=== PATIENT | male | born 1995 | race Caucasian/White ===

== ENCOUNTER 2023-02-26 12:44 | Outpatient (REF) | payer OTHER, MEDICARE, SELFPAY | END 2023-02-26 12:45 | disposition home or self-care (01) | LOC: LAB 12:44 | PROVIDERS: Visit Provider Internal Medicine Hematology & Oncology | DX: L08.9 Local infection of the skin and subcutaneous tissue, unspecified (principal) | CPT/HCPCS: 87070; 87150; 87186 ==

== ENCOUNTER 2024-02-29 21:55 | Emergency (ER) | payer OTHER, MEDICARE, SELFPAY ==
[2024-02-29] VITALS (16 sets, daily range): BP systolic 95–110; BP diastolic 73–81; PULSE 67–114; TEMP 36.4; O2SAT 79–100
--- NOTE | 2024-02-29 22:00 | ECG_ITS ---
The 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
--- NOTE | 2024-02-29 22:00 | PC.NURSE ---
Pt pulse ox began dropping from 99% down to 79% while nurses and Dr. Dumont at bedside Pt was belly breathing rapidly Non rebreather placed and pt stimulated by voice to which he began statting better After 15 minutes on nonrebreather pt was taken down to a nasal cannula which he has tolerated well Pt's left foot is cold to touch and pulse had to be dopplered Right foot is warm and mushy to touch
--- NOTE | 2024-02-29 22:01 | XR_ITS ---
The [address] [address] Patient Name: MILAD HYDE MRN: [id number] date: 1995 Sex: M Assigned Patient Location: ER Current Patient Location: ER Accession/Order Number: [id number] Exam Date: 02/29/2024 22:37 Report Date: 03/01/2024 00:48 At the request of: ROXANA SMITH Procedure: XR chest 1V EXAM: XR chest 1V HISTORY: Altered mental status COMPARISON: None. TECHNIQUE: Single frontal view of the chest FINDINGS: Mild elevation of the left hemidiaphragm. Adequately inflated right lung. No focal consolidation or evidence of pulmonary edema. No pneumothorax or pleural effusion. Curvilinear density overlying the left midlung, possibly overlying structure or chain sutures. No acute osseous abnormality. Posterior spinal fixation hardware, partially visualized. Air-filled bowel within the upper abdomen. XR/XR chest 1V IMPRESSION: 1. No acute cardiopulmonary findings. 2. Partially visualized air distended hollow viscus of the upper abdomen. Electronically authenticated by: LANEY ANDREW Date: 03/01/2024 00:48
--- NOTE | 2024-02-29 22:01 | CT_ITS ---
The [address] [address] Patient Name: MILAD HYDE MRN: [id number] date: 1995 Sex: M Assigned Patient Location: ER Current Patient Location: Accession/Order Number: [id number] Exam Date: 02/29/2024 22:37 Report Date: 02/29/2024 23:41 At the request of: ROXANA SMITH Procedure: CT head/brain wo con EXAMINATION: CT head/brain wo con HISTORY: Altered mental status patient had another CT with contrast in a different institution. COMPARISON: CT abdomen pelvis without contrast]. TECHNIQUE: CT head without intravenous contrast. Dose reduction techniques were achieved by using: automated exposure control and/or adjustment of mA and /or kV according to patient size and/or use of iterative reconstruction technique. FINDINGS: Degradation of image quality from motion artifact. No convincing acute intracranial hemorrhage. The intracranial arteries and veins are dense, including the cavernous sinuses. This is likely secondary to residual contrast. No hydrocephalus, midline shift, pathologic extra-axial fluid collections. Correlation with CT abdomen pelvis without contrast performed on the same time demonstrate that there is excreted contrast in the renal collecting system. CT/CT head/brain wo con IMPRESSION: 1. The intracranial arteries and veins are hyperdense. This is likely related to recent contrast administration at a different institution, per provided history. Venous sinus thrombosis may also demonstrate similar appearance, though is unlikely given that the arteries are also dense. If there remains further concern, CT venogram could be obtained. 2. Within constraints of exam from presence of intravascular contrast, there is no convincing acute intracranial hemorrhage or convincing acute intracranial process. Electronically authenticated by: SUDARSHAN LUJAN Date: 02/29/2024 23:41
--- OUTSIDE RECORDS SUMMARY | 2024-02-29 22:09 | XMS_ITS | CCD ---
Author Organization [facility] Care Team Providers Care Construction Sales Manager Name Role Phone NEAL GASTON Unavailable Unavailable NEAL GASTON Unavailable Unavailable SELF, REFERRED Unavailable Unavailable SELF, REFERRED Unavailable Unavailable ANÍBAL HOBSON Attending Unavailable ANÍBAL HOBSON Admitting Unavailable MISC, DR PERSAUD Primary Care Unavailable MISC, DR PERSAUD Primary Care Unavailable KATERIN, DR DAVIS Attending Unavailable KATERIN, DR DAVIS Admitting Unavailable MISC, DR PERSAUD Primary Care Unavailable BLANK, DR RUSS Consulting Unavailable BLANK, DR RUSS Attending Unavailable BLANK, DR RUSS Admitting Unavailable MISC, DR PERSAUD Primary Care Unavailable BLANK, DR RUSS Consulting Unavailable BLANK, DR RUSS Attending Unavailable BLANK, DR RUSS Admitting Unavailable MISC, DR PERSAUD Primary Care Unavailable BLANK, DR RUSS Consulting Unavailable BLANK, DR RUSS Attending Unavailable BLANK, DR RUSS Admitting Unavailable MISC, DR PERSAUD Primary Care Unavailable SMITH, DR SAM Germain Consulting Unavailable SMITH, DR SAM Germain Attending Unavailable SMITH, DR SAM Germain Admitting Unavailable MISC, DR PERSAUD Primary Care Unavailable PAY, DR PHILLIP Admitting Unavailable LUIS CARLOS ROWLEY Consulting Unavailable PAY, DR PHILLIP Attending Unavailable MD Sam Smith Attending Provider NO FAMILY, PHYSICIAN Primary Care Provider Unava ilable MARY Monzon Emergency Provider NO FAMILY, PHYSICIAN Primary Care Provider Unava ilMD Sam Vasquez Attending Provider [phone] MARY Guerra Emergency Provider DO Stan Fong Emergency Provider STAN WINSTON Attending Unavailable Vinnie OLIVERA, Kay Blake Primary Care Provider Renetta Dawson DO Unavailable Zoey Mireles Primary Care Physician Rupinder Barrera Unavailable Unavailable Almaz Matthew Unavailable Unavailable Kay Birmingham MD Primary Care Provider [phone] Renetta Dawson DO Unavailable NO FAMILY, PHYSICIAN Primary Care Provider Unava ilable MARY Monzon Emergency Provider MD Sam Smith Attending Provider MARY Guerra Emergency Provider DO Stan Fong Emergency Provider KAY [place] Primary Care Unavailable ROCHA, OBIE Referring Unavailable HANEY, ELI Admitting Unavailable PROVIDER, UNKNOWN Attending Unavailable KAY [place] Primary Care Unavailable ROCHA, OBIE Referring Unavailable HANEY, ELI Admitting Unavailable PROVIDER, UNKNOWN Attending Unavailable KAY [place] Primary Care Unavailable ROCHA, OBIE Referring Unavailable HANEY, ELI Admitting Unavailable PROVIDER, UNKNOWN Attending Unavailable PROVIDER, UNKNOWN Admitting Unavailable LAINEY DAWSONIE Referring Unavailable KAY [place] Primary Care Unavailable PROVIDER, UNKNOWN Attending Unavailable KAY [place] Primary Care Unavailable ROCHA, OBIE Referring Unavailable HANEY, ELI Admitting Unavailable PROVIDER, UNKNOWN Attending Unavailable KAY [place] Primary Care Unavailable ROCHA, OBIE Referring Unavailable HANEY, ELI Admitting Unavailable PROVIDER, UNKNOWN Attending Unavailable KAY [place] RPaddy Primary Care Unavailable ROCHA, OBIE Referring Unavailable HANEY, ELI Admitting Unavailable PROVIDER, UNKNOWN Attending Unavailable REQUEST, IP PHYSICAL THERAPY SERVICE Consulting Unavailable NICOLLE BROWN Attending Unavailable KAY [place] RPaddy Primary Care Unavailable ROCHA, OBIE Referring Unavailable HANEY, ELI Admitting Unavailable REQUEST, IP OCCUPATIONAL THERAPY SERVICE Consult ing Unavailable CONSULT, IP PAIN clinical specialist Unav ailable CONSULT, IP ENT Consulting Unavailable CONSULT, IP PODIATRY Consulting Unavailable CONSULT, IP SURGERY NEURO Consulting Unavai lable CONSULT, IP NEUROLOGY Consulting Unavailabl e CONSULT, IP PM Consulting Unavailable CONSULT, IP SURGERY GENERAL Consulting Unav ailable CONSULT, IP ORTHOPAEDICS GENERAL Consulting Unavailable CAL GARCIA. Consulting Unavailable IPCON, ADDICTION CONSULT Consulting Unavail able CONSULT, IP INFECTIOUS DISEASE Consulting U navailable MARTELLS, KAY R. Primary Care Unavailable ROCHA, OBIE Referring Unavailable HANEY, ELI Admitting Unavailable PROVIDER, UNKNOWN Attending Unavailable KUNS, KAY R. Primary Care Unavailable ROCHA, OBIE Referring Unavailable HANEY, ELI Admitting Unavailable PROVIDER, UNKNOWN Attending Unavailable KUNS, KYA R. Primary Care Unavailable ROCHA, OBIE Referring Unavailable HANEY, ELI Admitting Unavailable PROVIDER, UNKNOWN Attending Unavailable KLEMY, NICOLLE NADEEM Referring Unavailable KUNS, KAY R. Primary Care Unavailable PROVIDER, UNKNOWN Attending Unavailable PROVIDER, UNKNOWN Admitting Unavailable PROVIDER, UNKNOWN Admitting Unavailable KLOSZ, NICOLLE NADEEM Referring Unavailable KUNS, KAY R. Primary Care Unavailable PROVIDER, UNKNOWN Attending Unavailable PROVIDER, UNKNOWN Admitting Unavailable KUNS, KAY R. Primary Care Unavailable PROVIDER, UNKNOWN Attending Unavailable PROVIDER, UNKNOWN Admitting Unavailable KUNS, KAY R. Primary Care Unavailable ROCHA, OBIE Referring Unavailable HANEY, ELI Admitting Unavailable PROVIDER, UNKNOWN Attending Unavailable KUNS, KAY R. Primary Care Unavailable ROCHA, OBIE Referring Unavailable HANEY, ELI Admitting Unavailable PROVIDER, UNKNOWN Attending Unavailable KUNS, KAY R. Primary Care Unavailable ROCHA, OBIE Referring Unavailable HANEY, ELI Admitting Unavailable PROVIDER, UNKNOWN Attending Unavailable KUNS, KAY R. Primary Care Unavailable ROCHA, OBIE Referring Unavailable HANEY, ELI Admitting Unavailable PROVIDER, UNKNOWN Attending Unavailable NO FAMILY, PHYSICIAN Primary Care Provider Unava ilMD Sam Vasquez Attending Provider [phone] MD Edy Gallego Attending Provider [facility] Primary Care Provide r MD Edy Gallego Attending Provider [facility] Primary Care Provide r NO FAMILY, PHYSICIAN Primary Care Provider Unava ilMD Sam Vasquez Attending Provider [facility] Primary Care Provide r MD Scar Ann Attending Provider Adwoa Nascimento Unavailable VAL PARIS Primary Care Physician [phone] GLENN LAURA Attending Unavailable [facility] Provide r MD Sam Smith Attending Provider [phone] NO FAMILY, PHYSICIAN Primary Care Unavailable Luis, Sam Admitting Unavailable Smith, Sam Attending Unavailable [facility] Unav ailable LangenbergScar Admitting Unavailabl e Langenberg, Scar Grey Attending Unavailabl e Smith, Sam Admitting Unavailable Smith, Sam Attending Unavailable [facility] Unav ailable Smith, Sam Admitting Unavailable Smith, Sam Attending Unavailable [facility] Unav ailable Edy Gallego Admitting Unavailable BuseblereEdy goncalves Attending Unavailable [facility] Unav ailable Abbie Collier Attending Unavailable Dolce, Viet R Attending Unavailable Dolce, Viet R Admitting Unavailable Dolce, Viet R Attending Unavailable Karly MANCERA Attending Unavailable Priscilla Oseguera Admitting Unavailable Blank, Glenn S Consulting Unavailable BlankMel Glenn S Consulting Unavailable Blank, Glenn S Consulting Unavailable Blank, Glenn S Consulting Unavailable Blank, Glenn S Consulting Unavailable Blank, Glenn S Consulting Unavailable Blank, Glenn S Consulting Unavailable Blank, Glenn S Consulting Unavailable Blank, Glenn S Consulting Unavailable Blank, Glenn S Consulting Unavailable Dolce, Glenn Vargas Consulting Unavailable Dolce, Glenn Vagras Consulting Unavailable Dolce, Glenn Vargas Consulting Unavailable Dolce, Glenn Vargas Consulting Unavailable Dolce, Glenn Vargas Consulting Unavailable Dolce, Glenn Vargas Consulting Unavailable Dolce, Glenn Vargas Consulting Unavailable Dolce, Glenn Vargas Consulting Unavailable Dolce, Glenn Vargas Consulting Unavailable Dolce, Glenn Vargas Consulting Unavailable Dolce, Glenn Vargas Consulting Unavailable Dolce, Viet R Attending Unavailable Dolce, Viet R Attending Unavailable Dolce, Viet R Attending Unavailable Dolchina, Glenn Vargas Attending Unavailable DolGlenn atkinson Referring Unavailable Dolchina, Glenn Vargas Attending Unavailable Dolce, Viet R Attending Unavailable Dolce, Viet R Attending Unavailable Samson Shane Attending Unavailable Samson Shane Admitting Unavailable Allergies Allergy Classification Reported Allergen(s) Allergy Type Date of Onset Reaction(s) Facility Penicillins (antibiotic) (1 source) Penicillin; Translations: [penicillin] Drug Allergy Unknown (qualifier value) [facility] Sulfonamides (antibiotic) (1 source) Sulfonamides (Antibiotic); Translations: [sulfa drugs] Drug Allergy Unknown [facility] (12 sources) Penicillins; Translations: [PENICILLINS] Drug allergy (disorder) 03-09-20 15 [facility] (12 sources) Sulfonamides (Antibiotic); Translations: [SULFA (SULFONAMIDE ANTIBIOTICS)] Allergy to substance 03-09-20 15 [facility] (12 sources) tigecycline; Translations: [TIGECYCLINE] Drug Allergy 09-11-19 19 Vomiting [facility] (11 sources) Vancomycin; Translations: [vancomycin] Drug Allergy 09-18-19 22 Redness of Skin [facility] (17 sources) Penicillins Propensity to adverse reactions to drug 03-09-20 15 Swelling [facility] (18 sources) Sulfonamides (Antibiotic); Translations: [SULFA ANTIBIOTICS] Propensity to adverse reactions to drug 03-09-20 [facility] Penicillin; Translations: [penicillin] Drug Allergy Unknown (qualifier value) [facility] (13 sources) Sulfonamides (Antibiotic); Translations: [sulfa drugs] Drug allergy Unknown [facility] (1 source) Penicillins (Antibiotic) Propensity to adverse reactions Unknown [employer] Other (1 source) Sulfonamides (Antibiotic) Propensity to adverse reactions Unknown backstitch [facility] Other (1 source) Penicillins Drug allergy (disorder) 09-25-19 24 [facility] Rep[facility] Medications Current Medications Medication Drug Class(es) Dates Sig (Normalized) Sig (Original) acetaminophen 325 mg / oxyCODONE hydrochloride 5 mg oral tablet (18 sources) Opioid Agonist Start: 07-10-2023 End: 07-17-2023 Percocet 5 mg-325 mg oral tablet 1 tab(s), Oral, q6hr as needed for pain for 7 day(s), 20 tab(s), Refill(s) 0, [facility]/pharmacy #[id number], 172, cm, 07/06/23 19:06:00 EST, Height/Length Dosing, 61.3, kg, 07/07/23 9:40:00 EST, Weight Dosing Start Date: 07/10/23 Stop Date: 07/17/23 Status: Ordered Start: 02-18-2022 End: 02-19-2022 take 1 tablet by mouth every eight hours Oxycodone-Acetaminophen (Percocet) 5-325 mg tablet Discontinued 1 TAB PO Q8H 10 February 18, 2022 February 19, 2022 9:32am Start: 01-21-2022 End: 10-28-2022 take 1 tablet by mouth three times daily Oxycodone-Acetaminophen (Percocet) 5-325 mg tablet Discontinued 1 TAB PO Three times daily 01 11January 21, 2022 October 28, 2022 11:14am acetic acid 2.5 mg/ml irriga tion solution (20 sources) Start: 08-19-2017 acetic acid 0. 25 % irrigation Insert into the bladder 60 cc of acetic acid solution. Then Clamp the aiken catheter for 30 minutes then unclamp. Perform daily. 1000 mL 12 08/19/2017 Active Start: 08-19-2017 Start: 01-13-2017 End: 02-10-2017 Acetic Acid Discontinued Jan 11:00pm February 10, 2017 1:26pm Start: 01-13-2017 End: 02-10-2017 Acetic Acid Discontinued Jan 12:00am February 10, 2017 2:26pm ALPRAZolam 0.5 mg oral tablet (20 sources) Benzodiazepine Start: 07-07-2023 take 0.5 mg by mouth twice daily alprazolam 0.5 mg, Oral, BID, Refills(s) 0 Start Date: 07/07/23 Status: Ordered Start: 03-04-2022 End: 06-02-2023 take 1 tablet by mouth three times daily Alprazolam (Xanax) 1 mg Tablet Discontinued 1 MG PO Three times daily March 04, 2022 12:00am June 02, 2023 12:51pm Start: 03-20-2020 End: 09-19-2020 take 1 tablet by mouth every six hours Alprazolam (Xanax) 1 mg Tablet Discontinued 1 MG PO Q6H March 20, 2020 1:00am September 19, 2020 1:02pm Start: 05-24-2019 End: 10-04-2019 take 1 mg by mouth four times daily Alprazolam Discontinued 1 MG PO Four times daily May 24, 2019 1:00am October 04, 2019 9:37am Start: 05-26-2018 End: 11-16-2018 take 1 mg by mouth twice daily Alprazolam (Xanax) 2 mg Tablet Discontinued 1 MG PO Twice daily 0 September 30, 2018 11:15am November 16, 2018 10:16am Start: 10-06-2017 End: 04-04-2022 take 0.25 mg by mouth twice daily Alprazolam Discontinued 0.25 MG PO Twice daily February 17, 2021 12:00am July 09, 2021 12:15pm Start: 10-06-2017 End: 04-04-2022 take 1 tablet by mouth three times daily as needed for anxiety ALPRAZolam (XANAX) 0.25 MG tablet Indications: Anxiety Take 1 Tablet by mouth 3 times daily as needed for Anxiety. 30 Tablet 0 10/06/2017 04/04/2022 Discontinued Start: 01-13-2017 End: 02-10-2017 take 0.25 mg by mouth three times daily Alprazolam Discontinued 0.25 MG PO Three times daily January 13, 2017 12:00am February 10, 2017 2:25pm baclofen 20 mg oral tablet (20 sources) gamma-Aminobutyric Acid-ergic Agonist Start: 10-04-2019 take 1 tablet by mouth every six hours as needed for muscle spasms baclofen 20 mg Tab 20 mg = 1 tab(s), Oral, q6hr, PRN Spasm, Refills(s) 0 Start Date: 03/06/22 Status: Ordered Start: 08-19-2017 take 1 tablet by herrera th four times daily baclofen (LIORESAL) 10 MG tablet Take 1 Tablet by mouth 4 times daily. 90 Tablet 3 08/19/2017 Active Start: 01-13-2017 End: 10-04-2019 take 20 mg by mouth four times daily Baclofen Discontinued 20 MG PO Four times daily January 13, 2017 12:00am October 04, 2019 9:37am buprenorphine 8 mg / naloxone 2 mg sublingual film (20 sources) Partial Opioid Agonist, Opioid Antagonist Start: 03-19-2022 End: 04-18-2022 buprenorphine-naloxone (Suboxone) 8-2 MG FILM SL film Indications: Opioid use disorder Place 1 Film under the tongue 2 times daily for 14 days. 28 Each 0 04/03/2022 Active Start: 03-19-2022 End: 04-18-2022 Start: 03-20-2020 End: 10-30-2020 Buprenorphine-Naloxone Disco ntinued 1 FILM SUBLINGUAL Twice daily March 20, 2020 1:00am October 30, 2020 10:48am Suboxone Active ciprofloxacin 750 mg oral tablet (2 sources) Quinolone Antimicrobial Start: 07-10-2023 End: 07-24-2023 take 1 tablet by mouth every twelve hours ciprofloxacin 750 mg Tab 750 mg = 1 tab(s), Oral, q12hr, X 14 day(s), # 28 tab(s), Refills(s) 0, Pharmacy: [facility]/pharmacy #[id number], 172, cm, 07/06/23 19:06:00 EST, Height/Length Dosing, 61.3, kg, 07/07/23 9:40:00 EST, Weight Dosing Start Date: 07/10/23 Stop Date: 07/24/23 Status: Ordered docusate sodium 100 mg oral capsule (20 sources) Start: 08-19-2017 take 1 capsule by mouth twice daily docusate sodium (COLACE) 100 MG capsule Indications: Paraplegia (HCC) , Neurogenic bowel , Neurogenic bladder , Bilateral thoracic back pain , Right shoulder pain , Decubitus ulcer of sacral region, stage 4 (HCC) Take 1 Capsule by mouth 2 times daily. 60 Capsule 11 08/19/2017 Active Start: 01-13-2017 End: 10-04-2019 take 100 mg by mouth once daily Docusate Sodium Discontinued 100 MG PO Daily January 13, 2017 12:00am October 04, 2019 9:37am doxycycline hyclate 100 mg oral capsule (13 sources) Tetracycline-class Drug Start: 07-10-2023 End: 07-24-2023 take 1 capsule by mouth twice daily doxycycline hyclate 100 mg Cap 100 mg = 1 cap(s), Oral, BID, X 14 day(s), # 28 cap(s), Refills(s) 0, Pharmacy: [facility]/pharmacy #[id number], 172, cm, 07/06/23 19:06:00 EST, Height/Length Dosing, 61.3, kg, 07/07/23 9:40:00 EST, Weight Dosing Start Date: 07/10/23 Stop Date: 07/24/23 Status: Ordered Start: 04-03-2022 End: 05-04-2022 take 1 tablet by mouth twice daily doxycycline (VIBRA-TABS) 100 MG tablet Take 1 Tablet by mouth 2 times daily. 60 Tablet 0 04/03/2022 05/04/2022 Active Start: 04-02-2022 End: 04-03-2022 fluconazole 100 mg oral tablet (17 sources) Azole Antifungal Start: 09-30-2017 take 1 tablet by mouth once fluconazole (DIFLUCAN) 100 MG tablet TAKE 1 TABLET BY MOUTH EVERY THURSDAY 3 09/30/2017 Active Start: 09-30-2017 folic acid 1 mg oral tablet (11 sources) Start: 03-18-2022 End: 05-17-2022 take 1 tablet by mouth once daily folic acid 1 MG tablet Take 1 Tablet by mouth daily. 90 Tablet 3 04/03/2022 Active gabapentin 600 mg oral tablet (20 sources) Anti-epileptic Agent Start: 03-12-2022 take 600 mg by mouth three times daily 600 mg, Oral, 3 TIMES DAILY, First dose (after last modification) on Thu03/12/22 at 0900, Until Discontinued Start: 10-25-2019 End: 07-08-2022 take 1 tablet by mouth three times daily gabapentin 600 mg Tab 600 mg = 1 tab(s), Oral, TID, Refills(s) 0 Start Date: 03/06/22 Status: Ordered Start: 09-10-2018 End: 10-04-2019 take 600 mg by mouth three times daily Gabapentin Discontinued 600 MG PO Three times daily September 10, 2018 12:00am October 04, 2019 9:37am Start: 08-19-2017 take 2 capsules by m outh four times daily gabapentin (NEURONTIN) 400 MG capsule Take 2 Capsules by mouth 4 times daily. 120 Capsule 3 08/19/2017 Active Start: 01-13-2017 End: 09-10-2018 take 400 mg by mouth three times daily Gabapentin Discontinued 400 MG PO Three times daily January 13, 2017 12:00am September 10, 2018 1:03pm take 1 capsule by [facility] every six hours Gabapentin 400 MG 1 capsule Orally four times a day Active sodium hypochlorite 2.5 mg/m l topical solution (4 sources) Start: 08-25-2023 Sodium Hypochl orite (Dakin's Solution) 0.25 % solution Active 1 APPLIC TOPICAL Daily August 25, 2023 12:00am Start: 03-31-2023 End: 06-02-2023 Sodium Hypochlorite (Dakin's Solution) 0.125 % Solution Discontinued 1 APPLIC TOPICAL Daily March 31, 2023 1:00am June 02, 2023 12:51pm hypochlorous acid (VASHE) SOLN external solution (9 sources) Start: 04-03-2022 hypochlorous acid (VASHE) SOLN external solution Apply topically daily. 228 mL 3 04/03/2022 Active linezolid 600 mg oral tablet (1 source) Oxazolidinone Antibacterial Start: 08-31-2023 take 600 mg by mouth every twelve hours Linezolid Active 600 MG PO Every 12 hours August 31, 2023 12:00am melatonin 3 mg oral tablet (11 sources) Start: 04-02-2022 Start: 03-12-2022 melatonin 3 MG TABS tablet Take 1 and 1/2 Tablets by mouth at bedtime. 135 Tablet 3 04/02/2022 Active naloxone hydrochloride 40 mg/ml nasal spray (20 sources) Opioid Antagonist Start: 07-10-2023 Narcan 4 mg/ 0.1 mL nasal spray 4 mg, Nasal, As Directed, for suspected overdose symptoms, # 1 kit(s), Refills(s) 0, Pharmacy: [facility]/pharmacy #[id number], 172, cm, 07/06/23 19:06:00 EST, Height/Length Dosing, 61.3, kg, 07/07/23 9:40:00 EST, Weight Dosing Start Date: 07/10/23 Status: Ordered Start: 08-19-2017 naloxone 4 MG/ 0.1ML LIQD nasal liquid Indications: Opioid Overdose Instill 0.1 mL into one nostril (alternate sides) as needed for Other (Drug overdose, give and call 911). 1 Each 1 08/19/2017 Active polyethylene glycol 3350 05265 mg powder for oral solution (20 sources) Osmotic Laxative Start: 04-03-2021 Polyethylene Glycol 3350 (Miralax) 17 gram Powder In Packet Active 17 GM PO Daily April 03, 2021 1:00am Start: 03-20-2020 End: 09-19-2020 Polyethylene Glycol 3350 (Mi ralax) 17 gram/dose Powder Discontinued 17 GM PO Daily March 20, 2020 1:00am September 19, 2020 1:02pm Start: 05-24-2019 End: 10-04-2019 take 17 g by mouth once daily Polyethylene Glycol 3350 Discontinued 17 GM PO Daily May 24, 2019 1:00am October 04, 2019 9:37am QUEtiapine 25 mg oral tablet (5 sources) Atypical Antipsychotic Start: 10-28-2022 take 1 tablet by mouth once daily at bedtime Quetiapine (Seroquel) 25 mg Tablet Active 25 MG PO Daily at bedtime October 28, 2022 12:00am SEROquel Active Sennosides (Senokot) 8.6 mg Tablet (10 sources) Start: 04-03-2021 take 1 tablet by mouth twice daily Sennosides (Senokot) 8.6 mg Tablet Active 8.6 MG PO Twice daily April 03, 2021 12:00am Start: 04-03-2021 take 1 tablet by herrera th twice daily Sennosides (Senokot) 8.6 mg Tablet Active 8.6 MG PO Twice daily April 03, 2021 1:00am silver dressing (AQUACEL AG EXTRA) 4 X5 PADS (16 sources) Start: 08-19-2017 silver dressin g (AQUACEL AG EXTRA) 4 X5 PADS Apply 1 Each topically daily. 30 Each 3 08/19/2017 Active Start: 08-19-2017 silver dressin g (AQUACEL AG EXTRA) 4 X5 PADS Apply 1 Each topically daily. 30 Each 3 08/19/2017 Suspended sodium chloride 0.9 % SOLN 100 mL with meropenem 1 g SOLR 1,000 mg (7 sources) Start: 03-11-2022 End: 04-08-2022 sodium chloride 0.9 % SOLN 100 mL with meropenem 1 g SOLR 1,000 mg Inject 1,000 mg intravenously. 0 03/11/2022 04/08/2022 Active vitamin b12 0.5 mg oral tablet (11 sources) Vitamin B12 Start: 03-18-2022 End: 05-17-2022 take 2 tablets by mouth once daily vitamin B-12 (CYANOCOBALAMIN) 500 MCG tablet Take 2 Tablets by mouth daily. 180 Tablet 3 04/03/2022 Active (1 source) Start: 08-19-2017 (2 sources) Start: 04-03-2022 Start: 03-13-2022 apply 1 dose topical ly once daily Topical, DAILY, First dose on Thu03/13/22 at 0900, Until Discontinued Completed/Discontinued Medications Medication Drug Class(es) Dates Sig (Normalized) Sig (Original) acetaminophen 325 mg oral tablet (11 sources) Start: 03-12-2022 650 mg, Oral, EVERY 6 HOURS PRN, Starting on Thu03/12/22 at 0040, Until Discontinued, Mild Pain (pain score 1,2,3), Moderate Pain (pain score 4,5,6) Start: 02-10-2017 End: 10-04-2019 take 1 tablet by mouth every six hours Acetaminophen (Acetaminophen Extra Strength) 500 mg Tablet Discontinued 500 MG PO Every 6 hours February 10, 2017 12:00am October 04, 2019 9:37am [id number] 200 actuat albuterol 0.09 mg/actuat metered dose inhaler (10 sources) beta2-Adrenergic Agonist Start: 01-13-2017 End: 09-29-2018 take 1 puff(s) by inhalation every four to six hours Albuterol Sulfate (Proair Hfa) 90 mcg/actuation Hfa Aerosol Inhaler Discontinued 4 PUFF INHALATION EVERY 4-6 HOURS January 13, 2017 12:00am September 29, 2018 2:42pm Albuterol / Ipratropium (10 sources) Anticholinergic, beta2-Adrenergic Agonist Start: 01-13-2017 End: 04-13-2017 Albuterol-Ipratrop ium Discontinued Four times daily January 12, 2017 11:00pm April 13, 2017 7:23pm Start: 01-13-2017 End: 04-13-2017 Albuterol-Ipratropium Discon tinued Four times daily January 13, 2017 12:00am April 13, 2017 8:23pm ascorbic acid 500 mg chewable tablet (20 sources) Vitamin C Start: 03-12-2022 take 500 mg by mouth twice daily 500 mg, Oral, 2 TIMES DAILY, First dose on Thu03/12/22 at 1630, Until Discontinued Start: 08-19-2017 take 1 tablet by herrera th once daily vitamin C (ASCORBIC ACID) 500 MG tablet Take 1 Tablet by mouth daily. 30 Tablet 3 08/19/2017 Active Start: 04-13-2017 End: 01-20-2018 take 500 mg by mouth once daily Ascorbic Acid (Vitamin C) Discontinued 500 MG PO Daily April 13, 2017 1:00am January 20, 2018 6:23pm Start: 01-13-2017 End: 02-10-2017 take 500 mg by mouth once daily Ascorbic Acid (Vitamin C) Discontinued 500 MG PO Daily January 13, 2017 12:00am February 10, 2017 2:25pm avibactam 500 mg / cefTAZidime 2000 mg injection (10 sources) Cephalosporin Antibacterial, beta Lactamase Inhibitor Start: 03-08-2021 End: 04-09-2021 take 2.5 g intravenously every eight hours Ceftazidime-Avibactam (Avycaz) 2.5 gram Recon Soln Discontinued 2.5 GM IV Q8H 90 March 08, 2021 12:00am April 09, 2021 11:25am Balsam [place] [employer] (10 sources) Start: 09-21-2020 End: 10-30-2020 Balsam [place] [employer] Discontinued 1 APPLIC TOPICAL Three times daily 60 September 20, 2020 11:00pm October 30, 2020 9:48am Start: 09-21-2020 End: 10-30-2020 Balsam [place] [employer] Disco ntinued 1 APPLIC TOPICAL Three times daily 60 September 21, 2020 12:00am October 30, 2020 10:48am bisacodyl 5 mg delayed release oral tablet (20 sources) Stimulant Laxative Start: 02-26-2019 End: 10-04-2019 take 10 mg by mouth once daily Bisacodyl Discontinued 10 MG PO Daily February 26, 2019 12:00am October 04, 2019 9:37am Start: 01-13-2017 End: 05-26-2018 Bisacodyl Discontinued 10 MG WA Daily January 12, 2017 11:00pm May 26, 2018 2:54pm Start: 01-13-2017 End: 05-26-2018 Bisacodyl Discontinued 10 MG WA Daily January 13, 2017 12:00am May 26, 2018 3:54pm Bisacodyl 10 MG 1 suppository as needed Rectal Once a day Active buprenorphine 2 mg sublingual tablet (5 sources) Partial Opioid Agonist Start: 03-28-2022 take 4 mg under the tongue three times daily 4 mg, Sublingual, 3 TIMES DAILY, First dose (after last modification) on Thu03/28/22 at 0600, Until Discontinued Start: 03-27-2022 End: 03-27-2022 2 mg, Sublingual, 2 TIMES DA BOB, 2 doses, First dose on Thu03/27/22 at 1030, Last dose on Thu03/27/22 at 2100 Start: 03-20-2022 End: 03-20-2022 4 mg, Sublingual, 3 TIMES DA BOB, 3 doses, First dose on Thu03/20/22 at 0600, Last dose on Thu03/20/22 at 2200 Start: 03-19-2022 End: 03-19-2022 2 mg, Sublingual, 3 TIMES DA BOB, 3 doses, First dose on Thu03/19/22 at 0600, Last dose on Thu03/19/22 at 2200 Start: 03-18-2022 End: 03-18-2022 take 1 dose under the tongue once daily 2 mg, Sublingual, DAILY, 1 dose, First dose on Thu03/18/22 at 1500 busPIRone hydrochloride 10 mg oral tablet (20 sources) Start: 09-21-2020 End: 10-30-2020 take 10 mg by mouth three times daily Buspirone Discontinued 10 MG PO Three times daily 90 30 September 21, 2020 12:00am October 30, 2020 10:48am Start: 01-13-2017 End: 01-20-2018 take 10 mg by mouth twice daily Buspirone Discontinued 10 MG PO Twice daily January 13, 2017 12:00am January 20, 2018 6:24pm calcium chloride 0.0014 meq/ ml / potassium chloride 0.004 meq/ml / sodium chloride 0.103 meq/ml / sodium lactate 0.028 meq/ml injectable solution (2 sources) Start: 03-21-2022 End: 03-23-2022 Intravenous, at 125 mL/hr, CONTINUOUS, Starting on Thu03/21/22 at 2230, Until 03/23/22 at 1928 Start: 03-12-2022 End: 03-12-2022 take 1 dose intravenously every hour 1,000 mL, at 80 mL/hr, Intravenous, FLUID BOLUS, 1 dose, On Thu03/12/22 at 0300 calcium citrate 1500 mg / cholecalciferol 250 unt oral tablet (10 sources) Vitamin D Start: 03-25-2020 End: 09-19-2020 take 1 tablet by mouth twice daily Calcium Citrate-Vitamin D3 (Citracal + D Maximum) 315 mg-6.25 mcg (250 unit) tablet Discontinued 1 TAB PO Twice daily March 25, 2020 1:00am September 19, 2020 1:02pm cefTAZidime 1000 mg injection (3 sources) Cephalosporin Antibacterial Start: 03-17-2023 End: 04-07-2023 take 1 g intravenously every twelve hours Ceftazidime Discontinued 1 GM IV Q12H March 17, 2023 1:00am April 07, 2023 12:20pm cephalexin 500 mg oral capsule (10 sources) Cephalosporin Antibacterial Start: 01-20-2018 End: 04-20-2018 take 1 g by mouth every twelve hours Cephalexin (Keflex) 500 mg capsule Discontinued 1 GM PO Q12H January 20, 2018 12:00am April 20, 2018 11:20am space evenly during waking hours clindamycin 150 mg oral capsule (20 sources) Lincosamide Antibacterial Start: 04-09-2021 End: 07-09-2021 take 450 mg by mouth three times daily Clindamycin Hcl Discontinued 450 MG PO Three times daily April 09, 2021 1:00am July 09, 2021 12:15pm Start: 02-22-2021 End: 03-08-2021 take 3 capsules by mouth three times daily Clindamycin Hcl (Cleocin Hcl) 150 mg capsule Discontinued 450 MG PO Three times daily February 22, 2021 12:00am March 08, 2021 12:56pm DAPTOmycin 500 mg injection (10 sources) Lipopeptide Antibacterial Start: 04-05-2021 End: 04-09-2021 take 470 mg intravenously every twenty-four hours Daptomycin Discontinued 470 MG IV Q24H April 05, 2021 1:00am April 09, 2021 11:25am 1 ml dexamethasone phosphate 4 mg/ml injection (1 source) Corticosteroid Start: 03-14-2022 End: 03-16-2022 take 8 mg intravenously twice daily 8 mg, Intravenous Push, 2 TIMES DAILY, First dose on Thu03/14/22 at 1900, Until Discontinued 2 ml diazePAM 5 mg/ml prefilled syringe (2 sources) Benzodiazepine Start: 03-14-2022 End: 03-17-2022 take 1 dose intravenously once for anxiety 2 mg, Intravenous Push, ONCE PRN, 1 dose, Starting on Thu03/15/22 at 0913, Until Discontinued, Anxiety, Prior to MRI for severe anxiety diclofenac sodium 0.01 mg/mg topical gel (1 source) Nonsteroidal Anti-inflammatory Drug Start: 03-18-2022 2 g, Topical, 4 TIMES DAILY, First dose on Thu03/18/22 at 1300, Until Discontinued 1 ml diphenhydrAMINE hydrochloride 50 mg/ml cartridge (1 source) Histamine-1 Receptor Antagonist Start: 03-12-2022 take 25 mg intravenously every six hours as needed 25 mg, Intravenous Push, EVERY 6 HOURS PRN, Starting on Thu03/12/22 at 0311, Until Discontinued, antibiotic reaction Drug or medicament (substance) (11 sources) Start: 04-02-2022 take 1 dose by mouth once daily at dinner Oral, DAILY WITH DINNER, First dose on Thu04/02/22 at 1800, Until Discontinued Normal Consistency Supplement: Magic Cup-Vanilla Start: 04-02-2022 take 1 dose by mouth twice daily at mealtime Oral, 2 TIMES DAILY WITH MEALS, First dose (after last modification) on Thu04/02/22 at 1700, Until Discontinued Normal Consistency Supplement: Boost Plus- Chocolate Start: 04-02-2022 take 1 dose by mouth once daily at lunch Oral, DAILY WITH LUNCH, First dose on Thu04/02/22 at 1200, Until Discontinued Normal Consistency Supplement: Boost Plus- Vanilla Start: 04-02-2022 End: 04-02-2022 Other, ONCE, 1 dose, On Thu04/02/22 at 0100 Start: 03-26-2022 End: 03-26-2022 Other, ONCE, 1 dose, On Thu03/26/22 at 0200 Start: 03-19-2022 End: 03-19-2022 Other, ONCE, 1 dose, On Thu03/19/22 at 1000 Start: 03-15-2022 End: 03-15-2022 Other, ONCE, 1 dose, On 03/15/22 at 1130 Start: 03-13-2022 End: 03-13-2022 Other, ONCE, 1 dose, On Allie 03/13/22 at 0400 Start: 03-12-2022 End: 04-02-2022 take 1 dose by mouth three times daily at mealtime Oral, 3 TIMES DAILY WITH MEALS, First dose on Thu03/12/22 at 1700, Until Discontinued Normal Consistency Supplement: Boost Plus- Chocolate Start: 03-12-2022 1 Each, Topica l, EVERY OTHER DAY, First dose on Thu03/12/22 at 1330, Until Discontinued Start: 03-11-2022 End: 04-08-2022 DULoxetine 20 mg delayed release oral capsule (20 sources) Serotonin and Norepinephrine Reuptake Inhibitor Start: 05-24-2019 End: 10-04-2019 take 1 capsule by mouth once daily Duloxetine (Cymbalta) 20 mg Capsule,Delayed Release(Dr/Ec) Discontinued 20 MG PO Daily May 24, 2019 1:00am October 04, 2019 9:37am Start: 04-05-2019 End: 05-24-2019 take 30 mg by mouth once daily Duloxetine Discontinued 30 MG PO Daily April 05, 2019 1:00am May 24, 2019 11:47am Start: 04-13-2017 End: 01-20-2018 take 2 capsules by mouth at bedtime Duloxetine (Cymbalta) 30 mg Capsule,Delayed Release(Dr/Ec) Discontinued 60 MG PO Bedtime April 13, 2017 1:00am January 20, 2018 6:24pm ergocalciferol 1.25 mg oral capsule (10 sources) Provitamin D2 Compound Start: 03-25-2020 End: 09-19-2020 take 94505 [IU] by mouth every week Ergocalciferol (Vitamin D2) Discontinued 22613 UNIT PO every week 60 March 25, 2020 1:00am September 19, 2020 1:02pm ertapenem 1000 mg injection (10 sources) Penem Antibacterial Start: 06-10-2017 End: 01-20-2018 take 1 g intravenously once daily Ertapenem (Invanz) 1 gram Recon Soln Discontinued 1 GM IV Daily June 10, 2017 1:00am January 20, 2018 6:24pm x6 weeks. Orders sent to care facility. escitalopram 20 mg oral tablet (20 sources) Serotonin Reuptake Inhibitor Start: 05-24-2019 End: 10-04-2019 take 20 mg by mouth once daily Escitalopram Oxalate Discontinued 20 MG PO Daily May 24, 2019 1:00am October 04, 2019 9:37am Start: 08-19-2017 take 1 tablet by herrera th once daily escitalopram (LEXAPRO) 10 MG tablet Take 1 Tablet by mouth daily. 30 Tablet 3 08/19/2017 Active Start: 01-13-2017 End: 04-05-2019 take 2 tablets by mouth once daily Escitalopram Oxalate (Lexapro) 10 mg Tablet Discontinued 20 MG PO Daily January 13, 2017 12:00am April 05, 2019 12:07pm 2 ml fentaNYL 0.05 mg/ml injection (11 sources) Opioid Agonist Start: 03-21-2022 End: 03-22-2022 25 mcg, Intravenous Push, EVERY 5 MIN PRN, 5 doses, Starting on 03/21/22 at 2215, Until 03/22/22 at 0144, Severe Pain (pain score 7,8,9,10) Start: 01-13-2017 End: 02-10-2017 Fentanyl Patch Discontinued January 12, 2017 11:00pm February 10, 2017 1:25pm Start: 01-13-2017 End: 02-10-2017 Fentanyl Patch Discontinued January 13, 2017 12:00am February 10, 2017 2:25pm ferrous sulfate 325 mg oral tablet (10 sources) Start: 04-13-2017 End: 01-20-2018 take 325 mg by mouth once daily Ferrous Sulfate Discontinued 325 MG PO Daily April 13, 2017 1:00am January 20, 2018 6:24pm Gadoterate Meglumine (DOTAREM) 10 MMOL/20ML solution (1 source) Start: 03-26-2022 End: 03-26-2022 Gadoterate Meglumine (DOTAREM) 10 MMOL/20ML solution 1 ml heparin sodium, porcine 5000 unt/ml prefilled syringe (12 sources) Unfractionated Heparin, Anti-coagulant Start: 03-22-2022 inject 5000 [IU] by subcutaneous injection every eight hours 5,000 Units, Subcutaneous, EVERY 8 HOURS, First dose on Thu03/22/22 at 1400, Until Discontinued Start: 03-12-2022 End: 03-21-2022 inject 5000 [IU] by subcutaneous injection twice daily 5,000 Units, Subcutaneous, 2 TIMES DAILY, First dose on Thu03/12/22 at 0100, Until Discontinued Start: 01-13-2017 End: 02-10-2017 inject 5000 [IU] by subcutaneous injection every eight hours Heparin (Porcine) Discontinued 5000 UNIT SUBCUT Q8H January 13, 2017 12:00am February 10, 2017 2:24pm hydroCHLOROthiazide 12.5 mg oral tablet (20 sources) Thiazide Diuretic Start: 03-20-2020 End: 03-25-2020 take 12.5 mg by mouth once daily Hydrochlorothiazide Discontinued 12.5 MG PO Daily March 20, 2020 1:00am March 25, 2020 12:20pm Start: 05-24-2019 End: 10-04-2019 take 12.5 mg by mouth once daily Hydrochlorothiazide Discontinued 12.5 MG PO Daily May 24, 2019 1:00am October 04, 2019 9:37am Start: 02-26-2019 End: 04-02-2019 take 12.5 mg by mouth once daily Hydrochlorothiazide Discontinued 12.5 MG PO Daily February 26, 2019 12:00am April 02, 2019 7:21pm hydrOXYzine pamoate 50 mg oral capsule (10 sources) Antihistamine Start: 05-24-2019 End: 10-04-2019 take 50 mg by mouth every six hours Hydroxyzine Pamoate Discontinued 50 MG PO Q6H May 24, 2019 1:00am October 04, 2019 9:37am ibuprofen 400 mg oral tablet (20 sources) Nonsteroidal Anti-inflammatory Drug Start: 08-19-2017 End: 04-04-2022 take 1 tablet by mouth every six hours as needed ibuprofen (MOTRIN) 400 MG tablet Take 1 Tablet by mouth every 6 hours as needed. 30 Tablet 3 08/19/2017 04/04/2022 Discontinued Start: 04-13-2017 End: 10-04-2019 take 800 mg by mouth every eight hours Ibuprofen Discontinued 800 MG PO Q8H April 13, 2017 1:00am October 04, 2019 9:37am iohexol (OMNIPAQUE) 350 MG/ML injection (1 source) Start: 03-16-2022 End: 03-16-2022 iohexol (OMNIPAQUE) 350 MG/ML injection lactulose 667 mg/ml oral solution (10 sources) Osmotic Laxative Start: 04-13-2017 End: 01-20-2018 take 1 mL by mouth twice daily Lactulose Discontinued 30 ML PO Twice daily April 13, 2017 1:00am January 20, 2018 6:24pm levoFLOXacin 750 mg oral tablet (20 sources) Quinolone Antimicrobial Start: 09-21-2020 End: 10-30-2020 take 750 mg by mouth once daily Levofloxacin Discontinued 750 MG PO Daily 05 11September 21, 2020 12:00am October 30, 2020 10:46am linaclotide 0.29 mg oral capsule (20 sources) Guanylate Cyclase-C Agonist Start: 04-13-2017 End: 05-26-2018 take 1 capsule by mouth once daily Linaclotide (Linzess) 290 mcg Capsule Discontinued 290 MCG PO Daily April 13, 2017 1:00am May 26, 2018 3:54pm LORazepam 0.5 mg oral tablet (3 sources) Benzodiazepine Start: 03-27-2022 End: 03-27-2022 take 1 dose by mouth once 1 mg, Oral, ONCE, 1 dose, On Allie 03/27/22 at 2130 Start: 03-26-2022 End: 03-26-2022 take 1 dose by mouth once 1 mg, Oral, ONCE, 1 dose, On Thu03/26/22 at 0300 Start: 03-13-2022 End: 03-13-2022 take 1 dose by mouth once 1 mg, Oral, Once, 1 dose, On Allie 03/13/22 at 1200 magnesium hydroxide 80 mg/ml oral suspension (10 sources) Start: 04-13-2017 End: 02-09-2018 take 1 mL by mouth every six hours Magnesium Hydroxide (Milk Of Magnesia) 400 mg/5 mL Suspension Discontinued 30 ML PO Q6H April 13, 2017 1:00am February 09, 2018 10:33am 50 ml magnesium sulfate 40 mg/ml injection (3 sources) Start: 03-23-2022 End: 03-23-2022 2 g (2,000 mg), Intravenous, ONCE, 1 dose, On 03/23/22 at 0630 Start: 03-20-2022 End: 03-20-2022 1,000 mg, Intravenous, ONCE, 1 dose, On Allie 03/20/22 at 0700 Start: 03-18-2022 End: 03-18-2022 2 g (2,000 mg), Intravenous, ONCE, 1 dose, On 03/18/22 at 0700 mecobalamin (10 sources) Start: 03-25-2020 End: 09-19-2020 take 1 tablet by mouth once daily Mecobalamin (Vitamin B12) (B12 Active) 1,000 mcg tablet,chewable Discontinued 1000 MCG PO Daily March 25, 2020 12:00am September 19, 2020 12:02pm Start: 03-25-2020 End: 09-19-2020 take 1 tablet by mouth once daily Mecobalamin (Vitamin B12) (B12 Active) 1,000 mcg tablet,chewable Discontinued 1000 MCG PO Daily March 25, 2020 1:00am September 19, 2020 1:02pm meropenem 1000 mg injection (11 sources) Penem Antibacterial Start: 03-12-2022 End: 04-02-2022 1,000 mg, Intravenous, EVERY 8 HOURS ANTIBIOTIC, First dose on Thu03/12/22 at 1900, Until Discontinued Start: 04-13-2017 End: 06-04-2017 take 1250 mg intravenously every twenty-four hours Meropenem Discontinued 1250 MG IV Q24H April 13, 2017 1:00am June 04, 2017 11:37am methadone hydrochloride 10 mg oral tablet (20 sources) Opioid Agonist Start: 10-01-2017 End: 04-04-2022 take 20 mg by mouth twice daily Methadone Discontinued 20 MG PO Twice daily 0 September 30, 2018 11:15am November 16, 2018 10:16am Start: 10-01-2017 End: 04-04-2022 take 2 tablets by mouth twice daily methadone (DOLOPHINE) 10 MG tablet Take 20 mg by mouth 2 times daily. 0 10/01/2017 04/04/2022 Discontinued Start: 01-13-2017 End: 09-10-2018 take 10 mg by mouth twice daily Methadone Discontinued 10 MG PO Twice daily January 13, 2017 12:00September 10, 2018 1:04pm 100 ml metroNIDAZOLE 5 mg/ml injection (1 source) Nitroimidazole Antimicrobial Start: 03-12-2022 End: 03-12-2022 500 mg, Intravenous, EVERY 8 HOURS ANTIBIOTIC, First dose on Thu03/12/22 at 0330, Until Discontinued, at 100 mL/hr micafungin sodium 100 mg injection (10 sources) Echinocandin Antifungal Start: 04-05-2021 End: 04-09-2021 take 100 mg intravenously every twenty-four hours Micafungin (Mycamine) 100 mg Recon Soln Discontinued 100 MG IV Q24H April 05, 2021 1:00am April 09, 2021 11:25am minocycline 100 mg oral capsule (20 sources) Tetracycline-class Drug Start: 08-31-2017 End: 04-04-2022 take 100 mg by mouth once daily Minocycline Discontinued 100 MG PO Daily April 20, 2018 1:00am February 15, 2019 10:39am Start: 08-31-2017 End: 04-04-2022 take 100 mg by mouth twice daily Minocycline Discontinued 100 MG PO Twice daily February 26, 2019 12:00am May 24, 2019 11:47am 1 ml morphine sulfate 2 mg/ml prefilled syringe (1 source) Opioid Agonist Start: 07-08-2023 End: 07-10-2023 inject 4 mg intravenously every four hours as needed for pain morphine 2 mg/mL Inj 4 mg = 2 mL, Injection, IV Push, q4hr PRN Pain for 5 day(s), Stop date 07/10/23 8:01:31 PM EST, Routine, Start date 07/08/23 11:20:00 AM EST, 07/08/23 11:20:00 EST Start Date: 07/08/23 Stop Date: 07/10/23 Status: Discontinued Multivitamin With Minerals (10 sources) Start: 03-25-2020 End: 09-19-2020 take 1 capsule by mouth once daily Multivitamin With Minerals Discontinued 1 CAP PO Daily March 25, 2020 12:00am September 19, 2020 12:02pm Start: 03-25-2020 End: 09-19-2020 take 1 capsule by mouth once daily Multivitamin With Minerals Discontinued 1 CAP PO Daily March 25, 2020 1:00am September 19, 2020 1:02pm naloxegol 12.5 mg oral tablet (10 sources) Opioid Antagonist Start: 05-26-2018 End: 11-16-2018 take 1 tablet by mouth once daily in the morning Naloxegol (Movantik) 12.5 mg Tablet Discontinued 12.5 MG PO Every morning May 26, 2018 1:00am November 16, 2018 10:17am nicotine 2 mg chewing gum (20 sources) Cholinergic Nicotinic Agonist Start: 09-21-2020 End: 10-30-2020 Nicotine (Polacrilex) Discontinued 2 MG BUCCAL Q2H 60 September 21, 2020 12:00am October 30, 2020 10:46am Start: 04-05-2019 End: 05-24-2019 Nicotine Discontinued 1 EACH TRANSDERML Daily April 05, 2019 1:00am May 24, 2019 11:47am nitrofurantoin, macrocrystals 25 mg / nitrofurantoin, monohydrate 75 mg oral capsule (16 sources) Nitrofuran Antibacterial Start: 03-04-2022 End: 08-05-2022 take 1 capsule by mouth twice daily at mealtime Nitrofurantoin Monohyd/M-Cryst (Macrobid) 100 mg capsule Discontinued 100 MG PO Twice daily 14 March 04, 2022 12:00am August 05, 2022 10:51am must administer with a meal/food Start: 11-16-2018 End: 02-15-2019 take 1 capsule by mouth twice daily Nitrofurantoin Monohyd/M-Cryst (Macrobid) 100 mg Capsule Discontinued 100 MG PO Twice daily November 16, 2018 12:00am February 15, 2019 10:39am Started first dose 11/15/18. nystatin 696809 unt/ml oral suspension (10 sources) Polyene Antifungal Start: 02-17-2021 End: 03-03-2021 take 145319 [IU] by mouth four times daily Nystatin Discontinued 990537 UNIT PO Four times daily February 17, 2021 12:00am March 03, 2021 2:52pm 2 ml ondansetron 2 mg/ml injection (11 sources) Serotonin-3 Receptor Antagonist Start: 03-27-2022 take 4 mg intravenously every four hours as needed 4 mg, Intravenous Push, EVERY 4 HOURS PRN, Starting on Allie 03/27/22 at 1043, Until Discontinued, Nausea Start: 06-29-2018 End: 11-16-2018 Ondansetron Discontinued 4 M G PO every 6 to 8 hours June 29, 2018 1:00am November 16, 2018 10:17am 24 hr oxybutynin chloride 10 mg extended release oral tablet (10 sources) Cholinergic Muscarinic Antagonist Start: 11-16-2018 End: 05-24-2019 take 15 mg by mouth once daily Oxybutynin Chloride Discontinued 15 MG PO Daily November 16, 2018 12:00am May 24, 2019 11:47am oxyCODONE hydrochloride 5 mg oral tablet (20 sources) Opioid Agonist Start: 03-12-2022 5 mg, Oral, EV LOYDA 4 HOURS PRN, Starting on Thu03/12/22 at 0252, Until Discontinued, Severe Pain (pain score 7,8,9,10) Start: 02-22-2021 End: 03-26-2021 take 5 mg by mouth every six hours Oxycodone Discontinued 5 MG PO Q6H 27 09March 08, 2021 March 26, 2021 10:56am Start: 05-24-2019 End: 10-04-2019 take 1 tablet by mouth every four to six hours Oxycodone (Roxicodone) 15 mg Tablet Discontinued 15 MG PO EVERY 4-6 HOURS May 24, 2019 1:00am October 04, 2019 9:37am Start: 10-01-2017 End: 11-16-2018 take 15 mg by mouth every six hours Oxycodone Discontinued 15 MG PO Every 6 hours 0 September 30, 2018 11:15am November 16, 2018 10:17am Start: 10-01-2017 End: 10-04-2019 take 1 tablet by mouth every four to six hours Oxycodone (Roxicodone) 15 mg Tablet Discontinued 15 MG PO EVERY 4-6 HOURS May 24, 2019 12:00am October 04, 2019 8:37am Start: 01-13-2017 End: 09-10-2018 take 15 mg by mouth every six hours as needed Oxycodone Discontinued 15 MG PO Q6H January 13, 2017 12:00am September 10, 2018 1:02pm 10-15mg Q6H prn pantoprazole 40 mg oral granules (10 sources) Proton Pump Inhibitor Start: 05-24-2019 End: 10-04-2019 take 40 mg by mouth once daily Pantoprazole (Protonix) [address] For Susp In Packet Discontinued 40 MG PO Daily May 24, 2019 1:00am October 04, 2019 9:37am polysaccharide iron complex 150 mg oral capsule (10 sources) Start: 03-25-2020 End: 09-19-2020 Polysaccharide Iron Complex Discontinued 150 MG PO Every 48 hours March 25, 2020 1:00am September 19, 2020 1:02pm potassium chloride 20 meq extended release oral tablet (17 sources) Start: 03-04-2022 End: 06-02-2023 take 20 mEq by mouth once daily Potassium Chloride Discontinued 20 MEQ PO Daily March 04, 2022 12:00am June 02, 2023 12:51pm Start: 07-01-2018 End: 07-06-2018 take 10 mEq by mouth once daily Potassium Chloride Discontinued 10 MEQ PO Daily 5 July 01, 2018 1:00am July 06, 2018 1:02am pregabalin 75 mg oral capsule (20 sources) Start: 08-17-2018 End: 09-16-2018 take 1 capsule by mouth twice daily Pregabalin (Lyrica) 75 mg capsule Discontinued 75 MG PO Twice daily 60 August 17, 2018 12:00am September 16, 2018 12:01am Start: 01-13-2017 End: 02-10-2017 take 75 mg by mouth twice daily Pregabalin Discontinued 75 MG PO Twice daily January 13, 2017 12:00am February 10, 2017 2:23pm promethazine hydrochloride 12.5 mg oral tablet (20 sources) Phenothiazine Start: 11-03-2019 End: 03-20-2020 take 12.5 mg by mouth every six hours Promethazine Discontinued 12.5 MG PO Q6H November 03, 2019 12:00am March 20, 2020 1:39pm Start: 01-13-2017 End: 05-24-2019 take 12.5 mg by mouth every six hours Promethazine Discontinued 12.5 MG PO Q6H January 13, 2017 12:00am May 24, 2019 11:47am Phenergan Active Sennosides (Senna) 8.6 mg Capsule (10 sources) Start: 03-20-2020 End: 09-19-2020 take 2 capsules by mouth once daily Sennosides (Senna) 8.6 mg Capsule Discontinued 17.2 MG PO Daily March 20, 2020 12:00am September 19, 2020 12:02pm Start: 03-20-2020 End: 09-19-2020 take 2 capsules by mouth once daily Sennosides (Senna) 8.6 mg Capsule Discontinued 17.2 MG PO Daily March 20, 2020 1:00am September 19, 2020 1:02pm sennosides, long term 8.6 mg oral tablet (20 sources) Start: 03-12-2022 take 8.6 mg by mouth at bedtime 8.6 mg, Oral, AT BEDTIME, First dose on Thu03/12/22 at 0100, Until Discontinued Start: 08-19-2017 End: 10-04-2019 take 1 tablet by mouth twice daily Sennosides (Senokot) 8.6 mg Tablet Discontinued 8.6 MG PO Twice daily April 02, 2019 1:00am October 04, 2019 9:37am Start: 01-13-2017 End: 05-26-2018 take 1 tablet by mouth once daily Sennosides (Senna) 8.6 mg Tablet Discontinued 8.6 MG PO Daily January 13, 2017 12:00am May 26, 2018 3:56pm sulfamethoxazole 800 mg / trimethoprim 160 mg oral tablet (5 sources) Dihydrofolate Reductase Inhibitor Antibacterial, Sulfonamide Antimicrobial Start: 03-09-2022 End: 04-29-2022 take 1 tablet by mouth twice daily Sulfamethoxazole-Trimethoprim (Bactrim Ds) 800-160 mg Tablet Discontinued 1 TAB PO Twice daily 14 March 09, 2022 12:00am April 29, 2022 12:17pm tigecycline 50 mg injection (10 sources) Tetracycline-cl ass Antibacterial Start: 06-04-2017 End: 06-10-2017 take 50 mg intravenousl y every twelve hours Tigecycline (Tygacil) 50 mg Recon Soln Discontinued 50 MG IV Q12H June 04, 2017 1:00am June 10, 2017 1:46pm Ordered per Dr. Smith x6 weeks. Orders called and faxed to facility. tiZANidine 2 mg oral tablet (20 sources) Central alpha-2 Adrenergic Agonist Start: 08-19-2017 End: 05-24-2019 take 2 mg by mouth twice daily Tizanidine Discontinued 2 MG PO Twice daily February 26, 2019 12:00am May 24, 2019 11:47am Start: 08-19-2017 take 1 tablet by herrera th every eight hours as needed tizanidine (ZANAFLEX) 2 MG tablet Take 1 Tablet by mouth every 8 hours as needed (muscle cramps). 90 Tablet 3 08/19/2017 Active Start: 01-13-2017 End: 05-26-2018 take 2 mg by mouth every eight hours Tizanidine Discontinued 2 MG PO Q8H January 13, 2017 12:00am May 26, 2018 3:56pm traZODone hydrochloride 50 mg oral tablet (20 sources) Serotonin Reuptake Inhibitor Start: 02-26-2019 End: 10-04-2019 take 150 mg by mouth once daily at bedtime Trazodone Discontinued 150 MG PO Daily at bedtime February 26, 2019 5:00pm October 04, 2019 9:37am Start: 11-16-2018 End: 02-26-2019 take 25 mg by mouth once daily at bedtime Trazodone Discontinued 25 MG PO Daily at bedtime 02 17November 16, 2018 12:00am February 26, 2019 5:01pm vancomycin 1000 mg injection (20 sources) Glycopeptide Antibacterial Start: 03-12-2022 End: 04-02-2022 1,000 mg, Intravenous, EVERY 8 HOURS, First dose (after last reorder) on Thu03/12/22 at 1200, Until Discontinued Start: 03-12-2022 End: 03-12-2022 1,000 mg, Intravenous, ONCE, 1 dose, On Thu03/12/22 at 0330 Start: 03-11-2022 End: 04-08-2022 inject 200 mL intravenously every eight hours vancomycin in iso-osmotic dextrose 200 mL (VANCOCIN) 1,000 mg SOLN IVPB Inject 200 mL intravenously every 8 hours. 4000 mL 0 03/11/2022 04/04/2022 Discontinued Start: 03-11-2022 End: 04-04-2022 Start: 03-10-2017 End: 06-04-2017 take 1 g intravenously every eight hours Vancomycin Discontinued 1 GM IV Every 8 hours March 10, 2017 12:00am June 04, 2017 11:34am 2 different IV doses on transfer sheet? Vancomycin In 0.9 % Sodium C hl (10 sources) Start: 02-10-2017 End: 02-12-2017 Vancomycin In 0.9 % Sodium C hl Discontinued 1.25 GM IV Q12H 1000 February 09, 2017 11:00pm February 11, 2017 11:03pm Start: 02-10-2017 End: 02-12-2017 Vancomycin In 0.9 % Sodium C hl Discontinued 1.25 GM IV Q12H 1000 February 10, 2017 12:00am February 12, 2017 12:03am zinc sulfate 220 mg oral capsule (1 source) Start: 03-12-2022 End: 04-01-2022 220 mg, Oral, DAILY, 21 doses, First dose on Thu03/12/22 at 1630, Last dose on Thu04/01/22 at 0900 (1 source) Start: 03-12-2022 take 1 tablet by herrera th once daily 1 Tablet, Oral, DAILY, First dose on Thu03/12/22 at 1630, Until Discontinued (1 source) Start: 03-12-2022 apply 1 dose topical ly once daily Topical, DAILY, First dose on Thu03/12/22 at 1330, Until Discontinued (2 sources) Start: 04-02-2022 End: 04-02-2022 take 1 dose intravenously once 75 mL, Intravenous Push, Once at Radiology exam, 1 dose, Starting on Thu04/02/22 at 1138, Until Thu04/02/22 at 1147, Imaging Protocol Orders Start: 03-14-2022 End: 03-14-2022 take 1 dose intravenously once 75 mL, Intravenous Push , Once at Radiology exam, 1 dose, Starting on Thu03/14/22 at 1608, Until Thu03/14/22 at 1608, Imaging Protocol Orders Problems Active Problems Problem Classification Problem Date Documented Da te Episodic/Chronic Abdominal pain (20 sources) Lower abdominal pain; Translations: [Lower abdominal pain, unspecified] 07-05-2019 Episodic Administrative/social admission (10 sources) Impaired mobility; Translations: [Other reduced mobility] 03-20-2020 Episodic Anxiety disorders (20 sources) Anxiety; Translations: [Anxiety disorder, unspecified] 04-05-2021 Chronic Bacterial infection; unspecified site (20 sources) Streptococcal infectious disease; Translations: [Streptococcus, group A, as the cause of diseases classified elsewhere] 02-18-2021 Episodic Cardiac dysrhythmias (10 sources) Tachycardia; Translations: [Tachycardia, unspecified] 04-01-2021 Episodic Chronic ulcer of skin (20 sources) Pressure ulcer of right buttock, stage 4; Translations: [Pressure ulcer of left buttock, stage 4] Onset: 04-26-2015 Chronic Complications of surgical procedures or medical care (10 sources) Infection of vascular catheter; Translations: [Unspecified infection due to central venous catheter, initial encounter] 04-02-2021 Episodic Fever of unknown origin (20 sources) Fever; Translations: [Fever, unspecified] 03-03-2021 Episodic Fluid and electrolyte disorders (16 sources) Hypokalemia; Translations: [Hypokalemia] 04-02-2019 Episodic Fracture of lower limb (20 sources) Fracture of femur; Translations: [Unspecified fracture of left femur, initial encounter for closed fracture] Onset: 07-08-2017 03-20-2020 Episodic Fracture of lower limb (20 sources) Fracture of femur; Translations: [Unspecified fracture of right femur, initial encounter for closed fracture] Onset: 02-25-2022 02-18-2022 Episodic Genitourinary symptoms and ill-defined conditions (11 sources) Urostomy present; Translations: [Other artificial openings of urinary tract status] Onset: 07-09-2023 02-17-2021 Chronic Genitourinary symptoms and ill-defined conditions (11 sources) Bacteriuria; Translations: [Bacteriuria] Onset: 07-07-2023 09-19-2020 Episodic Hepatitis (1 source) Chronic hepatitis C; Translations: [Chronic viral hepatitis C] Chronic Infective arthritis and osteomyelitis (except that caused by tuberculosis or sexually transmitted disease) (20 sources) Acute osteomyelitis of ankle and/or foot; Translations: [Acute hematogenous osteomyelitis, left ankle and foot] Onset: 03-18-2016 Resolved: 03-20-2022 03-03-2021 Chronic Intestinal obstruction without hernia (10 sources) Small bowel obstruction; Translations: [Unspecified intestinal obstruction, unspecified as to partial versus complete obstruction] 11-03-2019 Episodic Mood disorders (20 sources) Recurrent major depression; Translations: [Major depressive disorder, recurrent, unspecified] 04-04-2019 Chronic Nutritional deficiencies (16 sources) Malnutrition (calorie); Translations: [Moderate protein-calorie malnutrition] Onset: 03-15-2022 03-15-2022 Chronic Open wounds of extremities (20 sources) Open wound of left thigh; Translations: [Unspecified open wound, left thigh, initial encounter] 06-01-2018 Episodic Open wounds of extremities (1 source) Unspecified open wound, right foot, initial encounter Episodic Other acquired deformities (10 sources) Right wrist drop; Translations: [Wrist drop, right wrist] 01-14-2022 Episodic Other acquired deformities (6 sources) Wrist drop, right wrist; Translations: [Wrist drop (acquired)] 01-14-2022 Episodic Other aftercare (4 sources) Encounter for adjustment and management of vascular access device; Translations: [ENC ADJUSTMENT AND MANAGEMENT VAD] Onset: 04-23-2021 Episodic Other aftercare (1 source) Long-term current use of antibiotic; Translations: [senior living (current) use of antibiotics] Episodic Other bone disease and musculoskeletal deformities (1 source) Acquired absence of unspecified foot; Translations: [Z89.439] Onset: 07-10-2023 Chronic Other circulatory disease (1 source) Low blood pressure; Translations: [Hypotension, unspecified] Onset: 07-07-2023 Episodic Other connective tissue disease (10 sources) Swelling of right lower limb; Translations: [Other specified soft tissue disorders] 01-14-2022 Episodic Other connective tissue disease (10 sources) Muscle pain; Translations: [Myalgia, unspecified site] 04-01-2021 Episodic Other connective tissue disease (14 sources) Neuropathic pain; Translations: [Neuralgia and neuritis, unspecified] 08-17-2018 Episodic Other connective tissue disease (6 sources) Other specified soft tissue disorders; Translations: [Swelling of limb] 01-14-2022 Episodic Other connective tissue disease (6 sources) Bilateral weakness of upper limbs; Translations: [Other symptoms and signs involving the musculoskeletal system] 03-04-2022 Episodic Other connective tissue disease (15 sources) Muscle weakness of upper limb; Translations: [Other symptoms and signs involving the musculoskeletal system] Onset: 03-12-2022 03-12-2022 Episodic Other diseases of bladder and urethra (10 sources) Urinary fistula; 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] 02-24-2019 Chronic Other diseases of bladder and urethra (18 sources) Neurogenic bladder; Translations: [Neuromuscular dysfunction of bladder, unspecified] Onset: 06-11-2015 03-12-2022 Chronic Other gastrointestinal disorders (10 sources) Colostomy present; Translations: [Colostomy status] 02-17-2021 Chronic Other gastrointestinal disorders (18 sources) Neurogenic bowel; Translations: [Neurogenic bowel, not elsewhere classified] Onset: 06-11-2015 03-12-2022 Chronic Other gastrointestinal disorders (10 sources) Constipation; Translations: [Constipation, unspecified] 09-14-2018 Episodic Other injuries and conditions due to external causes (1 source) Other injury of unspecified body region, sequela; Translations: [OTHER INJURY UNS BODY REGION SEQ] Onset: 03-28-2021 Episodic Other nervous system disorders (20 sources) Peripheral nerve disease ; Translations: [Polyneuropathy, unspecified] 02-18-2021 Chronic Other nervous system disorders (4 sources) Encounter for fitting and adjustment of other devices related to nervous system and special senses; Translations: [ENC FIT AND ADJ OTH DEV NS AND SPECL SENSES] Onset: 04-16-2021 Episodic Other nervous system disorders (10 sources) Numbness of upper limb; Translations: [Anesthesia of skin] 01-14-2022 Episodic Other nervous system disorders (6 sources) Anesthesia of skin; Translations: [Disturbance of skin sensation] 01-14-2022 Episodic Other screening for suspected conditions (not mental disorders or infectious disease) (15 sources) Plain X-ray femur abnormal; Translations: [Abnormal findings on diagnostic imaging of limbs] Onset: 03-15-2022 03-15-2022 Episodic Other skin disorders (10 sources) Mass of subcutaneous tissue of right lower limb; Translations: [Localized swelling, mass and lump, right lower limb] 09-17-2021 Episodic Other skin disorders (6 sources) Localized swelling, mass and lump, right lower limb; Translations: [Localized superficial swelling, mass, or lump] 01-14-2022 Episodic Paralysis (20 sources) Paraplegia, unspecified; Translations: [Paraplegia] Onset: 06-11-2015 03-03-2021 Chronic Peripheral and visceral atherosclerosis (1 source) Peripheral vascular disease, unspecified; Translations: [Peripheral vascular disease, unspecified] Onset: 06-18-2023 Chronic Poisoning by other medications and drugs (7 sources) Overdose of opiate; Translations: [Poisoning by unspecified narcotics, accidental (unintentional), initial encounter] 02-19-2022 Episodic Residual codes; unclassified (10 sources) Insomnia; Translations: [Insomnia, unspecified] 11-16-2018 Episodic Residual codes; unclassified (1 source) Localized edema Episodic Skin and subcutaneous tissue infections (20 sources) Cellulitis of lower leg; Translations: [Cellulitis of left lower limb] Onset: 02-11-2017 Resolved: 04-04-2022 02-26-2019 Episodic Spinal cord injury (17 sources) Fracture of thoracic spine with cord lesion; Translations: [Unspecified injury at unspecified level of thoracic spinal cord, initial encounter] Onset: 03-12-2015 06-06-2015 Chronic Spondylosis; intervertebral disc disorders; other back problems (18 sources) Thoracic back pain; Translations: [Pain in thoracic spine] Onset: 06-11-2015 06-11-2015 Episodic Substance-related disorders (20 sources) History of drug abuse; Translations: [Opioid abuse, in remission] 02-17-2021 Chronic Comment on above: Added secondary to d ocumentation in Social History. Substance-related disorders (20 sources) Poisoning by heroin, accidental (unintentional), initial encounter; Translations: [Intravenous drug user] Onset: 03-27-2021 Episodic Suicide and intentional self-inflicted injury (10 sources) Suicidal thoughts; Translations: [Suicidal ideations] 09-19-2020 Episodic Superficial injury; contusion (10 sources) Contusion of foot; Translations: [Contusion of left foot, initial encounter] 03-06-2021 Episodic Unclassified (2 sources) Unknown / UNK(Unknown) Onset: 09-29-2016 Unclassified (3 sources) POISN FENTANYL/FENT ANALOG ACC INIT; Translations: [POISN FENTANYL/FENT ANALOG ACC INIT] Onset: 12-11-2020 Unclassified (1 source) ENCOUNTER OPENED IN ERROR Unclassified (1 source) Pressure ulcer of sacral region, stage 4; Translations: [Pressure ulcer of sacral region, stage 4] Onset: 04-07-2023 Urinary tract infections (16 sources) Urinary tract infectious disease; Translations: [Urinary tract infection, site not specified] 02-17-2021 Episodic Past or Other Problems Problem Classification Problem Date Documented Date Episodic/Chronic Acute posthemorrhagic anemia (17 sources) Acute posthemorrhagic anemia; Translations: [Acute posthemorrhagic anemia] Onset: 03-12-2015 08-17-2017 Episodic Allergic reactions (17 sources) Allergy to penicillin; Translations: [Allergy status to penicillin] Onset: 08-18-2017 08-18-2017 Episodic Crushing injury or internal injury (20 sources) Injury of internal carotid artery; Translations: [Unspecified injury of unspecified carotid artery, initial encounter] Onset: 03-12-2015 03-12-2015 Episodic Deficiency and other anemia (17 sources) Anemia; Translations: [Anemia, unspecified] Onset: 02-19-2017 02-19-2017 Episodic Fracture of upper limb (17 sources) Closed fracture of right scapula; Translations: [Fracture of unspecified part of scapula, right shoulder, initial encounter for closed fracture] Onset: 03-12-2015 04-12-2015 Episodic Immunizations and screening for infectious disease (20 sources) Culture positive for methicillin resistant Staphylococcus aureus; Translations: [Carrier or suspected carrier of Methicillin resistant Staphylococcus aureus] Onset: 07-07-2023 08-17-2017 Episodic Comment on above: 2+ Methicillin-Resis tant Staphylococcus aureus MRSA rt foot Other fractures (17 sources) Multiple fractures of cervical spine ; Translations: [Fracture of neck, unspecified, initial encounter] Onset: 03-09-2015 03-09-2015 Episodic Other fractures (17 sources) Fracture of rib; Translations: [Fracture of one rib, unspecified side, initial encounter for closed fracture] Onset: 03-09-2015 04-12-2015 Episodic Other non-traumatic joint disorders (17 sources) Shoulder pain; Translations: [Pain in right shoulder] Onset: 06-11-2015 06-11-2015 Episodic Residual codes; unclassified (4 sources) Procedure and treatment not carried out due to patient leaving prior to being seen by health care provider; Translations: [PROC AND TX NOT CARRIED OUT PT LEAVE] Onset: 07-19-2020 Episodic Respiratory failure; insufficiency; arrest (adult) (17 sources) Acute respiratory failure; Translations: [Acute respiratory failure with hypoxia] Onset: 03-09-2015 Resolved: 02-01-2020 02-01-2020 Episodic Septicemia (except in labor) (20 sources) Candidemia; Translations: [Candidal sepsis] Onset: 07-07-2023 04-02-2021 Episodic Unclassified (1 source) POISN FENTANYL/FENT ANALOG ACC INIT; Translations: [POISN FENTANYL/FENT ANALOG ACC INIT] Onset: 12-07-2020 Results Test Name Value Interpretation Reference Range Facility ED Clinical Summaryon 2023 ED Clinical Summary ED Clinical Summary [place] [id number] ED Clinical Summary Person Information Name: CLEVELAND SWIFT [facility] Age: 28 Years : 1995 Sex: Male Language: Congolese PCP: NONE, XXXX Marital Status: Single Phone: [phone] Visit Id: Visit Reason: Nausea and vomiting; Abdominal pain; ABD PAIN Speciality: Acuity: 3 Enc Type: Observation Med Service: Surgery Arrival: 02/27/2024 17:13:44 Discharge: LOS: 000 07:23 Checkin: 02/27/2024 17:13:44 Checkout: 02/28/2024 00:36:59 Dispo Type: Admitted as IP to this [facility] EVENTS: Event Name Event Status Request Date/Time Start Date/Time Complete Date/Time Arrive Complete 02/27/2024 17:13:44 02/27/2024 17:13:44 02/27/2024 17:13:44 Document Home Meds Request 02/27/2024 17:13:44 Triage Complete 02/27/2024 17:13:44 02/27/2024 17:22:15 02/27/2024 17:22:15 Pending Labs Complete 02/27/2024 18:21:46 02/27/2024 18:57:54 Lab Complete 02/27/2024 18:21:46 02/27/2024 18:50:23 Meds Admin Cancel 02/27/2024 18:23:18 02/27/2024 18:30:40 Pending Labs Complete 02/27/2024 18:25:51 02/27/2024 18:25:51 02/27/2024 18:50:23 Lab Complete 02/27/2024 18:25:51 02/27/2024 18:25:51 02/27/2024 18:50:23 RN Exam Complete 02/27/2024 18:27:26 02/27/2024 18:27:26 02/27/2024 18:27:26 Fall Risk Request 02/27/2024 18:27:26 Meds Admin Complete 02/27/2024 18:30:28 02/27/2024 18:36:38 Registration Complete 02/27/2024 18:42:46 02/27/2024 18:42:46 02/27/2024 18:42:46 Reg Complete Request 02/27/2024 18:42:46 Reg Bed Request Complete 02/27/2024 18:42:46 02/27/2024 18:42:46 02/27/2024 18:42:46 Pending Labs Inlab 02/27/2024 18:57:55 02/27/2024 18:57:55 Lab Inlab 02/27/2024 18:57:55 02/27/2024 18:57:55 Dr Exam Complete 02/27/2024 19:03:29 02/27/2024 19:03:29 02/27/2024 19:03:29 Registration Complete 02/27/2024 19:03:29 02/27/2024 19:44:27 02/27/2024 23:30:23 Dr Exam Complete 02/27/2024 19:12:12 02/27/2024 19:12:12 02/27/2024 19:12:12 Meds Admin Complete 02/27/2024 19:17:26 02/27/2024 20:16:39 CT Complete 02/27/2024 19:19:04 02/27/2024 19:59:13 02/27/2024 21:04:05 Meds Admin Complete 02/27/2024 19:25:08 02/27/2024 20:16:39 Bed Assign Complete 02/27/2024 19:44:27 02/27/2024 19:44:27 02/27/2024 19:44:27 Meds Admin Cancel 02/27/2024 22:33:34 02/27/2024 23:25:46 Meds Admin Complete 02/27/2024 23:19:31 02/27/2024 23:46:31 Patient Care Complete 02/27/2024 23:22:05 02/28/2024 00:07:49 Meds Admin Request 02/27/2024 23:26:23 Pending Labs Request 02/27/2024 23:26:23 Lab Request 02/27/2024 23:26:23 Observation Request 02/27/2024 23:30:22 Patient Care Request 02/27/2024 23:30:23 Patient Care Request 02/27/2024 23:30:24 Medicare Form Complete 02/27/2024 23:30:25 02/27/2024 23:45:38 Patient Care Request 02/27/2024 23:30:25 Patient Care Request 02/27/2024 23:30:25 Patient Care Request 02/27/2024 23:32:26 NPO Request 02/27/2024 23:32:26 Meds Admin Request 02/27/2024 23:32:26 X-Ray Cancel 02/27/2024 23:54:43 02/27/2024 23:56:56 02/28/2024 00:01:19 Meds Admin Request 02/27/2024 23:58:24 Inpatient Bed Ready Complete 02/28/2024 00:36:59 02/28/2024 00:36:59 02/28/2024 00:36:59 ADDRESS: [address] [place] [phone] PHYS DOC NOTES: MEDICAL INFORMATION: Prescriptions Given: Medications to Continue with No Changes Other Medications alprazolam 0.5 Milligram By Mouth 2 times a day. baclofen (baclofen 20 mg Tab) 1 Tablets By Mouth every 6 hours as needed Spasm. gabapentin (gabapentin 600 mg Tab) 1 Tablets By Mouth 3 times a day. naloxone (Narcan 4 mg/0.1 mL nasal spray) 4 Milligram Nasal Inhalation As Directed. for suspected overdose symptoms. Refills: 0. PATIENT EDUCATION INFORMATION: Instructions: Follow up: DIAGNOSIS: Acute UTI (urinary tract infection); Small bowel obstruction Normal [facility] ED Note-Nursingon 02-28-2024 ED Note-Nursing ED Note-Nursing Patient initially agreeable to NG tube placement. NG tube confirmed with auscultation and aspiration, awaiting confirmation by XRay. Patient progressively grew agitated stating he was going to pull the tube out, LUIS CARLOS Gayle to room. LUIS CARLOS Gayle and nurse at bedside educated the patient on manner of placement of NG tube and risk of removing. Patient then proceeded to state I do not give a crap, I am taking it out. Patient then removed NG tube, fully intact. Normal [facility] ED Patient Education Noteon 02-28-2024 ED Patient Education Note ED Patient Education Note Normal [facility] ED Patient Summaryon 024 ED Patient Summary ED Patient Summary [place] [id number] Patient Discharge Instructions Person Information Name: CLEVELAND SWIFT Age: 28 Years Arrival Date: 02/27/2024 17:13:44 Discharge Diagnosis: Acute UTI (urinary tract infection); Small bowel obstruction Primary Care Physician: NONE, XXXX Provider Information Primary Provider: Rian Gilliam DO Advanced Junior Business Analyst:Jeannine SHINE, Nalini Diaz The exam and treatment you received in the Emergency Department were for an urgent problem and are not intended as complete care. It is important that you follow up with a doctor, nurse practitioner, or physician?s metal forger's assistant for ongoing care. If your symptoms become worse or you do not improve as expected and you are unable to reach your usual health care provider, you should return to the Emergency Department. We are available 24 hours a day. CLEVELAND SWIFT has been given the following list of patient education materials, prescriptions and follow-up instructions: Follow-up Instructions: In the event that this physician does not participate in your insurance network, please consult with your insurance company to find a nearby participating provider. Patient Education Materials: A MESSAGE TO ALL PATIENTS REGARDING OPIOIDS PRESCRIPTION OPIOIDS: WHAT YOU NEED TO KNOW Prescription opioids can be used to help relieve fnyjywdu-du-xislih pain and are often prescribed following a surgery or injury, or for certain health conditions. These medications can be an important part of the treatment but also come with serious risks. It is important to work with your healthcare provider to make sure you are getting the safest, most effective care. WHAT ARE THE RISKS AND SIDE EFFECTS OF OPIOID USE? Prescription opioids carry serious risks of addiction and overdose, especially with prolonged use. An opioid overdose, often marked by slowed breathing, can cause sudden . The use of prescription opioids can have a number of side effects as well, even when taken as directed: ? Tolerance?meaning you might need to take more of the medication for the same pain relief ? Physical dependence?meaning you have symptoms of withdrawal when a medication is stopped ? Increased sensitivity to pain ? Constipation ? Nausea, vomiting, and dry mouth ? Sleepiness and dizziness ? Confusion ? Depression ? Low levels of testosterone that can result in lower sex drive, energy, and strength ? Itching and sweating RISKS ARE GREATER WITH: ? History of drug misuse, substance use disorder, or overdose ? Mental health conditions (such as depression or anxiety) ? Sleep apnea ? Older age (65 years and older) ? Avoid alcohol while taking prescription opioids. Also, unless specifically advised by your health care provider, medications to avoid include: ? Benzodiazepines (such as Xanax or Valium) ? Muscle relaxants (such as Soma or Flexeril) ? Hypnotics (such as Ambien or Lunesta) ? Other prescription opioids KNOW YOUR OPTIONS Talk to your health care provider about ways to manage your pain that don?t involve prescription opioids. Some of these options may actually work better and have fewer risks and side effects. Options may include: ? Pain relievers such as acetaminophen, ibuprofen, and naproxen ? Some medication that are also used for depression or seizures ? Physical therapy and exercise ? Cognitive behavioral therapy, a psychological, goal-directed approach, in which patients learn how to modify physical, behavioral, and emotional triggers of pain and stress. IF YOU ARE PRESCRIBED OPIOIDS FOR PAIN: ? Never take opioids in greater amounts or more often than prescribed. ? Follow up with your primary health care provider. o Work together to create a plan on how to manage your pain. o Talk about ways to help manage your pain that don?t involve prescription opioids. o Talk about any and all concerns and side effects. ? Help prevent misuse and abuse o Never sell or share prescription opioids. o Never use another person?s prescription opioids. ? Store prescription opioids in a secure place and out of reach of others (this may include visitors, children, friends, and family). ? Safely dispose of unused prescription opioids: Find your community drug take-back program or your pharmacy mail-back program, or flush them down the toilet, following guidance from the Food and Drug Administration (www.fda.gov/Drugs/Res ourcesForYou). ? Visit www.cdc.gov/drugoverdo se to learn about the risks of opioids abuse and overdose. ? If you believe you may be struggling with addiction, tell your health med care manager and ask for guidance or call [facility]?S National Helpline at 8-414-977-HELP. v Source: [place] Department of Health and Human Services/Center for Disease Control & Prevention [facility] (more content not included)... Normal [facility] BMPon 02-27-2024 Anion gap [Moles/Vol] 20 mmol/L High 6-16 [facility] Comment on above: Performed By: #### 2 [id number] #### [facility] [address] [place] [address] Calcium [Mass/Vol] 11.4 mg/dL High 8.9-11.1 [facility] Comment on above: Performed By: #### 2 [id number] #### [facility] [address] [place] [address] Chloride [Moles/Vol] 89 mmol/L Low 101-111 [facility] Comment on above: Performed By: #### 2 [id number] #### [facility] [address] [address] CO2 [Moles/Vol] 33 mmol/L High 21-31 [facility] Comment on above: Performed By: #### 2 [id number] #### [facility] [address] [address] Creatinine [Mass/Vol] 0.7 mg/dL Normal 0.5-1.3 [facility] Comment on above: Performed By: #### 2 [id number] #### [facility] [address] [address] Glucose [Mass/Vol] 100 mg/dL Normal 55-199 [facility] Comment on above: Performed By: #### 2 [id number] #### [facility] [address] [place] [address] Potassium [Moles/Vol] 4.6 mmol/L Normal 3.5-5.3 [facility] Comment on above: Performed By: #### 2 [id number] #### [facility] [address] [place] [address] Sodium [Moles/Vol] 137 mmol/L Normal 135-145 [facility] Comment on above: Performed By: #### 2 [id number] #### [facility] [address] [place] [address] Urea nitrogen [Mass/Vol] 24 mg/dL High 5- [facility] Comment on above: Performed By: #### 2 [id number] #### [facility] [address] [place] [address] Urea nitrogen/Creatinine [Mass ratio] 34 No Units High 10-20 [facility] Comment on above: Performed By: #### 2 [id number] #### [facility] [address] [place] [address] CBC w/ Auto Diffon 4 Basophils/100 WBC (Bld) 0.3 % Normal 0.0-2.0 [facility] Comment on above: Performed By: #### 2 [id number] #### [facility] [address] [place] [address] Basophils/Leukocytes Auto (Bld) [Pure # fraction] 0.0 E9/L Normal 0.0-0.2 [facility] Comment on above: Performed By: #### 2 [id number] #### [facility] [address] [place] [address] Eosinophils (Bld) [#/Vol] 0.1 E9/L Normal 0.0-0.5 [facility] Comment on above: Performed By: #### 2 [id number] #### [facility] [address] [place] [address] Eosinophils/100 WBC (Bld) 1.0 % Normal 0.0-8.0 [facility] Comment on above: Performed By: #### 2 [id number] #### [facility] [address] [place] [address] Erythrocyte distribution width (RBC) [Ratio] 23.0 % High 10.9-14.2 [facility] Comment on above: Performed By: #### 2 [id number] #### [facility] [address] [place] [address] Hematocrit (Bld) [Volume fraction] 47.3 % Normal 37.7-49.0 [facility] Comment on above: Performed By: #### 2 [id number] #### [facility] [address] [place] [address] Hemoglobin (Bld) [Mass/Vol] 15.9 g/dL Normal 13.5-17.5 [facility] Comment on above: Performed By: #### 2 [id number] #### [facility] [address] [place] [address] Lymphocytes (Bld) [#/Vol] 0.8 E9/L Low 1.0-4.0 [facility] Comment on above: Performed By: #### 2 [id number] #### [facility] [address] [place] [address] Lymphocytes/100 WBC (Bld) 13.4 % Low 14.0-50.0 [facility] Comment on above: Performed By: #### 2 [id number] #### [facility] [address] [place] [address] MCH (RBC) [Entitic mass] 28.2 pg Normal 27.0-34.0 [facility] Comment on above: Performed By: #### 2 [id number] #### [facility] [address] [place] [address] MCHC (RBC) [Mass/Vol] 33.7 g/dL Normal 31.4-36.0 [facility] Comment on above: Performed By: #### 2 [id number] #### [facility] [address] [place] [address] MCV (RBC) [Entitic vol] 83.8 fL Normal 80.0-100.0 [facility] Comment on above: Performed By: #### 2 [id number] #### [facility] [address] [place] [address] Monocytes (Bld) [#/Vol] 0.8 E9/L Normal 0.2-1.0 [facility] Comment on above: Performed By: #### 2 [id number] #### [facility] [address] [place] [address] Neutrophils (Bld) [#/Vol] 4.2 E9/L Normal 2.0-7.5 [facility] Comment on above: Performed By: #### 2 [id number] #### [facility] [address] [place] [address] Neutrophils/100 WBC (Bld) 72.1 % Normal 36.0-75.0 [facility] Comment on above: Performed By: #### 2 [id number] #### [facility] [address] [place] [address] Platelet mean volume (Bld) [Entitic vol] 7.6 fL Normal 6.4-10.8 [facility] Comment on above: Performed By: #### 2 [id number] #### [facility] [address] [place] [address] Platelets (Bld) [#/Vol] 487.0 E9/L Normal 150.0-500.0 [facility] Comment on above: Performed By: #### 2 [id number] #### [facility] [address] [place] [address] RBC (Bld) [#/Vol] 5.6 E12/L Normal 4.3-5.9 [facility] Comment on above: Performed By: #### 2 [id number] #### [facility] [address] [place] [address] WBC corrected for nucl RBC Auto (Bld) [#/Vol] 5.8 E9/L Normal 4.0-11.0 [facility] Comment on above: Performed By: #### 2 [id number] #### [facility] [address] [place] [address] Hep Func Panelon 02-27-2024 Albumin [Mass/Vol] 5.3 g/dL High 3.3-5.0 [facility] Comment on above: Performed By: #### 2 [id number] #### [facility] [address] [place] [address] Albumin/Globulin (S) [Mass conc ratio] 0.9 Low 1.1-2.2 [facility] Comment on above: Performed By: #### 2 357704 #### [facility] [address] [place] [address] ALP [Catalytic activity/Vol] 114 Int._Unit/L High 21-98 [facility] Comment on above: Performed By: #### 2 [id number] #### [facility] [address] [place] [address] ALT No additional P-5'-P [Catalytic activity/Vol] 9 Int._Unit/L Normal 6-46 [facility] Comment on above: Performed By: #### 2 [id number] #### [facility] [address] [place] [address] AST [Catalytic activity/Vol] 19 Int._Unit/L Normal 5-43 [facility] Comment on above: Performed By: #### 2 [id number] #### [facility] [address] [place] [address] Bilirubin [Mass/Vol] 0.4 mg/dL Normal 0.0-1.1 [facility] Comment on above: Performed By: #### 2 [id number] #### [facility] [address] [place] [address] Bilirubin.direct [Mass/Vol] 0.0 mg/dL Normal 0.0-0.4 [facility] Comment on above: Performed By: #### 2 [id number] #### [facility] [address] [place] [address] Bilirubin.indirect [Mass or moles/Vol] 0.4 mg/dL Normal 0.1-0.9 [facility] Comment on above: Performed By: #### 2 [id number] #### [facility] [address] [place] [address] Globulin (S) [Mass/Vol] 5.7 g/dL High 1.4-4.0 [facility] Comment on above: Performed By: #### 2 [id number] #### [facility] [address] [place] [address] Protein [Mass/Vol] 11.0 g/dL High 6.0-7.8 [facility] Comment on above: Performed By: #### 2 079581 #### [facility] [address] [place] [address] Lipase Levelon 02-27-2024 Lipase [Catalytic activity/Vol] 3 U/L Low 13-58 [facility] Comment on above: Performed By: #### 2 [id number] #### [facility] [address] [place] [address] Pre-Arrival Noteon Pre-Arrival Note Pre-Arrival Note Pre-Arrival Summary Name: MICA cuevas Current Date: 02/27/2024 17:31:41 EDT Gender: Male Date of : Age: 28 Pre-Arrival Type: EMS ETA: 02/27/2024 17:26:00 EDT Primary Care Physician: Presenting Problem: vomiting Pre-Arrival User: Katharine Morales RN Referring Source: Location: [place] Completion Date/Time: 02/27/2024 16:57:00 [facility] Emergency Department Pre-Hospital Report Form Vital Signs: Pre-Hospital Report: Treatment in Route: Response to Treatment: Misc. Issues: Normal [facility] UA with Cult Rflxon 02-27-20 24 Bacteria Auto Ql (U) 4+ /HPF Abnormal Trace [facility] Comment on above: Performed By: #### 4 [id number] #### [facility] [address] [place] [address] Bilirubin Ql (U) Negative Normal Negative [facility] Comment on above: Performed By: #### 4 [id number] #### [facility] [address] [place] [address] Clarity (U) Ex.Turbid Abnormal Clear [facility] Comment on above: Performed By: #### 4 [id number] #### [facility] [address] [place] [address] Color (U) Light-Terrell Abnormal Yellow [facility] Comment on above: Result Comment: Micr oscopic readings are only performed on those samples that meet specific criteria set forth by [facility]. Performed By: #### 4 [id number] #### [facility] [address] [place] [address] Glucose Ql (U) Negative Normal Negative [facility] Comment on above: Performed By: #### 4 [id number] #### [facility] [address] [place] [address] Hemoglobin Auto test strip (U) [Mass/Vol] Trace Abnormal Negative [facility] Comment on above: Performed By: #### 4 [id number] #### [facility] [address] [place] [address] Ketones Auto test strip Ql (U) Trace Abnormal Negative [facility] Comment on above: Performed By: #### 4 [id number] #### [facility] [address] [place] [address] Leukocyte esterase Auto test strip Ql (U) 250 Farhat/uL Abnormal Negative [facility] Comment on above: Performed By: #### 4 [id number] #### [facility] [address] [place] [address] Mucus Auto Ql (U) 4+ CD:[id number] Abnormal Negative [facility] Comment on above: Performed By: #### 4 [id number] #### [facility] [address] [place] [address] Nitrite Auto test strip Ql (U) Negative Normal Negative [facility] Comment on above: Performed By: #### 4 [id number] #### [facility] [address] [place] [address] pH (U) 7.0 [pH] Invalid Interpretation Code 5.0-9.0 [facility] Comment on above: Performed By: #### 4 [id number] #### [facility] [address] [place] [address] Protein Ql (U) 1+ mg/dL Abnormal Negative [facility] Comment on above: Performed By: #### 4 [id number] #### [facility] [address] [place] [address] RBC Ql (U) 4-20 Abnormal 0-3 [facility] Comment on above: Performed By: #### 4 [id number] #### [facility] [address] [place] [id number] Specific gravity (U) [Rel density] 1.015 Invalid Interpretation Code 1.005-1.030 [facility] Comment on above: Performed By: #### 4 [id number] #### [facility] [address] [place] [id number] Urobilinogen (U) [Mass/Vol] Negative Normal Negative [facility] Comment on above: Performed By: #### 4 [id number] #### [facility] [address] [place] [address] WBC Auto (Urine sed) [#/Area] 31-75 Abnormal 0-5 [facility] Comment on above: Performed By: #### 4 [id number] #### [facility] [address] [place] [address] Type of Urine collection method Clean Catch Normal [facility] Comment on above: Performed By: #### 4 [id number] #### [facility] [address] [place] [address] eGFRon 02-27-2024 eGFR 127 mL/min/1.73 m2 Normal >=59 [facility] Comment on above: Performed By: #### 1 [id number] #### [facility] [address] [place] [address] XR Foot 3+ Views Lefton 10-10 XR Foot 3+ Views Left Exam Date/Time: 10/28/2023 12:27 EDT Reason for Exam: L89.513, L89.893 Report IMPRESSION: SUBTLE CORTICAL IRREGULARITY OF THE HEAD/NECK OF THE TALUS IS CONCERNING FOR NONDISPLACED FRACTURE. EXAM: XR Foot 3+ Views Left COMPARISON: None available HISTORY: Foot pain TECHNIQUE: AP, lateral and oblique views of the foot obtained. FINDINGS: Decreased bone mineralization and abnormal configuration of the calcaneus and talus compatible with this use Osteopenia in the patient's paraplegic state. There is subtle cortical irregularity of the head/neck of the talus as seen on the lateral view. Remaining visualized bones appear within normal limits. No dislocation. Mild diffuse subcutaneous soft tissue edema. Ordering Provider: Viet Laura FINAL REPORT Dictated: 10/30/2023 5:11 pm Edilson Chun DO Signed (Electronic Signature): 10/30/2023 5:11 pm Signed by: Edilson Chun DO Transcribed by: ISA Technologist: VICTORIANO Technical Comments Radiation Dose: Kar in mGy = . DAP = . Normal [facility] Coding Summary.on 10-29-2023 Coding Summary. ETIITdje77TPv7wPa+PG hl YWQ+KM5YOJEyM79tpKIroF 6xH9HYBRhIJqerXWTFVQbC MoHmowNxXG1cnPUbSWBt IC8+KS7vBCOoFduceZNpc9 C5lLP1L41ysx4oGQerzIS3 YVOhSqRjekihh3ztqAk8ES cuNmluOyBt CGBqzL64BDR8eF53No78yF UdwBQen6kuzFm0FoOdAMSj CQX9cOhcIQqng4NaUNBbU4 0faTPoh5O5 WTIieIazlMDrUoFxaHP6hQ 7pZRnqufliy8oaqafqQeg1 ps08yKNup9N0rDF4F6Grlo J3EKFfoFNs ByehbHQOwH5juhwxg0umeg nhJcBbWGIoAXr7CAf7VAMf jAzvEsAkAS47WHW6UZNrnp EbW4KuFLUn uJheTbD0h0R2Nq8YU2GGVv vlY9GRKCIGHUbjpIA+PC90 vr25V7NaPytnTwd2QQIgUD W1lLP1kP1t BQHhCNhpb6C3eWN5M8Enhp Rktj0mp3hqYJLiTXvyR44x rQFxh1H3KTWmwOY5AZLqmD uoSfLedE35 Oyc+KQJpcTdxj3RiBblvy5 yek2radDl3IuuiVZGprmPx mFuyAFD8v0HtFe4xEKSpdZ C0cWA6sS4v FcCrWnC6JJgxF274PkQstI ImJltpN03vK2IdhZK+PHRy Xws0GLWbvOkfAU4nL1KyPJ RpbmctbGVm yHiiWH0yASAphfogTQBxmQ 9yGOUdK6a5EaPnFoA6DRpr B2ItWBPhuvmvBn26lX3fUz PzCvR4DVks K3QrobX2ZXRhbKGxGQpyBM Z0X86sh2A6KEKjZOKyDHA5 eAO8dX8dnMasoptfhWTlrG sgdmVydGlj MEujVSlaP941OUNcnZwlYf NvZGluZyBEYXRlOiAgMDYv MjAvMjAyNDwvdGQ+PHRkIH M4kSuuNKYg wKLpMYseBw0tnSlnzAdiCM 5rMAKlnjpnOJSfiO7wTVFo yHVziJrtTJ2zGXZdqkjdd3 64ViGeEMZ3 PFEpfDYwB7BrfT1wIeIgWI EfCKGnY5HugTBzGWzhS538 VWoyXqC2JDYyoqMfM2BzWA FsaWduOiB0 k6O6Xb5Za6GfofurJ5VkbA OfNzIyYptdRNv4F6CcEtss dHI+YA25LHXkJT23EEu9RX Q0xRgjNNiu LFPmT5ZvmB5vHvCyUNUrWR RkOyc+PHRhYmxlIHdpZHRo MWyiEKRyOpHquKyjQO7jEp 9yZGVyLWNv dFcrpUQzOvFvv3yhZPScRL xxDN4tyQebH2PplZZ7NETz g1z1Xo53O56iZ0KggWK+PG ItrWT5rML7 iL1fDvDtBiA1AYxlF797Pb MeaYPbNetrw9yee9qbnRh5 EpL9KYPcbuZnmNfuRTH7a4 KnMk44M99n IHdpZHRoPSIxNSUiIHZhbG pgnx0ouA8vLg7+PGNvbCB3 tMH5vQ5tRzErAfL9FNjeI3 49InRvcCIv Nvggx1sqa6yykRa5MuVrTC GjgnJvaCmiTUT3o4ArXe70 X1CdzYpau4XkFlm1vl23sI Pzn1U8kFK4 E2WjOEFukhsxbZKlqFlmVI 3wPFShcfncRLZnfP0wEXFk E0n5PdYsQqD9XBidB6Lbdg W8SBFwrZXo PQNtkBRPmF8usqhnw3chdw rxZsRoLEPyAOp8DAx1WJTh bEleSwXaMKI5UmN5LFC6jY JbjR2ehCtn gfxweE7wLbs+MBA9jTPciD ECCK8kTghnpRK+PHRkIHN0 cBtlLKukSWDuhB3iYJOdD4 a5XvAeMtW2 CBdyF6DoumX3QCOtmUSuIW RwdZCNpF1xrpzuy3cjfkgg PkCaEIUgSJq2GBk5SNSvcV duOiBsZWZ0 FxF8RLN0aZOvxC2zjMgyon pldN6gXdm+QmlydGggRGF0 HNu5U5QyVlt3YABadAneJN 0ncGFkZGlu Is1vvGmpgRpzEK8hEHDfcn aby317LxWhm5zlYJRnoPEi QIbuIYA2I47pb5T8CECaJY SgVBG8cFK5 tY5zoPdkdirkaAStjIgefl QbjJfhMFvoBPmhG789XNMz cAsvBuTrERz6Z0FvSqi0MN IwnVuuUN0e kBMnAPzrXm2ioVgttHsyEQ 4tOZMywtjjy965CjHga2dd SALgvXYzZFrqEYE1R11se6 Y8ONRxXFPn NMH6mOF6zI1tbTonlygtnW VmdDsgdmVydGljYWwtYWxp W761VCUycKnvJhFwbPx3B7 XmWgv1ASYu pJmiPP9gjBTtLByrGe0btQ zxiFzaOV7lAZLnohgin588 WdIcx7fzTWHwzZJmTRxdEX I4Q61mm0K8 BJXxLQMrNYH1bFD3rL9jsS lnbjogbGVmdDsgdmVydGlj RIvmWDsoK501NOEacTlwDu BhdGllbnQg UGnzOLz6P4MaTsrvbLW+PC 22KRPqHC55aMVkqDBjg9pt nKn9NmKdZEMqZCI6fQfjBV dio2MlFOFz P53lhLXvf8X9ISBeyZqfmC OiNzNtdPI2kL4kLFyedqnj l2gldusdUalrs0uxzj95gL 36B81cWRpi ZHRoPSIzMCUiIHZhbGlnbj 5vgP6jCs5+IBLjoSC8rOH2 uT4kXXWgFcQ8WRkfO312Lp RvcCIvPjxj o1bvy6hnyYn5AiC9IUQxms EfaQysWCN8g7RwIt31Q83w IHdpZHRoPSIyMCUiIHZhbG wykt5cpL7h Ii8+OUNhuUU0kRJ6qA6pFx YjFgJ9IUftM371YrCxpPVe EhqpG98sP7XxsMU+PHRyPj u4NBUvxZqu KY1rnAQvDLhbMz5zFCM8Zv MfKyVkAJrtR6VjRSTexhoo ipatzOP4HWVoPFBrpF09Ua 9udDogMTBw wKUIeD9ocdrgp1hcqttrNv VuGSAfAMk4BPp3SXKmuLrv IuZhOQN2LlW2QND3hRFmpF 1hbGlnbjog nQ7iK2LgGLFupnzdHy74wR 7nXmLbNrX3GKihPoj+TkVJ PNbbXSoVOhPQUtDJIN74PS 49xHOkd4K7 iIB6E6MyWVOhjdychxproQ Y1FPEqZQZqhZ48zWJnLJic Xp4ww4F9v876IOTrZVMoxK 57Fa9zuHcp FJNdgWOZeE1ydjflm2mioa xeHtLgDNGxGZx4FUt4HXPh wTkmJoIyVTD7HhV3LNG3cB ZxtR3htAuo hewelN9gGzd+MDcvMDYvMT y0URqafKN+EFKtUKE2eMud IMrlVSIhjH1oJGBbB8z1Cc IkTdT3EMwl O2IqVULnewzkEf80tF5bYc DsHqU1MJvaC8PerxG4XWWg aPOeGUzbFUC5D01db8Z0QO MwMDAwMDA7 wQW2oC2wpEvvidbqhTNzgH dxkyOeiEkqAIopZKfeG252 DCJpmBnfWiM4HXeyHHBpHS 30FV44wXDw q4U5nMJ8F9GoCUAbcnzwmz frbPC1GIFwOHHjnW94nMDm BOnlGs5ue9Z0o437GLTaCM AziQ84Vs5j aPswVCZntLTYzJ1wjmodd6 najixqDuHzJNLwGMk5GIm5 IWRruRatIvPwZXP5YwX4OP H0cCNabL8a uGfjrcpjqZ9xHca+TWFsZT wvdGQ+IUPiEXZ1mQqmQYif RZCwnW4oKDKeY7o9DiAuBe J9UHvxS9Qf TMZznvugFm44iW9lCzUlVx M1QVmwH7ReucP6PAWywGNi WSucFZH6F72jq1W8PSJzCJ MhHEE1nYG0 qU1jrWxfymtptKWnlNcyde TuvYqbQWpfAUhrV801NSWa yTriUv16wSVnoCsmbeP7U1 RkPjwvdHI+ JA70EKLtVD78yHObqBJzm8 hnuPq7VnKwVCPnCMF3mMqc YRxxo8AjUIDdL99wiJCnb0 R2TOUvuMig hOXtDgTuvWL1mF1aILoygd ewm5jmgltfDtkom2ygks36 kE84E90yYYlvQZXlFZObEV UiIHZhbGln do1lzK5bZs4+JFWokVI2nP S7wR6bFaFxWmG5MEivQ686 ZrOuaPEgKsaxr4yct3defR c0BtFqOSXj wePqgVtgGEE4p6DlRk46O3 9sIHdpZHRoPSIyMCUiIHZh kSzwtf3ycJ1jNd4+PC9jb2 tljt20yG96 dHI+FMGtNRL0cQjkIFgyZY NqbN0sWWtlHgO5MUSmWkIn nL67oZEmITsqQi1tuGpacK qyFZ6iUVWg aaltv841OdAuk5nmBAGkqA JiHJwoQMC3F02vd8X6XJXp GXIqTAX3bSK4nO9vpDrgph ogbGVmdDsg btDqcZjzUOiyOKifD386TV QcxRqsAsJptDUvZ5vrqsTL MF1kApnfeDM+XHShTXL1iD xlPSdwYWRk nR4tNGPoB7t6QcXcTpI0CH uuX2TpvdM8LTFthJXrWKIf gWSKqX4qmceaq0gnoshhWk AwMDAwMDt0 YKk6MASgfLanQcHsNDB0Rv J5WHO5rRAbvL3hnGidclko uP6cRve+RklOOjwvdGQ+PH KyAHK1gIst YJlpYIDcsA5pCOCtK0n6Oz YaQgM0REjcC5DikmQ8YEAi hVOhLZJtsKEBhQ3zxjqtv2 xvcjogIzAw UWMjZTe5XSb8VWHhdUxwRr BwAJF6PhK4NFS8xJOhnH9j aIttlywbpL3vNlz+TVJOOj wvdGQ+PHRk SJS1pTypBAgvOEOhiW6hFA QrI2a4AiRsGtB6YRvcE2Bj byG2MQTkmKMfENRupVLHaW 7qsbaqg7jc qqeeOnStVMBsWPb6KDy7MV ZedKrlIkRyIJZ1ZvF7CZV0 wTVqlQ9vlNlthzzcnB2iOf c+JQF3AZO6 GI35IO70A5YcWxptvRFbfG U+PHRhYmxlIHdpZHRoPScx CKHrGyMocUqiJB7sDl6oVO VyLWNvbGxh yWEoMlIor9foM (more content not included)... Normal [facility] Nursing Note - Woundon 10-28 Nursing Note - Wound [id number]#1. 00TIFF Normal [facility] Physician Orderon 10-29-2023 Physician Order [id number]#2. 00TIFF [facility] Procedure - Woundon 10-29-19 24 Procedure - Wound [id number]#2. 00TIFF [facility] Progress Note - Woundon 10-10 Progress Note - Wound [id number]#2. 00TIFF [facility] Consent for Procedure/Surger yon 10-28-2023 Consent for Procedure/Surgery [id number]#1. 00TIFF [facility] Consent for Treatmenton 10-09 Consent for Treatment [id number] [id number]#1.0 0TIFF [facility] Consent for Treatment [id number] [id number]#1.0 0TIFF [facility] Multi-Wound Charton 10-28-19 24 Multi-Wound Chart [id number]#2. 00TIFF [facility] Nursing Assessment - Woundon 10-28-2023 Nursing Assessment - Wound [id number]#1. 00TIFF [facility] Physician Orderon 10-28-2023 Physician Order [id number]#1 .00TIFF [facility] Physician Order [id number]#1.0 0TIFF [facility] Nursing Assessment - Woundon 10-14-2023 Nursing Assessment - Wound [id number]#1. 00TIFF [facility] Nursing Note - Woundon 10-13 Nursing Note - Wound [id number]#1. 00TIFF [facility] Consent for Procedure/Surger yon 10-07-2023 Consent for Procedure/Surgery [id number]#1. 00TIFF [facility] Consent for Treatmenton 09-09 Consent for Treatment [id number] [id number]#1.0 0TIFF [facility] Multi-Wound Charton 10-07-19 Multi-Wound Chart [id number]#1. 00TIFF [facility] Physician Orderon 10-07-2023 Physician Order [id number]#1. 00TIFF [facility] Procedure - Woundon 10-07-19 Procedure - Wound [id number]#1. 00TIFF [facility] Progress Note - Woundon 09-09 Progress Note - Wound [id number]#1. 00TIFF [facility] Aerobic Cultureon 09-25-2023 Aerobic Culture Comment right ischia l bone culture ORGANISM: Strep. agalactiae Grp B (O:B) Quantity of Growth Light Growth Comment right ischial bone culture Anaerobic Culture Results Light Mixed Anaerobic Vonda 3 Days Comment right ischial bone culture Gram Stain Result No Bacteria Seen PERFORMED BY: [place] [address] PATHOLOGIST [employer] SERVICE ENGINEER MARK PURVIS M.D. Normal [facility] Comment on above: Performed By: #### A ERC #### [address] Aerobic Culture Comment right ischia l ulcer tissue culture ORGANISM: Strep. agalactiae Grp B (O:B) Quantity of Growth Light Growth ORGANISM: Enterococcus faecalis (O:ENTFAC) Quantity of Growth Light Growth Comment right ischial ulcer tissue culture Anaerobic Culture Results Light Mixed Anaerobic Vonda 3 Days Comment right ischial ulcer tissue culture Gram Stain Result No Bacteria Seen Aerobic JACQUELYN Charge ([id number]) --- SUSCEPTIBILITY -- ORGANISM: O:ENTFAC ANTIBIOTIC INTERPRETATION JACQUELYN Ampicillin S <2 Daptomycin S 1 Linezolid S 2 Penicillin S 2 Vancomycin S 1 S = SUSCEPTIBLE I = INTERMEDIATE R = RESISTANT BLANK = DATA NOT AVAILABLE, OR DRUG NOT ADVISABLE OR TESTED R* = RESISTANCE DUE TO EXTENDED SPECTRUM BETA-LACTAMASES ESBL = EXTENDED SPECTRUM BETA-LACTAMASE TFG = THYMIDINE-DEPENDENT STRAIN RIANNA = BETA-LACTAMASE POSITIVE IB = INDUCIBLE BETA-LACTAMASE. APPEARS IN PLACE OF 'S' WITH SPECIES KNOWN TO POSSESS INDUCIBLE BETA-LACTAMASES. POTENTIALLY THEY MAY BECOME RESISTANT TO ALL B-LACTAM DRUGS. PERFORMED BY: [place] [address] PATHOLOGIST [employer] RAY SERVICE ENGINEER MARK PURVIS M.D. Normal [facility] Comment on above: Performed By: #### A ERC #### [address] Amphetamine Screen Ql (U)Ord ered By: Conrad Cohn on 09-25-2023 Amphetamines Ql (U) Negative Negative [facility] Barbiturates [Presence] in U rine by Screen methodOrdered By: Conrad Cohn on 09-25-2023 Barbiturates Screen Ql (U) Negative Negative [facility] Benzodiazepines Screen Ql (U )Ordered By: Conrad Cohn on 09-25-2023 Benzodiazepines Ql (U) Negative Negative [facility] Benzoylecgonine [Presence] i n Urine by Screen methodOrdered By: Conrad Cohn on 09-25-2023 Benzoylecgonine Screen Ql (U) Negative Negative [facility] Cannabinoids [Presence] in U rine by Screen methodOrdered By: Conrad Cohn on 09-25-2023 Cannabinoids Screen Ql (U) Positive Negative [facility] Comment on above: These are unconfirme d results and should not be used for legal purposes. Drug Cut-Off Concentration: AMPH 1000 ng/mL SCOTT 200 ng/mL JUICE 200 ng/mL COCM 300 ng/mL OP 300 ng/mL PCP 25 ng/mL THC 20 ng/mL Drug Screen,Urineon 09-25-19 Amphetamine Screen,Urine Negative Normal Negative [facility] Comment on above: Performed By: #### U RDS #### [address] Barbiturate Screen,Urine Negative Normal Negative [facility] Comment on above: Performed By: #### U RDS #### [address] Benzodiazepines Screen,Urine Negative Normal Negative [facility] Comment on above: Performed By: #### U RDS #### [address] Cannabinoid Screen,Urine Positive High Negative [facility] Comment on above: Result Comment: Thes e are unconfirmed results and should not be used for legal purposes. Drug Cut-Off Concentration: AMPH 1000 ng/mL SCOTT 200 ng/mL JUICE 200 ng/mL COCM 300 ng/mL OP 300 ng/mL PCP 25 ng/mL THC 20 ng/mL PERFORMED BY: [place] [address] PATHOLOGIST [employer] R[employer] SERVICE ENGINEER MARK PURVIS M.D. Performed By: #### U RDS #### [address] Cocaine Screen,Urine Negative Normal Negative [facility] Comment on above: Performed By: #### U RDS #### [address] Opiate Screen,Urine Positive High Negative [facility] Comment on above: Performed By: #### U RDS #### [address] Phencyclidine Screen,Urine Negative Normal Negative [facility] Comment on above: Performed By: #### U RDS #### [place] [address] [place] Yann 09-25-2023 L Specimen: [id number] Received: 09/25/23-1239 Status: SOUT Req Num: [id number] Spec Type: Surgical Subm Dr: Sam Smith MD Tissues: A Debridement-Skin/Other Than Skin (POD RT HIP) Procedures: HE, Gross/Micro L3 Age/ Patient Sex Location Account Attending Physician [place] bender K 27/M [place] [id number] Sam Smith MD SPEC NUM: [id number] RECD: 09/25/23 STATUS: GAMAL GIBBSRegan NUM: [id number] CELINE: 09/25/23- SUBM DR: Sam Smith MD ENTERED: 09/25/23 [facility] DR: SPEC TYPE: Surgical DEPT: S ORDERED: HE, Gross/Micro L3 ORDERED: HE, Gross/Micro L3 Pathological Diagnosis Skin and soft tissue, right hip, debridement excision: -Severe nonhealing chronic open or decubitus wound with marked fibrinoid exudate surrounding moderately inflamed (acute and chronic) granulation tissue, focally also extending into the exposed hip bone with minor associated acute and chronic osteomyelitis Clinical Information Right hip ulcer Gross Description Received in formalin, labeled with the patient's name, date of and products of debridement are multiple fragments of cisse-pink, rubbery and cauterized tissue measuring in aggregate 3.1 x 1.6 x 1.1 cm. Cut sections reveal pink-white and unremarkable surfaces. Mounter Sousaphones sections are submitted in A1. TW ---- Specimen: [id number] Received: 09/25/23 Status: DILLONUlysses Wild Num: [id number] Spec Type: Surgical Subm Dr: Sam Smith MD Tissues: A Debridement-Skin/Other Than Skin (POD RT HIP) Procedures: HE, Gross/Micro L3 ---- Patient: Cleveland Swift [id number] (Continued) ---- Specimen: [id number] Received: 09/25/23 (Continued) Signed (signature on file) Diana Romero MD 09/28/232056 ---- Specimen: [id number] Received: 09/25/23 Status: DILLONUlysses Wild Num: [id number] Spec Type: Surgical Subm Dr: Sam Smith MD Tissues: A Debridement-Skin/Other Than Skin (POD RT HIP) Procedures: Destini MCCARTNEY/Uzair L3 ---- Patient: Cleveland Swift [id number] (Continued) ---- Specimen: [id number] Received: 09/25/23 (Continued) CPT Codes 07957 ---- ---- Specimen: Received: 09/25/23 Status: GAMAL Wild Num: [id number] Spec Type: Surgical Subm Dr: Sam Smith MD Tissues: A Debridement-Skin/Other Than Skin (POD RT HIP) Procedures: Destini MCCARTNEY/Uzair L3 ---- Patient: Cleveland Swift [id number] (Continued) ---- Signed (signature on file) Diana Romero MD 09/28/232056 Normal [facility] Opiates [Presence] in Urine by Screen methodOrdered By: Conrad Cohn on 09-25-2023 Opiates Screen Ql (U) Positive Negative [facility] Phencyclidine Screen Ql (U)O rdered By: Conrad Cohn on 09-25-2023 Phencyclidine Ql (U) Negative Negative [facility] Consent for Procedure/Surger yon 09-09-2023 Consent for Procedure/Surgery [id number]#1. 00TIFF [facility] Consent for Treatmenton Consent for Treatment [id number] 4050 [id number]#1.0 0TIFF [facility] Multi-Wound Charton 09-09-19 Multi-Wound Chart [id number] 50 [id number]#1. 00TIFF [facility] Nursing Assessment - Woundon 09-09-2023 Nursing Assessment - Wound [id number]#1. 00TIFF [facility] Nursing Note - Woundon 09-08 Nursing Note - Wound [id number] [id number]#1. 00TIFF [facility] Physician Orderon 09-09-2023 Physician Order [id number] 50 [id number]#1. 00TIFF [facility] Procedure - Woundon 09-09-19 Procedure - Wound [id number] 50 [id number]#1. 00TIFF [facility] Progress Note - Woundon Progress Note - Wound [id number] [id number]#1. 00TIFF [facility] Consent for Procedure/Surger yon 08-26-2023 Consent for Procedure/Surgery [id number]#1. 00TIFF [facility] Consent for Treatmenton 08-09 Consent for Treatment [id number] 4040 [id number]#1.0 0TIFF [facility] Multi-Wound Charton 08-26-19 24 Multi-Wound Chart [id number] 40 [id number]#1. 00TIFF [facility] Nursing Assessment - Woundon 08-26-2023 Nursing Assessment - Wound [id number]#1. 00TIFF [facility] Nursing Note - Woundon 08-25 Nursing Note - Wound [id number] [facility] [id number]#1. 00TIFF [facility] Physician Orderon 08-26-2023 Physician Order [id number] 40 [id number]#1. 00TIFF [facility] Procedure - Woundon 08-26-19 24 Procedure - Wound [id number] 40 [id number]#1. 00TIFF [facility] Progress Note - Woundon 08-09 Progress Note - Wound [id number] 2658 [id number]#1. 00TIFF [facility] Aerobic Cultureon 08-25-2023 Aerobic Culture ORGANISM: Enterococc us faecalis (O:ENTFAC) Quantity of Growth Moderate Growth ORGANISM: Methicillin Resis Staph Aureus (O:MRSA) Quantity of Growth Light Growth ORGANISM: Strep agalactiae - (group b) (O:STRAGA) Quantity of Growth Light Growth ORGANISM: Prevotella bivia (O:PREBIV) Comments Sent to [facility] for Sensitivity Testing Quantity of Growth Heavy Growth Please see scanned report located in the EMR under the Diagnostics tab -> Scanned Lab Reports -> Laboratory. Gram Stain Result 1+ Gram Positive Cocci Rare Gram Negative Bacilli Aerobic JACQUELYN Charge (PCMIC38) --- SUSCEPTIBILITY -- ORGANISM: O:ENTFAC ANTIBIOTIC INTERPRETATION JACQUELYN Ampicillin S <2 Daptomycin S 1 Linezolid S 2 Penicillin S 1 Vancomycin S 1 Aerobic JACQUELYN Charge (PCMIC38) --- SUSCEPTIBILITY -- ORGANISM: O:MRSA ANTIBIOTIC INTERPRETATION JACQUELYN Azithromycin R >4 Ceftaroline S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 Interpretation Code 5.0-9.0 [facility] Comment on above: Performed By: #### 2 252285, [id number] ####[facility] [address] [place] [address] Protein (U) [Mass/Vol] 1+ Abnormal Negative [facility] Comment on above: Performed By: #### 2 397913, [id number] ####[address] [address] Specific gravity (U) [Rel density] 1.015 Invalid Interpretation Code 1.005-1.030 [facility] Comment on above: Performed By: #### 2 398322, [id number] ####[place] [address] Type of Urine collection method Urostomy Invalid Interpretation Code [facility] Comment on above: Performed By: #### 2 756758, [id number] ####[place] [address] Urobilinogen Qn (U) 0.2 {Familia'U}/dL Normal 0.0-1.0 [facility] Comment on above: Performed By: #### 2 801760, [id number] ####[place] [address] WBC Auto Ql (U) 1+ Abnormal Negative [facility] Comment on above: Performed By: #### 2 591640, [id number] ####[place] [address] WBC LM.HPF (Urine sed) [#/Area] 6-15 Abnormal 0-5 [facility] Comment on above: Performed By: #### 2 369429, [id number] ####[place] [address] URINALYSISOrdered By: Jaycee Chua on 07-07-2023 Bacteria LM Ql (Urine sed) 3+ /HPF Invalid Interpretation Code Trace/HPF FT UA Auto SS Bilirubin Ql (U) Negative (07/07/23 12:18 AM) Normal Negative [facility] UA Auto SS Clarity (U) Turbid *ABN* (07/07/23 12:18 AM) Invalid Interpretation Code Clear [facility] UA Auto SS Color (U) Yellow (07/07/23 12:18 AM) Normal Yellow [facility] UA Auto SS Crystals LM Ql (Urine sed) Present (07/07/23 12:18 AM) Normal [facility] UA Auto SS Epithelial cells.squamous LM.HPF (Urine sed) [#/Area] 0-2 /HPF Normal 0-2/HPF [facility] UA Aut o SS Glucose Test strip (U) [Mass/Vol] Negative (07/07/23 12:18 AM) Normal Negative [facility] UA Auto SS Hemoglobin Ql (U) 2+ *ABN* (07/07/23 12:18 AM) Invalid Interpretation Code Negative [facility] UA Auto SS Ketones (U) [Mass/Vol] Negative (07/07/23 12:18 AM) Normal Negative [facility] UA Auto SS [place].plasma/[place]. RBC (Bld) [Mass ratio] 4-20 /HPF Normal 0-3/HPF [facility] UA A uto SS Nitrite Ql (U) Negative (07/07/23 12:18 AM) Normal Negative [facility] UA Auto SS pH (U) 6.5 *NA* (07/07/23 12:18 AM) Invalid Interpretation Code 5.0 - 9.0 [facility] UA Auto SS Protein (U) [Mass/Vol] 1+ *ABN* (07/07/23 12:18 AM) Invalid Interpretation Code Negative [facility] UA Auto SS Specific gravity (U) [Rel density] 1.015 *NA* (07/07/23 12:18 AM) Invalid Interpretation Code 1.005 - 1.030 [facility] UA Auto SS UA Spec Desc Urostomy Invalid Interpretation Code [facility] UA Auto SS Urobilinogen Qn (U) 0.4458516 {Familia'U}/dL Normal 0.0 - 1.0 EU/dL [facility] UA Auto SS WBC Auto Ql (U) 1+ *ABN* (07/07/23 12:18 AM) Invalid Interpretation Code Negative [facility] UA Auto SS WBC LM.HPF (Urine sed) [#/Area] 6-15 /HPF Invalid Interpretation Code 0-5/HPF [facility] UA Auto SS US LE Venous Duplex Righton 07-07-2023 US LE Venous Duplex Right Exam Date/Time: 07/07/2023 07:15 EST Reason for Exam: Swelling Report IMPRESSION: No evidence for DVT in the visualized veins of the right leg, with the deep calf veins not visualized. CLINICAL HISTORY: Swelling right leg redness and edema for one week. Paraplegic. TECHNIQUE: Graves scale with compression maneuvers, Color Doppler and Spectral Doppler at rest and with augmentation of the RIGHT leg proximal deep veins as below. Fuentes scale with compression maneuvers of the peroneal and posterior tibial veins was performed. Spontaneous phasic flow evaluation of the contralateral LEFT common femoral vein. Images were obtained and stored in a permanent archive. COMPARISON: None. RESULT: RIGHT LEG: PROXIMAL DEEP VEINS: External Iliac Vein: Compressible with spontaneous flow. Common Femoral Vein: Spontaneous phasic flow with compressibility and augmentation. Deep Femoral Vein: Spontaneous phasic flow with compressibility. Femoral Vein: Spontaneous phasic flow with compressibility and augmentation. Popliteal Vein: Spontaneous phasic flow with compressibility and augmentation. DEEP CALF VEINS: Posterior Tibial Vein: Not visualized. Peroneal Vein: Not visualized. SUPERFICIAL VEIN: Greater Saphenous Vein: Spontaneous phasic flow with compressibility. LEFT LEG (for comparison): The contralateral left common femoral vein with spontaneous phasic venous flow. Other: Multiple prominent lymph nodes of the right inguinal region, nonspecific, but likely reactive, with the largest measuring around 3.1 cm long axis and 1.5 cm short axis. Diffuse subcutaneous edema. Report Ordering Provider: Priscilla Oseguera FINAL REPORT Dictated: 07/07/2023 10:10 am Vishnu Orozco MD. Signed (Electronic Signature): 07/07/2023 10:10 am Signed by: Vishnu Orozco MD. Transcribed by: ISA Technologist: NITO Joe [facility] XR Chest Single Viewon 07-07 XR Chest Single View Exam Date/Time: 07/07/2023 00:22 EST Reason for Exam: Other (please specify) Report IMPRESSION: NO EVIDENCE OF ACTIVE CHEST DISEASE. CLINICAL HISTORY: Pain, swelling, redness right leg. Fever.. COMPARISON: 07/07/2021. COMMENT: AP portable. The heart is normal in size. The mediastinum is unremarkable. The lungs appear clear. No infiltration nor pleural effusion is evident. There are bilateral posterior stabilization rods with interpedicular screws involving the thoracolumbar spine. No significant change is noted when compared to the prior exam. Ordering Provider: Khris Walton FINAL REPORT Dictated: 07/07/2023 8:07 am Antonio Leiws M.D. Signed (Electronic Signature): 07/07/2023 8:07 am Signed by: Antonio Lewis M.D. Transcribed by: ISA Technologist: DELANEY Technical Comments Radiation Dose: Ka,r in mGy = n/a DAP = n/a Normal [facility] XR Foot 3+ Views Righton XR Foot 3+ Views Right Exam Date/Time: 07/07/2023 07:54 EST Reason for Exam: Necrotic right foot ulcer;Other (please specify) Report IMPRESSION: ABNORMAL STUDY, BUT WITH THE FINDINGS CHRONIC IN APPEARANCE. CLINICAL HISTORY: Necrotic right foot ulcer. COMPARISON: 09/29/2022. COMMENT: 3 views. The bones appear osteopenic. There is deformity at the PIP joint of the right second digit, with deformity/absence of the head of the proximal phalanx and base of the middle phalanx, possibly due to prior surgery. This is unchanged in appearance from the prior exam. No destruction of bone(s) is evident in the interim since the prior exam. There are some hypertrophic degenerative changes involving tarsal joints and at the hindfoot-midfoot and midfoot-forefoot junctions. Bones of the right foot are otherwise unremarkable. No acute/recent fracture nor subluxation is noted. No periosteal reaction is evident. There is diffuse soft tissue swelling of the foot, and on the current exam, soft tissue swelling also extends to involve the ankle. No soft tissue emphysema is evident. Little change is noted when compared to the prior exam. Ordering Provider: Priscilla Oseguera FINAL REPORT Dictated: 07/07/2023 10:30 am Antonio Lewis M.D. Signed (Electronic Signature): 07/07/2023 10:30 am Signed by: Antonio Lewis M.D. Transcribed by: ISA Technologist: CORNELIO Technical Comments Radiation Dose: Ka,r in mGy = . DAP = . Normal [facility] cefTAZidime JACQUELYN [facility]Ordere d By: Henna Chua on 07-07-2023 GS Occasional White Blo od Cells 2+ Gram Negative Rods 2+ Gram Positive Cocci [facility] Methicillin-Resistant Staphylococcus aureus MRSA Methicillin-Resistant Staphylococcus aureus MRSA [facility] Pseudomonas aeruginosa Pseudomonas aeruginosa [facility] BMPon 07-06-2023 Anion gap [Moles/Vol] 14 mmol/L Normal 6-16 [facility] Comment on above: Performed By: #### 1 8657716, 4326234, [id number] ####[facility] [address] [place] [address] BUN/Creat Ratio 25 No Units High 10-20 [facility] Comment on above: Performed By: #### 1 5810598, 8504216, 6113062 ####[facility] [address] [place] [address] Calcium [Mass/Vol] 8.8 mg/dL Low 8.9-11.1 [facility] Comment on above: Performed By: #### 1 8792095, 9741168, 7693857 ####[facility] [address] [place] [address] Chloride [Moles/Vol] 100 mmol/L Low 101-111 [facility] Comment on above: Performed By: #### 1 6420427, 8493474, 9515625 ####[facility] [address] [place] [address] CO2 [Moles/Vol] 24 mmol/L Normal 21-31 [facility] Comment on above: Performed By: #### 1 9156289, 4214987, 5266611 ####[facility] [address] [place] [address] Creatinine [Mass/Vol] 0.4 mg/dL Low 0.5-1.3 [facility] Comment on above: Performed By: #### 1 3157636, 8267583, 6052977 ####[facility] [address] [place] [address] Glucose [Mass/Vol] 75 mg/dL Normal 55-199 [facility] Comment on above: Performed By: #### 1 2521474, 5136574, 8447963 ####[facility] [address] [place] [address] Potassium [Moles/Vol] 3.6 mmol/L Normal 3.5-5.3 [facility] Comment on above: Performed By: #### 1 0802142, 6925112, 2521431 ####[facility] [address] [place] [address] Sodium [Moles/Vol] 134 mmol/L Low 135-145 [facility] Comment on above: Performed By: #### 1 8654731, 5144905, 4586422 ####[facility] [address] [place] [address] Urea nitrogen [Mass/Vol] 10 mg/dL Normal 5-21 [facility] Comment on above: Performed By: #### 1 2944197, 9342039, 6750716 ####[address] [address] CBC w/ Auto Diffon 4 Basophil Absolute 0.1 E9/L Normal 0.0-0.2 [facility] Comment on above: Performed By: #### 1 5921894, 4111780, 7248821 ####[address] [address] Basophils/100 WBC (Bld) 0.5 % Normal 0.0-2.0 [facility] Comment on above: Performed By: #### 1 3726454, 3702046, 0294432 ####[address] [address] Eos Absolute 0.1 E9/L Normal 0.0-0.5 [facility] Comment on above: Performed By: #### 1 4184897, 3355117, 7086445 ####[address] [address] Eosinophils/100 WBC (Bld) 0.8 % Normal 0.0-8.0 [facility] Comment on above: Performed By: #### 1 9695446, 4632384, 3669243 ####[address] [address] Erythrocyte distribution width (RBC) [Ratio] 18.5 % High 10.9-14.2 [facility] Comment on above: Performed By: #### 1 3498712, 3989386, 7813492 ####[address] [address] Hematocrit (Bld) [Volume fraction] 35.0 % Low 37.7-49.0 [facility] Comment on above: Performed By: #### 1 5063473, 8134474, 2451075 ####[address] [address] Hemoglobin (Bld) [Mass/Vol] 11.0 g/dL Low 13.5-17.5 [facility] Comment on above: Performed By: #### 1 1819098, 8575314, 2829886 ####[address] [address] Lymph Absolute 1.6 E9/L Normal 1.0-4.0 [facility] Comment on above: Performed By: #### 1 7378882, 2300045, 0196892 ####[address] [address] Lymphocytes/100 WBC (Bld) 10.1 % Low 14.0-50.0 [facility] Comment on above: Performed By: #### 1 0234833, 4336869, 0097844 ####[address] [address] MCH (RBC) [Entitic mass] 26.6 pg Low 27.0-34.0 [facility] Comment on above: Performed By: #### 1 7057025, 0512717, 7988148 ####[address] [address] MCHC (RBC) [Mass/Vol] 31.5 g/dL Normal 31.4-36.0 [facility] Comment on above: Performed By: #### 1 6347086, 4073725, 9010522 ####[address] [address] MCV (RBC) [Entitic vol] 84.3 fL Normal 80.0-100.0 [facility] Comment on above: Performed By: #### 1 7129239, 6261576, 8520490 ####[address] [address] [place] Absolute 0.8 E9/L Normal 0.2-1.0 [facility] Comment on above: Performed By: #### 1 6781839, 6245049, 8551522 ####[address] [place] [address] Monocytes/100 WBC (Bld) 5.4 % Normal 4.0-14.0 [facility] Comment on above: Performed By: #### 1 7446946, 5439095, 3849510 ####[address] [address] Neutro Absolute 12.8 E9/L High 2.0-7.5 [facility] Comment on above: Performed By: #### 1 0312278, 7596716, 6077471 ####[address] [address] Neutro Auto 83.2 % High 36.0-75.0 [facility] Comment on above: Performed By: #### 1 0145238, 6723316, 2157165 ####[address] [address] Platelet 597.0 E9/L High 150.0-500.0 [facility] Comment on above: Performed By: #### 1 2612581, 2987396, 9645574 ####[address] [place] [address] Platelet mean volume (Bld) [Entitic vol] 6.8 fL Normal 6.4-10.8 [facility] Comment on above: Performed By: #### 1 0831345, 6720358, 2192675 ####[facility] [address] [place] [address] RBC 4.2 E12/L Low 4.3-5.9 [facility] Comment on above: Performed By: #### 1 5024406, 4276075, 1990399 ####[facility] [address] [place] [address] WBC 15.4 E9/L High 4.0-11.0 [facility] Comment on above: Performed By: #### 1 3796478, 0178915, 9910208 ####[facility] [address] [place] [address] CHEMISTRYOrdered By: SYSTEM SYSTEM on 07-06-2023 Anion gap [Moles/Vol] 14 mmol/L Normal 6 - 16 mEq/L Remisol Chem Calcium [Mass/Vol] 8.8 mg/dL Low 8.9 - 11. 1 mg/dL [facility] Chloride [Moles/Vol] 100 mmol/L Low 101 - 1 11 mmol/L [facility] CO2 [Moles/Vol] 24 mmol/L Normal 21 - 31 mmol/L [facility] Creatinine [Mass/Vol] 0.4 mg/dL Low 0.5 - 1.3 mg/dL [facility] eGFR 151 mL/min/1.73 m2 Normal >=59mL/mi n/ 1.73 m2 [facility] Glucose [Mass/Vol] 75 mg/dL Normal 55 - 199 mg/dL [facility] Potassium [Moles/Vol] 3.6 mmol/L Normal 3.5 - 5.3 mmol/L [facility] Sodium [Moles/Vol] 134 mmol/L Low 135 - 145 mmol/L [facility] Urea nitrogen [Mass/Vol] 10 mg/dL Normal 5 - 21 mg/dL [facility] Urea nitrogen/Creatinine [Mass ratio] 25 mg/mg High 10 - 20 [facility] Consent for Treatmenton 06-12 Consent for Treatment [id number] 0TIFF Normal [facility] HEMATOLOGYOrdered By: SYSTEM SYSTEM on 07-06-2023 Basophil Absolute 0.1 E9/L Normal 0.0 - 0.2 E9/L Remisol Heme Basophils/100 WBC (Bld) 0.5 % Normal 0.0 - 2.0 % Rem[facility] Heme Eos Absolute 0.1 E9/L Normal 0.0 - 0.5 E9/L [facility] Heme Eosinophils/100 WBC (Bld) 0.8 % Normal 0.0 - 8.0 % Rem[facility] Heme Erythrocyte distribution width (RBC) [Ratio] 18.5 % High 10.9 - 14.2 % [facility]e Hematocrit (Bld) [Volume fraction] 35.0 % Low 37.7 - 49.0 % [facility]e Hemoglobin (Bld) [Mass/Vol] 11.0 g/dL Low 13.5 - 17.5 gm/dL [facility]e Lymph Absolute 1.6 E9/L Normal 1.0 - 4.0 E9/L [facility] Heme Lymphocytes/100 WBC (Bld) 10.1 % Low 14.0 - 50.0 % Rem[facility] Heme MCH (RBC) [Entitic mass] 26.6 pg Low 27.0 - 34.0 pg Rem[facility] Heme MCHC (RBC) [Mass/Vol] 31.5 g/dL Normal 31.4 - 36.0 gm/dL [facility] Heme MCV (RBC) [Entitic vol] 84.3 fL Normal 80.0 - 100.0 fL Rem[facility] Heme Jackson Absolute 0.8 E9/L Normal 0.2 - 1.0 E9/L [facility]e Monocytes/100 WBC (Bld) 5.4 % Normal 4.0 - 14.0 % [facility]e Neutro Absolute 12.8 E9/L High 2.0 - 7.5 E9/L [facility] Neutro Auto 83.2 % High 36.0 - 75.0 % [facility] Platelet 597.0 E9/L High 150.0 - 500.0 E9/L [facility] Heme Platelet mean volume (Bld) [Entitic vol] 6.8 fL Normal 6.4 - 10.8 fL [facility] Heme RBC 4.2 E12/L Low 4.3 - 5.9 E12/L [facility] Heme WBC 15.4 E9/L High 4.0 - 11.0 E9/L Rem[facility] Heme eGFRon 07-06-2023 eGFR 151 mL/min/1.73 m2 Normal >=59 [facility] Comment on above: Order Comment: Order added by Discern Expert. Performed By: #### 1 [id number] ####[id number] [place] [address] US UNI ankle/arm indiceson 0 06-18-2023 US UNI ankle/arm indices [facility] [id number] Ultrasound Report Signed Patient: Cleveland Swift MR#: [id number] 59 : 1995 Acct:[id number] Age/Sex: 27 / M ADM Date: 06/18/23 Loc: [facility] Room: Type: [facility] Attending Dr: Scar Ann MD Ordering Provider: Scar Ann MD Date of Service: 06/18/23 US/US UNI ankle/arm indices: PVD W/ ULCER RLE Copies to: Scar Ann MD LOWER EXTREMITY SEGMENTAL ARTERIAL DOPSCAN (PVR) INDICATION: Foot wound, poor healing. PROCEDURE: Right arm blood pressure is 79 , left is 95 . Pressures at the right ankle are 104 using the posterior tibial artery, and 140 using the dorsalis pedis artery with ankle-brachial index of 1.09 1.47 . Wave forms by plethysmography are normal. US/US UNI ankle/arm indices IMPRESSION: NO HEMODYNAMICALLY SIGNIFICANT PERIPHERAL VASCULAR OCCLUSIVE DISEASE AT REST IN THE RIGHT LOWER EXTREMITY. Impression dictated by: Scar Ann MD06/18/2023 11:50 AM Dictation Location: [id number] Tech: Brenda Jorgensen Transcribed By: JAYSHREE 06/18/23 1150 Dictated By: Scar Ann MD 06/18/23 1149 Signed By: 06/18/23 1150 Normal [facility] Progress Noteson 05-09-2022 Fertilizer Supervisor Authentication Interface Message Text Normal The [facility] Patient Instructionson 05-07 Fertilizer Supervisor Authentication Interface Message Text You may shower Do not soak the foot Return to using the heel relief pillow style boot Keep the heel elevated off of the bed Let the scab fall off on its own - do not pick Normal The [facility] Patient Instructionson 04-23 Fertilizer Supervisor Authentication Interface Message Text Leave dressing clean, dry and intact If it gets wet it needs to be changed Normal [facility] Progress Noteson 04-23-2022 Fertilizer Supervisor Authentication Interface Message Text Normal [facility] Progress Noteson 04-20-2022 Fertilizer Supervisor Authentication Interface Message Text Encounter opened in error Normal [facility] Telephone Encounteron 2021 Fertilizer Supervisor Authentication Interface Message Text Spoke with pt and R/S him for Thursday with Dr. Spangler. Provided pt my direct # in case he can't make it due to transportation issues he is currently dealing with. Normal [facility] Telephone Encounteron 2021 Fertilizer Supervisor Authentication Interface Message Text Pt has stitches on left heel and needs a follow up appt. Unable to come tomorrow due to transportation issue Please call pt at [phone] for an appt within week. Normal [facility] Telephone Encounteron 2021 Fertilizer Supervisor Authentication Interface Message Text He sent a mychart with the same question and I replied to him. I'm waiting on his response about his current medications. I would like to put him on linezolid but need to see if he's still on lexapro. Normal [facility] Fertilizer Supervisor Authentication Interface Message Text Normal [facility] Telephone Encounteron 2021 Fertilizer Supervisor Authentication Interface Message Text Normal [facility] Telephone Encounteron 2021 Fertilizer Supervisor Authentication Interface Message Text Normal [facility] Telephone Encounteron 2021 Fertilizer Supervisor Authentication Interface Message Text He can complete doxycycline as recommended by inpatient team. Does not need follow up in ID unless there is a problem, since he already had repeat CT scan. Normal [facility] Fertilizer Supervisor Authentication Interface Message Text Normal [facility] Care Plan Noteon 04-04-2022 Fertilizer Supervisor Authentication Interface Message Text Normal [facility] Progress Noteson 04-04-2022 Fertilizer Supervisor Authentication Interface Message Text Normal [facility] Fertilizer Supervisor Authentication Interface Message Text Normal [facility] Fertilizer Supervisor Authentication Interface Message Text RN notified that pt received m2b. Pt is set up for 3pm p/u this date via [employer]. Chante Gray, AUTOMATIC [employer]IPPER [employer] STRIPPER, DRAW FURNACE TENDER [phone] Normal The [facility] Fertilizer Supervisor Authentication Interface Message Text MD Montoya and MD Vences notified pt has mucous shreds and small amounts of blood clot shreds in urostomy bag. Pt states this happens sometimes when I change my bag and accidentally pinch my stoma . MDs aware, no new orders at this time. Normal [facility] Care Plan Noteon 04-03-2022 Fertilizer Supervisor Authentication Interface Message Text Normal [facility] Fertilizer Supervisor Authentication Interface Message Text Normal [facility] Progress Noteson 04-03-2022 Fertilizer Supervisor Authentication Interface Message Text Patient has been refusing turns, educated regarding the importance of turns. Will continue to encourage patient to allow nursing staff to turn him. Normal The [facility] Fertilizer Supervisor Authentication Interface Message Text Normal [facility] Student Noteon 04-03-2022 Fertilizer Supervisor Authentication Interface Message Text Normal The [facility] C-REACTIVE PROTEINon 022 CRP [Mass/Vol] 2.7 mg/dL High NINF - 0.8 mg/dL [facility] Interpretation and review of laboratory results Abnormal [facility] CRP 2.7 mg/dL High <0.8 [facility] Comment on above: Performed By: #### V ANC TR, CRP ####[facility] [id number] [place], [id number] CT NECK W/ CONTRASTon 2021 CT NECK W/ CONTRAST Normal [facility] CT Neck W contrast Earlene 03-12 CT DLP 210 (mGy.cm) [facility] CT Series Topogram,Topogram,NE CK WITH [facility] CTDI VOL 0.08 (mGy),0.08 (mGy),7.09 (mGy) [facility] PHANTOM TYPE IEC Body Dosimetry Phantom,IEC Body Dosimetry Phantom,IEC Body Dosimetry Phantom [facility] RADIOLOGY [facility] Radiology Study observation (narrative) [facility] Care Plan Noteon 04-02-2022 Fertilizer Supervisor Authentication Interface Message Text Normal [facility] Fertilizer Supervisor Authentication Interface Message Text Normal [facility] Consultson 04-02-2022 Fertilizer Supervisor Authentication Interface Message Text Normal [facility] Progress Noteson 04-02-2022 Fertilizer Supervisor Authentication Interface Message Text MD/team made SW aware pt is medically cleared for dc. Pt continues to refuse SNF, will dc home with oral abx. DME ordered by . [facility] set up transportation via [email or web address]- p/u time set for 6:00pm this date. Chante Gray, AUTOMATIC [employer]IPPER [employer] STRIPPER, DRAW FURNACE TENDER [phone] Normal The [facility] Fertilizer Supervisor Authentication Interface Message Text Normal [facility] Fertilizer Supervisor Authentication Interface Message Text Normal [facility] Fertilizer Supervisor Authentication Interface Message Text Normal [facility] Fertilizer Supervisor Authentication Interface Message Text Normal [facility] Student Noteon 04-02-2022 Fertilizer Supervisor Authentication Interface Message Text Normal [facility] Fertilizer Supervisor Authentication Interface Message Text Normal [facility] VANCOMYCIN TROUGHon 04-02-20 VANC TR 16.0 ug/mL Normal 10.0-20.0 [facility] Comment on above: Performed By: #### V ANC TR, CRP ####[facility] [id number] [place], [place], Interpretation and review of laboratory results Normal [facility] Vancomycin trough [Mass/Vol] 16.0 ug/mL 10.0 - 20.0 ug/mL [facility] Care Plan Noteon 04-01-2022 Fertilizer Supervisor Authentication Interface Message Text Normal [facility] Fertilizer Supervisor Authentication Interface Message Text Normal [facility] Consultson 04-01-2022 Fertilizer Supervisor Authentication Interface Message Text Normal [facility] Progress Noteson 04-01-2022 Fertilizer Supervisor Authentication Interface Message Text Normal [facility] Fertilizer Supervisor Authentication Interface Message Text Normal [facility] Fertilizer Supervisor Authentication Interface Message Text Normal [facility] Fertilizer Supervisor Authentication Interface Message Text Normal [facility] Student Noteon 04-01-2022 Fertilizer Supervisor Authentication Interface Message Text Normal [facility] Care Plan Noteon 03-31-2022 Fertilizer Supervisor Authentication Interface Message Text Normal [facility] Fertilizer Supervisor Authentication Interface Message Text Normal [facility] Consultson 03-31-2022 Fertilizer Supervisor Authentication Interface Message Text Normal [facility] Fertilizer Supervisor Authentication Interface Message Text Normal [facility] Progress Noteson 03-31-2022 Fertilizer Supervisor Authentication Interface Message Text Normal [facility] Fertilizer Supervisor Authentication Interface Message Text Normal [facility] Fertilizer Supervisor Authentication Interface Message Text Normal [facility] BASIC METABOLIC PANELon 03-12 Anion gap [Moles/Vol] 14 mmol/L Normal 10-20 [facility] Comment on above: Performed By: #### M G, CH8 ####[facility] [id number] [place], [place], Calcium [Mass/Vol] 9.2 mg/dL Normal 8.4-10.4 [facility] Comment on above: Performed By: #### Lianne Ramirez, CH8 ####S PATHOLOGY [id number] [place], [place], Chloride [Moles/Vol] 106 mmol/L Normal 97-111 [facility] Comment on above: Performed By: #### Lianne Ramirez, CH8 ####S PATHOLOGY [id number] [place], [place], CO2 [Moles/Vol] 23 mmol/L Normal 21-30 [facility] Comment on above: Performed By: #### Lianne Ramirez, CH8 ####S PATHOLOGY [id number] [place], [place], Creatinine [Mass/Vol] mg/dL Low 0.80-1.30 [facility] Comment on above: Performed By: ###Gennaro Ramirez, TEODORA8 ####S PATHOLOGY [id number] [place], [place], Glucose [Mass/Vol] 90 mg/dL Normal 68-110 [facility] Comment on above: Performed By: #### Lianne Ramirez, CH8 ####[facility] [id number] [place], [place], Potassium [Moles/Vol] 3.7 mmol/L Normal 3.3-5.3 [facility] Comment on above: Performed By: #### Lianne Ramirez, CH8 ####S PATHOLOGY [id number] [place], [place], Sodium [Moles/Vol] 139 mmol/L Normal 135-148 [facility] Comment on above: Performed By: #### Lianne Ramirez, CH8 ####S PATHOLOGY [id number] [place], [place], Urea nitrogen [Mass/Vol] 16 mg/dL Normal 8-22 [facility] Comment on above: Performed By: #### Lianne Ramirez, CH8 ####S PATHOLOGY [id number] [place], [place], Basic metabolic 2000 panelon 03-30-2022 Anion gap [Moles/Vol] 14 mmol/L 10 - 20 [facility] Calcium [Mass/Vol] 9.2 mg/dL 8.4 - 10. 4 mg/dL [facility] Chloride [Moles/Vol] 106 mmol/L 97 - 11 1 mmol/L [facility] CO2 [Moles/Vol] 23 mmol/L 21 - 30 mmol/L [facility] Creatinine [Mass/Vol] mg/dL Low 0.80 - 1.30 mg/dL [facility] Glucose [Mass/Vol] 90 mg/dL 68 - 110 mg/dL [facility] Interpretation and review of laboratory results Abnormal [facility] Potassium [Moles/Vol] 3.7 mmol/L 3.3 - 5.3 mmol/L [facility] Sodium [Moles/Vol] 139 mmol/L 135 - 148 mmol/L [facility] Urea nitrogen [Mass/Vol] 16 mg/dL 8 - 22 mg/dL [facility] CBC panel Auto (Bld)on 03-30 Erythrocyte distribution width (RBC) [Ratio] 21.8 % High 11.5 - 14.5 % [facility] Hematocrit (Bld) [Volume fraction] 32.3 % Low 41.0 - 53.0 % [facility] Hemoglobin (Bld) [Mass/Vol] 10.6 g/dL Low 13.9 - 16.3 g/dL [facility] Interpretation and review of laboratory results Abnormal [facility] MCH (RBC) [Entitic mass] 28.2 pg 26.0 - 34.0 pg [facility] MCHC (RBC) [Mass/Vol] 32.9 g/dL 32.0 - 35.9 g/dL [facility] MCV (RBC) [Entitic vol] 86 fL 80 - 100 fL [facility] Platelet mean volume (Bld) [Entitic vol] 7.1 fL Low 7.5 - 11.2 fL [facility] Platelets (Bld) [#/Vol] 334 10*3/uL 150 - 400 K/uL [facility] RBC (Bld) [#/Vol] 3.77 10*6/uL Low [facility] WBC (Bld) [#/Vol] 7.0 10*3/uL 4.5 - 11.5 K/uL [facility] COMPLETE BLOOD COUNTon 03-30 Erythrocyte distribution width (RBC) [Ratio] 21.8 % High 11.5-14.5 [facility] Comment on above: Performed By: #### C BC ####[facility] [id number] [place], [place], Hematocrit (Bld) [Volume fraction] 32.3 % Low 41.0-53.0 [facility] Comment on above: Performed By: #### C BC ####[facility] [id number] [place], [place], Hemoglobin (Bld) [Mass/Vol] 10.6 g/dL Low 13.9-16.3 [facility] Comment on above: Performed By: #### C BC ####[facility] [id number] [place], [place], MCH (RBC) [Entitic mass] 28.2 pg Normal 26.0-34.0 [facility] Comment on above: Performed By: #### C BC ####[facility] [id number] [place], MCHC (RBC) [Mass/Vol] 32.9 g/dL Normal 32.0-35.9 [facility] Comment on above: Performed By: #### C BC ####[facility] [id number] [place], MCV (RBC) [Entitic vol] 86 fL Normal 80-100 T [facility] Comment on above: Performed By: #### C BC ####[facility] [id number] [place], [place], Platelet mean volume (Bld) [Entitic vol] 7.1 fL Low 7.5-11.2 [facility] Comment on above: Performed By: #### C BC ####[facility] [id number] [place], [place], Platelets (Bld) [#/Vol] 334 10*3/uL Normal 150-400 [facility] Comment on above: Performed By: #### C BC ####[facility] [id number] [place], [place], RBC (Bld) [#/Vol] 3.77 10*6/uL Low 4.50-5.90 [facility] Comment on above: Performed By: #### C BC ####[facility] [id number] [place], [place], WBC (Bld) [#/Vol] 7.0 10*3/uL Normal 4.5-11.5 [facility] Comment on above: Performed By: #### C BC ####[facility] [id number] [place], [place], Care Plan Noteon 03-30-2022 Fertilizer Supervisor Authentication Interface Message Text Normal [facility] Fertilizer Supervisor Authentication Interface Message Text Normal [facility] MAGNESIUMon 03-30-2022 Interpretation and review of laboratory results Normal [facility] Magnesium [Mass/Vol] 1.8 mg/dL 1.6 - 2 .8 mg/dL [facility] Magnesium [Mass/Vol] 1.8 mg/dL Normal 1.6-2.8 [facility] Comment on above: Performed By: #### M G, CH8 ####[facility] [id number] [place], [place], No Panel Informationon 03-30 [facility] Progress Noteson 03-30-2022 Fertilizer Supervisor Authentication Interface Message Text Normal [facility] Fertilizer Supervisor Authentication Interface Message Text Normal [facility] ANAEROBIC CULTURE, MISCOrder ed By: Regine Collins on 03-29-2022 Bacteria identified Anaer cx Nom (Unsp spec) No Anaerobes isolated [facility] Interpretation and review of laboratory results Normal [facility] BASIC METABOLIC PANELon 03-11 Anion gap [Moles/Vol] 13 mmol/L Normal 10-20 [facility] Comment on above: Performed By: #### C H8, MG ####[facility] [id number] [place], [place], Calcium [Mass/Vol] 10.2 mg/dL Normal 8.4-10.4 [facility] Comment on above: Performed By: #### C H8, MG ####[facility] [id number] [place], [place], Chloride [Moles/Vol] 102 mmol/L Normal 97-111 [facility] Comment on above: Performed By: #### Jacqueline Loomis, MG ####[facility] [id number] [place], [place], CO2 [Moles/Vol] 27 mmol/L Normal 21-30 [facility] Comment on above: Performed By: #### Jacqueline Loomis, MG ####[facility] [id number] [place], [place], Creatinine [Mass/Vol] mg/dL Low 0.80-1.30 [facility] Comment on above: Performed By: #### Jacqueline Loomis, MG ####S PATHOLOGY [id number] [place], [place], Glucose [Mass/Vol] 82 mg/dL Normal 68-110 [facility] Comment on above: Performed By: #### Jacqueline Loomis, MG ####S PATHOLOGY [id number] [place], [place], Potassium [Moles/Vol] 4.4 mmol/L Normal 3.3-5.3 [facility] Comment on above: Performed By: #### Jacqueline Loomis, MG ####S PATHOLOGY [id number] [place], [place], Sodium [Moles/Vol] 138 mmol/L Normal 135-148 [facility] Comment on above: Performed By: #### Jacqueline Loomis, MG ####S PATHOLOGY [id number] [place], [place], Urea nitrogen [Mass/Vol] 17 mg/dL Normal 8-22 [facility] Comment on above: Performed By: #### Jacqueline Loomis, MG ####S PATHOLOGY [id number] [place], [place], Basic metabolic 2000 panelon 03-29-2022 Anion gap [Moles/Vol] 13 mmol/L 10 - 20 [facility] Calcium [Mass/Vol] 10.2 mg/dL 8.4 - 10. 4 mg/dL [facility] Chloride [Moles/Vol] 102 mmol/L 97 - 11 1 mmol/L [facility] CO2 [Moles/Vol] 27 mmol/L 21 - 30 mmol/L [facility] Creatinine [Mass/Vol] mg/dL Low 0.80 - 1.30 mg/dL [facility] Glucose [Mass/Vol] 82 mg/dL 68 - 110 mg/dL [facility] Interpretation and review of laboratory results Abnormal [facility] Potassium [Moles/Vol] 4.4 mmol/L 3.3 - 5.3 mmol/L [facility] Sodium [Moles/Vol] 138 mmol/L 135 - 148 mmol/L [facility] Urea nitrogen [Mass/Vol] 17 mg/dL 8 - 22 mg/dL [facility] CBC panel Auto (Bld)on 03-29 Erythrocyte distribution width (RBC) [Ratio] 21.4 % High 11.5 - 14.5 % [facility] Hematocrit (Bld) [Volume fraction] 32.8 % Low 41.0 - 53.0 % [facility] Hemoglobin (Bld) [Mass/Vol] 10.7 g/dL Low 13.9 - 16.3 g/dL [facility] Interpretation and review of laboratory results Abnormal [facility] MCH (RBC) [Entitic mass] 27.5 pg 26.0 - 34.0 pg [facility] MCHC (RBC) [Mass/Vol] 32.5 g/dL 32.0 - 35.9 g/dL [facility] MCV (RBC) [Entitic vol] 85 fL 80 - 100 fL [facility] Platelet mean volume (Bld) [Entitic vol] 7.0 fL Low 7.5 - 11.2 fL [facility] Platelets (Bld) [#/Vol] 334 10*3/uL 150 - 400 K/uL [facility] RBC (Bld) [#/Vol] 3.87 10*6/uL Low [facility] WBC (Bld) [#/Vol] 6.2 10*3/uL 4.5 - 11.5 K/uL [facility] COMPLETE BLOOD COUNTon 03-29 Erythrocyte distribution width (RBC) [Ratio] 21.4 % High 11.5-14.5 [facility] Comment on above: Performed By: #### C BC ####[facility] [id number] [place], [address] Hematocrit (Bld) [Volume fraction] 32.8 % Low 41.0-53.0 [facility] Comment on above: Performed By: #### C BC ####[facility] [id number] [place], Hemoglobin (Bld) [Mass/Vol] 10.7 g/dL Low 13.9-16.3 [facility] Comment on above: Performed By: #### C BC ####[facility] [id number] [place], MCH (RBC) [Entitic mass] 27.5 pg Normal 26.0-34.0 [facility] Comment on above: Performed By: #### C BC ####[facility] [id number] [place], MCHC (RBC) [Mass/Vol] 32.5 g/dL Normal 32.0-35.9 [facility] Comment on above: Performed By: #### C BC ####[facility] [id number] [place], MCV (RBC) [Entitic vol] 85 fL Normal 80-100 T [facility] Comment on above: Performed By: #### C BC ####[facility] [id number] [place], Platelet mean volume (Bld) [Entitic vol] 7.0 fL Low 7.5-11.2 [facility] Comment on above: Performed By: #### C BC ####[facility] [id number] [place], Platelets (Bld) [#/Vol] 334 10*3/uL Normal 150-400 [facility] Comment on above: Performed By: #### C BC ####[facility] [id number] [place], RBC (Bld) [#/Vol] 3.87 10*6/uL Low 4.50-5.90 [facility] Comment on above: Performed By: #### C BC ####[facility] [id number] [place], WBC (Bld) [#/Vol] 6.2 10*3/uL Normal 4.5-11.5 [facility] Comment on above: Performed By: #### C BC ####[facility] [id number] [place], [place], Care Plan Noteon 03-29-2022 Fertilizer Supervisor Authentication Interface Message Text Normal [facility] Fertilizer Supervisor Authentication Interface Message Text Normal [facility] MAGNESIUMon 03-29-2022 Magnesium [Mass/Vol] 1.9 mg/dL Normal 1.6-2.8 [facility] Comment on above: Performed By: #### Jacqueline H8, MG ####[facility] PATHOLOGY [id number] [place], [place], Interpretation and review of laboratory results Normal [facility] Magnesium [Mass/Vol] 1.9 mg/dL 1.6 - 2 .8 mg/dL [facility] No Panel Informationon 03-29 [facility] Noteson 03-29-2022 Fertilizer Supervisor Authentication Interface Message Text Normal [facility] Student Noteon 03-29-2022 Fertilizer Supervisor Authentication Interface Message Text Normal [facility] BASIC METABOLIC PANELon 03-11 Anion gap [Moles/Vol] 17 mmol/L Normal 10-20 [facility] Comment on above: Performed By: #### Jacqueline H8, MG ####[facility] PATH[facility] [id number] [place], [place], Calcium [Mass/Vol] 10.1 mg/dL Normal 8.4-10.4 [facility] Comment on above: Performed By: #### Jacqueline H8, MG ####[facility] PATHOLOGY [id number] [place], [place], Chloride [Moles/Vol] 105 mmol/L Normal 97-111 [facility] Comment on above: Performed By: #### Jacqueline H8, MG ####[facility] PATHOLOGY [id number] [place], [place], CO2 [Moles/Vol] 23 mmol/L Normal 21-30 [facility] Comment on above: Performed By: #### Jacqueline H8, MG ####[facility] PATHOLOGY [id number] [place], [place], Creatinine [Mass/Vol] 0.24 mg/dL Low 0.80-1.30 [facility] Comment on above: Performed By: #### C H8, MG ####[facility] PATHOLOGY [id number] [place], ESTIMATED GFR (CKD-EPI) 178 mL/min/1.73sqm Normal >=60 [facility] Comment on above: Result Comment: 2020 CKD EPI Equation using Creatinine without RaceComment: Estimated glomerular filtration rate (eGFR) is calculated without a race coefficient. Values should be interpreted in the context of the patient's full clinical presentation.Reference:1. Chinedu C, Alex M, Karen LAWS, et al.. A Unifying Approach for GFR Estimation: Recommendations of the NKF-ASN Task Force on Reassessing the Inclusion of Race in Diagnosing Kidney Disease. [place] Journal of Kidney Diseases 2021;79(2):268-88.e1.2. N Engl J Med 2020 Vol. 385 Issue 19 Pages 8706-6140 Performed By: #### C H8, MG ####S PATHOLOGY [id number] [place], [place], Glucose [Mass/Vol] 80 mg/dL Normal 68-110 [facility] Comment on above: Performed By: #### C H8, MG ####[facility] PATHOLOGY [id number] [place], [place], Potassium [Moles/Vol] 4.4 mmol/L Normal 3.3-5.3 [facility] Comment on above: Performed By: #### C H8, MG ####[facility] PATHOLOGY [id number] [place], Sodium [Moles/Vol] 141 mmol/L Normal 135-148 [facility] Comment on above: Performed By: #### C H8, MG ####[facility] PATHOLOGY [id number] [place], [place], Urea nitrogen [Mass/Vol] 16 mg/dL Normal 8-22 [facility] Comment on above: Performed By: #### C H8, MG ####[facility] PATHOLOGY [id number] [place], [place], Basic metabolic 2000 panelon 03-28-2022 Anion gap [Moles/Vol] 17 mmol/L 10 - 20 [facility] Calcium [Mass/Vol] 10.1 mg/dL 8.4 - 10. 4 mg/dL [facility] Chloride [Moles/Vol] 105 mmol/L 97 - 11 1 mmol/L [facility] CO2 [Moles/Vol] 23 mmol/L 21 - 30 mmol/L [facility] Creatinine [Mass/Vol] 0.24 mg/dL Low 0.80 - 1.30 mg/dL [facility] GFR/1.73 sq M.predicted MDRD (S/P/Bld) [Vol rate/Area] 178 mL/min/{1.73_m2} - PINF [facility] Glucose [Mass/Vol] 80 mg/dL 68 - 110 mg/dL [facility] Interpretation and review of laboratory results Abnormal [facility] Potassium [Moles/Vol] 4.4 mmol/L 3.3 - 5.3 mmol/L [facility] Sodium [Moles/Vol] 141 mmol/L 135 - 148 mmol/L [facility] Urea nitrogen [Mass/Vol] 16 mg/dL 8 - 22 mg/dL [facility] CBC panel Auto (Bld)on 03-28 Erythrocyte distribution width (RBC) [Ratio] 22.2 % High 11.5 - 14.5 % [facility] Hematocrit (Bld) [Volume fraction] 33.3 % Low 41.0 - 53.0 % [facility] Hemoglobin (Bld) [Mass/Vol] 10.7 g/dL Low 13.9 - 16.3 g/dL [facility] Interpretation and review of laboratory results Abnormal [facility] MCH (RBC) [Entitic mass] 27.1 pg 26.0 - 34.0 pg [facility] MCHC (RBC) [Mass/Vol] 32.2 g/dL 32.0 - 35.9 g/dL [facility] MCV (RBC) [Entitic vol] 84 fL 80 - 100 fL [facility] Platelet mean volume (Bld) [Entitic vol] 6.9 fL Low 7.5 - 11.2 fL [facility] Platelets (Bld) [#/Vol] 356 10*3/uL 150 - 400 K/uL [facility] RBC (Bld) [#/Vol] 3.96 10*6/uL Low [facility] WBC (Bld) [#/Vol] 7.2 10*3/uL 4.5 - 11.5 K/uL [facility] COMPLETE BLOOD COUNTon 03-28 Erythrocyte distribution width (RBC) [Ratio] 22.2 % High 11.5-14.5 [facility] Comment on above: Performed By: #### C BC ####[facility] PATHOLOGY [id number] [place], Hematocrit (Bld) [Volume fraction] 33.3 % Low 41.0-53.0 [facility] Comment on above: Performed By: #### C BC ####[facility] PATHOLOGY [id number] [place], Hemoglobin (Bld) [Mass/Vol] 10.7 g/dL Low 13.9-16.3 [facility] Comment on above: Performed By: #### C BC ####[facility] PATHOLOGY [id number] [place], MCH (RBC) [Entitic mass] 27.1 pg Normal 26.0-34.0 [facility] Comment on above: Performed By: #### C BC ####[facility] PATHOLOGY [id number] [place], MCHC (RBC) [Mass/Vol] 32.2 g/dL Normal 32.0-35.9 [facility] Comment on above: Performed By: #### C BC ####[facility] PATHOLOGY [id number] [place], MCV (RBC) [Entitic vol] 84 fL Normal 80-100 [facility] Comment on above: Performed By: #### C BC ####[facility] PATHOLOGY [id number] [place], Platelet mean volume (Bld) [Entitic vol] 6.9 fL Low 7.5-11.2 [facility] Comment on above: Performed By: #### C BC ####[facility] PATHOLOGY [id number] [place], Platelets (Bld) [#/Vol] 356 10*3/uL Normal 150-400 [facility] Comment on above: Performed By: #### C BC ####[facility] PATH[facility] [id number] [place], RBC (Bld) [#/Vol] 3.96 10*6/uL Low 4.50-5.90 [facility] Comment on above: Performed By: #### C BC ####[facility] PATHOLOG[facility] [id number] [place], WBC (Bld) [#/Vol] 7.2 10*3/uL Normal 4.5-11.5 [facility] Comment on above: Performed By: #### C BC ####[facility] PATHOLOGY [id number] [place], Care Plan Noteon 03-28-2022 Fertilizer Supervisor Authentication Interface Message Text Normal [facility] Consultson 03-28-2022 Fertilizer Supervisor Authentication Interface Message Text Normal [facility] MAGNESIUMon 03-28-2022 Interpretation and review of laboratory results Normal [facility] Magnesium [Mass/Vol] 2.1 mg/dL 1.6 - 2 .8 mg/dL [facility] Magnesium [Mass/Vol] 2.1 mg/dL Normal 1.6-2.8 [facility] Comment on above: Performed By: #### C H8, MG ####S PATHOLOGY [id number] [place], No Panel Informationon 03-28 [facility] Progress Noteson 03-28-2022 Fertilizer Supervisor Authentication Interface Message Text Normal The [facility] Fertilizer Supervisor Authentication Interface Message Text Normal [facility] Student Noteon 03-28-2022 Fertilizer Supervisor Authentication Interface Message Text Normal [facility] BASIC METABOLIC PANELon 03-11 Anion gap [Moles/Vol] 10 mmol/L Normal 10-20 [facility] Comment on above: Performed By: #### Lianne Ramirez, CH8 ####[facility] PATH[facility] [id number] [place], Calcium [Mass/Vol] 9.7 mg/dL Normal 8.4-10.4 [facility] Comment on above: Performed By: #### Lianne Ramirez, CH8 ####S PATHOLOGY [id number] [place], Chloride [Moles/Vol] 102 mmol/L Normal 97-111 [facility] Comment on above: Performed By: #### Lianne Ramirez, CH8 ####S PATHOLOGY [id number] [place], CO2 [Moles/Vol] 25 mmol/L Normal 21-30 [facility] Comment on above: Performed By: #### Lianne Ramirez, CH8 ####S PATHOLOGY [id number] [place], Creatinine [Mass/Vol] 0.24 mg/dL Low 0.80-1.30 [facility] Comment on above: Performed By: #### Lianne Ramirez, CH8 ####[facility] PATHOLOGY [id number] [place], ESTIMATED GFR (CKD-EPI) 178 mL/min/1.73sqm Normal >=60 [facility] Comment on above: Result Comment: 2020 CKD EPI Equation using Creatinine without RaceComment: Estimated glomerular filtration rate (eGFR) is calculated without a race coefficient. Values should be interpreted in the context of the patient's full clinical presentation.Reference:1. Chinedu C, Alex M, Karen LAWS, et al.. A Unifying Approach for GFR Estimation: Recommendations of the NKF-ASN Task Force on Reassessing the Inclusion of Race in Diagnosing Kidney Disease. [place] Journal of Kidney Diseases 2021;79(2):268-88.e1.2. N Engl J Med 2020 Vol. 385 Issue 19 Pages 4446-1510 Performed By: #### Lianne Ramirez, CH8 ####S PATHOLOGY [id number] [place], Glucose [Mass/Vol] 90 mg/dL Normal 68-110 [facility] Comment on above: Performed By: #### Lianne Ramirez, CH8 ####S PATHOLOGY [id number] [place], Potassium [Moles/Vol] 3.9 mmol/L Normal 3.3-5.3 [facility] Comment on above: Performed By: #### Lianne Ramirez CH8 ####S PATHOLOGY [id number] [place], Sodium [Moles/Vol] 137 mmol/L Normal 135-148 [facility] Comment on above: Performed By: #### Lianne Ramirez, TEODORA8 ####S PATHOLOGY [id number] [place], Urea nitrogen [Mass/Vol] 21 mg/dL Normal 8-22 [facility] Comment on above: Performed By: #### Lianne Ramirez CH8 ####S PATHOLOGY [id number] [place], Basic metabolic 2000 panelon 03-27-2022 Anion gap [Moles/Vol] 10 mmol/L 10 - 20 [facility] Calcium [Mass/Vol] 9.7 mg/dL 8.4 - 10. 4 mg/dL [facility] Chloride [Moles/Vol] 102 mmol/L 97 - 11 1 mmol/L [facility] CO2 [Moles/Vol] 25 mmol/L 21 - 30 mmol/L [facility] Creatinine [Mass/Vol] 0.24 mg/dL Low 0.80 - 1.30 mg/dL [facility] GFR/1.73 sq M.predicted MDRD (S/P/Bld) [Vol rate/Area] 178 mL/min/{1.73_m2} - PINF [facility] Glucose [Mass/Vol] 90 mg/dL 68 - 110 mg/dL [facility] Interpretation and review of laboratory results Abnormal [facility] Potassium [Moles/Vol] 3.9 mmol/L 3.3 - 5.3 mmol/L [facility] Sodium [Moles/Vol] 137 mmol/L 135 - 148 mmol/L [facility] Urea nitrogen [Mass/Vol] 21 mg/dL 8 - 22 mg/dL [facility] CBC panel Auto (Bld)on 03-27 Erythrocyte distribution width (RBC) [Ratio] 23.1 % High 11.5 - 14.5 % [facility] Hematocrit (Bld) [Volume fraction] 33.8 % Low 41.0 - 53.0 % [facility] Hemoglobin (Bld) [Mass/Vol] 11.0 g/dL Low 13.9 - 16.3 g/dL [facility] Interpretation and review of laboratory results [facility] MCH (RBC) [Entitic mass] 27.7 pg 26.0 - 34.0 pg [facility] MCHC (RBC) [Mass/Vol] 32.7 g/dL 32.0 - 35.9 g/dL [facility] MCV (RBC) [Entitic vol] 85 fL 80 - 100 fL [facility] Platelet mean volume (Bld) [Entitic vol] 7.1 fL Low 7.5 - 11.2 fL [facility] Platelets (Bld) [#/Vol] 337 10*3/uL 150 - 400 K/uL [facility] RBC (Bld) [#/Vol] 3.99 10*6/uL [facility]ld[facility] [#/Vol] 7.6 10*3/uL 4.5 - 11.5 K/uL [facility] COMPLETE BLOOD COUNTon 03-27 Erythrocyte distribution width (RBC) [Ratio] 23.1 % High 11.5-14.5 [facility] Comment on above: Performed By: #### C BC ####[facility] PATHOLOGY [id number] [place], Hematocrit (Bld) [Volume fraction] 33.8 % Low 41.0-53.0 [facility] Comment on above: Performed By: #### C BC ####[facility] PATHOLOGY [id number] [place], Hemoglobin (Bld) [Mass/Vol] 11.0 g/dL Low 13.9-16.3 [facility] Comment on above: Performed By: #### C BC ####[facility] PATHOLOGY [id number] [place], MCH (RBC) [Entitic mass] 27.7 pg Normal 26.0-34.0 [facility] Comment on above: Performed By: #### C BC ####S PATHOLOGY [id number] [place], MCHC (RBC) [Mass/Vol] 32.7 g/dL Normal 32.0-35.9 [facility] Comment on above: Performed By: #### C BC ####[facility] PATHOLOGY [id number] [place], MCV (RBC) [Entitic vol] 85 fL Normal 80-100 T he [facility] Comment on above: Performed By: #### C BC ####S PATHOLOGY [id number] [place], Platelet mean volume (Bld) [Entitic vol] 7.1 fL Low 7.5-11.2 [facility] Comment on above: Performed By: #### C BC ####[facility] PATHOLOGY [id number] [place], Platelets (Bld) [#/Vol] 337 10*3/uL Normal 150-400 [facility] Comment on above: Performed By: #### C BC ####[facility] PATHOLOGY [id number] [place], RBC (Bld) [#/Vol] 3.99 10*6/uL Low 4.50-5.90 [facility] Comment on above: Performed By: #### C BC ####[facility] PATHOLOGY [id number] [place], WBC (Bld) [#/Vol] 7.6 10*3/uL Normal 4.5-11.5 [facility] Comment on above: Performed By: #### C BC ####[facility] PATHOLOGY [id number] [place], Care Plan Noteon 03-27-2022 Fertilizer Supervisor Authentication Interface Message Text Normal [facility] Fertilizer Supervisor Authentication Interface Message Text Normal [facility] MAGNESIUMon 03-27-2022 Magnesium [Mass/Vol] 1.8 mg/dL Normal 1.6-2.8 [facility] Comment on above: Performed By: #### NASIR Bush ####[facility] PATHOLOGY [id number] [place], Interpretation and review of laboratory results Normal [facility] Magnesium [Mass/Vol] 1.8 mg/dL 1.6 - 2 .8 mg/dL [facility] No Panel Informationon 03-27 [facility] Progress Noteson 03-27-2022 Fertilizer Supervisor Authentication Interface Message Text Normal [facility] Student Noteon 03-27-2022 Fertilizer Supervisor Authentication Interface Message Text Normal [facility] BASIC METABOLIC PANELon 11 Anion gap [Moles/Vol] 11 mmol/L Normal 10-20 [facility] Comment on above: Performed By: #### COCO Bush, CH8 ####S PATHOLOGY [id number] [place], Calcium [Mass/Vol] 10.2 mg/dL Normal 8.4-10.4 [facility] Comment on above: Performed By: #### COCO Bush, CH8 ####[facility] [id number] [place], Chloride [Moles/Vol] 101 mmol/L Normal 97-111 [facility] Comment on above: Performed By: #### COCO Bush, CH8 ####S PATHOLOGY [id number] [place], CO2 [Moles/Vol] 25 mmol/L Normal 21-30 [facility] Comment on above: Performed By: #### COCO Bush, CH8 ####[facility] PATH[facility]Y [id number] [place], Creatinine [Mass/Vol] 0.22 mg/dL Low 0.80-1.30 [facility] Comment on above: Performed By: #### COCO Bush, CH8 ####S PATHOLOGY [id number] [place], ESTIMATED GFR (CKD-EPI) 183 mL/min/1.73sqm Normal >=60 [facility] Comment on above: Result Comment: 2020 CKD EPI Equation using Creatinine without RaceComment: Estimated glomerular filtration rate (eGFR) is calculated without a race coefficient. Values should be interpreted in the context of the patient's full clinical presentation.Reference:1. Chinedu Phillips, Alex M, Karen LAWS, et al.. A Unifying Approach for GFR Estimation: Recommendations of the NKF-ASN Task Force on Reassessing the Inclusion of Race in Diagnosing Kidney Disease. [place] Journal of Kidney Diseases 2021;79(2):268-88.e1.2. N Engl J Med 1 Vol. 385 Issue 19 Pages 1129-6405 Performed By: ###COCO Appiah CH8 ####[facility] PATHOLOG[facility] [id number] [place], Glucose [Mass/Vol] 86 mg/dL Normal 68-110 The [facility] Comment on above: Performed By: ###COCO Appiah CH8 ####S PATHOLOGY [id number] [place], Potassium [Moles/Vol] 4.3 mmol/L Normal 3.3-5.3 [facility] Comment on above: Performed By: ###COCO Appiah, NASIR ####S PATHOLOGY [id number] [place], Sodium [Moles/Vol] 137 mmol/L Normal 135-148 [facility] Comment on above: Performed By: ###COCO Appiah CH8 ####S PATHOLOGY [id number] [place], Urea nitrogen [Mass/Vol] 19 mg/dL Normal 8-22 [facility] Comment on above: Performed By: ###COCO Appiah, TEODORA8 ####S PATHOLOGY [id number] [place], Basic metabolic 2000 panelon 03-26-2022 Anion gap [Moles/Vol] 11 mmol/L 10 - 20 [facility] Calcium [Mass/Vol] 10.2 mg/dL 8.4 - 10. 4 mg/dL [facility] Chloride [Moles/Vol] 101 mmol/L 97 - 11 1 mmol/L [facility] CO2 [Moles/Vol] 25 mmol/L 21 - 30 mmol/L [facility] Creatinine [Mass/Vol] 0.22 mg/dL Low 0.80 - 1.30 mg/dL [facility] GFR/1.73 sq M.predicted MDRD (S/P/Bld) [Vol rate/Area] 183 mL/min/{1.73_m2} - PINF [facility] Glucose [Mass/Vol] 86 mg/dL 68 - 110 mg/dL [facility] Interpretation and review of laboratory results Abnormal [facility] Potassium [Moles/Vol] 4.3 mmol/L 3.3 - 5.3 mmol/L [facility] Sodium [Moles/Vol] 137 mmol/L 135 - 148 mmol/L [facility] Urea nitrogen [Mass/Vol] 19 mg/dL 8 - 22 mg/dL [facility] CBC panel Auto (Bld)on 03-26 Erythrocyte distribution width (RBC) [Ratio] 23.7 % High 11.5 - 14.5 % [facility] Hematocrit (Bld) [Volume fraction] 34.6 % Low 41.0 - 53.0 % [facility] Hemoglobin (Bld) [Mass/Vol] 11.2 g/dL Low 13.9 - 16.3 g/dL [facility] Interpretation and review of laboratory results Abnormal [facility] MCH (RBC) [Entitic mass] 27.5 pg 26.0 - 34.0 pg [facility] MCHC (RBC) [Mass/Vol] 32.4 g/dL 32.0 - 35.9 g/dL [facility] MCV (RBC) [Entitic vol] 85 fL 80 - 100 fL [facility] Platelet mean volume (Bld) [Entitic vol] 7.3 fL Low 7.5 - 11.2 fL [facility] Platelets (Bld) [#/Vol] 358 10*3/uL 150 - 400 K/uL [facility] RBC (Bld) [#/Vol] 4.08 10*6/uL Low [facility] WBC (Bld) [#/Vol] 8.4 10*3/uL 4.5 - 11.5 K/uL [facility] COMPLETE BLOOD COUNTon 03-26 Erythrocyte distribution width (RBC) [Ratio] 23.7 % High 11.5-14.5 [facility] Comment on above: Performed By: #### C BC ####S PATHOLOGY [id number] [place], [id number] Hematocrit (Bld) [Volume fraction] 34.6 % Low 41.0-53.0 [facility] Comment on above: Performed By: #### C BC ####S PATHOLOGY [id number] [place], Hemoglobin (Bld) [Mass/Vol] 11.2 g/dL Low 13.9-16.3 [facility] Comment on above: Performed By: #### C BC ####[facility] PATHOLOGY [id number] [place], MCH (RBC) [Entitic mass] 27.5 pg Normal 26.0-34.0 [facility] Comment on above: Performed By: #### C BC ####[facility] PATHOLOGY [id number] [place], MCHC (RBC) [Mass/Vol] 32.4 g/dL Normal 32.0-35.9 [facility] Comment on above: Performed By: #### C BC ####[facility] PATHOLOGY [id number] [place], MCV (RBC) [Entitic vol] 85 fL Normal 80-100 [facility] Comment on above: Performed By: #### C BC ####[facility] PATHOLOGY [id number] [place] [address], Platelet mean volume (Bld) [Entitic vol] 7.3 fL Low 7.5-11.2 [facility] Comment on above: Performed By: #### C BC ####[facility] PATHOLOGY [id number] [place], Platelets (Bld) [#/Vol] 358 10*3/uL Normal 150-400 [facility] Comment on above: Performed By: #### C BC ####[facility] PATHOLOGY [id number] [place], RBC (Bld) [#/Vol] 4.08 10*6/uL Low 4.50-5.90 [facility] Comment on above: Performed By: #### C BC ####[facility] PATHOLOGY [id number] [place], WBC (Bld) [#/Vol] 8.4 10*3/uL Normal 4.5-11.5 [facility] Comment on above: Performed By: #### C BC ####[facility] PATHOLOGY [id number] [place], Care Plan Noteon 03-26-2022 Fertilizer Supervisor Authentication Interface Message Text Normal [facility] Consultson 03-26-2022 Fertilizer Supervisor Authentication Interface Message Text Normal [facility] MAGNESIUMon 03-26-2022 Magnesium [Mass/Vol] 2.0 mg/dL Normal 1.6-2.8 [facility] Comment on above: Performed By: #### COCO Bush, TEODORA8 ####[facility] PATH[facility] [id number] [place], Magnesium [Mass/Vol] 2.0 mg/dL 1.6 - 2 .8 mg/dL [facility] MR HUMERUS LEFT W/+W/Oon MR HUMERUS LEFT W/+W/O Normal Th e [facility] MR Upper arm - left WO and W contrast Earlene 03-26-2022 RADIOLOGY [facility] Radiology Study observation (narrative) [facility] MR Upper arm - left WO and W contrast IVOrdered By: Dino Wing on 03-26-2022 [facility] Work Phone: No Panel Informationon 03-26 Interpretation and review of laboratory results Normal [facility] Progress Noteson 03-26-2022 Fertilizer Supervisor Authentication Interface Message Text Normal [facility] Fertilizer Supervisor Authentication Interface Message Text Normal [facility] VANCOMYCIN TROUGHon 03-26-20 COCO CATES 14.3 ug/mL Normal 10.0-20.0 [facility] Comment on above: Performed By: #### COCO Bush, NASIR ####[facility] PATH[facility] [id number] [place], Vancomycin trough [Mass/Vol] 14.3 ug/mL 10.0 - 20.0 ug/mL [facility] BASIC METABOLIC PANELon 03-11 Anion gap [Moles/Vol] 8 mmol/L Low 10- [facility] Comment on above: Performed By: #### NASIR Bush ####[facility] PATHOLOG[facility] [id number] [place], Calcium [Mass/Vol] 10.1 mg/dL Normal 8.4-10.4 [facility] Comment on above: Performed By: #### Lianne Ramirez, CH8 ####[facility] PATHOLOG[facility] [id number] [place], Chloride [Moles/Vol] 102 mmol/L Normal 97-111 [facility] Comment on above: Performed By: #### Lianne Ramirez, CH8 ####[facility] PATHOLOGY [id number] [place], CO2 [Moles/Vol] 27 mmol/L Normal 21-30 [facility] Comment on above: Performed By: #### Lianne Ramirez, CH8 ####[facility] PATHOLOGY [id number] [place], Creatinine [Mass/Vol] 0.26 mg/dL Low 0.80-1.30 [facility] Comment on above: Performed By: #### Lianne Ramirez, CH8 ####[facility] PATHOLOGY [id number] [place], ESTIMATED GFR (CKD-EPI) 174 mL/min/1.73sqm Normal >=60 [facility] Comment on above: Result Comment: 2020 CKD EPI Equation using Creatinine without RaceComment: Estimated glomerular filtration rate (eGFR) is calculated without a race coefficient. Values should be interpreted in the context of the patient's full clinical presentation.Reference:1. Chinedu C, Alex M, Karen LAWS, et al.. A Unifying Approach for GFR Estimation: Recommendations of the NKF-ASN Task Force on Reassessing the Inclusion of Race in Diagnosing Kidney Disease. [place] Journal of Kidney Diseases 2021;79(2):268-88.e1.2. N Engl J Med 2020 Vol. 385 Issue 19 Pages 0310-8556 Performed By: #### Lianne Ramirez, CH8 ####[facility] [id number] [place], [place], Glucose [Mass/Vol] 83 mg/dL Normal 68-110 [facility] Comment on above: Performed By: #### Lianne Ramirez, CH8 ####[facility] PATH[facility] [id number] [place], [place], Potassium [Moles/Vol] 4.5 mmol/L Normal 3.3-5.3 [facility] Comment on above: Performed By: #### Lianne Ramirez CH8 ####S PATHOLOGY [id number] [place], [place], Sodium [Moles/Vol] 137 mmol/L Normal 135-148 [facility] Comment on above: Performed By: #### Lianne Ramirez CH8 ####S PATHOLOGY [id number] [place], [place], Urea nitrogen [Mass/Vol] 14 mg/dL Normal 8-22 [facility] Comment on above: Performed By: #### Lianne Ramirez CH8 ####[facility] PATH[facility] [id number] [place], [place], Basic metabolic 2000 panelon 03-25-2022 Anion gap [Moles/Vol] 8 mmol/L Low 10 - 20 [facility] Calcium [Mass/Vol] 10.1 mg/dL 8.4 - 10. 4 mg/dL [facility] Chloride [Moles/Vol] 102 mmol/L 97 - 11 1 mmol/L [facility] CO2 [Moles/Vol] 27 mmol/L 21 - 30 mmol/L [facility] Creatinine [Mass/Vol] 0.26 mg/dL Low 0.80 - 1.30 mg/dL [facility] GFR/1.73 sq M.predicted MDRD (S/P/Bld) [Vol rate/Area] 174 mL/min/{1.73_m2} - PINF [facility] Glucose [Mass/Vol] 83 mg/dL 68 - 110 mg/dL [facility] Interpretation and review of laboratory results Abnormal [facility] Potassium [Moles/Vol] 4.5 mmol/L 3.3 - 5.3 mmol/L [facility] Sodium [Moles/Vol] 137 mmol/L 135 - 148 mmol/L [facility] Urea nitrogen [Mass/Vol] 14 mg/dL 8 - 22 mg/dL [facility] CBC panel Auto (Bld)on 03-25 Erythrocyte distribution width (RBC) [Ratio] 23.6 % High 11.5 - 14.5 % [facility] Hematocrit (Bld) [Volume fraction] 34.3 % Low 41.0 - 53.0 % [facility] Hemoglobin (Bld) [Mass/Vol] 11.1 g/dL Low 13.9 - 16.3 g/dL [facility] Interpretation and review of laboratory results Abnormal [facility] MCH (RBC) [Entitic mass] 27.6 pg 26.0 - 34.0 pg [facility] MCHC (RBC) [Mass/Vol] 32.3 g/dL 32.0 - 35.9 g/dL [facility] MCV (RBC) [Entitic vol] 85 fL 80 - 100 fL [facility] Platelet mean volume (Bld) [Entitic vol] 7.3 fL Low 7.5 - 11.2 fL [facility] Platelets (Bld) [#/Vol] 350 10*3/uL 150 - 400 K/uL [facility] RBC (Bld) [#/Vol] 4.02 10*6/uL Low [facility] WBC (Bld) [#/Vol] 8.3 10*3/uL 4.5 - 11.5 K/uL [facility] COMPLETE BLOOD COUNTon 03-25 Erythrocyte distribution width (RBC) [Ratio] 23.6 % High 11.5-14.5 [facility] Comment on above: Performed By: #### C BC ####S PATHOLOGY [id number] [place], [place], Hematocrit (Bld) [Volume fraction] 34.3 % Low 41.0-53.0 [facility] Comment on above: Performed By: #### C BC ####S PATHOLOGY [id number] [place], Hemoglobin (Bld) [Mass/Vol] 11.1 g/dL Low 13.9-16.3 [facility] Comment on above: Performed By: #### C BC ####S PATHOLOGY [id number] [place], MCH (RBC) [Entitic mass] 27.6 pg Normal 26.0-34.0 [facility] Comment on above: Performed By: #### C BC ####S PATHOLOGY [id number] [place], MCHC (RBC) [Mass/Vol] 32.3 g/dL Normal 32.0-35.9 [facility] Comment on above: Performed By: #### C BC ####[facility] [id number] [place], MCV (RBC) [Entitic vol] 85 fL Normal 80-100 [facility] Comment on above: Performed By: #### C BC ####S PATHOLOGY [id number] [place], Platelet mean volume (Bld) [Entitic vol] 7.3 fL Low 7.5-11.2 [facility] Comment on above: Performed By: #### C BC ####[facility] [id number] [place], Platelets (Bld) [#/Vol] 350 10*3/uL Normal 150-400 [facility] Comment on above: Performed By: #### C BC ####[facility] [id number] [place], RBC (Bld) [#/Vol] 4.02 10*6/uL Low 4.50-5.90 [facility] Comment on above: Performed By: #### C BC ####[facility] [id number] [place], WBC (Bld) [#/Vol] 8.3 10*3/uL Normal 4.5-11.5 [facility] Comment on above: Performed By: #### C BC ####[facility] [id number] [place] [address], Care Plan Noteon 03-25-2022 Fertilizer Supervisor Authentication Interface Message Text Normal [facility] Consultson 03-25-2022 Fertilizer Supervisor Authentication Interface Message Text Normal [facility] Fertilizer Supervisor Authentication Interface Message Text Normal [facility] MAGNESIUMon 03-25-2022 Magnesium [Mass/Vol] 2.0 mg/dL Normal 1.6-2.8 [facility] Comment on above: Performed By: #### M James, CH8 ####[facility] [id number] [place], [place], Interpretation and review of laboratory results Normal [facility] Magnesium [Mass/Vol] 2.0 mg/dL 1.6 - 2 .8 mg/dL [facility] No Panel Informationon 03-25 [facility] Progress Noteson 03-25-2022 Fertilizer Supervisor Authentication Interface Message Text Normal [facility] Student Noteon 03-25-2022 Fertilizer Supervisor Authentication Interface Message Text Normal [facility] BASIC METABOLIC PANELon 03-11 Anion gap [Moles/Vol] 10 mmol/L Normal 10-20 [facility] Comment on above: Performed By: #### C H8, MG ####[facility] [id number] [place], Calcium [Mass/Vol] 9.7 mg/dL Normal 8.4-10.4 [facility] Comment on above: Performed By: #### C H8, MG ####[facility] [id number] [place], Chloride [Moles/Vol] 103 mmol/L Normal 97-111 [facility] Comment on above: Performed By: #### C H8, MG ####[facility] [id number] [place], CO2 [Moles/Vol] 25 mmol/L Normal 21-30 [facility] Comment on above: Performed By: #### C H8, MG ####[facility] [id number] [place], Creatinine [Mass/Vol] 0.27 mg/dL Low 0.80-1.30 [facility] Comment on above: Performed By: #### C H8, MG ####[facility] [id number] [place], ESTIMATED GFR (CKD-EPI) 172 mL/min/1.73sqm Normal >=60 [facility] Comment on above: Result Comment: 2020 CKD EPI Equation using Creatinine without RaceComment: Estimated glomerular filtration rate (eGFR) is calculated without a race coefficient. Values should be interpreted in the context of the patient's full clinical presentation.Reference:1. Chinedu Phillips, Aelx M, Karen LAWS, et al.. A Unifying Approach for GFR Estimation: Recommendations of the NKF-ASN Task Force on Reassessing the Inclusion of Race in Diagnosing Kidney Disease. [place] Journal of Kidney Diseases 202;79(2):268-88.e1.2. N Engl J Med 1 Vol. 385 Issue 19 Pages 5404-3331 Performed By: #### C H8, MG ####[facility] [id number] [place], Glucose [Mass/Vol] 77 mg/dL Normal 68-110 [facility] Comment on above: Performed By: #### C H8, MG ####[facility] [id number] [place], Potassium [Moles/Vol] 4.8 mmol/L Normal 3.3-5.3 [facility] Comment on above: Performed By: #### C H8, MG ####[facility] [id number] [place], Sodium [Moles/Vol] 138 mmol/L Normal 135-148 [facility] Comment on above: Performed By: #### C H8, MG ####[facility] [id number] [place], Urea nitrogen [Mass/Vol] 17 mg/dL Normal 8-22 [facility] Comment on above: Performed By: #### C H8, MG ####[facility] [id number] [place], [place], Basic metabolic 2000 panelon 03-24-2022 Anion gap [Moles/Vol] 10 mmol/L 10 - 20 [facility] Calcium [Mass/Vol] 9.7 mg/dL 8.4 - 10. 4 mg/dL [facility] Chloride [Moles/Vol] 103 mmol/L 97 - 11 1 mmol/L [facility] CO2 [Moles/Vol] 25 mmol/L 21 - 30 mmol/L [facility] Creatinine [Mass/Vol] 0.27 mg/dL Low 0.80 - 1.30 mg/dL [facility] GFR/1.73 sq M.predicted MDRD (S/P/Bld) [Vol rate/Area] 172 mL/min/{1.73_m2} - PINF [facility] Glucose [Mass/Vol] 77 mg/dL 68 - 110 mg/dL [facility] Interpretation and review of laboratory results Abnormal [facility] Potassium [Moles/Vol] 4.8 mmol/L 3.3 - 5.3 mmol/L [facility] Sodium [Moles/Vol] 138 mmol/L 135 - 148 mmol/L [facility] Urea nitrogen [Mass/Vol] 17 mg/dL 8 - 22 mg/dL [facility] CBC panel Auto (Bld)on 03-24 Erythrocyte distribution width (RBC) [Ratio] 23.6 % High 11.5 - 14.5 % [facility] Hematocrit (Bld) [Volume fraction] 32.0 % Low 41.0 - 53.0 % [facility] Hemoglobin (Bld) [Mass/Vol] 10.5 g/dL Low 13.9 - 16.3 g/dL [facility] Interpretation and review of laboratory results Abnormal [facility] MCH (RBC) [Entitic mass] 28.0 pg 26.0 - 34.0 pg [facility] MCHC (RBC) [Mass/Vol] 32.8 g/dL 32.0 - 35.9 g/dL [facility] MCV (RBC) [Entitic vol] 85 fL 80 - 100 fL [facility] Platelet mean volume (Bld) [Entitic vol] 7.2 fL Low 7.5 - 11.2 fL [facility] Platelets (Bld) [#/Vol] 290 10*3/uL 150 - 400 K/uL [facility] RBC (Bld) [#/Vol] 3.76 10*6/uL Low [facility] WBC (Bld) [#/Vol] 6.9 10*3/uL 4.5 - 11.5 K/uL [facility] COMPLETE BLOOD COUNTon 03-24 Erythrocyte distribution width (RBC) [Ratio] 23.6 % High 11.5-14.5 [facility] Comment on above: Performed By: #### C BC ####[facility] [id number] [place], [address] Hematocrit (Bld) [Volume fraction] 32.0 % Low 41.0-53.0 [facility] Comment on above: Performed By: #### C BC ####[facility] [id number] [place], Hemoglobin (Bld) [Mass/Vol] 10.5 g/dL Low 13.9-16.3 [facility] Comment on above: Performed By: #### C BC ####[facility] [id number] [place], MCH (RBC) [Entitic mass] 28.0 pg Normal 26.0-34.0 [facility] Comment on above: Performed By: #### C BC ####[facility] [id number] [place], MCHC (RBC) [Mass/Vol] 32.8 g/dL Normal 32.0-35.9 [facility] Comment on above: Performed By: #### C BC ####[facility] [id number] [place], MCV (RBC) [Entitic vol] 85 fL Normal 80-100 [facility] Comment on above: Performed By: #### C BC ####[facility] [id number] [place], Platelet mean volume (Bld) [Entitic vol] 7.2 fL Low 7.5-11.2 [facility] Comment on above: Performed By: #### C BC ####[facility] [id number] [place], Platelets (Bld) [#/Vol] 290 10*3/uL Normal 150-400 [facility] Comment on above: Performed By: #### C BC ####[facility] [id number] [place], RBC (Bld) [#/Vol] 3.76 10*6/uL Low 4.50-5.90 [facility] Comment on above: Performed By: #### C BC ####[facility] [id number] [place], WBC (Bld) [#/Vol] 6.9 10*3/uL Normal 4.5-11.5 [facility] Comment on above: Performed By: #### C BC ####[facility] [id number] [place], [place], Care Plan Noteon 03-24-2022 Fertilizer Supervisor Authentication Interface Message Text Normal [facility] Fertilizer Supervisor Authentication Interface Message Text Normal [facility] MAGNESIUMon 03-24-2022 Magnesium [Mass/Vol] 2.0 mg/dL Normal 1.6-2.8 [facility] Comment on above: Performed By: #### C H8, MG ####[facility] [id number] [place], Interpretation and review of laboratory results Normal [facility] Magnesium [Mass/Vol] 2.0 mg/dL 1.6 - 2 .8 mg/dL [facility] No Panel Informationon 03-24 [facility] Progress Noteson 03-24-2022 Fertilizer Supervisor Authentication Interface Message Text Normal [facility] Fertilizer Supervisor Authentication Interface Message Text Normal [facility] Fertilizer Supervisor Authentication Interface Message Text Normal [facility] Student Noteon 03-24-2022 Fertilizer Supervisor Authentication Interface Message Text . Normal [facility] TISSUE CULTURE, AEROBICOrder ed By: Kenia Eli on 03-24-2022 Bacteria identified Cx Nom (Tiss) Positive Abnormal [facility] Bacteria identified Cx Nom (Tiss) Rare Staphylococcus aureus (MRSA) [facility] Interpretation and review of laboratory results Abnormal [facility] Microscopic observation Gram stain Nom (Unsp spec) 1+ Polymorphonuclear Leukocytes [facility] Microscopic observation Gram stain Nom (Unsp spec) No Squamous Epithelial Cells seen [facility] Microscopic observation Gram stain Nom (Unsp spec) No organisms seen [facility] BASIC METABOLIC PANELon 03-11 Anion gap [Moles/Vol] 7 mmol/L Low 10-20 [facility] Comment on above: Performed By: #### C H8, MG ####[facility] [id number] [place], Calcium [Mass/Vol] 9.0 mg/dL Normal 8.4-10.4 [facility] Comment on above: Performed By: #### C H8, MG ####[facility] [id number] [place], Chloride [Moles/Vol] 108 mmol/L Normal 97-111 [facility] Comment on above: Performed By: #### C H8, MG ####[facility] [id number] [place], CO2 [Moles/Vol] 26 mmol/L Normal 21-30 [facility] Comment on above: Performed By: #### C H8, MG ####[facility] [id number] [place], Creatinine [Mass/Vol] 0.20 mg/dL Low 0.80-1.30 [facility] Comment on above: Performed By: #### C H8, MG ####S PATHOLOGY [id number] [place], ESTIMATED GFR (CKD-EPI) 188 mL/min/1.73sqm Normal >=60 [facility] Comment on above: Result Comment: 2020 CKD EPI Equation using Creatinine without RaceComment: Estimated glomerular filtration rate (eGFR) is calculated without a race coefficient. Values should be interpreted in the context of the patient's full clinical presentation.Reference:1. Chinedu C, Bawindy M, Karen DC, et al.. A Unifying Approach for GFR Estimation: Recommendations of the NKF-ASN Task Force on Reassessing the Inclusion of Race in Diagnosing Kidney Disease. [place] Journal of Kidney Diseases 2021;79(2):268-88.e1.2. N Engl J Med 2020 Vol. 385 Issue 19 Pages 6302-8816 Performed By: #### C H8, MG ####[facility] [id number] [place], Glucose [Mass/Vol] 82 mg/dL Normal 68-110 [facility] Comment on above: Performed By: #### C H8, MG ####[facility] [id number] [place], Potassium [Moles/Vol] 4.3 mmol/L Normal 3.3-5.3 [facility] Comment on above: Performed By: #### C H8, MG ####[facility] [id number] [place], Sodium [Moles/Vol] 141 mmol/L Normal 135-148 [facility] Comment on above: Performed By: #### Jacqueline H8, MG ####[facility] [id number] [place], Urea nitrogen [Mass/Vol] 14 mg/dL Normal 8-22 [facility] Comment on above: Performed By: #### C H8, MG ####S PATHOLOGY [id number] [place], [place], Basic metabolic 2000 panelon 03-23-2022 Anion gap [Moles/Vol] 7 mmol/L Low 10 - 20 [facility] Calcium [Mass/Vol] 9.0 mg/dL 8.4 - 10. 4 mg/dL [facility] Chloride [Moles/Vol] 108 mmol/L 97 - 11 1 mmol/L [facility] CO2 [Moles/Vol] 26 mmol/L 21 - 30 mmol/L [facility] Creatinine [Mass/Vol] 0.20 mg/dL Low 0.80 - 1.30 mg/dL [facility] GFR/1.73 sq M.predicted MDRD (S/P/Bld) [Vol rate/Area] 188 mL/min/{1.73_m2} - PINF [facility] Glucose [Mass/Vol] 82 mg/dL 68 - 110 mg/dL [facility] Interpretation and review of laboratory results Abnormal [facility] Potassium [Moles/Vol] 4.3 mmol/L 3.3 - 5.3 mmol/L [facility] Sodium [Moles/Vol] 141 mmol/L 135 - 148 mmol/L [facility] Urea nitrogen [Mass/Vol] 14 mg/dL 8 - 22 mg/dL [facility] CBC panel Auto (Bld)on 03-23 Erythrocyte distribution width (RBC) [Ratio] 23.1 % High 11.5 - 14.5 % [facility] Hematocrit (Bld) [Volume fraction] 28.3 % Low 41.0 - 53.0 % [facility] Hemoglobin (Bld) [Mass/Vol] 9.4 g/dL Low 13.9 - 16.3 g/dL [facility] Interpretation and review of laboratory results Abnormal [facility] MCH (RBC) [Entitic mass] 27.9 pg 26.0 - 34.0 pg [facility] MCHC (RBC) [Mass/Vol] 33.1 g/dL 32.0 - 35.9 g/dL [facility] MCV (RBC) [Entitic vol] 84 fL 80 - 100 fL [facility] Platelet mean volume (Bld) [Entitic vol] 7.2 fL Low 7.5 - 11.2 fL [facility] Platelets (Bld) [#/Vol] 286 10*3/uL 150 - 400 K/uL [facility] RBC (Bld) [#/Vol] 3.36 10*6/uL Low [facility] WBC (Bld) [#/Vol] 8.3 10*3/uL 4.5 - 11.5 K/uL [facility] COMPLETE BLOOD COUNTon 03-23 Erythrocyte distribution width (RBC) [Ratio] 23.1 % High 11.5-14.5 [facility] Comment on above: Performed By: #### C BC ####[facility] [id number] [place] [address], Hematocrit (Bld) [Volume fraction] 28.3 % Low 41.0-53.0 [facility] Comment on above: Performed By: #### C BC ####[facility] [id number] [place] [address], Hemoglobin (Bld) [Mass/Vol] 9.4 g/dL Low 13.9-16.3 [facility] Comment on above: Performed By: #### C BC ####S PATHOLOGY [id number] [place] [address], MCH (RBC) [Entitic mass] 27.9 pg Normal 26.0-34.0 [facility] Comment on above: Performed By: #### C BC ####S PATHOLOGY [id number] [place], MCHC (RBC) [Mass/Vol] 33.1 g/dL Normal 32.0-35.9 [facility] Comment on above: Performed By: #### C BC ####S PATHOLOGY [id number] [place], MCV (RBC) [Entitic vol] 84 fL Normal 80-100 T [facility] Comment on above: Performed By: #### C BC ####[facility] [id number] [place], Platelet mean volume (Bld) [Entitic vol] 7.2 fL Low 7.5-11.2 [facility] Comment on above: Performed By: #### C BC ####[facility] [id number] [place], Platelets (Bld) [#/Vol] 286 10*3/uL Normal 150-400 [facility] Comment on above: Performed By: #### C BC ####[facility] [id number] [place], RBC (Bld) [#/Vol] 3.36 10*6/uL Low 4.50-5.90 [facility] Comment on above: Performed By: #### C BC ####[facility] [id number] [place] [address], WBC (Bld) [#/Vol] 8.3 10*3/uL Normal 4.5-11.5 [facility] Comment on above: Performed By: #### C BC ####[facility] [id number] [place] [address], Care Plan Noteon 03-23-2022 Fertilizer Supervisor Authentication Interface Message Text Normal [facility] Fertilizer Supervisor Authentication Interface Message Text Normal [facility] Consultson 03-23-2022 Fertilizer Supervisor Authentication Interface Message Text Normal [facility] Fertilizer Supervisor Authentication Interface Message Text Normal [facility] HEMOGLOBIN ONLYon 03-23-2022 Hemoglobin (Bld) [Mass/Vol] 10.2 g/dL Low 13.9-16.3 [facility] Comment on above: Performed By: #### H GBO ####[facility] [id number] [place], Hemoglobin (Bld) [Mass/Vol] 10.2 g/dL Low 13.9 - 16.3 g/dL [facility] Interpretation and review of laboratory results Abnormal [facility] MAGNESIUMon 03-23-2022 Magnesium [Mass/Vol] 1.7 mg/dL Normal 1.6-2.8 [facility] Comment on above: Performed By: #### C H8 MG ####[facility] [id number] [place], Interpretation and review of laboratory results Normal [facility] Magnesium [Mass/Vol] 1.7 mg/dL 1.6 - 2 .8 mg/dL [facility] No Panel Informationon 03-23 [facility] Progress Noteson 03-23-2022 Fertilizer Supervisor Authentication Interface Message Text Normal [facility] Fertilizer Supervisor Authentication Interface Message Text Normal [facility] Fertilizer Supervisor Authentication Interface Message Text WEEKEND SW Discharge plan: SNF Still awaiting responses from the following facilities: -[facility] -[facility] Updates sent in [facility]. Jumana Lyons, AUTOMATIC CLIPPER [employer] STRIPPER, DRAW FURNACE TENDER Normal [facility] ANAEROBIC CULTURE, MISCon ANAEROBIC CULTURE, [facility] C ANRBC: No Anaerobes isolated Normal [facility] Comment on above: Performed By: #### C ANRBC ####[facility] [id number] [place], [place] Anesthesia Attestationon Fertilizer Supervisor Authentication Interface Message Text Normal [facility] Anesthesia Postprocedure Mirella luationon 03-22-2022 Fertilizer Supervisor Authentication Interface Message Text Normal [facility] Anesthesia Transfer Of Careo n 03-22-2022 Fertilizer Supervisor Authentication Interface Message Text Normal [facility] BASIC METABOLIC PANELon 03-11 Anion gap [Moles/Vol] 11 mmol/L Normal 10-20 [facility] Comment on above: Performed By: #### NASIR Bush ####[facility] [id number] [place], Calcium [Mass/Vol] 9.9 mg/dL Normal 8.4-10.4 [facility] Comment on above: Performed By: #### Lianne Ramirez CH8 ####[facility] [id number] [place], Chloride [Moles/Vol] 101 mmol/L Normal 97-111 [facility] Comment on above: Performed By: #### Lianne Raimrez CH8 ####[facility] [id number] [place], CO2 [Moles/Vol] 24 mmol/L Normal 21-30 [facility] Comment on above: Performed By: #### Lianne Ramirez CH8 ####[facility] [id number] [place], Creatinine [Mass/Vol] 0.26 mg/dL Low 0.80-1.30 [facility] Comment on above: Performed By: #### Lianne Ramirez CH8 ####[facility] [id number] [place], ESTIMATED GFR (CKD-EPI) 174 mL/min/1.73sqm Normal >=60 [facility] Comment on above: Result Comment: 2020 CKD EPI Equation using Creatinine without RaceComment: Estimated glomerular filtration rate (eGFR) is calculated without a race coefficient. Values should be interpreted in the context of the patient's full clinical presentation.Reference:1. Chinedu C, Alex M, Karen DC, et al.. A Unifying Approach for GFR Estimation: Recommendations of the NKF-ASN Task Force on Reassessing the Inclusion of Race in Diagnosing Kidney Disease. [place] Journal of Kidney Diseases 2021;79(2):268-88.e1.2. N Engl J Med 2020 Vol. 385 Issue 19 Pages 0370-2419 Performed By: #### Lianne Ramirez CH8 ####S PATHOLOGY [id number] [place], [place], Glucose [Mass/Vol] 93 mg/dL Normal 68-110 [facility] Comment on above: Performed By: #### Lianne Ramirez CH8 ####[facility] PATH[facility] [id number] [place], [place], Potassium [Moles/Vol] 4.6 mmol/L Normal 3.3-5.3 [facility] Comment on above: Performed By: #### Lianne Ramirez CH8 ####[facility] PATHOLOGY [id number] [place], [place], Sodium [Moles/Vol] 136 mmol/L Normal 135-148 [facility] Comment on above: Performed By: #### Lianne Ramirez CH8 ####S PATHOLOGY [id number] [place], [place], Urea nitrogen [Mass/Vol] 14 mg/dL Normal 8-22 [facility] Comment on above: Performed By: #### Lianne Ramirez CH8 ####S PATHOLOGY [id number] [place], [place], Basic metabolic 2000 panelon 03-22-2022 Anion gap [Moles/Vol] 11 mmol/L 10 - 20 [facility] Calcium [Mass/Vol] 9.9 mg/dL 8.4 - 10. 4 mg/dL [facility] Chloride [Moles/Vol] 101 mmol/L 97 - 11 1 mmol/L [facility] CO2 [Moles/Vol] 24 mmol/L 21 - 30 mmol/L [facility] Creatinine [Mass/Vol] 0.26 mg/dL Low 0.80 - 1.30 mg/dL [facility] GFR/1.73 sq M.predicted MDRD (S/P/Bld) [Vol rate/Area] 174 mL/min/{1.73_m2} - PINF [facility] Glucose [Mass/Vol] 93 mg/dL 68 - 110 mg/dL [facility] Interpretation and review of laboratory results Abnormal [facility] Potassium [Moles/Vol] 4.6 mmol/L 3.3 - 5.3 mmol/L [facility] Sodium [Moles/Vol] 136 mmol/L 135 - 148 mmol/L [facility] Urea nitrogen [Mass/Vol] 14 mg/dL 8 - 22 mg/dL [facility] Blood Attestationon 03-22-20 Fertilizer Supervisor Authentication Interface Message Text Normal [facility] CBC panel Auto (Bld)on 03-22 Erythrocyte distribution width (RBC) [Ratio] 23.0 % High 11.5 - 14.5 % [facility] Hematocrit (Bld) [Volume fraction] 33.2 % Low 41.0 - 53.0 % [facility] Hemoglobin (Bld) [Mass/Vol] 10.8 g/dL Low 13.9 - 16.3 g/dL [facility] Interpretation and review of laboratory results Abnormal [facility] MCH (RBC) [Entitic mass] 27.3 pg 26.0 - 34.0 pg [facility] MCHC (RBC) [Mass/Vol] 32.6 g/dL 32.0 - 35.9 g/dL [facility] MCV (RBC) [Entitic vol] 84 fL 80 - 100 fL [facility] Platelet mean volume (Bld) [Entitic vol] 7.5 fL 7.5 - 11.2 fL [facility] Platelets (Bld) [#/Vol] 331 10*3/uL 150 - 400 K/uL [facility] RBC (Bld) [#/Vol] 3.96 10*6/uL [facility] W[facility]Bld[facility] [#/Vol] 8.6 10*3/uL 4.5 - 11.5 K/uL [facility] COMPLETE BLOOD COUNTon 03-22 Erythrocyte distribution width (RBC) [Ratio] 23.0 % High 11.5-14.5 [facility] Comment on above: Performed By: #### C BC ####[facility] PATHOLOGY [id number] [place] [address], Hematocrit (Bld) [Volume fraction] 33.2 % Low 41.0-53.0 [facility] Comment on above: Performed By: #### C BC ####[facility] PATHOLOGY [id number] [place] [address], Hemoglobin (Bld) [Mass/Vol] 10.8 g/dL Low 13.9-16.3 [facility] Comment on above: Performed By: #### C BC ####S PATHOLOGY [id number] [place], [place], MCH (RBC) [Entitic mass] 27.3 pg Normal 26.0-34.0 [facility] Comment on above: Performed By: #### C BC ####S PATHOLOGY [id number] [place], MCHC (RBC) [Mass/Vol] 32.6 g/dL Normal 32.0-35.9 [facility] Comment on above: Performed By: #### C BC ####S PATHOLOGY [id number] [place], [place], MCV (RBC) [Entitic vol] 84 fL Normal 80-100 T he [facility] Comment on above: Performed By: #### C BC ####[facility] PATH[facility] [id number] [place], [place], Platelet mean volume (Bld) [Entitic vol] 7.5 fL Normal 7.5-11.2 [facility] Comment on above: Performed By: #### C BC ####[facility] PATHOLOGY [id number] [place] [address], Platelets (Bld) [#/Vol] 331 10*3/uL Normal 150-400 [facility] Comment on above: Performed By: #### C BC ####[facility] PATHOLOGY [id number] [place] [address], RBC (Bld) [#/Vol] 3.96 10*6/uL Low 4.50-5.90 [facility] Comment on above: Performed By: #### C BC ####[facility] PATHOLOGY [id number] [place] [address], WBC (Bld) [#/Vol] 8.6 10*3/uL Normal 4.5-11.5 [facility] Comment on above: Performed By: #### C BC ####[facility] PATHOLOGY [id number] [place] [address], Care Plan Noteon 03-22-2022 Fertilizer Supervisor Authentication Interface Message Text Normal [facility] Fertilizer Supervisor Authentication Interface Message Text Normal [facility] FUNGAL CULTURE AND MAVIS PREPo n 03-22-2022 FUNGAL CULTURE AND MAVIS PREP C FUNGUS: No Growth MAVIS AKASH: No Yeast Or Fungal Elements Seen Normal [facility] Comment on above: Performed By: #### C FUNGUS ####[facility] [address] [place], [place] [id number] H AND Sandor 03-22-2022 Fertilizer Supervisor Authentication Interface Message Text Normal [facility] MAGNESIUMon 03-22-2022 Interpretation and review of laboratory results Normal [facility] Magnesium [Mass/Vol] 1.8 mg/dL 1.6 - 2 .8 mg/dL [facility] Magnesium [Mass/Vol] 1.8 mg/dL Normal 1.6-2.8 [facility] Comment on above: Performed By: #### Lianne Ramirez, TEODORA8 ####S PATHOLOGY [id number] [place], [place], No Panel Informationon 03-22 [facility] OP Noteon 03-22-2022 Fertilizer Supervisor Authentication Interface Message Text Normal [facility] Progress Noteson 03-22-2022 Fertilizer Supervisor Authentication Interface Message Text Normal [facility] Fertilizer Supervisor Authentication Interface Message Text Normal [facility] TISSUE CULTURE, AEROBICon JACQUELYN Normal [facility] Comment on above: Performed By: #### C TISS ####[facility] Ybvpscbqg1633 [place], [place] TISSUE CULTURE, AEROBIC Normal T he [facility] Comment on above: Performed By: #### C TISS ####[facility] Lxuclfnbx1070 [place], [place] Anesthesia Preprocedure Eval uationon 03-21-2022 Fertilizer Supervisor Authentication Interface Message Text Normal [facility] BASIC METABOLIC PANELon 03-11 Anion gap [Moles/Vol] 9 mmol/L Low 10-20 [facility] Comment on above: Performed By: #### Lianne Ramirez, NASIR ####S PATHOLOGY [id number] [place], [place], Calcium [Mass/Vol] 9.6 mg/dL Normal 8.4-10.4 [facility] Comment on above: Performed By: #### Lianne Ramirez, NASIR ####S PATHOLOGY [id number] [place], [place], Chloride [Moles/Vol] 102 mmol/L Normal 97-111 [facility] Comment on above: Performed By: #### Lianne Ramirez, TEODORA8 ####S PATHOLOGY [id number] [place], [place], CO2 [Moles/Vol] 27 mmol/L Normal 21-30 [facility] Comment on above: Performed By: #### NASIR Bush ####S PATHOLOGY [id number] [place] [address], [place], Creatinine [Mass/Vol] 0.27 mg/dL Low 0.80-1.30 [facility] Comment on above: Performed By: ###Gennaro Ramirez CH8 ####S PATHOLOGY [id number] [place], [place], ESTIMATED GFR (CKD-EPI) 172 mL/min/1.73sqm Normal >=60 [facility] Comment on above: Result Comment: 2020 CKD EPI Equation using Creatinine without RaceComment: Estimated glomerular filtration rate (eGFR) is calculated without a race coefficient. Values should be interpreted in the context of the patient's full clinical presentation.Reference:1. Chinedu C, Alex M, Karen LAWS, et al.. A Unifying Approach for GFR Estimation: Recommendations of the NKF-ASN Task Force on Reassessing the Inclusion of Race in Diagnosing Kidney Disease. [place] Journal of Kidney Diseases 2021;79(2):268-88.e1.2. N Engl J Med 1 Vol. 385 Issue 19 Pages 2060-9391 Performed By: ###Gennaro Ramirez CH8 ####[facility] PATHOLOG[facility] [id number] [place], [place], Glucose [Mass/Vol] 74 mg/dL Normal 68-110 [facility] Comment on above: Performed By: ###Gennaro Ramirez CH8 ####[facility] PATHOLOGY [id number] [place], [place], Potassium [Moles/Vol] 4.7 mmol/L Normal 3.3-5.3 [facility] Comment on above: Performed By: ###Gennaro Ramirez CH8 ####S PATHOLOGY [id number] [place], [place], Sodium [Moles/Vol] 138 mmol/L Normal 135-148 [facility] Comment on above: Performed By: #### Lianne Ramirez CH8 ####S PATHOLOGY [id number] [place], [place], Urea nitrogen [Mass/Vol] 21 mg/dL Normal 8-22 [facility] Comment on above: Performed By: ###Gennaro Ramirez CH8 ####[facility] PATHOLOGY [id number] [place], [id number] Basic metabolic 2000 panelon 03-21-2022 Anion gap [Moles/Vol] 9 mmol/L Low 10 - 20 [facility] Calcium [Mass/Vol] 9.6 mg/dL 8.4 - 10. 4 mg/dL [facility] Chloride [Moles/Vol] 102 mmol/L 97 - 11 1 mmol/L [facility] CO2 [Moles/Vol] 27 mmol/L 21 - 30 mmol/L [facility] Creatinine [Mass/Vol] 0.27 mg/dL Low 0.80 - 1.30 mg/dL [facility] GFR/1.73 sq M.predicted MDRD (S/P/Bld) [Vol rate/Area] 172 mL/min/{1.73_m2} - PINF [facility] Glucose [Mass/Vol] 74 mg/dL 68 - 110 mg/dL [facility] Interpretation and review of laboratory results Abnormal [facility] Potassium [Moles/Vol] 4.7 mmol/L 3.3 - 5.3 mmol/L [facility] Sodium [Moles/Vol] 138 mmol/L 135 - 148 mmol/L [facility] Urea nitrogen [Mass/Vol] 21 mg/dL 8 - 22 mg/dL [facility] CBC panel Auto (Bld)on 03-21 Erythrocyte distribution width (RBC) [Ratio] 22.4 % High 11.5 - 14.5 % [facility] Hematocrit (Bld) [Volume fraction] 32.6 % Low 41.0 - 53.0 % [facility] Hemoglobin (Bld) [Mass/Vol] 10.8 g/dL Low 13.9 - 16.3 g/dL [facility] Interpretation and review of laboratory results Abnormal [facility] MCH (RBC) [Entitic mass] 27.7 pg 26.0 - 34.0 pg [facility] MCHC (RBC) [Mass/Vol] 33.0 g/dL 32.0 - 35.9 g/dL [facility] MCV (RBC) [Entitic vol] 84 fL 80 - 100 fL [facility] Platelet mean volume (Bld) [Entitic vol] 6.9 fL Low 7.5 - 11.2 fL [facility] Platelets (Bld) [#/Vol] 364 10*3/uL 150 - 400 K/uL [facility] RBC (Bld) [#/Vol] 3.89 10*6/uL Low [facility] WBC (Bld) [#/Vol] 7.3 10*3/uL 4.5 - 11.5 K/uL [facility] COMPLETE BLOOD COUNTon 03-21 Erythrocyte distribution width (RBC) [Ratio] 22.4 % High 11.5-14.5 [facility] Comment on above: Performed By: #### C BC ####[facility] PATHOLOGY [id number] [place] [address], Hematocrit (Bld) [Volume fraction] 32.6 % Low 41.0-53.0 [facility] Comment on above: Performed By: #### C BC ####[facility] PATHOLOGY KUYIZWHDPI[address] [place] [address], Hemoglobin (Bld) [Mass/Vol] 10.8 g/dL Low 13.9-16.3 [facility] Comment on above: Performed By: #### C BC ####[facility] PATHOLOGY YISDJQYCEL[address] [place] [address], MCH (RBC) [Entitic mass] 27.7 pg Normal 26.0-34.0 [facility] Comment on above: Performed By: #### C BC ####[facility] PATHOLOG[facility] [id number] [place] [address], MCHC (RBC) [Mass/Vol] 33.0 g/dL Normal 32.0-35.9 [facility] Comment on above: Performed By: #### C BC ####[facility] PATHOLOGY [id number] [place] [address], MCV (RBC) [Entitic vol] 84 fL Normal 80-100 T he [facility] Comment on above: Performed By: #### C BC ####S PATHOLOGY NQEOIOTOTY[address] [place] [address], Platelet mean volume (Bld) [Entitic vol] 6.9 fL Low 7.5-11.2 [facility] Comment on above: Performed By: #### C BC ####[facility] PATHOLOG[facility] [id number] [place], [place], Platelets (Bld) [#/Vol] 364 10*3/uL Normal 150-400 [facility] Comment on above: Performed By: #### C BC ####S PATHOLOGY [id number] [place], [place], RBC (Bld) [#/Vol] 3.89 10*6/uL Low 4.50-5.90 [facility] Comment on above: Performed By: #### C BC ####S PATHOLOGY [id number] [place], WBC (Bld) [#/Vol] 7.3 10*3/uL Normal 4.5-11.5 [facility] Comment on above: Performed By: #### C BC ####[facility] PATHOLOGY UNQRROKDKI[address] [place] [address], Care Plan Noteon 03-21-2022 Fertilizer Supervisor Authentication Interface Message Text Normal [facility] Consultson 03-21-2022 Fertilizer Supervisor Authentication Interface Message Text Normal [facility] Laboratory - Blood bankon ABO and Rh group Nom (Bld) Blood group O Rh(D) positive [facility] MAGNESIUMon 03-21-2022 Magnesium [Mass/Vol] 2.1 mg/dL Normal 1.6-2.8 [facility] Comment on above: Performed By: #### M G, CH8 ####[facility] PATHOLOG[facility] [id number] [place], [place], Interpretation and review of laboratory results Normal [facility] Magnesium [Mass/Vol] 2.1 mg/dL 1.6 - 2 .8 mg/dL [facility] No Panel Informationon 03-21 [facility] Interpretation and review of laboratory results Normal [facility] PARTIAL THROMBOPLASTIN TIMEo n 03-21-2022 aPTT Coag (Bld) [Time] 35 s Normal 25-37 Th e [facility] Comment on above: Performed By: #### A PTT, PT ####S PATHOLOGY [id number] [place], [place], aPTT Coag (Bld) [Time] 35 s [facility] PROTHROMBIN TIME AND INRon 1 05-21-2021 INR Coag (PPP) [Relative time] 0.95 {INR} Normal 0.90-1.10 [facility] Comment on above: Performed By: #### A PTT, PT ####S PATHOLOGY [id number] [place], [place], PT Coag (PPP) [Time] 10.7 s Normal 9.7-12.9 [facility] Comment on above: Performed By: #### A PTT, PT ####[facility] PATHOLOG[facility] [id number] [place], INR Coag (PPP) [Relative time] 0.95 {INR} 0.90 - 1.10 [facility] PT Coag (PPP) [Time] 10.7 s [facility] Progress Noteson 03-21-2022 Fertilizer Supervisor Authentication Interface Message Text Normal [facility] Fertilizer Supervisor Authentication Interface Message Text Normal [facility] TYPE AND SCREENon 03-21-2022 ABO and Rh group Nom (Bld) Blood group O Rh(D) positive Normal [facility] Comment on above: Performed By: #### T S ####S PATHOLOGY [id number] [place], [place], ABSC INT Negative Normal [facility] Comment on above: Performed By: #### T S ####S PATHOLOGY [id number] [place], [place], Blood group antibody screen Ql Negative [facility] BASIC METABOLIC PANELon 03-11 Anion gap [Moles/Vol] 8 mmol/L Low 10-20 [facility] Comment on above: Performed By: #### Lianne Ramirez CH8 ####S PATHOLOGY [id number] [place], Calcium [Mass/Vol] 9.7 mg/dL Normal 8.4-10.4 [facility] Comment on above: Performed By: #### Lianne Ramirez CH8 ####S PATHOLOGY [id number] [place], [place], Chloride [Moles/Vol] 102 mmol/L Normal 97-111 [facility] Comment on above: Performed By: #### Lianne Ramirez, CH8 ####S PATHOLOGY [id number] [place], CO2 [Moles/Vol] 28 mmol/L Normal 21-30 [facility] Comment on above: Performed By: #### Lianne Ramirez, CH8 ####S PATHOLOGY [id number] [place], [place], Creatinine [Mass/Vol] 0.29 mg/dL Low 0.80-1.30 [facility] Comment on above: Performed By: #### Lianne Ramirez, CH8 ####[facility] PATH[facility] [id number] [place], ESTIMATED GFR (CKD-EPI) 168 mL/min/1.73sqm Normal >=60 [facility] Comment on above: Result Comment: 2020 CKD EPI Equation using Creatinine without RaceComment: Estimated glomerular filtration rate (eGFR) is calculated without a race coefficient. Values should be interpreted in the context of the patient's full clinical presentation.Reference:1. Chinedu C, Alex M, Karen LAWS, et al.. A Unifying Approach for GFR Estimation: Recommendations of the NKF-ASN Task Force on Reassessing the Inclusion of Race in Diagnosing Kidney Disease. [place] Journal of Kidney Diseases 2021;79(2):268-88.e1.2. N Engl J Med 2020 Vol. 385 Issue 19 Pages 0228-5262 Performed By: #### Lianne Ramirez CH8 ####S PATHOLOGY [id number] [place], [place], Glucose [Mass/Vol] 88 mg/dL Normal 68-110 [facility] Comment on above: Performed By: #### Lianne Ramirez, CH8 ####S PATHOLOGY [id number] [place], [place], Potassium [Moles/Vol] 4.7 mmol/L Normal 3.3-5.3 [facility] Comment on above: Performed By: #### Lianne Ramirez, CH8 ####S PATHOLOGY [id number] [place], [place], Sodium [Moles/Vol] 138 mmol/L Normal 135-148 [facility] Comment on above: Performed By: #### M James, CH8 ####S PATHOLOGY [id number] [place], [place], Urea nitrogen [Mass/Vol] 19 mg/dL Normal 8-22 [facility] Comment on above: Performed By: #### M James, CH8 ####S PATHOLOGY [id number] [place], [place], Basic metabolic 2000 panelon 03-20-2022 Anion gap [Moles/Vol] 8 mmol/L Low 10 - 20 [facility] Calcium [Mass/Vol] 9.7 mg/dL 8.4 - 10. 4 mg/dL [facility] Chloride [Moles/Vol] 102 mmol/L 97 - 11 1 mmol/L [facility] CO2 [Moles/Vol] 28 mmol/L 21 - 30 mmol/L [facility] Creatinine [Mass/Vol] 0.29 mg/dL Low 0.80 - 1.30 mg/dL [facility] GFR/1.73 sq M.predicted MDRD (S/P/Bld) [Vol rate/Area] 168 mL/min/{1.73_m2} - PINF [facility] Glucose [Mass/Vol] 88 mg/dL 68 - 110 mg/dL [facility] Interpretation and review of laboratory results Abnormal [facility] Potassium [Moles/Vol] 4.7 mmol/L 3.3 - 5.3 mmol/L [facility] Sodium [Moles/Vol] 138 mmol/L 135 - 148 mmol/L [facility] Urea nitrogen [Mass/Vol] 19 mg/dL 8 - 22 mg/dL [facility] CBC panel Auto (Bld)on 03-20 Erythrocyte distribution width (RBC) [Ratio] 20.7 % High 11.5 - 14.5 % [facility] Hematocrit (Bld) [Volume fraction] 32.5 % Low 41.0 - 53.0 % [facility] Hemoglobin (Bld) [Mass/Vol] 10.9 g/dL Low 13.9 - 16.3 g/dL [facility] Interpretation and review of laboratory results Abnormal [facility] MCH (RBC) [Entitic mass] 27.9 pg 26.0 - 34.0 pg [facility] MCHC (RBC) [Mass/Vol] 33.6 g/dL 32.0 - 35.9 g/dL [facility] MCV (RBC) [Entitic vol] 83 fL 80 - 100 fL [facility] Platelet mean volume (Bld) [Entitic vol] 7.1 fL Low 7.5 - 11.2 fL [facility] Platelets (Bld) [#/Vol] 406 10*3/uL High 150 - 400 K/uL [facility] RBC (Bld) [#/Vol] 3.92 10*6/uL Low [facility] WBC (Bld) [#/Vol] 9.4 10*3/uL 4.5 - 11.5 K/uL [facility] COMPLETE BLOOD COUNT 03-20 Erythrocyte distribution width (RBC) [Ratio] 20.7 % High 11.5-14.5 [facility] Comment on above: Performed By: #### C BC ####[facility] PATHOLOG[facility] TRVGINRORS[address] [place] [address], Hematocrit (Bld) [Volume fraction] 32.5 % Low 41.0-53.0 [facility] Comment on above: Performed By: #### C BC ####[facility] PATH[facility] [id number] [place], Hemoglobin (Bld) [Mass/Vol] 10.9 g/dL Low 13.9-16.3 [facility] Comment on above: Performed By: #### C BC ####[facility] PATH[facility] [id number] [place], MCH (RBC) [Entitic mass] 27.9 pg Normal 26.0-34.0 [facility] Comment on above: Performed By: #### C BC ####S PATHOLOGY [id number] [place], MCHC (RBC) [Mass/Vol] 33.6 g/dL Normal 32.0-35.9 [facility] Comment on above: Performed By: #### C BC ####S PATHOLOGY [id number] [place] [address], MCV (RBC) [Entitic vol] 83 fL Normal 80-100 T he [facility] Comment on above: Performed By: #### C BC ####S PATHOLOGY [id number] [place], Platelet mean volume (Bld) [Entitic vol] 7.1 fL Low 7.5-11.2 [facility] Comment on above: Performed By: #### C BC ####[facility] [id number] [place], [place], Platelets (Bld) [#/Vol] 406 10*3/uL High 150-400 [facility] Comment on above: Performed By: #### C BC ####S PATHOLOGY [id number] [place], RBC (Bld) [#/Vol] 3.92 10*6/uL Low 4.50-5.90 [facility] Comment on above: Performed By: #### C BC ####S PATHOLOGY [id number] [place], WBC (Bld) [#/Vol] 9.4 10*3/uL Normal 4.5-11.5 [facility] Comment on above: Performed By: #### C BC ####[facility] [id number] [place], [place], Care Plan Noteon 03-20-2022 Fertilizer Supervisor Authentication Interface Message Text Normal [facility] Consultson 03-20-2022 Fertilizer Supervisor Authentication Interface Message Text Normal [facility] MAGNESIUMon 03-20-2022 Magnesium [Mass/Vol] 1.9 mg/dL Normal 1.6-2.8 [facility] Comment on above: Performed By: #### M G, CH8 ####S PATHOLOGY [id number] [place], Interpretation and review of laboratory results Normal [facility] Magnesium [Mass/Vol] 1.9 mg/dL 1.6 - 2 .8 mg/dL [facility] Progress Noteson 03-20-2022 Fertilizer Supervisor Authentication Interface Message Text Normal [facility] Fertilizer Supervisor Authentication Interface Message Text Normal [facility] Fertilizer Supervisor Authentication Interface Message Text Normal [facility] BASIC METABOLIC PANELon 11-0 Anion gap [Moles/Vol] 11 mmol/L Normal 10-20 [facility] Comment on above: Performed By: #### C H8, MG ####[facility] YIRGIYWAIG5226 [place], [place], Calcium [Mass/Vol] 9.1 mg/dL Normal 8.4-10.4 [facility] Comment on above: Performed By: #### C H8, MG ####[facility] [id number] [place], Chloride [Moles/Vol] 103 mmol/L Normal 97-111 [facility] Comment on above: Performed By: #### Jacqueline H8, MG ####[facility] [id number] [place], [place], CO2 [Moles/Vol] 24 mmol/L Normal 21-30 [facility] Comment on above: Performed By: #### Jacqueline H8, MG ####[facility] [id number] [place], Creatinine [Mass/Vol] 0.36 mg/dL Low 0.80-1.30 [facility] Comment on above: Performed By: #### Jacqueline H8, MG ####S PATHOLOGY [id number] [place], [place], ESTIMATED GFR (CKD-EPI) 157 mL/min/1.73sqm Normal >=60 [facility] Comment on above: Result Comment: 2020 CKD EPI Equation using Creatinine without RaceComment: Estimated glomerular filtration rate (eGFR) is calculated without a race coefficient. Values should be interpreted in the context of the patient's full clinical presentation.Reference:1. Chinedu C, Bawindy M, Karen DC, et al.. A Unifying Approach for GFR Estimation: Recommendations of the NKF-ASN Task Force on Reassessing the Inclusion of Race in Diagnosing Kidney Disease. [place] Journal of Kidney Diseases 2021;79(2):268-88.e1.2. N Engl J Med 1 Vol. 385 Issue 19 Pages 7916-0973 Performed By: #### C H8, MG ####S PATHOLOGY [id number] [place], [place], Glucose [Mass/Vol] 88 mg/dL Normal 68-110 [facility] Comment on above: Performed By: #### Jacqueline H8, MG ####[facility] PATHOLOGY [id number] [place], [place], Potassium [Moles/Vol] 4.1 mmol/L Normal 3.3-5.3 [facility] Comment on above: Performed By: #### Jacqueline Harmon8, MG ####S PATHOLOGY [id number] [place], [place], Sodium [Moles/Vol] 138 mmol/L Normal 135-148 [facility] Comment on above: Performed By: #### Jacqueline Harmon8, MG ####S PATHOLOGY [id number] [place], [place], Urea nitrogen [Mass/Vol] 20 mg/dL Normal 8-22 [facility] Comment on above: Performed By: #### Jacqueline Harmon8, MG ####[facility] PATHOLOGY [id number] [place], [place], Basic metabolic 2000 panelon 03-19-2022 Anion gap [Moles/Vol] 11 mmol/L 10 - 20 [facility] Calcium [Mass/Vol] 9.1 mg/dL 8.4 - 10. 4 mg/dL [facility] Chloride [Moles/Vol] 103 mmol/L 97 - 11 1 mmol/L [facility] CO2 [Moles/Vol] 24 mmol/L 21 - 30 mmol/L [facility] Creatinine [Mass/Vol] 0.36 mg/dL Low 0.80 - 1.30 mg/dL [facility] GFR/1.73 sq M.predicted MDRD (S/P/Bld) [Vol rate/Area] 157 mL/min/{1.73_m2} - PINF [facility] Glucose [Mass/Vol] 88 mg/dL 68 - 110 mg/dL [facility] Interpretation and review of laboratory results Abnormal [facility] Potassium [Moles/Vol] 4.1 mmol/L 3.3 - 5.3 mmol/L [facility] Sodium [Moles/Vol] 138 mmol/L 135 - 148 mmol/L [facility] Urea nitrogen [Mass/Vol] 20 mg/dL 8 - 22 mg/dL [facility] CBC panel Auto (Bld)on 03-19 Erythrocyte distribution width (RBC) [Ratio] 21.2 % High 11.5 - 14.5 % [facility] Hematocrit (Bld) [Volume fraction] 32.3 % Low 41.0 - 53.0 % [facility] Hemoglobin (Bld) [Mass/Vol] 10.4 g/dL Low 13.9 - 16.3 g/dL [facility] Interpretation and review of laboratory results Abnormal [facility] MCH (RBC) [Entitic mass] 26.9 pg 26.0 - 34.0 pg [facility] MCHC (RBC) [Mass/Vol] 32.2 g/dL 32.0 - 35.9 g/dL [facility] MCV (RBC) [Entitic vol] 84 fL 80 - 100 fL [facility] Platelet mean volume (Bld) [Entitic vol] 7.8 fL 7.5 - 11.2 fL [facility] Platelets (Bld) [#/Vol] 442 10*3/uL High 150 - 400 K/uL [facility] RBC (Bld) [#/Vol] 3.87 10*6/uL Low [facility] WBC (Bld) [#/Vol] 11.1 10*3/uL 4.5 - 11.5 K/uL [facility] COMPLETE BLOOD COUNTon 03-19 Erythrocyte distribution width (RBC) [Ratio] 21.2 % High 11.5-14.5 [facility] Comment on above: Performed By: #### C BC ####S PATHOLOGY [id number] [place] [address], Hematocrit (Bld) [Volume fraction] 32.3 % Low 41.0-53.0 [facility] Comment on above: Performed By: #### C BC ####S PATHOLOGY [id number] [place] [address], Hemoglobin (Bld) [Mass/Vol] 10.4 g/dL Low 13.9-16.3 [facility] Comment on above: Performed By: #### C BC ####S PATHOLOGY [id number] [place] [address], MCH (RBC) [Entitic mass] 26.9 pg Normal 26.0-34.0 [facility] Comment on above: Performed By: #### C BC ####S PATHOLOGY [id number] [place], MCHC (RBC) [Mass/Vol] 32.2 g/dL Normal 32.0-35.9 [facility] Comment on above: Performed By: #### C BC ####[facility] PATHOLOGY [id number] [place], MCV (RBC) [Entitic vol] 84 fL Normal 80-100 [facility] Comment on above: Performed By: #### C BC ####S PATHOLOGY [id number] [place], Platelet mean volume (Bld) [Entitic vol] 7.8 fL Normal 7.5-11.2 [facility] Comment on above: Performed By: #### C BC ####[facility] PATHOLOGY [id number] [place], Platelets (Bld) [#/Vol] 442 10*3/uL High 150-400 [facility] Comment on above: Performed By: #### C BC ####[facility] PATHOLOGY [id number] [place], [place], RBC (Bld) [#/Vol] 3.87 10*6/uL Low 4.50-5.90 [facility] Comment on above: Performed By: #### C BC ####[facility] PATHOLOGY [id number] [place], WBC (Bld) [#/Vol] 11.1 10*3/uL Normal 4.5-11.5 [facility] Comment on above: Performed By: #### C BC ####S PATHOLOGY [id number] [place], [place], Care Plan Noteon 03-19-2022 Fertilizer Supervisor Authentication Interface Message Text Normal [facility] Fertilizer Supervisor Authentication Interface Message Text Normal [facility] Consultson 03-19-2022 Fertilizer Supervisor Authentication Interface Message Text Normal [facility] Fertilizer Supervisor Authentication Interface Message Text Normal [facility] MAGNESIUMon 03-19-2022 Interpretation and review of laboratory results Normal [facility] Magnesium [Mass/Vol] 1.9 mg/dL 1.6 - 2 .8 mg/dL [facility] Magnesium [Mass/Vol] 1.9 mg/dL Normal 1.6-2.8 [facility] Comment on above: Performed By: #### C H8, MG ####[facility] PATHOLOGY [id number] [place], [place], No Panel Informationon 03-19 [facility] Procedureson 03-19-2022 Fertilizer Supervisor Authentication Interface Message Text Normal [facility] Progress Noteson 03-19-2022 Fertilizer Supervisor Authentication Interface Message Text Normal [facility] Fertilizer Supervisor Authentication Interface Message Text Normal [facility] Fertilizer Supervisor Authentication Interface Message Text Normal [facility] Fertilizer Supervisor Authentication Interface Message Text Normal [facility] Fertilizer Supervisor Authentication Interface Message Text Normal [facility] Fertilizer Supervisor Authentication Interface Message Text Normal [facility] Student Noteon 03-19-2022 Fertilizer Supervisor Authentication Interface Message Text Normal [facility] VANCOMYCIN TROUGHOrdered By: Brenda Luque on 03-19-2022 Interpretation and review of laboratory results Normal [facility] Vancomycin trough [Mass/Vol] 17.7 ug/mL 10.0 - 20.0 ug/mL [facility] VANCOMYCIN TROUGHon 03-19-20 22 VANC TR 17.7 ug/mL Normal 10.0-20.0 [facility] Comment on above: Performed By: #### V ANC TR ####[facility] PATHOLOGY [id number] [place], [place], BASIC METABOLIC PANELon 110 Anion gap [Moles/Vol] 13 mmol/L Normal 10-20 [facility] Comment on above: Performed By: #### C H8, MG ####[facility] PATHOLOGY [id number] [place], [place], Calcium [Mass/Vol] 8.5 mg/dL Normal 8.4-10.4 [facility] Comment on above: Performed By: #### C H8, MG ####[facility] PATHOLOGY [id number] [place], [place], Chloride [Moles/Vol] 108 mmol/L Normal 97-111 [facility] Comment on above: Performed By: #### Jacqueline H8, MG ####[facility] PATHOLOGY [id number] [place], CO2 [Moles/Vol] 19 mmol/L Low 21-30 [facility] Comment on above: Performed By: #### Jacqueline H8, MG ####S PATHOLOGY [id number] [place], Creatinine [Mass/Vol] 0.42 mg/dL Low 0.80-1.30 [facility] Comment on above: Performed By: #### Jacqueline H8, MG ####S PATHOLOGY [id number] [place], ESTIMATED GFR (CKD-EPI) 150 mL/min/1.73sqm Normal >=60 [facility] Comment on above: Result Comment: 2020 CKD EPI Equation using Creatinine without RaceComment: Estimated glomerular filtration rate (eGFR) is calculated without a race coefficient. Values should be interpreted in the context of the patient's full clinical presentation.Reference:1. Chinedu C, Bawindy M, Karen LAWS, et al.. A Unifying Approach for GFR Estimation: Recommendations of the NKF-ASN Task Force on Reassessing the Inclusion of Race in Diagnosing Kidney Disease. [place] Journal of Kidney Diseases 2021;79(2):268-88.e1.2. N Engl J Med 2020 Vol. 385 Issue 19 Pages 3174-9602 Performed By: #### C H8, MG ####S PATHOLOGY [id number] [place], [place], Glucose [Mass/Vol] 84 mg/dL Normal 68-110 [facility] Comment on above: Performed By: #### C H8, MG ####[facility] PATHOLOGY [id number] [place], [place], Potassium [Moles/Vol] 3.8 mmol/L Normal 3.3-5.3 [facility] Comment on above: Performed By: #### Jacqueline H8, MG ####S PATHOLOGY [id number] [place], Sodium [Moles/Vol] 136 mmol/L Normal 135-148 [facility] Comment on above: Performed By: #### Jacqueline H8, MG ####[facility] PATHOLOGY [id number] [place], Urea nitrogen [Mass/Vol] 13 mg/dL Normal 8-22 [facility] Comment on above: Performed By: #### Jacqueline H8, MG ####S PATHOLOGY [id number] [place], [place], Basic metabolic 2000 panelon 03-18-2022 Anion gap [Moles/Vol] 13 mmol/L 10 - 20 [facility] Calcium [Mass/Vol] 8.5 mg/dL 8.4 - 10. 4 mg/dL [facility] Chloride [Moles/Vol] 108 mmol/L 97 - 11 1 mmol/L [facility] CO2 [Moles/Vol] 19 mmol/L Low 21 - 30 mmol/L [facility] Creatinine [Mass/Vol] 0.42 mg/dL Low 0.80 - 1.30 mg/dL [facility] GFR/1.73 sq M.predicted MDRD (S/P/Bld) [Vol rate/Area] 150 mL/min/{1.73_m2} - PINF [facility] Glucose [Mass/Vol] 84 mg/dL 68 - 110 mg/dL [facility] Interpretation and review of laboratory results Abnormal [facility] Potassium [Moles/Vol] 3.8 mmol/L 3.3 - 5.3 mmol/L [facility] Sodium [Moles/Vol] 136 mmol/L 135 - 148 mmol/L [facility] Urea nitrogen [Mass/Vol] 13 mg/dL 8 - 22 mg/dL [facility] CBC panel Auto (Bld)on 03-18 Erythrocyte distribution width (RBC) [Ratio] 20.5 % High 11.5 - 14.5 % [facility] Hematocrit (Bld) [Volume fraction] 32.9 % Low 41.0 - 53.0 % [facility] Hemoglobin (Bld) [Mass/Vol] 10.5 g/dL Low 13.9 - 16.3 g/dL [facility] Interpretation and review of laboratory results Abnormal [facility] MCH (RBC) [Entitic mass] 26.4 pg 26.0 - 34.0 pg [facility] MCHC (RBC) [Mass/Vol] 32.0 g/dL 32.0 - 35.9 g/dL [facility] MCV (RBC) [Entitic vol] 83 fL 80 - 100 fL [facility] Platelet mean volume (Bld) [Entitic vol] 6.3 fL Low 7.5 - 11.2 fL [facility] Platelets (Bld) [#/Vol] 426 10*3/uL High 150 - 400 K/uL [facility] RBC (Bld) [#/Vol] 3.98 10*6/uL Low [facility] WBC (Bld) [#/Vol] 11.5 10*3/uL 4.5 - 11.5 K/uL [facility] COMPLETE BLOOD COUNTon 03-18 Erythrocyte distribution width (RBC) [Ratio] 20.5 % High 11.5-14.5 [facility] Comment on above: Performed By: #### C BC ####S PATHOLOGY [id number] [place], Hematocrit (Bld) [Volume fraction] 32.9 % Low 41.0-53.0 [facility] Comment on above: Performed By: #### C BC ####S PATHOLOGY [id number] [place], Hemoglobin (Bld) [Mass/Vol] 10.5 g/dL Low 13.9-16.3 [facility] Comment on above: Performed By: #### C BC ####S PATHOLOGY [id number] [place], MCH (RBC) [Entitic mass] 26.4 pg Normal 26.0-34.0 [facility] Comment on above: Performed By: #### C BC ####S PATHOLOGY [id number] [place], MCHC (RBC) [Mass/Vol] 32.0 g/dL Normal 32.0-35.9 [facility] Comment on above: Performed By: #### C BC ####[facility] PATHOLOG[facility] [id number] [place], MCV (RBC) [Entitic vol] 83 fL Normal 80-100 T [facility] Comment on above: Performed By: #### C BC ####[facility] PATHOLOGY [id number] [place], Platelet mean volume (Bld) [Entitic vol] 6.3 fL Low 7.5-11.2 [facility] Comment on above: Performed By: #### C BC ####[facility] PATHOLOGY [id number] [place], Platelets (Bld) [#/Vol] 426 10*3/uL High 150-400 [facility] Comment on above: Performed By: #### C BC ####[facility] PATHOLOGY [id number] [place], RBC (Bld) [#/Vol] 3.98 10*6/uL Low 4.50-5.90 [facility] Comment on above: Performed By: #### C BC ####[facility] PATHOLOGY [id number] [place], WBC (Bld) [#/Vol] 11.5 10*3/uL Normal 4.5-11.5 [facility] Comment on above: Performed By: #### C BC ####[facility] PATHOLOGY [id number] [place] [address], Care Plan Noteon 03-18-2022 Fertilizer Supervisor Authentication Interface Message Text Normal [facility] Fertilizer Supervisor Authentication Interface Message Text Normal [facility] Consultson 03-18-2022 Fertilizer Supervisor Authentication Interface Message Text Normal [facility] Fertilizer Supervisor Authentication Interface Message Text Normal [facility] Fertilizer Supervisor Authentication Interface Message Text Normal [facility] Fertilizer Supervisor Authentication Interface Message Text Normal [facility] ID Antibiotic Orderson 03-18 Fertilizer Supervisor Authentication Interface Message Text Normal [facility] MAGNESIUMon 03-18-2022 Magnesium [Mass/Vol] 1.7 mg/dL Normal 1.6-2.8 [facility] Comment on above: Performed By: #### C H8, MG ####[facility] PATHOLOG[facility] [id number] [place], Interpretation and review of laboratory results Normal [facility] Magnesium [Mass/Vol] 1.7 mg/dL 1.6 - 2 .8 mg/dL [facility] No Panel Informationon 03-18 [facility] Progress Noteson 03-18-2022 Fertilizer Supervisor Authentication Interface Message Text Normal [facility] Fertilizer Supervisor Authentication Interface Message Text Normal [facility] Fertilizer Supervisor Authentication Interface Message Text Normal [facility] Fertilizer Supervisor Authentication Interface Message Text Normal [facility] Fertilizer Supervisor Authentication Interface Message Text Normal [facility] Fertilizer Supervisor Authentication Interface Message Text Normal [facility] BASIC METABOLIC PANELon 11-0 Anion gap [Moles/Vol] 12 mmol/L Normal 10-20 [facility] Comment on above: Performed By: #### Jacqueline H8, MG ####[facility] PATHOLOGY [id number] [place], Calcium [Mass/Vol] 9.0 mg/dL Normal 8.4-10.4 [facility] Comment on above: Performed By: #### Jacqueline H8, MG ####S PATHOLOGY [id number] [place], Chloride [Moles/Vol] 107 mmol/L Normal 97-111 [facility] Comment on above: Performed By: #### C H8, MG ####S PATHOLOGY [id number] [place], CO2 [Moles/Vol] 23 mmol/L Normal 21-30 [facility] Comment on above: Performed By: #### C H8, MG ####[facility] PATH[facility] [id number] [place], Creatinine [Mass/Vol] 0.41 mg/dL Low 0.80-1.30 [facility] Comment on above: Performed By: #### C H8, MG ####S PATHOLOGY [id number] [place], ESTIMATED GFR (CKD-EPI) 151 mL/min/1.73sqm Normal >=60 [facility] Comment on above: Result Comment: 2020 CKD EPI Equation using Creatinine without RaceComment: Estimated glomerular filtration rate (eGFR) is calculated without a race coefficient. Values should be interpreted in the context of the patient's full clinical presentation.Reference:1. Chinedu Phillips, Alex M, Karen LAWS, et al.. A Unifying Approach for GFR Estimation: Recommendations of the NKF-ASN Task Force on Reassessing the Inclusion of Race in Diagnosing Kidney Disease. [place] Journal of Kidney Diseases 2021;79(2):268-88.e1.2. N Engl J Med 1 Vol. 385 Issue 19 Pages 5013-3073 Performed By: #### C H8, MG ####[facility] PATH[facility] [id number] [place], Glucose [Mass/Vol] 79 mg/dL Normal 68-110 [facility] Comment on above: Performed By: #### C H8, MG ####[facility] PATHOLOGY [id number] [place], Potassium [Moles/Vol] 4.6 mmol/L Normal 3.3-5.3 [facility] Comment on above: Performed By: #### C H8, MG ####[facility] PATHOLOG[facility] [id number] [place], Sodium [Moles/Vol] 137 mmol/L Normal 135-148 [facility] Comment on above: Performed By: #### C H8, MG ####[facility] PATHOLOGY [id number] [place], Urea nitrogen [Mass/Vol] 14 mg/dL Normal 8-22 [facility] Comment on above: Performed By: #### C H8, MG ####[facility] PATHOLOGY [id number] [place], [place], Basic metabolic 2000 panelon 03-17-2022 Anion gap [Moles/Vol] 12 mmol/L 10 - 20 [facility] Calcium [Mass/Vol] 9.0 mg/dL 8.4 - 10. 4 mg/dL [facility] Chloride [Moles/Vol] 107 mmol/L 97 - 11 1 mmol/L [facility] CO2 [Moles/Vol] 23 mmol/L 21 - 30 mmol/L [facility] Creatinine [Mass/Vol] 0.41 mg/dL Low 0.80 - 1.30 mg/dL [facility] GFR/1.73 sq M.predicted MDRD (S/P/Bld) [Vol rate/Area] 151 mL/min/{1.73_m2} - PINF [facility] Glucose [Mass/Vol] 79 mg/dL 68 - 110 mg/dL [facility] Interpretation and review of laboratory results Abnormal [facility] Potassium [Moles/Vol] 4.6 mmol/L 3.3 - 5.3 mmol/L [facility] Sodium [Moles/Vol] 137 mmol/L 135 - 148 mmol/L [facility] Urea nitrogen [Mass/Vol] 14 mg/dL 8 - 22 mg/dL [facility] CBC panel Auto (Bld)on 03-17 Erythrocyte distribution width (RBC) [Ratio] 20.1 % High 11.5 - 14.5 % [facility] Hematocrit (Bld) [Volume fraction] 32.8 % Low 41.0 - 53.0 % [facility] Hemoglobin (Bld) [Mass/Vol] 10.5 g/dL Low 13.9 - 16.3 g/dL [facility] Interpretation and review of laboratory results Abnormal [facility] MCH (RBC) [Entitic mass] 26.2 pg 26.0 - 34.0 pg [facility] MCHC (RBC) [Mass/Vol] 31.9 g/dL Low 32.0 - 35.9 g/dL [facility] MCV (RBC) [Entitic vol] 82 fL 80 - 100 fL [facility] Platelet mean volume (Bld) [Entitic vol] 6.7 fL Low 7.5 - 11.2 fL [facility] Platelets (Bld) [#/Vol] 501 10*3/uL High 150 - 400 K/uL [facility] RBC (Bld) [#/Vol] 3.99 10*6/uL Low [facility] WBC (Bld) [#/Vol] 11.6 10*3/uL High 4.5 - 11.5 K/uL [facility] COMPLETE BLOOD COUNTon 03-17 Erythrocyte distribution width (RBC) [Ratio] 20.1 % High 11.5-14.5 [facility] Comment on above: Performed By: #### C BC ####[facility] PATHOLOGY [id number] [place], Hematocrit (Bld) [Volume fraction] 32.8 % Low 41.0-53.0 [facility] Comment on above: Performed By: #### C BC ####[facility] PATHOLOGY [id number] [place], Hemoglobin (Bld) [Mass/Vol] 10.5 g/dL Low 13.9-16.3 [facility] Comment on above: Performed By: #### C BC ####[facility] PATHOLOGY [id number] [place], MCH (RBC) [Entitic mass] 26.2 pg Normal 26.0-34.0 [facility] Comment on above: Performed By: #### C BC ####[facility] PATHOLOGY [id number] [place], MCHC (RBC) [Mass/Vol] 31.9 g/dL Low 32.0-35.9 [facility] Comment on above: Performed By: #### C BC ####[facility] PATHOLOGY [id number] [place], MCV (RBC) [Entitic vol] 82 fL Normal 80-100 T [facility] Comment on above: Performed By: #### C BC ####[facility] PATHOLOGY [id number] [place], Platelet mean volume (Bld) [Entitic vol] 6.7 fL Low 7.5-11.2 [facility] Comment on above: Performed By: #### C BC ####[facility] PATHOLOGY [id number] [place], Platelets (Bld) [#/Vol] 501 10*3/uL High 150-400 [facility] Comment on above: Performed By: #### C BC ####[facility] PATHOLOGY [id number] [place], RBC (Bld) [#/Vol] 3.99 10*6/uL Low 4.50-5.90 [facility] Comment on above: Performed By: #### C BC ####[facility] [id number] [place], WBC (Bld) [#/Vol] 11.6 10*3/uL High 4.5-11.5 [facility] Comment on above: Performed By: #### C BC ####[facility] [id number] [place], Care Plan Noteon 03-17-2022 Fertilizer Supervisor Authentication Interface Message Text Normal [facility] Fertilizer Supervisor Authentication Interface Message Text Normal [facility] Consultson 03-17-2022 Fertilizer Supervisor Authentication Interface Message Text Normal [facility] Fertilizer Supervisor Authentication Interface Message Text Normal [facility] ID Antibiotic Orderson 03-17 Fertilizer Supervisor Authentication Interface Message Text Normal The [facility] - Microbiology an d Antimicrobial susceptibilityon 03-17-2022 Bacteria identified Cx Nom (Bld) No Growth [facility] MAGNESIUMon 03-17-2022 Magnesium [Mass/Vol] 1.9 mg/dL Normal 1.6-2.8 [facility] Comment on above: Performed By: #### C H8, MG ####[facility] PATHOLOGY [id number] [place], Interpretation and review of laboratory results Normal [facility] Magnesium [Mass/Vol] 1.9 mg/dL 1.6 - 2 .8 mg/dL [facility] MR ANKLE/FOOT LEFT W/O CONTR David 03-17-2022 MR ANKLE/FOOT LEFT W/O CONTRAST Normal [facility] MR Ankle and Footon 03-17-20 22 RADIOLOGY [facility] Radiology Study observation (narrative) [facility] MR Ankle and FootOrdered By: Ky Buckley on 03-17-2022 [facility] Work Phone: MR FEMUR RIGHT W/Oon 022 MR FEMUR RIGHT W/O Normal [facility] MR Thigh - right WO contrast on 03-17-2022 RADIOLOGY [facility] Radiology Study observation (narrative) [facility] No Panel Informationon 03-17 Interpretation and review of laboratory results Normal [facility] Progress Noteson 03-17-2022 Fertilizer Supervisor Authentication Interface Message Text Normal [facility] Fertilizer Supervisor Authentication Interface Message Text Normal [facility] Fertilizer Supervisor Authentication Interface Message Text Normal [facility] Fertilizer Supervisor Authentication Interface Message Text Normal The [facility] Fertilizer Supervisor Authentication Interface Message Text Normal [facility] BASIC METABOLIC PANELon 11-0 Anion gap [Moles/Vol] 11 mmol/L Normal 10-20 [facility] Comment on above: Performed By: #### C H8, MG ####[facility] [id number] [place], [place], Calcium [Mass/Vol] 8.8 mg/dL Normal 8.4-10.4 [facility] Comment on above: Performed By: #### C H8, MG ####[facility] [id number] [place], [place], Chloride [Moles/Vol] 105 mmol/L Normal 97-111 [facility] Comment on above: Performed By: #### C H8, MG ####[facility] [id number] [place], [place], CO2 [Moles/Vol] 23 mmol/L Normal 21-30 [facility] Comment on above: Performed By: #### C H8, MG ####[facility] [id number] [place], [place], Creatinine [Mass/Vol] 0.39 mg/dL Low 0.80-1.30 [facility] Comment on above: Performed By: #### C H8, MG ####[facility] [id number] [place], [place], ESTIMATED GFR (CKD-EPI) 154 mL/min/1.73sqm Normal >=60 [facility] Comment on above: Result Comment: 2020 CKD EPI Equation using Creatinine without RaceComment: Estimated glomerular filtration rate (eGFR) is calculated without a race coefficient. Values should be interpreted in the context of the patient's full clinical presentation.Reference:1. Chinedu Phillips, Alex M, Karen LAWS, et al.. A Unifying Approach for GFR Estimation: Recommendations of the NKF-ASN Task Force on Reassessing the Inclusion of Race in Diagnosing Kidney Disease. [place] Journal of Kidney Diseases 2021;79(2):268-88.e1.2. N Engl J Med 1 Vol. 385 Issue 19 Pages 8480-4318 Performed By: #### Jacqueline H8, MG ####[facility] [id number] [place], [place], Glucose [Mass/Vol] 117 mg/dL High 68-110 [facility] Comment on above: Performed By: #### Jacqueline H8, MG ####[facility] [id number] [place], [place], Potassium [Moles/Vol] 4.5 mmol/L Normal 3.3-5.3 [facility] Comment on above: Performed By: #### Jacqueline H8, MG ####[facility] [id number] [place], [place], Sodium [Moles/Vol] 134 mmol/L Low 135-148 [facility] Comment on above: Performed By: #### Jacqueline H8, MG ####[facility] PATHOLOG[facility] [id number] [place], [place], Urea nitrogen [Mass/Vol] 10 mg/dL Normal 8-22 [facility] Comment on above: Performed By: #### Jacqueline H8, MG ####[facility] PATHOLOG[facility] [id number] [place], [place], Basic metabolic 2000 panelon 03-16-2022 Anion gap [Moles/Vol] 11 mmol/L 10 - 20 [facility] Calcium [Mass/Vol] 8.8 mg/dL 8.4 - 10. 4 mg/dL [facility] Chloride [Moles/Vol] 105 mmol/L 97 - 11 1 mmol/L [facility] CO2 [Moles/Vol] 23 mmol/L 21 - 30 mmol/L [facility] Creatinine [Mass/Vol] 0.39 mg/dL Low 0.80 - 1.30 mg/dL [facility] GFR/1.73 sq M.predicted MDRD (S/P/Bld) [Vol rate/Area] 154 mL/min/{1.73_m2} - PINF [facility] Glucose [Mass/Vol] 117 mg/dL High 68 - 110 mg/dL [facility] Interpretation and review of laboratory results Abnormal [facility] Potassium [Moles/Vol] 4.5 mmol/L 3.3 - 5.3 mmol/L [facility] Sodium [Moles/Vol] 134 mmol/L Low 135 - 148 mmol/L [facility] Urea nitrogen [Mass/Vol] 10 mg/dL 8 - 22 mg/dL [facility] CBC panel Auto (Bld)on 03-16 Erythrocyte distribution width (RBC) [Ratio] 20.0 % High 11.5 - 14.5 % [facility] Hematocrit (Bld) [Volume fraction] 32.6 % Low 41.0 - 53.0 % [facility] Hemoglobin (Bld) [Mass/Vol] 10.6 g/dL Low 13.9 - 16.3 g/dL [facility] Interpretation and review of laboratory results Abnormal [facility] MCH (RBC) [Entitic mass] 26.9 pg 26.0 - 34.0 pg [facility] MCHC (RBC) [Mass/Vol] 32.6 g/dL 32.0 - 35.9 g/dL [facility] MCV (RBC) [Entitic vol] 82 fL 80 - 100 fL [facility] Platelet mean volume (Bld) [Entitic vol] 7.4 fL Low 7.5 - 11.2 fL [facility] Platelets (Bld) [#/Vol] 478 10*3/uL High 150 - 400 K/uL [facility] RBC (Bld) [#/Vol] 3.95 10*6/uL Low [facility] WBC (Bld) [#/Vol] 9.0 10*3/uL 4.5 - 11.5 K/uL [facility] COMPLETE BLOOD COUNTon 03-16 Erythrocyte distribution width (RBC) [Ratio] 20.0 % High 11.5-14.5 [facility] Comment on above: Performed By: #### C BC ####S PATHOLOGY [id number] [place], [id number] Hematocrit (Bld) [Volume fraction] 32.6 % Low 41.0-53.0 [facility] Comment on above: Performed By: #### C BC ####S PATHOLOGY [id number] [place], [place], Hemoglobin (Bld) [Mass/Vol] 10.6 g/dL Low 13.9-16.3 [facility] Comment on above: Performed By: #### C BC ####[facility] PATHOLOG[facility] [id number] [place], [place], MCH (RBC) [Entitic mass] 26.9 pg Normal 26.0-34.0 [facility] Comment on above: Performed By: #### C BC ####[facility] PATHOLOGY [id number] [place], MCHC (RBC) [Mass/Vol] 32.6 g/dL Normal 32.0-35.9 [facility] Comment on above: Performed By: #### C BC ####[facility] PATHOLOGY [id number] [place], MCV (RBC) [Entitic vol] 82 fL Normal 80-100 T [facility] Comment on above: Performed By: #### C BC ####[facility] PATHOLOGY [id number] [place], [place], Platelet mean volume (Bld) [Entitic vol] 7.4 fL Low 7.5-11.2 [facility] Comment on above: Performed By: #### C BC ####[facility] PATHOLOGY [id number] [place], Platelets (Bld) [#/Vol] 478 10*3/uL High 150-400 [facility] Comment on above: Performed By: #### C BC ####[facility] PATHOLOG[facility] [id number] [place], RBC (Bld) [#/Vol] 3.95 10*6/uL Low 4.50-5.90 [facility] Comment on above: Performed By: #### C BC ####[facility] PATHOLOGY [id number] [place], WBC (Bld) [#/Vol] 9.0 10*3/uL Normal 4.5-11.5 [facility] Comment on above: Performed By: #### C BC ####[facility] PATHOLOG[facility] [id number] [place], [place], CT NECK W/ CONTRASTon 2021 CT NECK W/ CONTRAST Normal [facility] Neck W contrast IVOrdered By: Glenn Cordero on 03-16-2022 CT DLP 388.88 (mGycm) [facility] Work Phone: CT Series Neck,Neck,Neck [facility] Work Phone: CTDI VOL 12.29 (mGy) [facility] Work Phone: PHANTOM TYPE IEC Body Dosimetry Phantom [facility] Work Phone: [facility] Work Phone: CT Neck W contrast Earlene RADIOLOGY [facility] Radiology Study observation (narrative) [facility] Care Plan Noteon 03-16-2022 Fertilizer Supervisor Authentication Interface Message Text Normal [facility] Fertilizer Supervisor Authentication Interface Message Text Normal [facility] Fertilizer Supervisor Authentication Interface Message Text Normal [facility] MAGNESIUMon 03-16-2022 Interpretation and review of laboratory results Normal [facility] Magnesium [Mass/Vol] 2.1 mg/dL 1.6 - 2 .8 mg/dL [facility] Magnesium [Mass/Vol] 2.1 mg/dL Normal 1.6-2.8 [facility] Comment on above: Performed By: #### Jacqueline H8, MG ####[facility] [id number] [place], [place], Progress Noteson 03-16-2022 Fertilizer Supervisor Authentication Interface Message Text Normal [facility] Fertilizer Supervisor Authentication Interface Message Text Normal [facility] Fertilizer Supervisor Authentication Interface Message Text Normal [facility] Fertilizer Supervisor Authentication Interface Message Text Normal [facility] BASIC METABOLIC PANELon Anion gap [Moles/Vol] 11 mmol/L Normal 10-20 [facility] Comment on above: Performed By: #### C H8, MG ####[facility] PATH[facility] [id number] [place], Calcium [Mass/Vol] 8.5 mg/dL Normal 8.4-10.4 [facility] Comment on above: Performed By: #### C H8, MG ####[facility] PATH[facility] [id number] [place], [place], Chloride [Moles/Vol] 105 mmol/L Normal 97-111 [facility] Comment on above: Performed By: #### C H8, MG ####[facility] PATH[facility] [id number] [place], CO2 [Moles/Vol] 22 mmol/L Normal 21-30 [facility] Comment on above: Performed By: #### C H8, MG ####[facility] PATH[facility] [id number] [place], [place], Creatinine [Mass/Vol] 0.34 mg/dL Low 0.80-1.30 [facility] Comment on above: Performed By: #### C H8, MG ####[facility] PATH[facility] [id number] [place], ESTIMATED GFR (CKD-EPI) 160 mL/min/1.73sqm Normal >=60 [facility] Comment on above: Result Comment: 2020 CKD EPI Equation using Creatinine without RaceComment: Estimated glomerular filtration rate (eGFR) is calculated without a race coefficient. Values should be interpreted in the context of the patient's full clinical presentation.Reference:1. Chinedu C, Alex M, Karen LAWS, et al.. A Unifying Approach for GFR Estimation: Recommendations of the NKF-ASN Task Force on Reassessing the Inclusion of Race in Diagnosing Kidney Disease. [place] Journal of Kidney Diseases 2021;79(2):268-88.e1.2. N Engl J Med 2020 Vol. 385 Issue 19 Pages 1848-1631 Performed By: #### C H8, MG ####[facility] PATHOLOG[facility] [id number] [place], [place], Glucose [Mass/Vol] 157 mg/dL High 68-110 The [facility] Comment on above: Performed By: #### C H8, MG ####[facility] PATHOLOGY [id number] [place], [place], Potassium [Moles/Vol] 3.9 mmol/L Normal 3.3-5.3 [facility] Comment on above: Performed By: #### C H8, MG ####S PATHOLOGY [id number] [place], [place], Sodium [Moles/Vol] 134 mmol/L Low 135-148 [facility] Comment on above: Performed By: #### C H8, MG ####S PATHOLOGY [id number] [place], [place], Urea nitrogen [Mass/Vol] 9 mg/dL Normal 8-22 [facility] Comment on above: Performed By: #### C H8, MG ####[facility] PATHOLOG[facility] [id number] [place], [place], Basic metabolic 2000 panelon 03-15-2022 Anion gap [Moles/Vol] 11 mmol/L 10 - 20 [facility] Calcium [Mass/Vol] 8.5 mg/dL 8.4 - 10. 4 mg/dL [facility] Chloride [Moles/Vol] 105 mmol/L 97 - 11 1 mmol/L [facility] CO2 [Moles/Vol] 22 mmol/L 21 - 30 mmol/L [facility] Creatinine [Mass/Vol] 0.34 mg/dL Low 0.80 - 1.30 mg/dL [facility] GFR/1.73 sq M.predicted MDRD (S/P/Bld) [Vol rate/Area] 160 mL/min/{1.73_m2} - PINF [facility] Glucose [Mass/Vol] 157 mg/dL High 68 - 110 mg/dL [facility] Interpretation and review of laboratory results Abnormal [facility] Potassium [Moles/Vol] 3.9 mmol/L 3.3 - 5.3 mmol/L [facility] Sodium [Moles/Vol] 134 mmol/L Low 135 - 148 mmol/L [facility] Urea nitrogen [Mass/Vol] 9 mg/dL 8 - 22 mg/dL [facility] CBC panel Auto (Bld)Ordered By: Cici Maurre on 03-15-2022 Erythrocyte distribution width (RBC) [Ratio] 19.3 % High 11.5 - 14.5 % [facility] Hematocrit (Bld) [Volume fraction] 32.2 % Low 41.0 - 53.0 % [facility] Hemoglobin (Bld) [Mass/Vol] 10.5 g/dL Low 13.9 - 16.3 g/dL [facility] Interpretation and review of laboratory results Abnormal [facility] MCH (RBC) [Entitic mass] 26.1 pg 26.0 - 34.0 pg [facility] MCHC (RBC) [Mass/Vol] 32.6 g/dL 32.0 - 35.9 g/dL [facility] MCV (RBC) [Entitic vol] 80 fL 80 - 100 fL [facility] Platelet mean volume (Bld) [Entitic vol] 6.6 fL Low 7.5 - 11.2 fL [facility] Platelets (Bld) [#/Vol] 532 10*3/uL High 150 - 400 K/uL [facility] RBC (Bld) [#/Vol] 4.03 10*6/uL Low [facility] WBC (Bld) [#/Vol] 7.1 10*3/uL 4.5 - 11.5 K/uL [facility] COMPLETE BLOOD COUNTon 03-15 Erythrocyte distribution width (RBC) [Ratio] 19.3 % High 11.5-14.5 [facility] Comment on above: Performed By: #### C BC ####S PATHOLOGY [id number] [place] [address], Hematocrit (Bld) [Volume fraction] 32.2 % Low 41.0-53.0 [facility] Comment on above: Performed By: #### C BC ####S PATHOLOGY [id number] [place], Hemoglobin (Bld) [Mass/Vol] 10.5 g/dL Low 13.9-16.3 [facility] Comment on above: Performed By: #### C BC ####S PATHOLOGY [id number] [place], MCH (RBC) [Entitic mass] 26.1 pg Normal 26.0-34.0 [facility] Comment on above: Performed By: #### C BC ####S PATHOLOGY [id number] [place], MCHC (RBC) [Mass/Vol] 32.6 g/dL Normal 32.0-35.9 [facility] Comment on above: Performed By: #### C BC ####S PATHOLOGY [id number] [place], MCV (RBC) [Entitic vol] 80 fL Normal 80-100 T he [facility] Comment on above: Performed By: #### C BC ####S PATHOLOGY [id number] [place], Platelet mean volume (Bld) [Entitic vol] 6.6 fL Low 7.5-11.2 [facility] Comment on above: Performed By: #### C BC ####[facility] PATHOLOGY [id number] [place], [place], Platelets (Bld) [#/Vol] 532 10*3/uL High 150-400 [facility] Comment on above: Performed By: #### C BC ####[facility] PATHOLOGY [id number] [place] [address], RBC (Bld) [#/Vol] 4.03 10*6/uL Low 4.50-5.90 [facility] Comment on above: Performed By: #### C BC ####[facility] PATHOLOGY [id number] [place] [address], WBC (Bld) [#/Vol] 7.1 10*3/uL Normal 4.5-11.5 [facility] Comment on above: Performed By: #### C BC ####[facility] PATHOLOGY [id number] [place] [address], Consultson 03-15-2022 Fertilizer Supervisor Authentication Interface Message Text Normal [facility] MAGNESIUMon 03-15-2022 Magnesium [Mass/Vol] 1.7 mg/dL Normal 1.6-2.8 [facility] Comment on above: Performed By: #### C H8, MG ####S PATHOLOGY [id number] [place], [place], Interpretation and review of laboratory results Normal [facility] Magnesium [Mass/Vol] 1.7 mg/dL 1.6 - 2 .8 mg/dL [facility] Progress Noteson 03-15-2022 Fertilizer Supervisor Authentication Interface Message Text Normal [facility] Fertilizer Supervisor Authentication Interface Message Text Normal [facility] Fertilizer Supervisor Authentication Interface Message Text Normal [facility] Fertilizer Supervisor Authentication Interface Message Text Normal [facility] Fertilizer Supervisor Authentication Interface Message Text Normal [facility] VANCOMYCIN TROUGHon 03-15-20 Interpretation and review of laboratory results Normal [facility] Vancomycin trough [Mass/Vol] 16.4 ug/mL 10.0 - 20.0 ug/mL [facility] VANC TR 16.4 ug/mL Normal 10.0-20.0 [facility] Comment on above: Performed By: #### V ANC TR ####[facility] PATH[facility] [id number] [place], [place], XR RT FEMUR MIN 2 VIEWSon XR RT FEMUR MIN 2 VIEWS Normal T [facility] BASIC METABOLIC PANELon Anion gap [Moles/Vol] 10 mmol/L Normal 10-20 [facility] Comment on above: Performed By: #### C H8, MG ####[facility] PATHOLOG[facility] [id number] [place], Calcium [Mass/Vol] 8.7 mg/dL Normal 8.4-10.4 [facility] Comment on above: Performed By: #### C H8, MG ####[facility] PATH[facility] [id number] [place], Chloride [Moles/Vol] 107 mmol/L Normal 97-111 [facility] Comment on above: Performed By: #### C H8, MG ####[facility] PATH[facility] [id number] [place], CO2 [Moles/Vol] 22 mmol/L Normal 21-30 [facility] Comment on above: Performed By: #### C H8, MG ####[facility] PATH[facility] [id number] [place], Creatinine [Mass/Vol] 0.26 mg/dL Low 0.80-1.30 [facility] Comment on above: Performed By: #### C H8, MG ####[facility] PATH[facility] [id number] [place], ESTIMATED GFR (CKD-EPI) 174 mL/min/1.73sqm Normal >=60 [facility] Comment on above: Result Comment: 2020 CKD EPI Equation using Creatinine without RaceComment: Estimated glomerular filtration rate (eGFR) is calculated without a race coefficient. Values should be interpreted in the context of the patient's full clinical presentation.Reference:1. Chinedu C, Alex M, Karen LAWS, et al.. A Unifying Approach for GFR Estimation: Recommendations of the NKF-ASN Task Force on Reassessing the Inclusion of Race in Diagnosing Kidney Disease. [place] Journal of Kidney Diseases 2021;79(2):268-88.e1.2. N Engl J Med 2020 Vol. 385 Issue 19 Pages 6724-9471 Performed By: #### C H8, MG ####[facility] PATH[facility] [id number] [place], Glucose [Mass/Vol] 85 mg/dL Normal 68-110 [facility] Comment on above: Performed By: #### C H8, MG ####[facility] PATH[facility] [id number] [place], [place], Potassium [Moles/Vol] 4.0 mmol/L Normal 3.3-5.3 [facility] Comment on above: Performed By: #### C H8, MG ####[facility] PATH[facility] [id number] [place], Sodium [Moles/Vol] 135 mmol/L Normal 135-148 [facility] Comment on above: Performed By: #### C H8, MG ####[facility] PATH[facility] [id number] [place], Urea nitrogen [Mass/Vol] 6 mg/dL Low 8-22 [facility] Comment on above: Performed By: #### C H8, MG ####[facility] [id number] [place], [place], Basic metabolic 2000 panelon 03-14-2022 Anion gap [Moles/Vol] 10 mmol/L 10 - 20 [facility] Calcium [Mass/Vol] 8.7 mg/dL 8.4 - 10. 4 mg/dL [facility] Chloride [Moles/Vol] 107 mmol/L 97 - 11 1 mmol/L [facility] CO2 [Moles/Vol] 22 mmol/L 21 - 30 mmol/L [facility] Creatinine [Mass/Vol] 0.26 mg/dL Low 0.80 - 1.30 mg/dL [facility] GFR/1.73 sq M.predicted MDRD (S/P/Bld) [Vol rate/Area] 174 mL/min/{1.73_m2} - PINF [facility] Glucose [Mass/Vol] 85 mg/dL 68 - 110 mg/dL [facility] Interpretation and review of laboratory results Abnormal [facility] Potassium [Moles/Vol] 4.0 mmol/L 3.3 - 5.3 mmol/L [facility] Sodium [Moles/Vol] 135 mmol/L 135 - 148 mmol/L [facility] Urea nitrogen [Mass/Vol] 6 mg/dL Low 8 - 22 mg/dL [facility] CBC panel Auto (Bld)on 03-14 Erythrocyte distribution width (RBC) [Ratio] 19.0 % High 11.5 - 14.5 % [facility] Hematocrit (Bld) [Volume fraction] 31.3 % Low 41.0 - 53.0 % [facility] Hemoglobin (Bld) [Mass/Vol] 10.2 g/dL Low 13.9 - 16.3 g/dL [facility] Interpretation and review of laboratory results Abnormal [facility] MCH (RBC) [Entitic mass] 26.6 pg 26.0 - 34.0 pg [facility] MCHC (RBC) [Mass/Vol] 32.7 g/dL 32.0 - 35.9 g/dL [facility] MCV (RBC) [Entitic vol] 81 fL 80 - 100 fL [facility] Platelet mean volume (Bld) [Entitic vol] 6.4 fL Low 7.5 - 11.2 fL [facility] Platelets (Bld) [#/Vol] 388 10*3/uL 150 - 400 K/uL [facility] RBC (Bld) [#/Vol] 3.85 10*6/uL Low [facility] WBC (Bld) [#/Vol] 6.9 10*3/uL 4.5 - 11.5 K/uL [facility] COMPLETE BLOOD COUNTon 03-14 Erythrocyte distribution width (RBC) [Ratio] 19.0 % High 11.5-14.5 [facility] Comment on above: Performed By: #### C BC ####[facility] PATHOLOG[facility] [id number] [place], Hematocrit (Bld) [Volume fraction] 31.3 % Low 41.0-53.0 [facility] Comment on above: Performed By: #### C BC ####[facility] PATHOLOGY [id number] [place], Hemoglobin (Bld) [Mass/Vol] 10.2 g/dL Low 13.9-16.3 [facility] Comment on above: Performed By: #### C BC ####[facility] PATHOLOGY [id number] [place], MCH (RBC) [Entitic mass] 26.6 pg Normal 26.0-34.0 [facility] Comment on above: Performed By: #### C BC ####[facility] PATHOLOG[facility] [id number] [place], MCHC (RBC) [Mass/Vol] 32.7 g/dL Normal 32.0-35.9 [facility] Comment on above: Performed By: #### C BC ####[facility] PATHOLOG[facility] [id number] [place], MCV (RBC) [Entitic vol] 81 fL Normal 80-100 [facility] Comment on above: Performed By: #### C BC ####[facility] PATHOLOG[facility] [id number] [place], Platelet mean volume (Bld) [Entitic vol] 6.4 fL Low 7.5-11.2 [facility] Comment on above: Performed By: #### C BC ####[facility] PATHOLOGY [id number] [place] [address], Platelets (Bld) [#/Vol] 388 10*3/uL Normal 150-400 [facility] Comment on above: Performed By: #### C BC ####S PATHOLOGY [id number] [place], RBC (Bld) [#/Vol] 3.85 10*6/uL Low 4.50-5.90 [facility] Comment on above: Performed By: #### C BC ####[facility] [id number] [place], WBC (Bld) [#/Vol] 6.9 10*3/uL Normal 4.5-11.5 [facility] Comment on above: Performed By: #### C BC ####[facility] PATHOLOG[facility] [id number] [place], [place], CT NECK W/ CONTRASTon 2021 CT NECK W/ CONTRAST Normal [facility] CT Neck W contrast IVOrdered By: Glenn Chowdhury on 03-14-2022 CT DLP 251.4 (mGy.cm) [facility] Work Phone: CT Series Neck [facility] Work Phone: CTDI VOL 8.3 (mGy) [facility] Work Phone: PHANTOM TYPE IEC Body Dosimetry Phantom [facility] Work Phone: [facility] Work Phone: CT Neck W contrast Earlene 11-0 RADIOLOGY [facility] Radiology Study observation (narrative) [facility] Care Plan Noteon 03-14-2022 Fertilizer Supervisor Authentication Interface Message Text Normal [facility] Consultson 03-14-2022 Fertilizer Supervisor Authentication Interface Message Text Normal [facility] MAGNESIUMon 03-14-2022 Magnesium [Mass/Vol] 1.8 mg/dL Normal 1.6-2.8 [facility] Comment on above: Performed By: #### C H8, MG ####S PATHOLOGY [id number] [place], Interpretation and review of laboratory results Normal [facility] Magnesium [Mass/Vol] 1.8 mg/dL 1.6 - 2 .8 mg/dL [facility] MR Spine studyon 03-14-2022 RADIOLOGY [facility] MR Spine studyOrdered By: Demario chantelle [place] on 03-14-2022 [facility] Work Phone: MR T-SPINE/L-SPINE W/O CONTR David 03-14-2022 MR T-SPINE/L-SPINE W/O CONTRAST Normal [facility] Progress Noteson 03-14-2022 Fertilizer Supervisor Authentication Interface Message Text Normal [facility] Fertilizer Supervisor Authentication Interface Message Text Normal [facility] Fertilizer Supervisor Authentication Interface Message Text Normal [facility] Fertilizer Supervisor Authentication Interface Message Text Normal [facility] Fertilizer Supervisor Authentication Interface Message Text Normal [facility] Fertilizer Supervisor Authentication Interface Message Text Normal [facility] Fertilizer Supervisor Authentication Interface Message Text Normal [facility] XR Femur - right 2 Viewson 1 05-14-2021 RADIOLOGY [facility] Radiology Study observation (narrative) [facility] Femur - right 2 ViewsOrde red By: Genaro Muñoz on 03-14-2022 [facility] Phone: Care Plan Noteon 03-13-2022 Fertilizer Supervisor Authentication Interface Message Text Normal [facility] Fertilizer Supervisor Authentication Interface Message Text Normal [facility] Consultson 03-13-2022 Fertilizer Supervisor Authentication Interface Message Text Normal [facility] Fertilizer Supervisor Authentication Interface Message Text I have asked my Head and Neck colleagues to weigh in on any potential surgical approach to these areas. Ramy Hernandez MD Normal [facility] HIV 1 and 2 Ab and HIV 1 p24 Ag panel IAon 03-13-2022 HIV 1+2 Ab+HIV1 p24 Ag IA Ql Non-Reactive NON-REACTIV E [facility] MR Spine studyon 03-13-2022 Radiology Study observation (narrative) [facility] Post-Procedure Noteon 2021 Fertilizer Supervisor Authentication Interface Message Text Normal [facility] Progress Noteson 03-13-2022 Fertilizer Supervisor Authentication Interface Message Text Normal [facility] Fertilizer Supervisor Authentication Interface Message Text Normal [facility] Fertilizer Supervisor Authentication Interface Message Text Normal [facility] Fertilizer Supervisor Authentication Interface Message Text Normal [facility] Fertilizer Supervisor Authentication Interface Message Text Subjective: Attempted to see patient, but unable due to patient being off the unit. Will re-attempt tomorrow, in not today. Shabbir Hayes, VESSEL SLAGMAN-MICROBIOLOGY PROFESSOR Pain consult availability: Mornings, Thursday through Thursday. For questions please page [phone]. Normal [facility] Fertilizer Supervisor Authentication Interface Message Text Normal [facility] Fertilizer Supervisor Authentication Interface Message Text Normal [facility] Fertilizer Supervisor Authentication Interface Message Text Normal [facility] US FLUID ASPIRATE-SPECIFY SI TE (CHELLY)on 03-13-2022 US FLUID ASPIRATE-SPECIFY SITE (CHELLY) Normal [facility] US Guidance for fluid aspira tion of Unspecified body regionon 03-13-2022 RADIOLOGY [facility] Radiology Study observation (narrative) [facility] US Guidance for fluid aspira tion of Unspecified body regionOrdered By: Butch Dominguez on 03-13-2022 [facility] Work Phone: VANCOMYCIN TROUGHon 03-13-20 22 VANC TR 18.4 ug/mL Normal 10.0-20.0 [facility] Comment on above: Performed By: #### V ANC TR ####[facility] [id number] [place], [address] Interpretation and review of laboratory results Normal [facility] Vancomycin trough [Mass/Vol] 18.4 ug/mL 10.0 - 20.0 ug/mL [facility] XR Calcaneus - left Viewson 03-13-2022 RADIOLOGY [facility] Radiology Study observation (narrative) [facility] XR Calcaneus - left ViewsOrd ered By: Juan Rocha on 03-13-2022 [facility] Work Phone: XR HEEL LEFTon 03-13-2022 XR HEEL LEFT Normal [facility] BASIC METABOLIC PANELon Anion gap [Moles/Vol] 10 mmol/L Normal 10-20 [facility] Comment on above: Performed By: #### C H8, FETIBC, VITB12, DEENA, FOL, PAB ####[facility] [id number] [place], [address] Calcium [Mass/Vol] 8.6 mg/dL Normal 8.4-10.4 [facility] Comment on above: Performed By: #### C H8, FETIBC, VITB12, DEENA, FOL, PAB ####[facility] [id number] [place], [place], Chloride [Moles/Vol] 106 mmol/L Normal 97-111 [facility] Comment on above: Performed By: #### C H8, FETIBC, VITB12, DEENA, FOL, PAB ####[facility] [id number] [place], [place], CO2 [Moles/Vol] 26 mmol/L Normal 21-30 [facility] Comment on above: Performed By: #### C H8, FETIBC, VITB12, DEENA, FOL, PAB ####[facility] [id number] [place], [place], Creatinine [Mass/Vol] 0.43 mg/dL Low 0.80-1.30 [facility] Comment on above: Performed By: #### C H8, FETIBC, VITB12, DEENA, FOL, PAB ####[facility] [id number] [place], [place], ESTIMATED GFR (CKD-EPI) 149 mL/min/1.73sqm Normal >=60 [facility] Comment on above: Result Comment: 2020 CKD EPI Equation using Creatinine without RaceComment: Estimated glomerular filtration rate (eGFR) is calculated without a race coefficient. Values should be interpreted in the context of the patient's full clinical presentation.Reference:1. Chinedu C, Alex M, Karen LAWS, et al.. A Unifying Approach for GFR Estimation: Recommendations of the NKF-ASN Task Force on Reassessing the Inclusion of Race in Diagnosing Kidney Disease. [place] Journal of Kidney Diseases 2021;79(2):268-88.e1.2. N Engl J Med 1 Vol. 385 Issue 19 Pages 2428-9249 Performed By: #### C H8, FETIBC, VITB12, DEENA, FOL, PAB ####S PATHOLOGY [id number] [place], [place], Glucose [Mass/Vol] 88 mg/dL Normal 68-110 [facility] Comment on above: Performed By: #### C H8, FETIBC, VITB12, DEENA, FOL, PAB ####S PATHOLOGY [id number] [place], [place], Potassium [Moles/Vol] 4.2 mmol/L Normal 3.3-5.3 [facility] Comment on above: Performed By: #### C H8, FETIBC, VITB12, DEENA, FOL, PAB ####[facility] [id number] [place], [place], Sodium [Moles/Vol] 138 mmol/L Normal 135-148 [facility] Comment on above: Performed By: #### C H8, FETIBC, VITB12, DEENA, FOL, PAB ####[facility] [id number] [place], [place], Urea nitrogen [Mass/Vol] 10 mg/dL Normal 8-22 [facility] Comment on above: Performed By: #### C H8, FETIBC, VITB12, DEENA, FOL, PAB ####[facility] [id number] [place], [place], BLOOD CULTUREon 03-12-2022 Bacteria identified Cx Nom (Bld) C BLOOD: No Growth Normal [facility] Comment on above: Performed By: #### C BLOOD ####[facility] [id number] [place] [id number] Basic metabolic 2000 panelon 03-12-2022 Anion gap [Moles/Vol] 10 mmol/L 10 - 20 [facility] Calcium [Mass/Vol] 8.6 mg/dL 8.4 - 10. 4 mg/dL [facility] Chloride [Moles/Vol] 106 mmol/L 97 - 11 1 mmol/L [facility] CO2 [Moles/Vol] 26 mmol/L 21 - 30 mmol/L [facility] Creatinine [Mass/Vol] 0.43 mg/dL Low 0.80 - 1.30 mg/dL [facility] GFR/1.73 sq M.predicted MDRD (S/P/Bld) [Vol rate/Area] 149 mL/min/{1.73_m2} - PINF [facility] Glucose [Mass/Vol] 88 mg/dL 68 - 110 mg/dL [facility] Interpretation and review of laboratory results Abnormal [facility] Potassium [Moles/Vol] 4.2 mmol/L 3.3 - 5.3 mmol/L [facility] Sodium [Moles/Vol] 138 mmol/L 135 - 148 mmol/L [facility] Urea nitrogen [Mass/Vol] 10 mg/dL 8 - 22 mg/dL [facility] CBC WITH DIFFERENTIALOrdered By: Johanna Donaldson on 03-12-2022 Basophils (Bld) [#/Vol] 0.06 10*3/uL 0.00 - 0.20 K/uL [facility] Basophils/100 WBC (Bld) 0.8 % NINF - 1.9 % [facility] Eosinophils (Bld) [#/Vol] 0.37 10*3/uL 0.00 - 0.70 K/uL [facility] Eosinophils/100 WBC (Bld) 5.4 % High 0.1 - 4.0 % [facility] Erythrocyte distribution width (RBC) [Ratio] 19.7 % High 11.5 - 14.5 % [facility] Hematocrit (Bld) [Volume fraction] 30.6 % Low 41.0 - 53.0 % [facility] Hemoglobin (Bld) [Mass/Vol] 9.8 g/dL Low 13.9 - 16.3 g/dL [facility] Interpretation and review of laboratory results Abnormal [facility] Lymphocytes (Bld) [#/Vol] 1.86 10*3/uL 1.00 - 4.80 K/uL [facility] Lymphocytes/100 WBC (Bld) 27.0 % 24.0 - 44.0 % [facility] MCH (RBC) [Entitic mass] 26.0 pg 26.0 - 34.0 pg [facility] MCHC (RBC) [Mass/Vol] 32.2 g/dL 32.0 - 35.9 g/dL [facility] MCV (RBC) [Entitic vol] 81 fL 80 - 100 fL [facility] Monocyte distribution width Auto (Bld) [Entitic vol] [facility] Monocytes (Bld) [#/Vol] 0.44 10*3/uL 0.20 - 1.00 K/uL [facility] Monocytes/100 WBC (Bld) 6.4 % 2.0 - 11.0 % [facility] Neutrophils (Bld) [#/Vol] 4.16 10*3/uL 1.50 - 8.00 K/uL [facility] Neutrophils/100 WBC (Bld) 60.5 % 31.0 - 76.0 % [facility] Platelet mean volume (Bld) [Entitic vol] 6.8 fL Low 7.5 - 11.2 fL [facility] Platelets (Bld) [#/Vol] 342 10*3/uL 150 - 400 K/uL [facility] RBC (Bld) [#/Vol] 3.78 10*6/uL Low [facility] WBC (Bld) [#/Vol] 6.9 10*3/uL 4.5 - 11.5 K/uL [facility] CBC WITH DIFFERENTIALon 11-0 -2021 Basophils (Bld) [#/Vol] 0.06 10*3/uL Normal 0.00-0.20 [facility] Comment on above: Performed By: #### M DIFF, CBCDSAT ####[facility] [id number] [place] [address], Basophils/100 WBC (Bld) 0.8 % Normal <=1.9 T [facility] Comment on above: Performed By: #### M DIFF, CBCDSAT ####[facility] [id number] [place] [address], Eosinophils (Bld) [#/Vol] 0.37 10*3/uL Normal 0.00-0.70 [facility] Comment on above: Performed By: #### M DIFF, CBCDSAT ####[facility] [id number] [place] [address], Eosinophils/100 WBC (Bld) 5.4 % High 0.1-4.0 [facility] Comment on above: Performed By: #### M DIFF, CBCDSAT ####[facility] [id number] [place] [address], Erythrocyte distribution width (RBC) [Ratio] 19.7 % High 11.5-14.5 [facility] Comment on above: Performed By: #### M DIFF, CBCDSAT ####[facility] [id number] [place], [place], Hematocrit (Bld) [Volume fraction] 30.6 % Low 41.0-53.0 [facility] Comment on above: Performed By: #### M DIFF, CBCDSAT ####S PATHOLOGY [id number] [place], [place], Hemoglobin (Bld) [Mass/Vol] 9.8 g/dL Low 13.9-16.3 [facility] Comment on above: Performed By: #### M DIFF, CBCDSAT ####[facility] [id number] [place], [place], Lymphocytes (Bld) [#/Vol] 1.86 10*3/uL Normal 1.00-4.80 [facility] Comment on above: Performed By: #### M DIFF, CBCDSAT ####[facility] [id number] [place] [address], Lymphocytes/100 WBC (Bld) 27.0 % Normal 24.0-44.0 [facility] Comment on above: Performed By: #### M DIFF, CBCDSAT ####[facility] [id number] [place], [place], MCH (RBC) [Entitic mass] 26.0 pg Normal 26.0-34.0 [facility] Comment on above: Performed By: #### M DIFF, CBCDSAT ####[facility] [id number] [place], [place], MCHC (RBC) [Mass/Vol] 32.2 g/dL Normal 32.0-35.9 [facility] Comment on above: Performed By: #### M DIFF, CBCDSAT ####[facility] [id number] [place], [place], MCV (RBC) [Entitic vol] 81 fL Normal 80-100 [facility] Comment on above: Performed By: #### M DIFF, CBCDSAT ####[facility] [id number] [place], [place], MONOCYTE DISTRIBUTION WIDTH Normal [facility] Comment on above: Performed By: #### M DIFF, CBCDSAT ####[facility] [id number] [place], [place], Monocytes (Bld) [#/Vol] 0.44 10*3/uL Normal 0.20-1.00 [facility] Comment on above: Performed By: #### M DIFF, CBCDSAT ####[facility] [id number] [place], [place], Monocytes/100 WBC (Bld) 6.4 % Normal 2.0-11.0 [facility] Comment on above: Performed By: #### M DIFF, CBCDSAT ####[facility] [id number] [place] [address], Neutrophils (Bld) [#/Vol] 4.16 10*3/uL Normal 1.50-8.00 [facility] Comment on above: Performed By: #### M DIFF, CBCDSAT ####[facility] [id number] [place] [address], Neutrophils/100 WBC (Bld) 60.5 % Normal 31.0-76.0 [facility] Comment on above: Performed By: #### M DIFF, CBCDSAT ####[facility] [id number] [place] [address], Platelet mean volume (Bld) [Entitic vol] 6.8 fL Low 7.5-11.2 [facility] Comment on above: Performed By: #### M DIFF, CBCDSAT ####[facility] [id number] [place] [address], Platelets (Bld) [#/Vol] 342 10*3/uL Normal 150-400 [facility] Comment on above: Performed By: #### M DIFF, CBCDSAT ####[facility] [id number] [place] [address], RBC (Bld) [#/Vol] 3.78 10*6/uL Low 4.50-5.90 [facility] Comment on above: Performed By: #### M DIFF, CBCDSAT ####[facility] [id number] [place], [place], WBC (Bld) [#/Vol] 6.9 10*3/uL Normal 4.5-11.5 [facility] Comment on above: Performed By: #### M DIFF, CBCDSAT ####[facility] [id number] [place] [address], Consultson 03-12-2022 Fertilizer Supervisor Authentication Interface Message Text Normal [facility] Fertilizer Supervisor Authentication Interface Message Text Normal [facility] Fertilizer Supervisor Authentication Interface Message Text Normal [facility] Fertilizer Supervisor Authentication Interface Message Text Normal [facility] Fertilizer Supervisor Authentication Interface Message Text Normal [facility] Fertilizer Supervisor Authentication Interface Message Text Normal [facility] Fertilizer Supervisor Authentication Interface Message Text Normal [facility] Fertilizer Supervisor Authentication Interface Message Text Normal [facility] Fertilizer Supervisor Authentication Interface Message Text Normal [facility] Fertilizer Supervisor Authentication Interface Message Text Normal [facility] FERRITINon 03-12-2022 Ferritin [Mass/Vol] 342.0 ng/mL High 11.5 - 300.0 ng/mL [facility] Interpretation and review of laboratory results Abnormal [facility] DEENA 342.0 ng/mL High 11.5-300.0 [facility] Comment on above: Performed By: #### C H8, FETIBC, VITB12, DEENA, FOL, PAB ####[facility] [id number] [place], [place], FOLIC ACIDon 03-12-2022 Folate [Mass/Vol] 5.0 ng/mL Low 5.9 - 24.7 ng/mL [facility] Interpretation and review of laboratory results Abnormal [facility] FOL 5.0 ng/mL Low 5.9-24.7 [facility] Comment on above: Performed By: #### C H8, FETIBC, VITB12, DEENA, FOL, PAB ####[facility] [id number] [place], [place], H AND Sandor 03-12-2022 Fertilizer Supervisor Authentication Interface Message Text Normal [facility] HIV1 HIV2 AGAB SCRNon 2021 HIV AG/AB, 4TH GEN Non-Reactive Normal NON-REACT IV E [facility] Comment on above: Order Comment: Abran garcia Agency Address Site ID: QPT Name: [facility] Address: [address] , [address] [place] [id number] Director: Daniel Guthrie MD Result Comment: HIV- 1 antigen and HIV-1/HIV-2 antibodies were notdetected. There is no laboratory evidence of HIVinfection.PLEASE NOTE: This information has been disclosed toyou from records whose confidentiality may beprotected by state law. If your state requires suchprotection, then the state law prohibits you frommaking any further disclosure of the informationwithout the specific written consent of the personto whom it pertains, or as otherwise permitted by law.A general authorization for the release of medical orother information is NOT sufficient for this purpose.For additional information please refer tohttp://education.[email or web address]/faq/TWO563(This link is being provided for informational/educational purposes only.)The performance of this assay has not been clinicallyvalidated in patients less than 2 years old. Performed By: #### h iv1 hiv2 agab scrn ####[facility] [address]jpch[address] [place], [place] IRON AND TIBCon 03-12-2022 Iron [Mass/Vol] 47 ug/dL 45 - 160 ug/dL [facility] Iron binding capacity [Mass/Vol] 214 ug/mL Low 250 - 410 ug/mL [facility] Iron saturation [Mass fraction] 22 % 20 - 55 % [facility] Transferrin [Mass/Vol] 153 mg/dL Low 210 - 375 mg/dL [facility] % SAT CORRECT PRD 22 % Normal 20-55 [facility] Comment on above: Performed By: #### C H8, FETIBC, VITB12, DEENA, FOL, PAB ####S PATHOLOGY [id number] [place], [place], FE CORRECT PRD 47 ug/dL Normal 45-160 [facility] Comment on above: Performed By: #### C H8, FETIBC, VITB12, DEENA, FOL, PAB ####[facility] [id number] [place], [place], TIBC CORRECT PRD 214 ug/mL Low 250-410 [facility] Comment on above: Performed By: #### C H8, FETIBC, VITB12, DEENA, FOL, PAB ####[facility] [id number] [place], [place], TRANSFER CORRECT PRD 153 mg/dL Low 210-375 [facility] Comment on above: Performed By: #### C H8, FETIBC, VITB12, DEENA, FOL, PAB ####[facility] [id number] [place], [place], MANUAL DIFF AND MORPHon 11- Anisocytosis Ql (Bld) Slight [facility] Cells Counted Total (Bld) [#] [facility] Ovalocytes LM Ql (Bld) Few [facility] Polychromasia LM Ql (Bld) Slight [facility] ANISOCYTOSIS Slight Normal [facility] Comment on above: Performed By: #### M DIFF, CBCDSAT ####[facility] [id number] [place] [address], CELLS COUNTED TOTAL # IN BLOOD Normal [facility] Comment on above: Performed By: #### M DIFF, CBCDSAT ####[facility] [id number] [place], [place], OVALOCYTES Few Normal [facility] Comment on above: Performed By: #### M DIFF, CBCDSAT ####[facility] [id number] [place] [address], POLYCHROMASIA Slight Normal [facility] Comment on above: Performed By: #### M DIFF, CBCDSAT ####[facility] [id number] [place] [address], No Panel Informationon 03-12 Interpretation and review of laboratory results Abnormal [facility] PREALBUMINon 03-12-2022 Prealbumin [Mass/Vol] 17.0 mg/dL Low 21.7 - 43.3 mg/dL [facility] Prealbumin [Mass/Vol] 17.0 mg/dL Low 21.7-43.3 [facility] Comment on above: Performed By: #### C H8, FETIBC, VITB12, DEENA, FOL, PAB ####[facility] [id number] [place], [place], PROTHROMBIN TIME AND INRon 1 05-12-2021 INR Coag (PPP) [Relative time] 1.13 {INR} High 0.90-1.10 [facility] Comment on above: Performed By: #### P T ####S PATHOLOGY [id number] [place], [place], PT Coag (PPP) [Time] 12.8 s Normal 9.7-12.9 [facility] Comment on above: Performed By: #### P T ####[facility] [id number] [place], [place], INR Coag (PPP) [Relative time] 1.13 {INR} High 0.90 - 1.10 [facility] Interpretation and review of laboratory results Abnormal [facility] PT Coag (PPP) [Time] 12.8 s [facility] Progress Noteson 03-12-2022 Fertilizer Supervisor Authentication Interface Message Text Normal [facility] Fertilizer Supervisor Authentication Interface Message Text Normal [facility] Fertilizer Supervisor Authentication Interface Message Text Normal [facility] Fertilizer Supervisor Authentication Interface Message Text Normal [facility] Telephone Encounteron 2021 Fertilizer Supervisor Authentication Interface Message Text Normal [facility] Treatment Plan Noteon 2021 Fertilizer Supervisor Authentication Interface Message Text Normal [facility] VITAMIN B12 (CYANOCOBALAMIN) on 03-12-2022 Cobalamin (Vitamin B12) [Moles/Vol] 182 pg/mL Low 300 - PINF pg/mL [facility] Interpretation and review of laboratory results Abnormal [facility] Cobalamin (Vitamin B12) [Mass/Vol] 182 pg/mL Low >300 [facility] Comment on above: Order Comment: <152 pg/mL - [id number] - 300 pg/mL- Insufficient>300 pg/mL - Sufficient Performed By: #### C H8, FETIBC, VITB12, DEENA, FOL, PAB ####S PATHOLOGY [id number] [place], [place], Urine culture routineOrdered By: Stan Fong on 03-08-2022 Bacteria identified Cx Nom (U) Escherichia coli [facility] Bacteria identified Cx Nom (U) Klebsiella pneumoniae (ESBL) [facility] Albumin [Mass/volume] in Ser um or PlasmaOrdered By: Stan Fong on 03-04-2022 Albumin [Mass/Vol] 2.9 g/dL 3.2-5.5 [facility] Amphetamine Screen Ql (U)Ord ered By: Stan Fong on 03-04-2022 Amphetamines Ql (U) Positive Negative [facility] Automated erythrocytes count in urine sediment (number/area)Ordered By: Stan Fong on 03-04-2022 RBC Auto (Urine sed) [#/Area] 3-4 [HPF] 0-4 [facility] Automated leukocytes count i n urine sediment (number/area)Ordered By: Stan Fong on 03-04-2022 WBC Auto (Urine sed) [#/Area] Innumerable [HPF] 0-4 [facility] Automated urine hyaline cast s count (number/volume)Ordered By: Stan Fong on 03-04-2022 Hyaline casts Auto (U) [#/Vol] 3-4 [LPF] 0-1 [facility] Automated urine sediment bina cium oxalate crystal count by microscopy (number/high powOrdered By: Stan Fong on 03-04-2022 Calcium oxalate crystals LM.HPF (Urine sed) [#/Area] Rare [HPF] [facility] Barbiturates [Presence] in U rineOrdered By: Stan Fong on 03-04-2022 Barbiturates Ql (U) Negative Negative [facility] Basophils Auto (Bld) [#/Vol] Ordered By: Stan Fong on 03-04-2022 Basophils (Bld) [#/Vol] 0.1 10*3/uL 0.0-0.2 [facility] Basophils/100 WBC Auto (Bld) Ordered By: Stan Fong on 03-04-2022 Basophils/100 WBC (Bld) 0.5 % . F [facility] [place] [facility] Benzodiazepines [Presence] i n UrineOrdered By: Stan Fong on 03-04-2022 Benzodiazepines Ql (U) Positive [facility] Bilirubin Test strip Ql (U)O rdered By: Stan Fong on 03-04-2022 Bilirubin Ql (U) Negative Negative [facility] Cannabinoids [Presence] in U rine by Screen methodOrdered By: Stan Fong on 03-04-2022 Cannabinoids Screen Ql (U) Positive Negative [facility] Comment on above: These are unconfirme d results and should not be used for legal purposes. Drug Cut-Off Concentration: AMPH 1000 ng/mL SCOTT 200 ng/mL JUICE 200 ng/mL COCM 300 ng/mL OP 300 ng/mL PCP 25 ng/mL THC 20 ng/mL Casts typing in urine sedime nt by light microscopyOrdered By: Stan Fong on 03-04-2022 Casts LM Nom (Urine sed) None seen [LPF] None Seen [facility] Color Auto (U)Ordered By: Ted red Hetal on 03-04-2022 Color (U) Yellow Yellow [facility] Creatine kinase [Enzymatic a ctivity/volume] in Serum or PlasmaOrdered By: Stan Fong on 03-04-2022 CK [Catalytic activity/Vol] 1113 U/L 22-269 [facility] Creatinine and Glomerular fi ltration rate.predicted panel (S/P/Bld)Ordered By: Stan Fong on 03-04-2022 Creatinine [Mass/Vol] 0.73 mg/dL 0.64-1.27 [facility] Eosinophils Auto (Bld) [#/Vo l]Ordered By: Stan Fong on 03-04-2022 Eosinophils (Bld) [#/Vol] 0.1 10*3/uL 0.0-0.45 [facility] Eosinophils/100 WBC Auto (Bl d)Ordered By: Stan Fong on 03-04-2022 Eosinophils/100 WBC (Bld) 1.4 % . [facility] Erythrocyte distribution wid th Auto (RBC) [Ratio]Ordered By: Stan Fong on 03-04-2022 Erythrocyte distribution width (RBC) [Ratio] 18.8 % 12.0-14.8 [facility] Estimated glomerular filtrat ion rate (GFR) non- AmericanOrdered By: Stan Fong on 03-04-2022 GFR/1.73 sq M.predicted among non-blacks MDRD (S/P/Bld) [Vol rate/Area] > 60 mL/Min [facility] Globulin Calc (S) [Mass/Vol] Ordered By: Stan Fong on 03-04-2022 Globulin (S) [Mass/Vol] 5.3 g/dL F [facility] Hematocrit Auto (Bld) [Volum e fraction]Ordered By: Stan Fong on 03-04-2022 Hematocrit (Bld) [Volume fraction] 39.8 % 38.8-50.0 [facility] Hemoglobin [Mass/volume] in BloodOrdered By: Stan Fong on 03-04-2022 Hemoglobin (Bld) [Mass/Vol] 12.4 g/dL 13.0-17.0 [facility] Ketones Auto test strip (U) [Mass/Vol]Ordered By: Stan Fong on 03-04-2022 Ketones (U) [Mass/Vol] Negative [facility] toxicology Ordered By: Stan Fong on 03-04-2022 Opiates Ql (U) Positive Negative [facility] - Hematology and Cell countsOrdered By: Stan Fong on 03-04-2022 Nucleated RBC/100 WBC (Bld) [Ratio] 0.1 % 0-0.5 [facility] Leukocytes [#/volume] in Blo od by Automated countOrdered By: Stan Fong on 03-04-2022 WBC (Bld) [#/Vol] 10.4 10*3/uL 4.5-11.0 [facility] Lymphocytes Auto (Bld) [#/Vo l]Ordered By: Stan Fong on 03-04-2022 Lymphocytes (Bld) [#/Vol] 1.9 10*3/uL 1.00-4.8 [facility] Lymphocytes/100 WBC Auto (Bl d)Ordered By: Stan Fong on 03-04-2022 Lymphocytes/100 WBC (Bld) 17.8 % . [facility] MCH Auto (RBC) [Entitic mass ]Ordered By: Stan Fong on 03-04-2022 MCH (RBC) [Entitic mass] 25.3 pg 27.5-35.2 [facility] MCHC Auto (RBC) [Mass/Vol]Or dered By: Stan Fong on 03-04-2022 MCHC (RBC) [Mass/Vol] 31.2 g/dL 32.5-35.6 [facility] MCV Auto (RBC) [Entitic vol] Ordered By: Stan Fong on 03-04-2022 MCV (RBC) [Entitic vol] 81.2 fL 83.5-101 F [facility] Monocytes Auto (Bld) [#/Vol] Ordered By: Stan Fong on 03-04-2022 Monocytes (Bld) [#/Vol] 0.7 10*3/uL 0.0-0.8 [facility] Monocytes/100 WBC Auto (Bld) Ordered By: Stan Fong on 03-04-2022 Monocytes/100 WBC (Bld) 6.7 % . [facility] Neutrophils Auto (Bld) [#/Vo l]Ordered By: Stan Fong on 03-04-2022 Neutrophils (Bld) [#/Vol] 7.7 10*3/uL 1.8-7.7 [facility] Neutrophils/100 WBC Auto (Bl d)Ordered By: Stan Fong on 03-04-2022 Neutrophils/100 WBC (Bld) 73.6 % . [facility] Nitrite Test strip Ql (U)Ord ered By: Stan Fong on 03-04-2022 Nitrite Ql (U) Negative Negative [facility] No Panel InformationOrdered By: Stan Fong on 03-04-2022 Estimated GFR () > 60 mL/Min [facility] Comment on above: GFR estimated refere nce range: According to KDOQI guidelines, <60 ml/min/1.73m2 is sufficient to diagnose a patient with chronic kidney disease. Pharmacy Creatinine Clearance (Chem 125.65 [facility] Phencyclidine Screen Ql (U)O rdered By: Stan Fong on 03-04-2022 Phencyclidine Ql (U) Negative Negative [facility] Platelet mean volume Auto (B ld) [Entitic vol]Ordered By: Stan Fong on 03-04-2022 Platelet mean volume (Bld) [Entitic vol] 7.6 fL 6.6-10.1 [facility] Platelets Auto (Bld) [#/Vol] Ordered By: Stan Fong on 03-04-2022 Platelets (Bld) [#/Vol] 407 10*3/uL 150-450 [facility] Protein Auto test strip (U) [Mass/Vol]Ordered By: Stan Fong on 03-04-2022 Protein (U) [Mass/Vol] 100 mg/dL Negative [facility] Protein [Mass/volume] in Ser um or PlasmaOrdered By: Stan Fong on 03-04-2022 Protein [Mass/Vol] 8.2 g/dL 6.1-7.9 [facility] RBC Auto (Bld) [#/Vol]Ordere d By: Stan Fong on 03-04-2022 RBC (Bld) [#/Vol] 4.90 10*6/uL 3.90-5.60 [facility] Serum or plasma alanine mcgill otransferase measurement without P-5'-P (enzymatic activiOrdered By: Stan Fong on 03-04-2022 ALT No additional P-5'-P [Catalytic activity/Vol] 60 U/L [facility] Serum or plasma albumin/glob ulin mass ratioOrdered By: Stan Fong on 03-04-2022 Albumin/Globulin [Mass ratio] 0.5 {ratio} [facility] Serum or plasma alkaline jose cruz sphatase measurement (enzymatic activity/volume)Ordered By: Stan Fong on 03-04-2022 ALP [Catalytic activity/Vol] 204 U/L 32-92 [facility] Serum or plasma anion gap de terminationOrdered By: Stan Fong on 03-04-2022 Anion gap [Moles/Vol] 13.1 mmol/L 6.0-15.0 [facility] Serum or plasma aspartate am inotransferase measurement (enzymatic activity/volume)Ordered By: Stan Fong on 03-04-2022 AST [Catalytic activity/Vol] 114 U/L 10 [facility] Serum or plasma calcium lizet urement (mass/volume)Ordered By: Stan Fong on 03-04-2022 Calcium [Mass/Vol] 8.9 mg/dL 8.2-10.2 [facility] Serum or plasma chloride chepe surement (moles/volume)Ordered By: Stan Fong on 03-04-2022 Chloride [Moles/Vol] 98 mmol/L 95-114 [facility] Serum or plasma glucose lizet urement (mass/volume)Ordered By: Stan Fong on 03-04-2022 Glucose [Mass/Vol] 111 mg/dL 70-100 [facility] Comment on above: ADA recommended refe rence rangeRandom Glucose Reference Range is dependent on time and content of last meal. Glucose of more than 200 mg/dL in a nonstressed, ambulatory subject supports the diagnosis of Diabetes Mellitus. Serum or plasma potassium me asurement (moles/volume)Ordered By: Stan Fong on 03-04-2022 Potassium [Moles/Vol] 2.6 mmol/L 3.5-5.1 [facility] Comment on above: Results calledat 151 2 on 03/04/22 Serum or plasma sodium measu rement (moles/volume)Ordered By: Stan Fong on 03-04-2022 Sodium [Moles/Vol] 132 mmol/L 136-146 [facility] Serum or plasma total biliru bin measurement (mass/volume)Ordered By: Stan Fong on 03-04-2022 Bilirubin [Mass/Vol] 0.5 mg/dL 0.3-1.2 [facility] Serum or plasma total carbon dioxide measurement (moles/volume)Ordered By: Stan Fong on 03-04-2022 CO2 [Moles/Vol] 23.5 mmol/L 22.0-30.0 [facility] Serum or plasma urea nitroge n measurement (mass/volume)Ordered By: Stan Fong on 03-04-2022 Urea nitrogen [Mass/Vol] 23 mg/dL - [facility] Specific gravity Auto test s trip (U) [Rel density]Ordered By: Stan Fong on 03-04-2022 Specific gravity (U) [Rel density] 1.015 1.001-1.030 [facility] Squamous epithelial cells de tection in urine sediment by light microscopyOrdered By: Stan Fong on 03-04-2022 Epithelial cells.squamous LM Ql (Urine sed) 0-1 [HPF] 0-2 [facility] Urine bacteria detection by automated methodOrdered By: Stan Fong on 03-04-2022 Bacteria Auto Ql (U) 4+ None Seen [facility] Urine clarity by refractomet ry automatedOrdered By: Stan Fong on 03-04-2022 Clarity Refractometry automated (U) Turbid Clear [facility] Urine cocaine detectionOrder ed By: Stan Fong on 03-04-2022 Cocaine Ql (U) Negative Negative [facility] Urine glucose measurement by automated test strip (mass/volume)Ordered By: Stan Fong on 03-04-2022 Glucose Auto test strip (U) [Mass/Vol] 100 mg/dL Normal [facility] Urine hemoglobin detection b y automated test stripOrdered By: Stan Fong on 03-04-2022 Hemoglobin Auto test strip Ql (U) 3+ Negative [facility] Urine leukocyte esterase det ection by automated test stripOrdered By: Stan Fong on 03-04-2022 Leukocyte esterase Auto test strip Ql (U) 4+ Negative [facility] Urobilinogen Auto test strip (U) [Mass/Vol]Ordered By: Stan Fong on 03-04-2022 Urobilinogen (U) [Mass/Vol] Normal mg/dL Normal [facility] Yeast detection in urine sed iment by light microscopyOrdered By: Stan Fong on 03-04-2022 Yeast LM Ql (Urine sed) None seen [HPF] None Se en [facility] pH Auto test strip (U)Ordere d By: Stan Fong on 03-04-2022 pH (U) 5.5 [pH] 5.0-9.0 [facility] Office Visiton 02-25-2022 Follow-up visit [id number] More Swift 1995 M Date Provider Department Center 02/25/2022 STAN GALAVIZ MP ORTHO MPORTHO Family History Family Status - Relation Status Age at Mother Alive Father Alive Level of Service:[id number] [place] OFFICE/OUTPATIENT NEW SF MDM 15-29 MINUTES Reason for Visit and Comments: New Patient [632] - New patient present today for right femur Normal [facility] Basophils Auto (Bld) [#/Vol] Ordered By: Paxton Guerra on 02-18-2022 Basophils (Bld) [#/Vol] 0.1 10*3/uL 0.0-0.2 [facility] Basophils/100 WBC Auto (Bld) Ordered By: Paxton Guerra on 02-18-2022 Basophils/100 WBC (Bld) 0.6 % . F [facility] Blood hemoglobin measurement (mass/volume)Ordered By: Paxton Guerra on 02-18-2022 Hemoglobin (Bld) [Mass/Vol] 11.1 g/dL 13.0-17.0 [facility] Blood leukocytes automated c ount (number/volume)Ordered By: Paxton Guerra on 02-18-2022 WBC (Bld) [#/Vol] 13.9 10*3/uL 4.5-11.0 [facility] Eosinophils Auto (Bld) [#/Vo l]Ordered By: Paxton Guerra on 02-18-2022 Eosinophils (Bld) [#/Vol] 0.2 10*3/uL 0.0-0.45 [facility] Eosinophils/100 WBC Auto (Bl d)Ordered By: Paxton Guerra on 02-18-2022 Eosinophils/100 WBC (Bld) 1.4 % . [facility] Erythrocyte distribution wid th Auto (RBC) [Ratio]Ordered By: Paxton Guerra on 02-18-2022 Erythrocyte distribution width (RBC) [Ratio] 18.9 % 12.0-14.8 [facility] Hematocrit Auto (Bld) [Volum e fraction]Ordered By: Paxton Guerra on 02-18-2022 Hematocrit (Bld) [Volume fraction] 35.7 % 38.8-50.0 [facility] Laboratory - Hematology and Cell countsOrdered By: Paxton Guerra on 02-18-2022 Nucleated RBC/100 WBC (Bld) [Ratio] 0.0 % 0-0.5 [facility] Lymphocytes Auto (Bld) [#/Vo l]Ordered By: Paxton Guerra on 02-18-2022 Lymphocytes (Bld) [#/Vol] 2.7 10*3/uL 1.00-4.8 [facility] Lymphocytes/100 WBC Auto (Bl d)Ordered By: Paxton Guerra on 02-18-2022 Lymphocytes/100 WBC (Bld) 19.1 % . [facility] MCH Auto (RBC) [Entitic mass ]Ordered By: Paxton Guerra on 02-18-2022 MCH (RBC) [Entitic mass] 25.3 pg 27.5-35.2 [facility] MCHC Auto (RBC) [Mass/Vol]Or dered By: Paxton Guerra on 02-18-2022 MCHC (RBC) [Mass/Vol] 31.2 g/dL 32.5-35.6 [facility] MCV Auto (RBC) [Entitic vol] Ordered By: Paxton Guerra on 02-18-2022 MCV (RBC) [Entitic vol] 81.0 fL 83.5-101 F [facility] Monocytes Auto (Bld) [#/Vol] Ordered By: Paxton Guerra on 02-18-2022 Monocytes (Bld) [#/Vol] 0.4 10*3/uL 0.0-0.8 [facility] Monocytes/100 WBC Auto (Bld) Ordered By: Paxton Guerra on 02-18-2022 Monocytes/100 WBC (Bld) 3.0 % . [facility] Neutrophils Auto (Bld) [#/Vo l]Ordered By: Paxton Guerra on 02-18-2022 Neutrophils (Bld) [#/Vol] 10.6 10*3/uL 1.8-7.7 [facility] Neutrophils/100 WBC Auto (Bl d)Ordered By: Paxton Guerra on 02-18-2022 Neutrophils/100 WBC (Bld) 75.9 % . [facility] Platelet mean volume Auto (B ld) [Entitic vol]Ordered By: Paxton Guerra on 02-18-2022 Platelet mean volume (Bld) [Entitic vol] 7.0 fL 6.6-10.1 [facility] Platelets Auto (Bld) [#/Vol] Ordered By: Paxton Guerra on 02-18-2022 Platelets (Bld) [#/Vol] 674 10*3/uL 150-450 [facility] RBC Auto (Bld) [#/Vol]Ordere d By: Paxton Guerra on 02-18-2022 RBC (Bld) [#/Vol] 4.40 10*6/uL 3.90-5.60 [facility] CREATININEon 04-23-2021 Creatinine [Mass/Vol] 0.45 mg/dL Critically low 0.66-1.25 [facility] Comment on above: Performed By: #### C VIOLETTE, CRP #### [facility] [address] [address] [address] Clarissa Romero EGFR-AF LATVIAN >60 Normal >=60 [facility] Comment on above: Performed By: #### C VIOLETTE, CRP #### [facility] [address] [address] [address] Clarissa Romero EGFR-NON AF LATVIAN >60 Normal >=60 [facility] Comment on above: Performed By: #### C VIOLETTE, CRP #### [facility] [address] [address] [address] Clarissa Romero CRPon 04-23-2021 CRP 4.4 mg/dL Critically high <=1.0 [facility] Comment on above: Performed By: #### C VIOLETTE, CRP #### [facility] [address] [address] [address] Clarissa Romero CREATININEon 04-16-2021 Creatinine [Mass/Vol] 0.35 mg/dL Critically low 0.66-1.25 [facility] Comment on above: Performed By: #### C RP, CREA #### [facility] [address] [address] [address] Clarissa Romero EGFR-AF LATVIAN >60 Normal >=60 [facility] Comment on above: Performed By: #### C RP, CREA #### [facility] [address] [address] [address] Clarissa Romero EGFR-NON AF LATVIAN >60 Normal >=60 [facility] Comment on above: Performed By: #### C RP, CREA #### [facility] [address] [place] [address] Dr. Clarissa Romero CRPon 04-16-2021 CRP 4.0 mg/dL Critically high <=1.0 [facility] Comment on above: Performed By: #### C RP, CREA #### [facility] [address] [place] [address] Dr. Clarissa Romero CREATININEon 03-18-2021 Creatinine [Mass/Vol] 0.39 mg/dL Critically low 0.66-1.25 [facility] Comment on above: Performed By: #### C VIOLETTE, CRP #### [facility] [address] [place] [address] Dr. Clarissa Romero EGFR-AF LATVIAN >60 Normal >=60 [facility] Comment on above: Performed By: #### C VIOLETTE, CRP #### [facility] [address] [place] [address] Dr. Clarissa Romero EGFR-NON AF LATVIAN >60 Normal >=60 [facility] Comment on above: Performed By: #### C VIOLETTE, CRP #### [facility] [address] [place] [address] Dr. Clarissa Romero CRPon 03-18-2021 CRP 3.5 mg/dL Critically high <=1.0 [facility] Comment on above: Performed By: #### C VIOLETTE, CRP #### [facility] [address] [place] [address] Dr. 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 Culture Observations: VRE CALD TO KAMILLA RUEDA,RN@1110/11/20/20/ RK Isolate 1 Providencia stuartii Heavy growth of Isolate 2 Pseudomonas aeruginosa Heavy growth of Isolate 3 Proteus mirabilis Heavy growth of Isolate 4 Enterococcus faecalis VRE Heavy growth of Isolate 5 Streptococcus agalactiae Moderate growth of ORGANISM 1 Providencia stuartii ANTIBIOTIC M.I.C RX STATUS Ampicillin 4 R F Ampicillin/Sulbactam <=2 S F Piperacillin/Tazobacta m <=4 S F Cefazolin <=4 R F Ceftazidime <=1 S F Ceftriaxone <=1 S F Ertapenem <=0.5 S F Imipenem 0.5 S F Amikacin <=2 S F Gentamicin 8 R F Tobramycin 8 R F Ciprofloxacin 2 I F Levofloxacin 4 I F Trimethoprim/Sulfameth oxazole 160 R F ORGANISM 5 Streptococcus agalactiae ANTIBIOTIC M.I.C RX STATUS Benzylpenicillin <=0.06 S F Ampicillin <=0.25 S F Cefotaxime <=0.12 S F Ceftriaxone <=0.12 S F Levofloxacin 0.5 S F Inducible Clindamycin Resistance Pos POS F Erythromycin 0.25 R F Clindamycin <=0.25 R F Linezolid <=2 S F Vancomycin 0.5 S F Tetracycline >=16 R F ORGANISM 3 Proteus mirabilis ANTIBIOTIC M.I.C RX STATUS Ampicillin <=2 S F Ampicillin/Sulbactam <=2 S F Piperacillin/Tazobacta m <=4 S F Cefazolin <=4 S F Ceftazidime <=1 S F Ceftriaxone <=1 S F Ertapenem <=0.5 S F Imipenem 4 S F Amikacin 4 S F Gentamicin <=1 S F Tobramycin <=1 S F Ciprofloxacin >=4 R F Levofloxacin 4 I F Trimethoprim/Sulfameth oxazole <=20 S F ORGANISM 2 Pseudomonas aeruginosa ANTIBIOTIC M.I.C RX STATUS Piperacillin/Tazobacta m <=4 S F Cefazolin >=64 R F Ceftazidime <=1 S F Imipenem 1 S F Amikacin <=2 S F Gentamicin <=1 S F Tobramycin <=1 S F Ciprofloxacin <=0.25 S F Levofloxacin 0.5 S F ORGANISM 4 Enterococcus faecalis VRE ANTIBIOTIC M.I.C RX STATUS Beta-Lactamase Neg NEG F Benzylpenicillin 1 S F Ampicillin <=2 S F Gentamicin High Level (synergy) SYN-S S F Streptomycin High Level (synergy) SYN-S S F Quinupristin/Dalfopris tin 2 R F Linezolid 2 S F Vancomycin >=32 R F Normal [facility] Comment on above: Performed By: #### W OUNDCX #### [facility] [address] [place] [id number] Divya Vásquez CULTURE WOUND Specimen Comments: RIGHT ISCHIUM Culture Observations: NOTE: PLEASE SEE ACC#[id number] FOR AST RESULTS ON ISOLATES 1,2,3,AND 4. Isolate 1 Providencia stuartii Heavy growth of Isolate 2 Pseudomonas aeruginosa Heavy growth of Isolate 3 Proteus mirabilis Heavy growth of Isolate 4 Enterococcus faecalis Heavy growth of Isolate 5 Staphylococcus aureus Light growth of ORGANISM 5 Staphylococcus aureus ANTIBIOTIC M.I.C RX STATUS Beta-Lactamase Pos POS F Cefoxitin Screen Neg NEG F Benzylpenicillin >=0.5 R F Gentamicin <=0.5 S F Ciprofloxacin <=0.5 S F Levofloxacin <=0.12 S F Moxifloxacin <=0.25 S F Inducible Clindamycin Resistance Neg NEG F Erythromycin <=0.25 S F Clindamycin <=0.25 S F Quinupristin/Dalfopris tin <=0.25 S F Linezolid 2 S F Vancomycin <=0.5 S F Tetracycline <=1 S F Rifampicin <=0.5 S F Trimethoprim/Sulfameth oxazole <=10 S F Oxacillin <=0.25 S F Normal [facility] Comment on above: Performed By: #### W NDX #### [facility] [address] [place], [place] [id number] Divya Thalia Vital Signs Date Time Vital Sign Value Performing Clinician Facility 09-25-2023 13:15-0400 Diastolic blood pressure 49 mm[Hg] [facility] Work Phone: [facility] 09-25-2023 13:15-0400 Heart rate 70 /min [facility] Work Phone: [facility] 09-25-2023 13:15-0400 Respiratory rate 16 /min [facility] Work Phone: [facility] 09-25-2023 13:15-0400 SaO2% (BldA) [Mass fraction] 98 % [id number] Work Phone: [facility] 09-25-2023 13:15-0400 Systolic blood pressure 78 mm[Hg] [facility] Work Phone: [facility] 09-25-2023 11:27-0400 Body height 182.88 cm [facility] Work Phone: [facility] 09-25-2023 11:27-0400 Body mass index (BMI) [Ratio] 16.9 kg/m2 [facility] Work Phone: [facility] 09-25-2023 11:27-0400 Body weight 56.69 kg [facility] Work Phone: [facility] 09-25-2023 10:59-0400 Body temperature 97.9 [degF] [facility] Work Phone: [facility] 09-15-2023 12:18-0400 Body height 177.8 cm [facility] Work Phone: [facility] 09-15-2023 12:18-0400 Body mass index (BMI) [Ratio] 41.1 kg/m2 [facility] Work Phone: [facility] 09-15-2023 12:18-0400 Body weight 130 kg [facility] Work Phone: [facility] 09-15-2023 10:54-0400 Body temperature 98.1 [degF] [facility] Work Phone: [facility] 09-15-2023 10:54-0400 Diastolic blood pressure 67 mm[Hg] [facility] Work Phone: [facility] 09-15-2023 10:54-0400 Heart rate 99 /min [facility] Work Phone: [facility] 09-15-2023 10:54-0400 Respiratory rate 18 /min [facility] Work Phone: [facility] 09-15-2023 10:54-0400 Systolic blood pressure 110 mm[Hg] [facility] Work Phone: [facility] 07-10-2023 14:00-0500 Blood Pressure Location [facility] 07-10-2023 14:00-0500 Body temperature 97.88 [degF] [facility] 07-10-2023 14:00-0500 Heart rate 69 /min [facility] 07-10-2023 14:00-0500 [facility] 07-10-2023 14:00-0500 Respiratory rate 16 /min [facility] 07-10-2023 14:00-0500 SaO2% (BldA) [Mass fraction] 98 % [facility] 07-10-2023 13:42-0500 Heart rate 103 /min [facility] 07-10-2023 13:42-0500 SaO2% (BldA) [Mass fraction] 96 % [facility] 07-10-2023 13:42-0500 Diastolic blood pressure 70 mm[Hg] [facility] 07-10-2023 13:42-0500 Mean blood pressure 82 mm[Hg] [facility] 07-10-2023 13:42-0500 Systolic blood pressure 106 mm[Hg] [facility] 07-10-2023 13:41-0500 Body temperature 98.42 [degF] [facility] 07-10-2023 10:04-0500 [facility] 07-10-2023 10:04-0500 [facility] 07-10-2023 09:29-0500 [facility] 07-10-2023 09:29-0500 [facility] 07-10-2023 08:00-0500 [facility] 07-10-2023 07:43-0500 Heart rate 80 /min [facility] 07-10-2023 07:43-0500 SaO2% (BldA) [Mass fraction] 97 % [facility] 07-10-2023 07:41-0500 Body temperature 98.06 [degF] [facility] 07-10-2023 07:41-0500 Diastolic blood pressure 75 mm[Hg] [facility] 07-10-2023 07:41-0500 Mean blood pressure 85 mm[Hg] [facility] 07-10-2023 07:41-0500 Systolic blood pressure 107 mm[Hg] [facility] 07-10-2023 02:25-0500 Diastolic blood pressure 70 mm[Hg] [facility] 07-10-2023 02:25-0500 Systolic blood pressure 104 mm[Hg] [facility] 07-09-2023 20:10-0500 Blood Pressure Location [facility] 07-09-2023 20:10-0500 Respiratory rate 16 /min [facility] 07-09-2023 15:31-0500 Blood Pressure Location [facility] 07-09-2023 15:31-0500 Mean blood pressure 76 mm[Hg] [facility] 07-09-2023 15:31-0500 Respiratory rate 18 /min [facility] 07-09-2023 10:53-0500 Mean blood pressure 77 mm[Hg] [facility] 07-09-2023 03:30-0500 Respiratory rate 16 /min [facility] 07-08-2023 19:38-0500 Body temperature 98.24 [degF] [facility] 07-08-2023 19:38-0500 Mean blood pressure 54 mm[Hg] [facility] 07-08-2023 19:30-0500 Mean blood pressure 57 mm[Hg] [facility] 07-08-2023 19:13-0500 Body temperature 98.42 [degF] [facility] 07-08-2023 19:05-0500 Respiratory rate 55 /min [facility] 07-08-2023 19:00-0500 Respiratory rate 57 /min [facility] 07-07-2023 03:52-0500 Heart rate 74 /min [facility] 07-06-2023 19:03-0500 Heart rate 113 /min [facility] 06-18-2023 10:30-0500 Body height 172.72 cm [facility] Other backstitch [facility] [employer] Other 06-18-2023 10:30-0500 Body mass index (BMI) [Ratio] 19.76 kg/m2 Adwoa Chappellrenzo Other [employer] Other 06-18-2023 10:30-0500 Body temperature 97.8 [degF] Adwoa Azam Other [employer] Other 06-18-2023 10:30-0500 Body weight 58.97 kg Adwoa Chappellrenzo Other [employer] Other 06-18-2023 10:30-0500 Diastolic blood pressure 62 mm[Hg] Adwoa Nascimento Other [employer] Other 06-18-2023 10:30-0500 SaO2% (BldA) [Mass fraction] 98 % Adwoa Nascimento Other [facility] [employer] Other 06-18-2023 10:30-0500 Systolic blood pressure 110 mm[Hg] Adwoa Nascimento Other [facility] [employer] Other 06-02-2023 12:09-0500 Body height 177.8 cm PHYSICIAN NO [facility] 06-02-2023 12:09-0500 Body mass index (BMI) [Ratio] 41.1 kg/m2 PHYSICIAN NO [facility] 06-02-2023 12:09-0500 Body weight 130 kg PHYSICIAN NO [facility] 06-02-2023 10:54-0500 Body temperature 97.2 [degF] PHYSICIAN NO [facility] 06-02-2023 10:54-0500 Diastolic blood pressure 59 mm[Hg] PHYSICIAN NO [facility] 06-02-2023 10:54-0500 Heart rate 70 /min PHYSICIAN NO [facility] 06-02-2023 10:54-0500 Systolic blood pressure 95 mm[Hg] PHYSICIAN NO [facility] 04-07-2023 12:09-0500 Body height 180.34 cm [facility] Work Phone: [facility] 04-07-2023 12:09-0500 Body mass index (BMI) [Ratio] 19.5 kg/m2 [facility] Work Phone: [facility] 04-07-2023 12:09-0500 Body weight 63.5 kg [facility] Work Phone: [facility] 04-07-2023 11:12-0500 Body temperature 97.7 [degF] [facility] Work Phone: [facility] 04-07-2023 11:12-0500 Diastolic blood pressure 61 mm[Hg] [facility] Work Phone: [facility] 04-07-2023 11:12-0500 Heart rate 76 /min [facility] Work Phone: [facility] 04-07-2023 11:12-0500 Respiratory rate 18 /min [facility] Work Phone: [facility] 04-07-2023 11:12-0500 Systolic blood pressure 95 mm[Hg] [facility] Work Phone: [facility] 03-03-2023 12:06-0400 Body height 180.34 cm PHYSICIAN NO [facility] 03-03-2023 12:06-0400 Body mass index (BMI) [Ratio] 19.5 kg/m2 PHYSICIAN NO [facility] 03-03-2023 12:06-0400 Body weight 63.5 kg PHYSICIAN NO [facility] 03-03-2023 11:34-0400 Body temperature 98.6 [degF] PHYSICIAN NO [facility] 03-03-2023 11:34-0400 Diastolic blood pressure 72 mm[Hg] PHYSICIAN NO [facility] 03-03-2023 11:34-0400 Heart rate 101 /min PHYSICIAN NO [facility] 03-03-2023 11:34-0400 Respiratory rate 18 /min PHYSICIAN NO [facility] 03-03-2023 11:34-0400 Systolic blood pressure 112 mm[Hg] PHYSICIAN NO [facility] 04-04-2022 13:13-0500 Body temperature 98.1 [degF] Eli Haney MD Work Phone: [facility] 04-04-2022 13:13-0500 Diastolic blood pressure 71 mm[Hg] Eli Haney MD Work Phone: [facility] 04-04-2022 13:13-0500 Heart rate 106 /min Eli Haney MD Work Phone: [facility] 04-04-2022 13:13-0500 Respiratory rate 18 /min Eli Haney MD Work Phone: [facility] 04-04-2022 13:13-0500 SaO2% (BldA) [Mass fraction] 98 % Eli Haney MD Work Phone: [facility] 04-04-2022 13:13-0500 Systolic blood pressure 120 mm[Hg] Eli Haney MD Work Phone: [facility] 03-12-2022 00:40-0400 Body mass index (BMI) [Ratio] 17.63 kg/m2 Eli Haney MD Work Phone: [facility] 03-12-2022 00:40-0400 Body weight 58.97 kg Eli Haney MD Work Phone: [facility] 03-12-2022 00:26-0400 Body height 182.9 cm Eli Haney MD Work Phone: [facility] 03-04-2022 17:43-0400 Diastolic blood pressure 72 mm[Hg] PHYSICIAN NO [facility] 03-04-2022 17:43-0400 Heart rate 106 /min PHYSICIAN NO [facility] 03-04-2022 17:43-0400 Respiratory rate 18 /min PHYSICIAN NO [facility] 03-04-2022 17:43-0400 Systolic blood pressure 115 mm[Hg] PHYSICIAN NO [facility] 03-04-2022 16:09-0400 SaO2% (BldA) [Mass fraction] 95 % PHYSICIAN NO [facility] 03-04-2022 12:00-0400 Body height 182.88 cm PHYSICIAN NO [facility] 03-04-2022 12:00-0400 Body weight 58.96 kg PHYSICIAN NO [facility] 03-04-2022 11:59-0400 Body temperature 96.9 [degF] PHYSICIAN NO [facility] 02-19-2022 09:28-0400 Heart rate 120 /min PHYSICIAN NO [facility] 02-19-2022 09:26-0400 Body temperature 97.5 [degF] PHYSICIAN NO [facility] 02-19-2022 09:26-0400 Diastolic blood pressure 64 mm[Hg] PHYSICIAN NO [facility] 02-19-2022 09:26-0400 Respiratory rate 20 /min PHYSICIAN NO [facility] 02-19-2022 09:26-0400 SaO2% (BldA) [Mass fraction] 94 % PHYSICIAN NO [facility] 02-19-2022 09:26-0400 Systolic blood pressure 126 mm[Hg] PHYSICIAN NO [facility] 02-18-2022 16:00-0400 Body temperature 98.7 [degF] PHYSICIAN NO [facility] 02-18-2022 16:00-0400 Diastolic blood pressure 64 mm[Hg] PHYSICIAN NO [facility] 02-18-2022 16:00-0400 Heart rate 86 /min PHYSICIAN NO [facility] 02-18-2022 16:00-0400 Respiratory rate 16 /min PHYSICIAN NO [facility] 02-18-2022 16:00-0400 SaO2% (BldA) [Mass fraction] 100 % PHYSICIAN NO [facility] 02-18-2022 16:00-0400 Systolic blood pressure 113 mm[Hg] PHYSICIAN NO [facility] 02-18-2022 13:43-0400 Body height 177.8 cm PHYSICIAN NO [facility] 02-18-2022 13:43-0400 Body mass index (BMI) [Ratio] 20 kg/m2 PHYSICIAN NO [facility] 02-18-2022 13:43-0400 Body weight 63.5 kg PHYSICIAN NO [facility] 02-18-2022 12:42-0400 Body height 167.64 cm PHYSICIAN NO [facility] 02-18-2022 12:42-0400 Body weight 54.43 kg PHYSICIAN NO [facility] 02-18-2022 11:18-0400 Body temperature 98.6 [degF] PHYSICIAN NO [facility] 02-18-2022 11:18-0400 Diastolic blood pressure 71 mm[Hg] PHYSICIAN NO [facility] 02-18-2022 11:18-0400 Heart rate 80 /min PHYSICIAN NO [facility] 02-18-2022 11:18-0400 Respiratory rate 18 /min PHYSICIAN NO [facility] 02-18-2022 11:18-0400 Systolic blood pressure 116 mm[Hg] PHYSICIAN NO [facility] 01-21-2022 18:24-0400 Body height 182.88 cm MD Sam Smith Work Phone: [facility] 01-21-2022 18:24-0400 Body temperature 98.9 [degF] MD Sam Smith Work Phone: [facility] 01-21-2022 18:24-0400 Body weight 58.96 kg MD Sam Smith Work Phone: [facility] 01-21-2022 18:24-0400 Diastolic blood pressure 50 mm[Hg] MD Sam Smith Work Phone: [facility] 01-21-2022 18:24-0400 Heart rate 78 /min MD Sam Smith Work Phone: [facility] 01-21-2022 18:24-0400 Respiratory rate 18 /min MD Sam Smith Work Phone: [facility] 01-21-2022 18:24-0400 SaO2% (BldA) [Mass fraction] 96 % MD Sam Smith Work Phone: [facility] 01-21-2022 18:24-0400 Systolic blood pressure 111 mm[Hg] MD Sam Smith Work Phone: [facility] 01-14-2022 12:01-0400 Body height 177.8 cm MD Sam Smith Work Phone: [facility] 01-14-2022 12:01-0400 Body mass index (BMI) [Ratio] 20 kg/m2 MD Sam Smith Work Phone: [facility] 01-14-2022 12:01-0400 Body weight 63.5 kg MD Sam Smith Work Phone: [facility] 01-14-2022 11:08-0400 Body temperature 97.3 [degF] MD Sam Smith Work Phone: [facility] 01-14-2022 11:08-0400 Diastolic blood pressure 67 mm[Hg] MD Sam Smith Work Phone: [facility] 01-14-2022 11:08-0400 Heart rate 98 /min MD Sam Smith Work Phone: [facility] 01-14-2022 11:08-0400 Respiratory rate 16 /min MD Sam Smith Work Phone: [facility] 01-14-2022 11:08-0400 Systolic blood pressure 110 mm[Hg] MD Sam Smith Work Phone: [facility] Encounters Encounter Date Encounter Type Care Provider Facility Start: 02-27-2024 ambulatory Samson Shane [facility] [place] [place] Start: 02-27-2024 Emergency department patient visit Abbie Collier [place] [place] Start: 02-16-2024 ambulatory Sam Smith Facility: [facility] Start: 02-03-2024 End: 02-03-2024 ambulatory Viet R Dolce [place] [place] Start: 02-03-2024 End: 02-03-2024 Patient encounter procedure Viet R Dolce [facility] Start: 11-18-2023 End: 11-18-2023 ambulatory Viet R Dolce [place] [place] Start: 11-18-2023 End: 11-18-2023 Patient encounter procedure Viet R Dolce [facility] Start: 10-28-2023 End: 10-28-2023 ambulatory Viet Dmitriy Laura [place] [place] Start: 10-28-2023 End: 10-28-2023 Patient encounter procedure Viet Laura [facility] Start: 10-28-2023 End: 10-28-2023 ambulatory Viet Dmitriy Laura [place] [place] Start: 10-28-2023 End: 10-28-2023 Patient encounter procedure Viet Dmitriy Laura [facility] Start: 10-07-2023 End: 10-07-2023 ambulatory Viet Dmitriy Laura [place] [place] Start: 10-07-2023 End: 10-07-2023 Patient encounter procedure Viet Laura [facility] Start: 09-25-2023 End: 09-25-2023 Admission to same day surgery center [facility] Work Phone: [facility] [place] Start: 09-25-2023 End: 09-25-2023 ambulatory [facility] Work Phone: [facility] Work Phone: Start: 09-15-2023 Registered Recurring [facility] Work Phone: [facility] [place] Work Phone: Start: 09-09-2023 End: 09-09-2023 ambulatory Viet Dmitriy Laura [place] [place] Start: 09-09-2023 End: 09-09-2023 Patient encounter procedure Viet Laura [facility] Start: 08-26-2023 End: 08-26-2023 ambulatory Viet Dmitriy Laura [place] [place] Start: 08-26-2023 End: 08-26-2023 Patient encounter procedure Viet Dmitriy Laura [facility] Start: 07-28-2023 End: 07-28-2023 ambulatory Glenn Laura [place] [place] Start: 07-28-2023 End: 07-28-2023 Patient encounter procedure Glenn Laura [facility] Start: 07-21-2023 End: 07-21-2023 ambulatory Glenn Laura [place] [place] Start: 07-21-2023 End: 07-21-2023 Patient encounter procedure Glenn Laura [facility] Start: 07-17-2023 End: 07-17-2023 ambulatory GLENN LAURA Not Available Start: 07-07-2023 End: 07-10-2023 Non-patient / Non-visit [facility] Work Phone: [facility] Work Phone: Start: 07-07-2023 End: 07-10-2023 Evaluation and management of inpatient Karly MANCERA [place] [place] Start: 07-06-2023 End: 07-10-2023 Evaluation and management of inpatient Priscilla Oseguera [facility] Start: 06-18-2023 Office outpatient ne w 30 minutes Adwoa Nascimento [facility] Start: 06-18-2023 End: 06-18-2023 Patient encounter procedure PHYSICIAN IVAN [facility]-Ultrasound [facility] Start: 06-18-2023 End: 06-18-2023 ambulatory PHYSICIAN IVAN [facility] [employer] Other Start: 06-02-2023 Registered Recurring PHYSICIAN IVAN [facility] [place] Work Phone: Start: 04-07-2023 End: 04-07-2023 ambulatory [facility] Work Phone: [facility] Work Phone: Start: 04-07-2023 End: 04-07-2023 Discharged Recurring [facility] Work Phone: [facility] [place] Work Phone: Start: 03-04-2023 End: 03-04-2023 Admission to same day surgery center PHYSICIAN NO [facility]-Interventional Radiology Work Phone: Start: 03-04-2023 End: 03-04-2023 ambulatory PHYSICIAN NO [facility] Work Phone: Start: 03-03-2023 Registered Recurring PHYSICIAN NO [facility] [place] Work Phone: Start: 05-19-2022 Letter encounter Kay Birmingahm MD Work Phone: [facility] Start: 05-07-2022 End: 05-09-2022 ambulatory NICOLLE NADEEM BROWN Facility:[facility] Start: 04-23-2022 End: 04-24-2022 ambulatory [facility]OL[facility]ADEEM BROWN [facility] Start: 04-10-2022 End: 04-10-2022 Telemedicine consultation with patient Garrett Humphries MD Work Phone: [facility] [employer] Comment on above: ENCOUNTER OPENED IN ERROR (Primary Dx) Start: 04-10-2022 ambulatory Garrett Humphries MD Work Phone: [facility] [employer] Comment on above: antibiotics Start: 04-10-2022 E-mail encounter fro m caregiver Garrett Humphries MD Work Phone: [facility] [employer] Start: 04-04-2022 Letter encounter Kay Birmingham MD Work Phone: [facility] Start: 04-02-2022 Evaluation and management of inpatient KAY R. KUNS Facility:[facility] Start: 04-02-2022 Letter encounter Kay Birmingham MD Work Phone: [facility] [employer] Start: 03-27-2022 Evaluation and management of inpatient KAY R. KUNS Facility:[facility] Start: 03-26-2022 End: 03-27-2022 Evaluation and management of inpatient KAY R. KUNS Facility:[facility] Start: 03-26-2022 End: 03-26-2022 Evaluation and management of inpatient Eli Haney MD Work Phone: [facility] Radiology Comment on above: Arrived Start: 03-22-2022 End: 03-22-2022 Evaluation and management of inpatient KAY R. KUNS Facility:[facility] Start: 03-21-2022 End: 03-21-2022 Evaluation and management of inpatient Eli Haney MD Work Phone: [facility] Rad[facility] Comment on above: Arrived Start: 03-19-2022 End: 03-20-2022 Evaluation and management of inpatient KAY R. KUNS Facility:[facility] Start: 03-19-2022 End: 03-19-2022 Evaluation and management of inpatient Eli Haney MD Work Phone: [facility] Comment on above: Arrived Start: 03-17-2022 End: 03-18-2022 Evaluation and management of inpatient KAY R. KUNS Facility:[facility] Start: 03-16-2022 End: 03-17-2022 Evaluation and management of inpatient KAY R. KUNS Facility:[facility] Start: 03-16-2022 End: 03-16-2022 Evaluation and management of inpatient Eli Haney MD Work Phone: [facility] Radiology CT Comment on above: Arrived Start: 03-14-2022 Evaluation and management of inpatient KAY R. KUNS Facility:[facility] Start: 03-13-2022 Evaluation and management of inpatient KAY R. KUNS Facility:[facility] Start: 03-11-2022 End: 03-12-2022 ambulatory UNKNOWN PROVIDER Facility:[facility] Start: 03-11-2022 End: 03-11-2022 Subsequent hospital visit by physician Kriss [facility] Comment on above: Abscess Start: 03-11-2022 End: 04-04-2022 Evaluation and management of inpatient Renettaeliceo Dawson Work Phone: Inpatient [facility] Start: 03-11-2022 Telephone encounter Eli forrest MD Work Phone: [facility] Start: 03-11-2022 End: 04-04-2022 Evaluation and management of inpatient Eli Haney MD Work Phone: [address] Start: 03-07-2022 End: 03-22-2022 Pre-admission assessment Eric Saha [facility] Start: 03-04-2022 End: 03-04-2022 Emergency department patient visit PHYSICIAN NO [facility]tr-Emergency Room Start: 02-25-2022 ambulatory [facility] Start: 02-19-2022 End: 02-19-2022 Emergency department patient visit PHYSICIAN NO [facility]-Emergency Room Start: 02-18-2022 End: 02-18-2022 Emergency department patient visit PHYSICIAN NO [facility]-Emergency Room Start: 02-18-2022 End: 02-18-2022 ambulatory PHYSICIAN NO [facility] Work Phone: Start: 02-18-2022 End: 02-18-2022 Discharged Recurring PHYSICIAN NO [facility]ound [facility] [place] Start: 02-18-2022 Registered Recurring PHYSICIAN NO [facility] [place] Start: 01-21-2022 End: 01-21-2022 Emergency department patient visit MD Sam Smith Work Phone: [facility]-Emergency Room Start: 01-18-2022 End: 01-18-2022 Patient encounter procedure MD Sam Smith Work Phone: [facility]-Ultrasound [facility] [place] Start: 01-14-2022 Registered Recurring MD Sam Smith Work Phone: [facility] [place] Start: 04-23-2021 End: 04-23-[address] DOCTOR WHITTINGTON Facility:[facility] Start: 04-16-2021 End: 04-16-[address] DOCTOR WHITTINGTON Facility:[facility] Start: 03-27-2021 End: 03-27-2021 ambulatory ANÍBAL HOBSON Facility:[facility] Start: 03-18-2021 End: 03-18-[address] DOCTOR WHITTINGTON Facility:[facility] Start: 12-07-2020 End: 12-07-[address] DOCTOR WHITTINGTON Facility:[facility] Start: 11-15-2020 End: 11-15-[address] DOCTOR WHITTINGTON Facility:[facility] Start: 07-19-2020 End: 07-19-[address] DOCTOR WHITTINGTON Facility:[facility] Start: 09-29-2016 End: 09-30-2016 Ambulatory NEAL Roa JONATHANFaustino Facility:[facility] Procedures Date Procedure Procedure Detail Performing Clinician Start: 09-25-2023 Debridement [facility] Work Phone: Start: 08-25-2023 Investigation of transfusion reaction [facility] Work Phone: Start: 07-08-2023 Amputated toe (finding) Priscilla Oseguera Start: 07-07-2023 H/O: ileostomy Priscilla Oseguera Start: 03-04-2023 Insertion of peripherally inserted central catheter PHYSICIAN IVAN [facility] Start: 04-02-2022 Ct soft tissue neck w/contrast material Elda Vences MD Work Phone: Start: 04-02-2022 Drug screen quantitative vancomycin Nicolle Brown DO Work Phone: Start: 03-30-2022 Assay of magnesium Veronica Gutkin DPM Work Phone: Start: 03-29-2022 Assay of magnesium Veronica Gutkin DPM Work Phone: Start: 03-28-2022 Assay of magnesium Veronica Gutkin DPM Work Phone: Start: 03-27-2022 Assay of magnesium Veronica Gutkin DPM Work Phone: Start: 03-26-2022 Mri upper extrem other than jt w/o & w/robin Sorto MD Work Phone: Start: 03-26-2022 Assay of magnesium Veronica Gutkin DPM Work Phone: Start: 03-26-2022 Drug screen quantitative vancomycin Faulkton Mobley Work Phone: Start: 03-25-2022 Assay of magnesium Veronica Gutkin DPM Work Phone: Start: 03-24-2022 Assay of magnesium Veronica Gutkin DPM Work Phone: Start: 03-23-2022 Blood count hemoglobin Alana Vargas Work Phone: Start: 03-23-2022 Assay of magnesium Veronica Gutkin DPM Work Phone: Start: 03-22-2022 Culture bacterial any source anaerobic iso&id Mckay Ali DO Work Phone: Start: 03-22-2022 Assay of magnesium Veronica Gutkin DPM Work Phone: Start: 03-21-2022 Cul bact xcpt urine blood/stool aerobic isol Mckay Ali DO Work Phone: Start: 03-21-2022 Fluoroscopy up to 1 hour physician/qhp time Ky Spangler DPM Work Phone: Start: 03-21-2022 End: 03-22-2022 EXCISION, BONE SPUR, RETROCALCANEOUS Ky Spangler DPM Work Phone: Start: 03-21-2022 Blood typing, ABO, Rho(D) and RBC antibody screening Alana Caba MD Work Phone: Start: 03-21-2022 Assay of magnesium Veronica Gutkin DPM Work Phone: Start: 03-20-2022 Assay of magnesium Veronica Gutkin DPM Work Phone: Start: 03-19-2022 XA PICC INSERT ADULT RN (CHELLY) Alana washburn MD Work Phone: Start: 03-19-2022 Drug screen quantitative vancomycin Mckay Ali DO Work Phone: Start: 03-19-2022 Assay of magnesium Veronica Gutkin DPM Work Phone: Start: 03-18-2022 Assay of magnesium Veronica Gutkin DPM Work Phone: Start: 03-17-2022 Mri lower extrem oth/thn jt w/o contr matrl Ben Suarez DO Work Phone: Start: 03-17-2022 MR Ankle and Foot Prosper Alatorre MD Work Phone: Start: 03-17-2022 Assay of magnesium Veronica Gutkin DPM Work Phone: Start: 03-16-2022 Ct soft tissue neck w/contrast material Terrie Kennedy MD Work Phone: Start: 03-16-2022 Assay of magnesium Veronica Gutkin DPM Work Phone: Start: 03-15-2022 Drug screen quantitative vancomycin Prosper Alatorre MD Work Phone: Start: 03-15-2022 Assay of magnesium Veronica Gutkin DPM Work Phone: Start: 03-14-2022 Radiologic examination femur minimum 2 views Ben Suarez DO Work Phone: Start: 03-14-2022 Ct soft tissue neck w/contrast material Ben Suarez DO Work Phone: Start: 03-14-2022 Assay of magnesium Ben Suarez DO Work Phone: Start: 03-13-2022 MR Spine study Quan Frias MD Work Phone: Start: 03-13-2022 End: 03-13-2022 Radiological guidance prq drg w/plmt cath rs&i Ben Suarez DO Work Phone: Start: 03-13-2022 Drug screen quantitative vancomycin Eli Haney MD Work Phone: Start: 03-12-2022 Prothrombin time Ben Suarez DO Work Phone: Start: 03-12-2022 H/O: surgery S/P ileal conduit Mh 02 Start: 03-12-2022 Antibody hiv-1&hiv-2 single result Ben Suarez DO Work Phone: Start: 03-12-2022 Culture bacterial blood aerobic w/id isolates Ben Suarez DO Work Phone: Start: 03-12-2022 Cyanocobalamin vitamin b-12 Ben barksdale DO Work Phone: Start: 03-11-2022 CT BODY IMAGE IMPORT Renetta Dawson DO Work Phone: Start: 03-11-2022 CT NEURO IMAGE IMPORT Renetta Dawson DO Work Phone: Start: 03-11-2022 MR MSK IMAGE IMPORT Renetta Dawson DO Work Phone: Start: 03-11-2022 MR NEURO IMAGE IMPORT Renetta Dawson DO Work Phone: Start: 03-04-2022 CT cervical spine without contrast PHYSICIAN NO FAMILY Start: 03-04-2022 CT of head without contrast PHYSICIAN NO FAMILY Start: 02-18-2022 Plain X-ray of right femur PHYSICIAN NO FAMILY Start: 02-18-2022 Plain X-ray of right hip PHYSICIAN NO FA EVANGELINA Start: 01-21-2022 Pulse volume recorder pneumoplethysmography PHYSICIAN NO FAMILY Start: 01-18-2022 Duplex scan of lower limb veins MD Carlos Smith Work Phone: Start: 01-18-2022 Plain X-ray of right femur MD Sam pride Work Phone: Start: 01-18-2022 X-ray of right knee MD Sam Smith Work Phone: H/O: surgery History of ileal conduit MD Sam Smith Work Phone: H/O: surgery S/P ileal condui t ([facility]) Eli Haney MD Work Phone: Urine culture PHYSICIAN NO F DORON Plan of Treatment Date Care Activity Detail Author Start: 11-14-2043 Shingles (RZV) Vaccine (1 of 2) [facility] Start: 09-25-2023 Microscopic observation [Identifier] in Unspecified specimen by Gram stain Gram Stain [facility] Start: 09-25-2023 End: 09-25-2023 [facility] Start: 06-04-2022 End: 06-04-2022 Patient encounter procedure 06/04/2022 Office Visit Podiatry Ky Spangler DPM [address] [place] [address] [facility] [place] [facility] Start: 05-15-2022 End: 05-15-2022 Patient encounter procedure 05/15/2022 Office Visit Neurology Tayler Cuello MD [address] [place] [address] [place] [address] [facility] Start: 04-30-2022 End: 04-30-2022 ambulatory [facility] Start: 04-30-2022 End: 04-30-2022 Telemedicine consultation with patient 04/30/2022 Telemedicine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 (07/06/23:37:00) Chloride: 100 mmol/L Low (07/06/23:37:00) CO2: 24 mmol/L (07/06/23:37:00) AGAP: 14 mEq/L (07/06/23:37:00) Calcium Lvl: 8.8 mg/dL Low (07/06/23:37:00) UA Spec Desc: Urostomy (07/07/23 00:18:00) UA Color: Yellow2 (07/07/23 00:18:00) UA Clarity: Turbid2 Abnormal (07/07/23 00:18:00) UA Spec Grav: 1.015 (07/07/23 00:18:00) UA pH: 6.5 (07/07/23 00:18:00) UA Protein: 1+ Abnormal (07/07/23 00:18:00) UA (more content not included)...[facility] Result Comment: Electronically Signed By: Ana Rosa OLIVERA, Priscilla\.br\Date and Time Signed: 07/07/23 04:09 [id number] Evaluation note* Encounter Date Diagnosis Assessment Notes Treatment Notes Treatment Clinical Notes Jun, Lower extremity edema (ICD-10 - R60.0) Jun, Wound of right foot (ICD-10 - S91.301A) Patient has chronic wounds on the right foot with delayed wound healing despite good and consistent wound care at the outpatient wound care clinic. By physical exam he has a easily palpable DP pulse on the right. ABIs were obtained here in the office today which are normal. He is paraplegic and wheelchair-bound with feet in dependent position at all times leading to chronic lower extremity edema. Recommend compression, elevation, good skin care and ongoing wound care. His delayed wound healing is not a vascular etiology. Continue with outpatient wound care for following of these wounds. There are multiple factors to wound healing which include good and consistent wound care, good blood supply, nutrition support with adequate protein intake, and edema control. No scheduled follow-up is necessary in our office today, follow-up as needed in the future. This is Dr. Ann dictating. I did see the patient and examined him. He has normal blood supply to his foot. Noninvasive arterial studies are also normal. This is not a blood supply issue. We briefly went over the role of amputation in the situation and the patient's not ready for this yet. I will see him as needed in the future. Jun, Paraplegia (ICD-10 - G82.20) [employer] Other 11-28-2023 Progress note Author Sam Smith [facility] April 07, 2023 12:09pm Note Date/Time April 07, 2023 12:09pm [facility] [address] [place] [address] Wound Center Provider Note Signed Patient: Cleveland Swift MR#: [id number] : 1995 Acct:[id number] Age/Sex: 27 / M Copies to: Sam Smith MD NO FAMILY PHYSICIAN~ HPI Date of Visit Date of Visit: Date of Service: 04/07/2023 Time of Service: 12:07 Narrative HPI: Patient being followed for bilateral ischial ulcers, sacral ulcer. Patient completed a 2-week course of IV antibiotics and the ulcers have improved. There is pink granulation tissue. There is some serous drainage but no purulentor green drainage. The right foot and toe ulcers show some dry eschar. Patient states appetite has been good. He denies other new medical problems. Patient himself states he has some other issues going on and is not pursuing further work-up of the right femur abnormality seen when he was in [place]. Patient is at home with home health. He has a new primary care provider. 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: [employer] Sc[employer] Lives with:: Parent Appetite Description: Within Normal Limits Who helps w/ dressing change?: Home Health Why Do You Need Help?: Can't Reach Ulcer, Limited mobility and Taxing effort to leave home Smoking Status: Current every day smoker Constitutional Constitutional: Denies fever(s) Integumentary/Breasts Skin/Breast: Reports wounds PMFSH Medical History (Updated 12/23/22 @ 12:09 by Sam Smith MD) Decubitus ulcer of coccygeal region, stage 4 History of femur fracture RIGHT History of opioid abuse Hx of sepsis Paralysis, unspecified Paraplegia Presence of colostomy Presence of urostomy Surgical History History of back surgery History of urostomy Hx of colostomy Hx of tracheostomy Family History Grandparent Mesothelioma Social History Smoking Status: Current every day smoker Tobacco Type: e-cigarettes Substance Use Type: Marijuana Substance Abuse Comment: pt. states he smoked marijuana this morning. has hx of opioid abuse. Grafts History of Graft History of Graft?: No Exam Physical Exam Vital Signs: Temp Pulse Resp BP O2 Del Method 97.7 F 76 18 95/61 L Room Air 04/07/23 11:12 04/07/23 11:12 04/07/23 11:12 04/07/23 11:12 04/07/23 11:12 Const General: cooperative and no acute distress Skin Wounds: wounds noted Neuro General: patient alert and patient awake Lower/Upper Extremity Exam Vascular Exam-Pulses Right Radial: Pulse Assessment Method: NIBP Right Dorsalis Pedis: Pulse Assessment Method: Doppler Right Posterior Tibial: Pulse Assessment Method: Doppler Objective Meds/Allergies Home Medications baclofen 20 mg tablet 20 mg PO Q6H PRN muscle spasms 10/04/19 [History Confirmed 04/07/23] polyethylene glycol 3350 17 gram oral powder packet (Miralax) 17 g PO DAILY PRN Constipation 04/03/21 [History Confirmed 04/07/23] sennosides 8.6 mg tablet (Senokot) 8.6 mg PO BID PRN Constipation 04/03/21 [History Confirmed 04/07/23] alprazolam 1 mg tablet (Xanax) 1 mg PO TID PRN Anxiety 03/04/22 [History Confirmed 04/07/23] potassium chloride 20 mEq tablet,extended release 20 meq PO DAILY #10 tabs 03/04/22 [Rx Confirmed 04/07/23] gabapentin 600 mg tablet 600 mg PO TID 7 days #21 tabs 07/08/22 [Rx Confirmed 04/07/23] quetiapine 25 mg tablet (Seroquel) 25 mg PO QHS 10/28/22 [History Confirmed 04/07/23] sodium hypochlorite 0.125 % solution (Dakin's Solution) 1 applic topical DAILY 03/31/23 [History Confirmed 04/07/23] Allergies Penicillins Allergy (Verified 10/28/22 11:14) Hives Sulfa (Sulfonamide Antibiotics) Allergy (Verified 10/28/22 11:14) Hives vancomycin Allergy (Verified 10/28/22 11:14) Redness of Skin tigecycline [From Tygacil] Adverse Reaction (Verified 10/28/22 11:14) Vomiting Wound/Ulcer Right Buttock: Bed Appearance: Beefy Red, Epithelial Tissue or Bridge, [place], Yellow and Rolled Edges Percent of Wound Bed Granulated/Red: 50 Percent of Devitalized: 50 Length (cm): 6.8 Width (cm): 4.3 Depth (cm): 0.2 CM Sq: 29.240 Undermining Position: 11-1 Undermining Depth: 1.3 Surrounding Tissue Appearance: Ethnic/Norm Surrounding Tissue Temp: Warm Drainage Amount: Moderate Drainage Description: Serosanguineous and Yellow Drainage Odor: No Odor Left Buttock: Bed Appearance: Beefy Red, [place], Yellow and Rolled Edges Percent of Wound Bed Granulated/Red: 50 Percent of Devitalized: 50 Length (cm): 5.4 Width (cm): 1.0 Depth (cm): 1.4 CM Sq: 5.400 Undermining Position: 9-11 Undermining Depth: 1.0 Surrounding Tissue Appearance: [place] and Hyperpigmented Surrounding Tissue Temp: Warm Drainage Amount: Moderate Drainage Description: Yellow and Green Drainage Odor: No Odor Right Toe - 2nd Digit: Bed Appearance: Dried Exudate Percent of Wound Bed Granulated/Red: 0 Percent of Devitalized: 100 Length (cm): 0.8 Width (cm): 0.6 Depth (cm): 0.1 CM Sq: 0.480 Surrounding Tissue Appearance: Hyperpigmented Surrounding Tissue Temp: Warm Drainage Amount: Small Drainage Description: Yellow Drainage Odor: No Odor Right Great Toe: Bed Appearance: Beefy Red, [place] and Yellow Percent of Wound Bed Granulated/Red: 90 Percent of Devitalized: 10 Length (cm): 0.9 Width (cm): 1.5 Depth (cm): 0.2 CM Sq: 1.350 Surrounding Tissue Appearance: Callous Surrounding Tissue Temp: Warm Drainage Amount: Moderate Drainage Description: Bloody Drainage Odor: No Odor Right Dorsal Foot: Bed Appearance: Dried Exudate Percent of Wound Bed Granulated/Red: 0 Percent of Devitalized: 100 Length (cm): 0.5 Width (cm): 0.4 Depth (cm): 0.1 CM Sq: 0.200 Surrounding Tissue Appearance: Ecchymotic Middle Buttock: Bed Appearance: Beefy Red, [place] and Yellow Percent of Wound Bed Granulated/Red: 90 Percent of Devitalized: 10 Length (cm): 1.7 Width (cm): 4.0 Depth (cm): 0.1 CM Sq: 6.800 Surrounding Tissue Appearance: Hyperpigmented Surrounding Tissue Temp: Warm Drainage Amount: Moderate Drainage Description: Serosanguineous and Yellow Drainage Odor: No Odor Results Height: 5 ft 11 in Weight: 63.503 kg Body Mass Index: 19.5 Assessment/Plan Assessment/Plan (1) 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: Code(s): L89.324 - Pressure ulcer of left buttock, stage 4 Status: Chronic (2) 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: Code(s): L89.314 - Pressure ulcer of right buttock, stage 4 Status: Acute (3) Paraplegia: Code(s): G82.20 - Paraplegia, unspecified Status: Chronic (4) Traumatic ulcer of foot with fat layer exposed: Qualifiers: Laterality: right Qualified Code(s): L97.512 - Non-pressure chronic ulcer of other part of right foot with fat layer exposed Code(s): L97.502 - Non-pressure chronic ulcer of other part of unspecified foot with fat layer exposed Status: Acute (5) Stage IV pressure ulcer of sacral region: Code(s): L89.154 - Pressure ulcer of sacral region, stage 4 Status: Chronic Plan Continue current dressing changes. Follow-up in about 3-4 weeks. See Instructions for Orders See Instructions for Orders See Wound Discharge Instructions for Orders: Dictated By: Sam Smith MD DD/ 06 Signed By: <Electronically signed by MD Sam Smith> 04/07/23 [address] [facility] Work Phone: 1(376) 569-153511-07-2023 Progress note Author Sam Smith [facility] March 17, 2023 12:17pm Note Date/Time March 17, 2023 1 2:17pm [facility] [address] [place] [address] Wound Center Provider Note Signed Patient: Cleveland Swift MR#: [id number] : 1995 Acct:[id number] Age/Sex: 27 / M Copies to: Sam Smith MD NO FAMILY PHYSICIAN~ HPI Date of Visit Date of Visit: Date of Service: 03/17/2023 Time of Service: 12:15 Narrative HPI: Patient being followed for bilateral ischial ulcers, sacral ulcer. Patient is completing a 2-week course of IV antibiotics and the drainage from his ischial/sacral ulcers has improved. There is pink granulation tissue. There is some serous drainage but no purulentor green drainage. The right foot and toe ulcers show pink and red granulation tissue. No exposed bone. Patient states appetite has been good. He denies other new medical problems. Patient himself states he has some other issues going on and is not pursuing further work-up of the right femur abnormality seen when he was in [place]. Patient is at home with home health. He has a new primary care provider. 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: Motorized Scooter Lives with:: Parent Appetite Description: Within Normal Limits Who helps w/ dressing change?: Home Health Why Do You Need Help?: Can't Reach Ulcer, Limited mobility and Taxing effort to leave home Smoking Status: Current every day smoker Constitutional Constitutional: Denies fever(s) Integumentary/Breasts Skin/Breast: Reports wounds [facility] Medical History (Updated 12/23/22 @ 12:09 by Sam Smith MD) Decubitus ulcer of coccygeal region, stage 4 History of femur fracture RIGHT History of opioid abuse Hx of sepsis Paralysis, unspecified Paraplegia Presence of colostomy Presence of urostomy Surgical History History of back surgery History of urostomy Hx of colostomy Hx of tracheostomy Family History Grandparent Mesothelioma Social History Smoking Status: Current every day smoker Tobacco Type: e-cigarettes Substance Use Type: Marijuana Substance Abuse Comment: pt. states he smoked marijuana this morning. has hx of opioid abuse. Grafts History of Graft History of Graft?: No Exam Physical Exam Vital Signs: Temp Pulse Resp BP O2 Del Method 97.3 F L 110 H 18 99/55 L Room Air 03/17/23 11:25 03/17/23 11:25 03/17/23 11:25 03/17/23 11:25 03/17/23 11:25 Const General: cooperative and no acute distress Skin Wounds: wounds noted Neuro General: patient alert and patient awake Lower/Upper Extremity Exam Vascular Exam-Pulses Right Radial: Pulse Assessment Method: NIBP Right Dorsalis Pedis: Pulse Assessment Method: Doppler Right Posterior Tibial: Pulse Assessment Method: Doppler Objective Meds/Allergies Home Medications baclofen 20 mg tablet 20 mg PO Q6H PRN muscle spasms 10/04/19 [History Confirmed 11/25/22] polyethylene glycol 3350 17 gram oral powder packet (Miralax) 17 g PO DAILY PRN Constipation 04/03/21 [History Confirmed 11/25/22] sennosides 8.6 mg tablet (Senokot) 8.6 mg PO BID PRN Constipation 04/03/21 [History Confirmed 11/25/22] alprazolam 1 mg tablet (Xanax) 1 mg PO TID PRN Anxiety 03/04/22 [History Confirmed 11/25/22] potassium chloride 20 mEq tablet,extended release 20 meq PO DAILY #10 tabs 03/04/22 [Rx Confirmed 11/25/22] gabapentin 600 mg tablet 600 mg PO TID 7 days #21 tabs 07/08/22 [Rx Confirmed 11/25/22] quetiapine 25 mg tablet (Seroquel) 25 mg PO QHS 10/28/22 [History Confirmed 11/25/22] ceftazidime 1 gram intravenous solution 1 g IV Q12H 03/17/23 [History Confirmed 03/17/23] Allergies Penicillins Allergy (Verified 10/28/22 11:14) Hives Sulfa (Sulfonamide Antibiotics) Allergy (Verified 10/28/22 11:14) Hives vancomycin Allergy (Verified 10/28/22 11:14) Redness of Skin tigecycline [From Tygacil] Adverse Reaction (Verified 10/28/22 11:14) Vomiting Wound/Ulcer Right Buttock: Bed Appearance: Beefy Red, Epithelial Tissue or Bridge, [place] and Yellow Percent of Wound Bed Granulated/Red: 50 Percent of Devitalized: 50 Length (cm): 8.5 Width (cm): 5.6 Depth (cm): 0.2 CM Sq: 47.600 Undermining Position: 0 Undermining Depth: 0 Surrounding Tissue Appearance: Ethnic/Norm Surrounding Tissue Temp: Warm Drainage Amount: Moderate and Large Drainage Description: Brown and Green Drainage Odor: No Odor Left Buttock: Bed Appearance: Beefy Red, [place], Yellow and Rolled Edges Percent of Wound Bed Granulated/Red: 50 Percent of Devitalized: 50 Length (cm): 6.0 Width (cm): 1.0 Depth (cm): 0.2 CM Sq: 6.000 Undermining Position: 9-11 Undermining Depth: 1.0 Surrounding Tissue Appearance: [place] and Hyperpigmented Surrounding Tissue Temp: Warm Drainage Amount: Moderate Drainage Description: Yellow and Green Drainage Odor: No Odor Right Toe - 2nd Digit: Bed Appearance: Beefy Red, [place] and Yellow Percent of Wound Bed Granulated/Red: 95 Percent of Devitalized: 5 Length (cm): 0.5 Width (cm): 1.2 Depth (cm): 0.2 CM Sq: 0.600 Surrounding Tissue Appearance: Hyperpigmented Surrounding Tissue Temp: Warm Drainage Amount: Small Drainage Description: Yellow Drainage Odor: No Odor Right Great Toe: Bed Appearance: Beefy Red, [place] and Yellow Percent of Wound Bed Granulated/Red: 90 Percent of Devitalized: 10 Length (cm): 1.3 Width (cm): 1.5 Depth (cm): 0.2 CM Sq: 1.950 Surrounding Tissue Appearance: Callous Surrounding Tissue Temp: Warm Drainage Amount: Moderate Drainage Description: Bloody Drainage Odor: No Odor Right Dorsal Foot: Bed Appearance: Dried Exudate Percent of Wound Bed Granulated/Red: 0 Percent of Devitalized: 100 Length (cm): 0.9 Width (cm): 0.7 Depth (cm): 0.1 CM Sq: 0.630 Surrounding Tissue Appearance: Ecchymotic Middle Buttock: Bed Appearance: [place] and Yellow Percent of Wound Bed Granulated/Red: 90 Percent of Devitalized: 10 Length (cm): 2.0 Width (cm): 3.9 Depth (cm): 0.1 CM Sq: 7.800 Surrounding Tissue Appearance: Hyperpigmented Surrounding Tissue Temp: Warm Drainage Amount: Moderate Drainage Description: Yellow and Green Drainage Odor: No Odor Results Height: 5 ft 11 in Weight: 63.503 kg Body Mass Index: 19.5 Assessment/Plan Assessment/Plan (1) 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: Code(s): L89.324 - Pressure ulcer of left buttock, stage 4 Status: Chronic (2) 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: Code(s): L89.314 - Pressure ulcer of right buttock, stage 4 Status: Acute (3) Paraplegia: Code(s): G82.20 - Paraplegia, unspecified Status: Chronic (4) Traumatic ulcer of foot with fat layer exposed: Qualifiers: Laterality: right Qualified Code(s): L97.512 - Non-pressure chronic ulcer of other part of right foot with fat layer exposed Code(s): L97.502 - Non-pressure chronic ulcer of other part of unspecified foot with fat layer exposed Status: Acute (5) Stage IV pressure ulcer of sacral region: Code(s): L89.154 - Pressure ulcer of sacral region, stage 4 Status: Chronic Plan Complete course of IV antibiotics and then PICC line can be discontinued. Continue current dressing changes. Follow-up in about 3-4 weeks. See Instructions for Orders See Instructions for Orders See Wound Discharge Instructions for Orders: Dictated By: Sam Smith MD DD/ 14 Signed By: <Electronically signed by MD Sam Smith> 03/17/231216 [facility] Work Phone: 1(444) 133-679010-24-2023 Progress note Author Sam Smith [facility] March 03, 2023 12:08pm Note Date/Time March 03, 2023 1 2:07pm [facility] [address] [place] [address] Wound Center Provider Note Signed with Addenda Patient: Cleveland Swift MR#: [id number] : 1995 Acct:[id number] Age/Sex: 27 / M Copies to: Sam Smith MD NO FAMILY PHYSICIAN~ ADDENDUM1 Cultures grew Pseudomonas, Acinetobacter, Streptococcus, Proteus. Addendum Dictated By: MD Sam Smith DD/ Addendum Signed By: <Electronically signed by Sam Smith MD> 03/03/231207 Addendum Cosigned By: HPI Date of Visit Date of Visit: Date of Service: 03/03/2023 Time of Service: 12:00 Narrative HPI: Patient being followed for bilateral ischial ulcers, sacral ulcer. Patient did have increase in previous drainage from the sacral ulcer. Cultures grew Pseudomonas, Acinetobacter and staph sensitive to ceftazidime. The right foot and toe ulcers are improved. Patient presents with decreased appetite which is new and which she thinks may be related to infection. Patient himself states he has some other issues going on and is not pursuing further work-up of the right femur abnormality seen when he was in [place]. Patient is at home with home health. He has a new primary care provider. 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: Motorized Scooter Lives with:: Parent Appetite Description: Within Normal Limits Who helps w/ dressing change?: Home Health Why Do You Need Help?: Can't Reach Ulcer, Limited mobility and Taxing effort to leave home Smoking Status: Current every day smoker Constitutional Constitutional: Denies fever(s) Comments: Decreased appetite Respiratory Respiratory: Denies dyspnea Integumentary/Breasts Skin/Breast: Reports wounds [facility] Medical History (Updated 12/23/22 @ 12:09 by Sam Smith MD) Decubitus ulcer of coccygeal region, stage 4 History of femur fracture RIGHT History of opioid abuse Hx of sepsis Paralysis, unspecified Paraplegia Presence of colostomy Presence of urostomy Surgical History History of back surgery History of urostomy Hx of colostomy Hx of tracheostomy Family History Grandparent Mesothelioma Social History Smoking Status: Current every day smoker Tobacco Type: e-cigarettes Substance Use Type: Marijuana Substance Abuse Comment: pt. states he smoked marijuana this morning. has hx of opioid abuse. Grafts History of Graft History of Graft?: No Exam Physical Exam Vital Signs: Temp Pulse Resp BP O2 Del Method 98.6 F 101 H 18 112/72 Room Air 03/03/23 11:34 03/03/23 11:34 03/03/23 11:34 03/03/23 11:34 03/03/23 11:34 Const General: cooperative and no acute distress GI Palpation: soft Skin Wounds: wounds noted Neuro General: patient alert and patient awake Lower/Upper Extremity Exam Vascular Exam-Pulses Right Radial: Pulse Assessment Method: NIBP Right Dorsalis Pedis: Pulse Assessment Method: Doppler Right Posterior Tibial: Pulse Assessment Method: Doppler Objective Meds/Allergies Home Medications baclofen 20 mg tablet 20 mg PO Q6H PRN muscle spasms 10/04/19 [History Confirmed 11/25/22] polyethylene glycol 3350 17 gram oral powder packet (Miralax) 17 g PO DAILY PRN Constipation 04/03/21 [History Confirmed 11/25/22] sennosides 8.6 mg tablet (Senokot) 8.6 mg PO BID PRN Constipation 04/03/21 [History Confirmed 11/25/22] alprazolam 1 mg tablet (Xanax) 1 mg PO TID PRN Anxiety 03/04/22 [History Confirmed 11/25/22] potassium chloride 20 mEq tablet,extended release 20 meq PO DAILY #10 tabs 03/04/22 [Rx Confirmed 11/25/22] gabapentin 600 mg tablet 600 mg PO TID 7 days #21 tabs 07/08/22 [Rx Confirmed 11/25/22] quetiapine 25 mg tablet (Seroquel) 25 mg PO QHS 10/28/22 [History Confirmed 11/25/22] Allergies Penicillins Allergy (Verified 10/28/22 11:14) Hives Sulfa (Sulfonamide Antibiotics) Allergy (Verified 10/28/22 11:14) Hives vancomycin Allergy (Verified 10/28/22 11:14) Redness of Skin tigecycline [From Tygacil] Adverse Reaction (Verified 10/28/22 11:14) Vomiting Wound/Ulcer Right Buttock: Bed Appearance: Beefy Red, [place] and Yellow Percent of Wound Bed Granulated/Red: 50 Percent of Devitalized: 50 Length (cm): 7.0 Width (cm): 7.5 Depth (cm): 0.2 CM Sq: 52.500 Undermining Position: 4-5 Undermining Depth: 0.6 Surrounding Tissue Appearance: Ethnic/Norm Surrounding Tissue Temp: Warm Drainage Amount: Moderate and Large Drainage Description: Brown and Green Drainage Odor: No Odor Left Buttock: Bed Appearance: Beefy Red, [place], Yellow and Rolled Edges Percent of Wound Bed Granulated/Red: 50 Percent of Devitalized: 50 Length (cm): 6.0 Width (cm): 1.0 Depth (cm): 0.2 CM Sq: 6.000 Undermining Position: 9-11 Undermining Depth: 1.0 Surrounding Tissue Appearance: [place] and Hyperpigmented Surrounding Tissue Temp: Warm Drainage Amount: Large Drainage Description: Green Drainage Odor: No Odor Right Toe - 2nd Digit: Bed Appearance: [place] and Yellow Percent of Wound Bed Granulated/Red: 50 Percent of Devitalized: 50 Length (cm): 0.6 Width (cm): 0.8 Depth (cm): 0.2 CM Sq: 0.480 Surrounding Tissue Appearance: Callous Surrounding Tissue Temp: Warm Drainage Amount: Small Drainage Description: Serosanguineous Drainage Odor: No Odor Right Great Toe: Bed Appearance: Beefy Red, [place], Yellow and Hypergranulation Percent of Wound Bed Granulated/Red: 80 Percent of Devitalized: 20 Length (cm): 1.3 Width (cm): 1.5 Depth (cm): 0.2 CM Sq: 1.950 Surrounding Tissue Appearance: Callous Surrounding Tissue Temp: Warm Drainage Amount: Moderate Drainage Description: Serosanguineous Drainage Odor: No Odor Right Dorsal Foot: Bed Appearance: Dried Exudate Percent of Wound Bed Granulated/Red: 0 Percent of Devitalized: 100 Length (cm): 0.9 Width (cm): 0.7 Depth (cm): 0.1 CM Sq: 0.630 Surrounding Tissue Appearance: Ecchymotic Middle Buttock: Bed Appearance: Epithelial Tissue or Bridge, [place] and Yellow Percent of Wound Bed Granulated/Red: 90 Percent of Devitalized: 10 Length (cm): 3.9 Width (cm): 3.9 Depth (cm): 0.1 CM Sq: 15.210 Surrounding Tissue Appearance: Hyperpigmented Surrounding Tissue Temp: Warm Drainage Amount: Large Drainage Description: Green Drainage Odor: No Odor Results Height: 5 ft 11 in Weight: 63.503 kg Body Mass Index: 19.5 Assessment/Plan Assessment/Plan (1) 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: Code(s): L89.324 - Pressure ulcer of left buttock, stage 4 Status: Chronic (2) 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: Code(s): L89.314 - Pressure ulcer of right buttock, stage 4 Status: Acute (3) Paraplegia: Code(s): G82.20 - Paraplegia, unspecified Status: Chronic (4) Traumatic ulcer of foot with fat layer exposed: Qualifiers: Laterality: right Qualified Code(s): L97.512 - Non-pressure chronic ulcer of other part of right foot with fat layer exposed Code(s): L97.502 - Non-pressure chronic ulcer of other part of unspecified foot with fat layer exposed Status: Acute (5) Stage IV pressure ulcer of sacral region: Code(s): L89.154 - Pressure ulcer of sacral region, stage 4 Status: Chronic Plan We will start IV ceftazidime for 7 days. Patient will require PICC line. Continue current dressing changes for the ischial and sacral ulcers and the right foot/toe ulcers. Follow-up in about 2weeks. See Instructions for Orders See Instructions for Orders See Wound Discharge Instructions for Orders: Dictated By: Sam Smith MD DD/ 1200 Signed By: <Electronically signed by MD Sam Smith> 03/03/23 120[address] [facility] Work Phone: [phone]) 603-337009-12-2023 Progress note Author Sam Smith [facility] January 20, 2023 11:22am Note Date/Time January 20, 2023 11:22am [facility] [address] [place] [address] Wound Center Provider Note Signed Patient: Cleveland Swift MR#: [id number] : 1995 Acct:[id number] Age/Sex: 27 / M Copies to: Sam Smith MD NO FAMILY PHYSICIAN~ HPI Date of Visit Date of Visit: Date of Service: 01/20/2023 Time of Service: 11:16 Narrative HPI: Patient being followed for bilateral ischial ulcers. The small fluid collection at the midportion underlying a healed area is still present but not tense. No evidence of infection. Patient has no area of ulceration and the mid buttocks/sacral region. There is a small deeper area with some mucousy type drainage. Patient thinks the start of this new ulceration may have been related to pressure. The right foot and toe ulcers are improved. Patient denies other new medical problems. Patient himself states he has some other issues going on and is not pursuing further work-up of the right femur abnormality seen when he was in [place]. Patient is at home with home health. 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: Motorized Scooter Lives with:: Parent Appetite Description: Within Normal Limits Who helps w/ dressing change?: Home Health Why Do You Need Help?: Can't Reach Ulcer, Limited mobility and Taxing effort to leave home Smoking Status: Current every day smoker [facility] Medical History (Updated 12/23/22 @ 12:09 by Sam Smith MD) Decubitus ulcer of coccygeal region, stage 4 History of femur fracture RIGHT History of opioid abuse Hx of sepsis Paralysis, unspecified Paraplegia Presence of colostomy Presence of urostomy Surgical History History of back surgery History of urostomy Hx of colostomy Hx of tracheostomy Family History Grandparent Mesothelioma Social History Smoking Status: Current every day smoker Tobacco Type: e-cigarettes Substance Use Type: Marijuana Substance Abuse Comment: pt. states he smoked marijuana this morning. has hx of opioid abuse. Grafts History of Graft History of Graft?: No Exam Physical Exam Vital Signs: Temp Pulse Resp BP O2 Del Method 98.1 F 88 18 90/55 L Room Air 01/20/23 10:40 01/20/23 10:40 01/20/23 10:40 01/20/23 10:40 01/20/23 10:40 Const General: cooperative and no acute distress Skin Wounds: wounds noted Neuro General: patient alert and patient awake Lower/Upper Extremity Exam Vascular Exam-Pulses Right Radial: Pulse Assessment Method: NIBP Right Dorsalis Pedis: Pulse Assessment Method: Doppler Right Posterior Tibial: Pulse Assessment Method: Doppler Objective Meds/Allergies Home Medications baclofen 20 mg tablet 20 mg PO Q6H PRN muscle spasms 10/04/19 [History Confirmed 11/25/22] polyethylene glycol 3350 17 gram oral powder packet (Miralax) 17 g PO DAILY PRN Constipation 04/03/21 [History Confirmed 11/25/22] sennosides 8.6 mg tablet (Senokot) 8.6 mg PO BID PRN Constipation 04/03/21 [History Confirmed 11/25/22] alprazolam 1 mg tablet (Xanax) 1 mg PO TID PRN Anxiety 03/04/22 [History Confirmed 11/25/22] potassium chloride 20 mEq tablet,extended release 20 meq PO DAILY #10 tabs 03/04/22 [Rx Confirmed 11/25/22] gabapentin 600 mg tablet 600 mg PO TID 7 days #21 tabs 07/08/22 [Rx Confirmed 11/25/22] quetiapine 25 mg tablet (Seroquel) 25 mg PO QHS 10/28/22 [History Confirmed 11/25/22] Allergies Penicillins Allergy (Verified 10/28/22 11:14) Hives Sulfa (Sulfonamide Antibiotics) Allergy (Verified 10/28/22 11:14) Hives vancomycin Allergy (Verified 10/28/22 11:14) Redness of Skin tigecycline [From Tygacil] Adverse Reaction (Verified 10/28/22 11:14) Vomiting Wound/Ulcer Right Buttock: Bed Appearance: Beefy Red, [place] and Yellow Percent of Wound Bed Granulated/Red: 90 Percent of Devitalized: 10 Length (cm): 6.6 Width (cm): 6.5 Depth (cm): 0.2 CM Sq: 42.900 Undermining Position: 4-6 Undermining Depth: 1.0 Surrounding Tissue Appearance: Ethnic/Norm Surrounding Tissue Temp: Warm Drainage Amount: Moderate Drainage Description: Serosanguineous Drainage Odor: No Odor Left Buttock: Bed Appearance: Beefy Red, [place], Yellow and Rolled [place]ges Percent of Wound Bed Granulated/Red: 90 Percent of Devitalized: 10 Length (cm): 5.8 Width (cm): 0.7 Depth (cm): 0.2 CM Sq: 4.060 Undermining Position: 7-11 Undermining Depth: 1.0 Surrounding Tissue Appearance: [place] and Hyperpigmented Surrounding Tissue Temp: Warm Drainage Amount: Large Drainage Description: Yellow Drainage Odor: No Odor Right Toe - 2nd Digit: Bed Appearance: [place] and Yellow Percent of Wound Bed Granulated/Red: 50 Percent of Devitalized: 50 Length (cm): 0.8 Width (cm): 1.2 Depth (cm): 0.1 CM Sq: 0.960 Surrounding Tissue Appearance: Hyperpigmented Surrounding Tissue Temp: Warm Drainage Amount: Small Drainage Description: Serosanguineous Drainage Odor: No Odor Right Great Toe: Bed Appearance: [place], Yellow and Hypergranulation Percent of Wound Bed Granulated/Red: 80 Percent of Devitalized: 20 Length (cm): 1.5 Width (cm): 1.6 Depth (cm): 0.2 CM Sq: 2.400 Surrounding Tissue Appearance: Hyperpigmented Surrounding Tissue Temp: Warm Drainage Amount: Moderate Drainage Description: Serosanguineous Drainage Odor: No Odor Right Dorsal Foot: Bed Appearance: Dried Exudate Percent of Wound Bed Granulated/Red: 0 Percent of Devitalized: 100 Length (cm): 0.9 Width (cm): 0.7 Depth (cm): 0.1 CM Sq: 0.630 Surrounding Tissue Appearance: Ecchymotic Middle Buttock: Bed Appearance: Epithelial Tissue or Bridge, [place] and Yellow Percent of Wound Bed Granulated/Red: 90 Percent of Devitalized: 10 Length (cm): 6.0 Width (cm): 6.0 Depth (cm): 2.5 CM Sq: 36.000 Surrounding Tissue Appearance: Hyperpigmented Surrounding Tissue Temp: Warm Drainage Amount: Moderate Drainage Description: Serosanguineous Drainage Odor: No Odor Results Height: 5 ft 11 in Weight: 63.503 kg Body Mass Index: 19.5 Assessment/Plan Assessment/Plan (1) 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: Code(s): L89.324 - Pressure ulcer of left buttock, stage 4 Status: Chronic (2) 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: Code(s): L89.314 - Pressure ulcer of right buttock, stage 4 Status: Acute (3) Paraplegia: Code(s): G82.20 - Paraplegia, unspecified Status: Chronic (4) Traumatic ulcer of foot with fat layer exposed: Qualifiers: Laterality: right Qualified Code(s): L97.512 - Non-pressure chronic ulcer of other part of right foot with fat layer exposed Code(s): L97.502 - Non-pressure chronic ulcer of other part of unspecified foot with fat layer exposed Status: Acute (5) Stage IV pressure ulcer of sacral region: Code(s): L89.154 - Pressure ulcer of sacral region, stage 4 Status: Chronic Plan Continue current dressing changes for the ischial ulcers and the right foot/toe ulcers. We will initiate dressing changes for middle buttock/sacral ulcer. Follow-up in about 3-4 weeks. See Instructions for Orders See Instructions for Orders See Wound Discharge Instructions for Orders: Dictated By: Sam Smith MD DD/ 1116 Signed By: <Electronically signed by MD Sam Smith> 01/20/23 112[address] [facility] Work Phone: 1(241) 108-934308-15-2023 Progress note Author Sam Smith [facility] December 23, 2022 12:10pm Note Date/Time December 23, 2022 12 :10pm [facility] [address] [place] [address] Wound Center Provider Note Signed Patient: Cleveland Swift MR#: [id number] : 1995 Acct:[id number] Age/Sex: 27 / M Copies to: Sam Smith MD NO FAMILY PHYSICIAN~ HPI Date of Visit Date of Visit: Date of Service: 12/23/2022 Time of Service: 12:07 Narrative HPI: Patient being followed for bilateral ischial ulcers. The small fluid collection at the midportion underlying a healed area is still present but not tense. No evidence of infection. Patient did fall since his last visit landing on his buttocks as well as of the right foot. The ischial ulcers are not significantly worse. Patient did develop 3 new ulcers on the right foot and toes. Patient himself states he has some other issues going on and is not pursuing further work-up of the right femur abnormality seen when he was in [place]. Patient is at home with home health. 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: Motorized Scooter Lives with:: Parent Appetite Description: Within Normal Limits Who helps w/ dressing change?: Home Health Why Do You Need Help?: Can't Reach Ulcer, Limited mobility and Taxing effort to leave home Smoking Status: Current every day smoker [facility] Medical History (Updated 12/23/22 @ 12:09 by Sam Smith MD) Decubitus ulcer of coccygeal region, stage 4 History of femur fracture RIGHT History of opioid abuse Hx of sepsis Paralysis, unspecified Paraplegia Presence of colostomy Presence of urostomy Surgical History History of back surgery History of urostomy Hx of colostomy Hx of tracheostomy Family History Grandparent Mesothelioma Social History Smoking Status: Current every day smoker Tobacco Type: e-cigarettes Substance Use Type: Marijuana Substance Abuse Comment: pt. states he smoked marijuana this morning. has hx of opioid abuse. Grafts History of Graft History of Graft?: No Exam Physical Exam Vital Signs: Temp Pulse Resp BP O2 Del Method 97.7 F 90 18 103/68 Room Air 11/25/22 10:59 12/23/22 11:15 12/23/22 11:15 12/23/22 11:15 12/23/22 11:15 Const General: cooperative and no acute distress Skin Wounds: wounds noted Neuro General: patient alert and patient awake Lower/Upper Extremity Exam Vascular Exam-Pulses Right Radial: Pulse Assessment Method: NIBP Objective Meds/Allergies Home Medications baclofen 20 mg tablet 20 mg PO Q6H PRN muscle spasms 10/04/19 [History Confirmed 11/25/22] polyethylene glycol 3350 17 gram oral powder packet (Miralax) 17 g PO DAILY PRN Constipation 04/03/21 [History Confirmed 11/25/22] sennosides 8.6 mg tablet (Senokot) 8.6 mg PO BID PRN Constipation 04/03/21 [History Confirmed 11/25/22] alprazolam 1 mg tablet (Xanax) 1 mg PO TID PRN Anxiety 03/04/22 [History Confirmed 11/25/22] potassium chloride 20 mEq tablet,extended release 20 meq PO DAILY #10 tabs 03/04/22 [Rx Confirmed 11/25/22] gabapentin 600 mg tablet 600 mg PO TID 7 days #21 tabs 07/08/22 [Rx Confirmed 11/25/22] quetiapine 25 mg tablet (Seroquel) 25 mg PO QHS 10/28/22 [History Confirmed 11/25/22] Allergies Penicillins Allergy (Verified 10/28/22 11:14) Hives Sulfa (Sulfonamide Antibiotics) Allergy (Verified 10/28/22 11:14) Hives vancomycin Allergy (Verified 10/28/22 11:14) Redness of Skin tigecycline [From Tygacil] Adverse Reaction (Verified 10/28/22 11:14) Vomiting Wound/Ulcer Right Buttock: Bed Appearance: Beefy Red, [place] and Yellow Percent of Wound Bed Granulated/Red: 90 Percent of Devitalized: 10 Length (cm): 6.7 Width (cm): 4.7 Depth (cm): 0.1 CM Sq: 31.490 Surrounding Tissue Appearance: Ethnic/Norm Surrounding Tissue Temp: Warm Drainage Amount: Moderate Drainage Description: Serosanguineous Drainage Odor: No Odor Left Buttock: Bed Appearance: Beefy Red, [place] and Yellow Percent of Wound Bed Granulated/Red: 90 Percent of Devitalized: 10 Length (cm): 5 Width (cm): 2 Depth (cm): 0.7 CM Sq: 10.000 Surrounding Tissue Appearance: [place] and Hyperpigmented Surrounding Tissue Temp: Warm Drainage Amount: Large Drainage Description: Serosanguineous Drainage Odor: No Odor Right Toe - 2nd Digit: Bed Appearance: Dried Exudate Percent of Wound Bed Granulated/Red: 80 Percent of Devitalized: 20 Length (cm): 0.5 Width (cm): 1 Depth (cm): 0.2 CM Sq: 0.500 Surrounding Tissue Appearance: Macerated and Ecchymotic Right Great Toe: Bed Appearance: Dried Exudate, [place] and Yellow Percent of Wound Bed Granulated/Red: 80 Percent of Devitalized: 20 Length (cm): 1.5 Width (cm): 2 Depth (cm): 0.5 CM Sq: 3.000 Surrounding Tissue Appearance: Macerated and Ecchymotic Surrounding Tissue Temp: Warm Drainage Amount: Moderate Drainage Description: Serosanguineous Drainage Odor: No Odor Right Dorsal Foot: Bed Appearance: Dried Exudate Percent of Wound Bed Granulated/Red: 80 Percent of Devitalized: 20 Length (cm): 2 Width (cm): 0.9 Depth (cm): 0.1 CM Sq: 1.800 Surrounding Tissue Appearance: Ecchymotic Results Height: 5 ft 11 in Weight: 63.503 kg Body Mass Index: 19.5 Assessment/Plan Assessment/Plan (1) 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: Code(s): L89.324 - Pressure ulcer of left buttock, stage 4 Status: Chronic (2) 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: Code(s): L89.314 - Pressure ulcer of right buttock, stage 4 Status: Acute (3) Paraplegia: Code(s): G82.20 - Paraplegia, unspecified Status: Chronic (4) Traumatic ulcer of foot with fat layer exposed: Qualifiers: Laterality: right Qualified Code(s): L97.512 - Non-pressure chronic ulcer of other part of right foot with fat layer exposed Code(s): L97.502 - Non-pressure chronic ulcer of other part of unspecified foot with fat layer exposed Status: Acute Plan Continue current dressing changes for the ischial ulcers. We will initiate dressing changes for the foot ulcers. Follow-up in about 2-3 weeks. See Instructions for Orders See Instructions for Orders See Wound Discharge Instructions for Orders: Dictated By: Sam Smith MD DD/ 1207 Signed By: <Electronically signed by MD Sam Smith> 12/23/22 1210 [facility] Work Phone: [phone]) 281-280407-18-2023 Progress note Author Sam Smith [facility] November 25, 2022 11:14am Note Date/Time November 25, 2022 11:1 4am [facility] [address] [place] [address] Wound Center Provider Note Signed Patient: Cleveland Swift MR#: [id number] : 1995 Acct:[id number] Age/Sex: 27 / M Copies to: Sam Smith MD NO FAMILY PHYSICIAN~ HPI Date of Visit Date of Visit: Date of Service: 11/25/2022 Time of Service: 11:12 Narrative HPI: Patient being followed for bilateral total ischial ulcers. These continue to improve with increased epithelialization. The small fluid collection at the midportion underlying a healed area is still present but not tense. No evidence of infection. Patient sees his primary care physician again soon. Patient denies new medical problems. Patient himself states he has some other issues going on and is not pursuing further work-up of the right femur abnormality seen when he was in [place]. Patient is at home with home health. 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: Motorized Scooter Lives with:: Parent Appetite Description: Within Normal Limits Who helps w/ dressing change?: Home Health Why Do You Need Help?: Can't Reach Ulcer, Limited mobility and Taxing effort to leave home Smoking Status: Current every day smoker [facility] Medical History (Updated 07/08/22 @ 11:56 by Sam Smith MD) Decubitus ulcer of coccygeal region, stage 4 History of femur fracture RIGHT History of opioid abuse Hx of sepsis Paralysis, unspecified Paraplegia Presence of colostomy Presence of urostomy Surgical History History of back surgery History of urostomy Hx of colostomy Hx of tracheostomy Family History Grandparent Mesothelioma Social History Smoking Status: Current every day smoker Tobacco Type: e-cigarettes Substance Use Type: Marijuana Substance Abuse Comment: pt. states he smoked marijuana this morning. has hx of opioid abuse. Grafts History of Graft History of Graft?: No Exam Physical Exam Vital Signs: Temp Pulse Resp BP O2 Del Method 97.7 F 83 18 108/61 Room Air 11/25/22 10:59 11/25/22 10:59 11/25/22 10:59 11/25/22 10:59 11/25/22 10:59 Const General: cooperative and no acute distress Skin Wounds: wounds noted Neuro General: patient alert and patient awake Lower/Upper Extremity Exam Vascular Exam-Pulses Right Radial: Pulse Assessment Method: NIBP Objective Meds/Allergies Home Medications baclofen 20 mg tablet 20 mg PO Q6H PRN muscle spasms 10/04/19 [History Confirmed 11/25/22] polyethylene glycol 3350 17 gram oral powder packet (Miralax) 17 g PO DAILY PRN Constipation 04/03/21 [History Confirmed 11/25/22] sennosides 8.6 mg tablet (Senokot) 8.6 mg PO BID PRN Constipation 04/03/21 [History Confirmed 11/25/22] alprazolam 1 mg tablet (Xanax) 1 mg PO TID PRN Anxiety 03/04/22 [History Confirmed 11/25/22] potassium chloride 20 mEq tablet,extended release 20 meq PO DAILY #10 tabs 03/04/22 [Rx Confirmed 11/25/22] gabapentin 600 mg tablet 600 mg PO TID 7 days #21 tabs 07/08/22 [Rx Confirmed 11/25/22] quetiapine 25 mg tablet (Seroquel) 25 mg PO QHS 10/28/22 [History Confirmed 11/25/22] Allergies Penicillins Allergy (Verified 10/28/22 11:14) Hives Sulfa (Sulfonamide Antibiotics) Allergy (Verified 10/28/22 11:14) Hives vancomycin Allergy (Verified 10/28/22 11:14) Redness of Skin tigecycline [From Tygacil] Adverse Reaction (Verified 10/28/22 11:14) Vomiting Wound/Ulcer Sacrum: Bed Appearance: Beefy Red, Epithelial Tissue or Bridge, [place] and Yellow Percent of Wound Bed Granulated/Red: 80 Percent of Devitalized: 20 Length (cm): 7.6 Width (cm): 15.5 Depth (cm): 0.1 CM Sq: 117.800 Surrounding Tissue Appearance: Hyperpigmented Surrounding Tissue Temp: Warm Drainage Amount: Large Drainage Description: Yellow Drainage Odor: No Odor Right Buttock: Bed Appearance: Beefy Red, [place] and Yellow Percent of Wound Bed Granulated/Red: 50 Percent of Devitalized: 50 Length (cm): 6.3 Width (cm): 5.0 Depth (cm): 0.1 CM Sq: 31.500 Surrounding Tissue Appearance: Hyperpigmented Surrounding Tissue Temp: Warm Drainage Amount: Large Drainage Description: Serosanguineous Drainage Odor: No Odor Left Buttock: Bed Appearance: Beefy Red, [place] and Yellow Percent of Wound Bed Granulated/Red: 80 Percent of Devitalized: 20 Length (cm): 4.0 Width (cm): 1.5 Depth (cm): 0.2 CM Sq: 6.000 Surrounding Tissue Appearance: [place] and Hyperpigmented Surrounding Tissue Temp: Warm Drainage Amount: Large Drainage Description: Serosanguineous Drainage Odor: No Odor Results Height: 5 ft 11 in Weight: 63.503 kg Body Mass Index: 19.5 Assessment/Plan Assessment/Plan (1) 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 Follow-up in about 3-4 weeks. See Instructions for Orders See Instructions for Orders See Wound Discharge Instructions for Orders: Dictated By: Sam Smith MD DD/ 1112 Signed By: <Electronically signed by MD Sam Smith> 11/25/22 1114 [facility] Work Phone: 1(485) 353-750606-20-2023 Progress note Author Sam Smith [facility] October 28, 2022 11:53am Note Date/Time October 28, 2022 11:5 4am [facility] [address] [place] [address] Wound Center Provider Note Signed Patient: Cleveland Swift MR#: [id number] : 1995 Acct:[id number] Age/Sex: 26 / M Copies to: Sam Smith MD NO FAMILY PHYSICIAN~ HPI Date of Visit Date of Visit: Date of Service: 10/28/2022 Time of Service: 11:52 Narrative HPI: Patient being followed for sacral/ischial ulcers. These continue to improve with increased epithelialization. The ulcer now is 2 separate ulcers with a large area of epithelialization overlying the mid portion and sacral region. The small fluid collection at the midportion is decreased and the area is not tense. No evidence of infection. Patient sees his primary care physician again soon. Patient denies new medical problems. Patient himself states he has some other issues going on and is not pursuing further work-up of the right femur abnormality seen when he was in [place]. Patient is at home with home health. 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: Motorized Scooter Lives with:: Parent Appetite Description: Within Normal Limits Who helps w/ dressing change?: Home Health Why Do You Need Help?: Can't Reach Ulcer, Limited mobility and Taxing effort to leave home Smoking Status: Current every day smoker [facility] Medical History (Updated 07/08/22 @ 11:56 by Sam Smith MD) Decubitus ulcer of coccygeal region, stage 4 History of femur fracture RIGHT History of opioid abuse Hx of sepsis Paralysis, unspecified Paraplegia Presence of colostomy Presence of urostomy Surgical History History of back surgery History of urostomy Hx of colostomy Hx of tracheostomy Family History Grandparent Mesothelioma Social History Smoking Status: Current every day smoker Tobacco Type: e-cigarettes Substance Use Type: Marijuana Substance Abuse Comment: pt. states he smoked marijuana this morning. has hx of opioid abuse. Grafts History of Graft History of Graft?: No Exam Physical Exam Vital Signs: Temp Pulse Resp BP O2 Del Method 97.3 F L 90 18 117/75 Room Air 10/28/22 11:10 10/28/22 11:10 10/28/22 11:10 10/28/22 11:10 10/28/22 11:10 Const General: cooperative and no acute distress Skin Wounds: wounds noted Neuro General: patient alert and patient awake Lower/Upper Extremity Exam Vascular Exam-Pulses Right Radial: Pulse Assessment Method: NIBP Objective Meds/Allergies Home Medications baclofen 20 mg tablet 20 mg PO Q6H PRN muscle spasms 10/04/19 [History Confirmed 10/28/22] polyethylene glycol 3350 17 gram oral powder packet (Miralax) 17 g PO DAILY PRN Constipation 04/03/21 [History Confirmed 10/28/22] sennosides 8.6 mg tablet (Senokot) 8.6 mg PO BID PRN Constipation 04/03/21 [History Confirmed 10/28/22] alprazolam 1 mg tablet (Xanax) 1 mg PO TID PRN Anxiety 03/04/22 [History Confirmed 10/28/22] potassium chloride 20 mEq tablet,extended release 20 meq PO DAILY #10 tabs 03/04/22 [Rx Confirmed 10/28/22] gabapentin 600 mg tablet 600 mg PO TID 7 days #21 tabs 07/08/22 [Rx Confirmed 10/28/22] quetiapine 25 mg tablet (Seroquel) 25 mg PO QHS 10/28/22 [History Confirmed 10/28/22] Allergies Penicillins Allergy (Verified 10/28/22 11:14) Hives Sulfa (Sulfonamide Antibiotics) Allergy (Verified 10/28/22 11:14) Hives vancomycin Allergy (Verified 10/28/22 11:14) Redness of Skin tigecycline [From Tygacil] Adverse Reaction (Verified 10/28/22 11:14) Vomiting Wound/Ulcer Sacrum: Bed Appearance: Beefy Red, Epithelial Tissue or Bridge, [place] and Yellow Percent of Wound Bed Granulated/Red: 80 Percent of Devitalized: 20 Length (cm): 7.6 Width (cm): 15.5 Depth (cm): 0.1 CM Sq: 117.800 Surrounding Tissue Appearance: Hyperpigmented Surrounding Tissue Temp: Warm Drainage Amount: Large Drainage Description: Yellow Drainage Odor: No Odor Results Height: 5 ft 11 in Weight: 63.503 kg Body Mass Index: 19.5 Assessment/Plan Assessment/Plan (1) 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 Follow-up in about 3-4 weeks. See Instructions for Orders See Instructions for Orders See Wound Discharge Instructions for Orders: Dictated By: Sam Smith MD DD/ 51 Signed By: <Electronically signed by MD Sma Smith> 10/28/221152 [facility] Work Phone: 1([phone]) 149-845005-23-2023 Progress note Author Sam Smith [facility] September 30, 2022 12:20pm Note Date/Time September 30, 2022 12:20 pm [facility] [address] [place] [address] Wound Center Provider Note Signed Patient: Cleveland Swift MR#: [id number] : 1995 Acct:[id number] Age/Sex: 26 / M Copies to: Sam Smith MD NO FAMILY PHYSICIAN~ HPI Date of Visit Date of Visit: Date of Service: 09/30/2022 Time of Service: 12:17 Narrative HPI: Patient being followed for sacral/ischial ulcers. These continue to improve with increased epithelialization. This is the most that his ulcer has been covered with epithelial tissue. In the midportion of the epithelialized area, there is a soft fluid collection noted. Patient has mother states that this occasionally drains. I do not see any overlying erythema or induration. The area is not very tense. It measures about 1 cm round. Patient was able to establish with a primary care physician. Patient himself states he has some other issues going on and is not pursuing further work-up of the right femur abnormality seen when he was in [place]. Patient is at home with home health. 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 Assistive Device Used Today: Motorized Scooter Lives with:: Parent Appetite Description: Within Normal Limits Who helps w/ dressing change?: Home Health Why Do You Need Help?: Can't Reach Ulcer, Limited mobility and Taxing effort to leave home Smoking Status: Current every day smoker [facility] Medical History (Updated 07/08/22 @ 11:56 by Sam Smith MD) Decubitus ulcer of coccygeal region, stage 4 History of femur fracture RIGHT History of opioid abuse Hx of sepsis Paralysis, unspecified Paraplegia Presence of colostomy Presence of urostomy Surgical History History of back surgery History of urostomy Hx of colostomy Hx of tracheostomy Family History Grandparent Mesothelioma Social History Smoking Status: Current every day smoker Tobacco Type: e-cigarettes Substance Use Type: Marijuana Substance Abuse Comment: pt. states he smoked marijuana this morning. has hx of opioid abuse. Grafts History of Graft History of Graft?: No Exam Physical Exam Vital Signs: Temp Pulse Resp BP O2 Del Method 98.2 F 72 16 90/60 L Room Air 09/30/22 10:48 08/05/22 10:49 09/30/22 10:48 09/30/22 10:48 08/05/22 10:49 Const General: cooperative and no acute distress Skin Wounds: wounds noted Neuro General: patient alert and patient awake Lower/Upper Extremity Exam Vascular Exam-Pulses Right Radial: Pulse Assessment Method: NIBP Objective Meds/Allergies Home Medications baclofen 20 mg tablet 20 mg PO Q6H PRN muscle spasms 10/04/19 [History Confirmed 09/30/22] polyethylene glycol 3350 17 gram oral powder packet (Miralax) 17 g PO DAILY PRN Constipation 04/03/21 [History Confirmed 09/30/22] sennosides 8.6 mg tablet (Senokot) 8.6 mg PO BID PRN Constipation 04/03/21 [History Confirmed 09/30/22] oxycodone-acetaminophen 5 mg-325 mg tablet (Percocet) 1 tab PO TID PRN pain 3 days #9 tabs 01/21/22 [Rx Confirmed 09/30/22] alprazolam 1 mg tablet (Xanax) 1 mg PO TID PRN Anxiety 03/04/22 [History Confirmed 09/30/22] potassium chloride 20 mEq tablet,extended release 20 meq PO DAILY #10 tabs 03/04/22 [Rx Confirmed 09/30/22] gabapentin 600 mg tablet 600 mg PO TID 7 days #21 tabs 07/08/22 [Rx Confirmed 09/30/22] Allergies Penicillins Allergy (Verified 09/30/22 10:49) Hives Sulfa (Sulfonamide Antibiotics) Allergy (Verified 09/30/22 10:49) Hives vancomycin Allergy (Verified 09/30/22 10:49) Redness of Skin tigecycline [From Tygacil] Adverse Reaction (Verified 09/30/22 10:49) Vomiting Wound/Ulcer Sacrum: Bed Appearance: Beefy Red, Epithelial Tissue or Bridge, [place] and Yellow Percent of Wound Bed Granulated/Red: 80 Percent of Devitalized: 20 Length (cm): 10 Width (cm): 15.5 Depth (cm): 0.1 CM Sq: 155.000 Surrounding Tissue Appearance: Hyperpigmented Surrounding Tissue Temp: Warm Drainage Amount: Moderate Drainage Description: Serosanguineous Drainage Odor: No Odor Results Height: 5 ft 11 in Weight: 63.503 kg Body Mass Index: 19.5 Assessment/Plan Assessment/Plan (1) 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 If the fluid collection does enlarge, we can consider incision and drainage of it. Follow-up in about 3-4 weeks. See Instructions for Orders See Instructions for Orders See Wound Discharge Instructions for Orders: Dictated By: Sam Smith MD DD/ 1217 Signed By: <Electronically signed by MD Sam Smith> 09/30/22 1220 [facility] Work Phone: 1(775) 789-237803-28-2023 Progress note Author Sam Smith [facility] August 05, 2022 11:28am Note Date/Time August 05, 2022 11: 28am [facility] [address] [place] [address] Wound Center Provider Note Signed Patient: Cleveland Swift MR#: [id number] : 1995 Acct:[id number] Age/Sex: 26 / M Copies to: Sam Smith MD NO FAMILY PHYSICIAN~ HPI Date of Visit Date of Visit: Date of Service: 08/05/2022 Time of Service: 11:25 Narrative HPI: Patient being followed for sacral/ischial ulcers. These continue to improve with increased epithelialization. Patient has multiple smaller open areas but the entire wound is mostly epithelialized. Patient did find a primary care physician and is to have his first appointment with her next week. Patient denies new medical problems. Patient is at home with home health. 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 Assistive Device Used Today: Motorized Scooter Lives with:: Parent Appetite Description: Within Normal Limits Who helps w/ dressing change?: Home Health Why Do You Need Help?: Can't Reach Ulcer, Limited mobility and Taxing effort to leave home Smoking Status: Current every day smoker [facility] Medical History (Updated 07/08/22 @ 11:56 by Sam Smith MD) Decubitus ulcer of coccygeal region, stage 4 History of femur fracture RIGHT History of opioid abuse Hx of sepsis Paralysis, unspecified Paraplegia Presence of colostomy Presence of urostomy Surgical History History of back surgery History of urostomy Hx of colostomy Hx of tracheostomy Family History Grandparent Mesothelioma Social History Smoking Status: Current every day smoker Tobacco Type: e-cigarettes Substance Use Type: Marijuana Substance Abuse Comment: pt. states he smoked marijuana this morning. has hx of opioid abuse. Grafts History of Graft History of Graft?: No Exam Physical Exam Vital Signs: Temp Pulse Resp BP O2 Del Method 98.8 F 72 18 118/69 Room Air 08/05/22 10:49 08/05/22 10:49 08/05/22 10:49 08/05/22 10:49 08/05/22 10:49 Const General: cooperative and no acute distress Skin Wounds: wounds noted Neuro General: patient alert and patient awake Lower/Upper Extremity Exam Vascular Exam-Pulses Right Radial: Pulse Assessment Method: NIBP Objective Meds/Allergies Home Medications baclofen 20 mg tablet 20 mg PO Q6H PRN muscle spasms 10/04/19 [History Confirmed 08/05/22] polyethylene glycol 3350 17 gram oral powder packet (Miralax) 17 g PO DAILY PRN Constipation 04/03/21 [History Confirmed 08/05/22] sennosides 8.6 mg tablet (Senokot) 8.6 mg PO BID PRN Constipation 04/03/21 [History Confirmed 08/05/22] oxycodone-acetaminophen 5 mg-325 mg tablet (Percocet) 1 tab PO TID PRN pain 3 days #9 tabs 01/21/22 [Rx Confirmed 08/05/22] alprazolam 1 mg tablet (Xanax) 1 mg PO TID PRN Anxiety 03/04/22 [History Confirmed 08/05/22] potassium chloride 20 mEq tablet,extended release 20 meq PO DAILY #10 tabs 03/04/22 [Rx Confirmed 08/05/22] gabapentin 600 mg tablet 600 mg PO TID 7 days #21 tabs 07/08/22 [Rx Confirmed 08/05/22] Allergies Penicillins Allergy (Verified 04/29/22 11:14) Hives Sulfa (Sulfonamide Antibiotics) Allergy (Verified 04/29/22 11:14) Hives vancomycin Allergy (Verified 04/29/22 11:14) Redness of Skin tigecycline [From Tygacil] Adverse Reaction (Verified 04/29/22 11:14) Vomiting Wound/Ulcer Sacrum: Bed Appearance: Beefy Red, Epithelial Tissue or Bridge, [place] and Yellow Percent of Wound Bed Granulated/Red: 80 Percent of Devitalized: 20 Length (cm): 6.0 Width (cm): 17.5 Depth (cm): 0.1 CM Sq: 105.000 Surrounding Tissue Appearance: Hyperpigmented Surrounding Tissue Temp: Warm Drainage Amount: Large Drainage Description: Serosanguineous Drainage Odor: No Odor Results Height: 5 ft 11 in Weight: 63.503 kg Body Mass Index: 19.5 Assessment/Plan Assessment/Plan (1) 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 Patient is to initiate care with his primary care physician. The primary care physician then can refer the patient to oncology regarding the bony abnormality in the right femur. Follow-up in about 3-4 weeks. See Instructions for Orders See Instructions for Orders See Wound Discharge Instructions for Orders: Dictated By: Sam Smith MD DD/ 1125 Signed By: <Electronically signed by MD Sam Smith> 08/05/22 1128 [facility] Work Phone: 1(278) 104-491502-28-2023 Progress note Author Sam Smith [facility] July 08, 2022 1:13pm Note Date/Time July 08, 2022 1:13pm [facility] [address] [place] [address] Wound Center Provider Note Signed Patient: Cleveland Swift MR#: [id number] : 1995 Acct:[id number] Age/Sex: 26 / M Copies to: Sam Smith MD NO FAMILY PHYSICIAN~ HPI Date of Visit Date of Visit: Date of Service: 07/08/2022 Time of Service: 13:10 Narrative HPI: Patient has not seen oncology regarding the right femur because he states he needs to find a primary care provider first. He needs refills on his medications also. He did see a provider in the emergency room in [place], Dr. Mireles, who apparently stated that she could take him as a patient. The patient's mother does want to call Dr. Mireles and set up the appointment. . The patient's sacral/ischial ulcers continue to improve. Patient is at home with home health. 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: Motorized Scooter Lives with:: Parent Appetite Description: Within Normal Limits Who helps w/ dressing change?: Home Health Why Do You Need Help?: Can't Reach Ulcer, Limited mobility and Taxing effort to leave home Smoking Status: Current every day smoker [facility] Medical History (Updated 07/08/22 @ 11:56 by Sam Smith MD) Decubitus ulcer of coccygeal region, stage 4 History of femur fracture RIGHT History of opioid abuse Hx of sepsis Paralysis, unspecified Paraplegia Presence of colostomy Presence of urostomy Surgical History History of back surgery History of urostomy Hx of colostomy Hx of tracheostomy Family History Grandparent Mesothelioma Social History Smoking Status: Current every day smoker Tobacco Type: e-cigarettes Substance Use Type: Marijuana Substance Abuse Comment: pt. states he smoked marijuana this morning. has hx of opioid abuse. Grafts History of Graft History of Graft?: No Exam Physical Exam Vital Signs: Temp Pulse Resp BP O2 Del Method 98.1 F 89 18 120/72 Room Air 07/08/22 11:19 07/08/22 11:19 07/08/22 11:19 07/08/22 11:19 07/08/22 11:19 Const General: cooperative and no acute distress Skin Wounds: wounds noted Neuro General: patient alert and patient awake Lower/Upper Extremity Exam Vascular Exam-Pulses Right Radial: Pulse Assessment Method: NIBP Objective Meds/Allergies Home Medications baclofen 20 mg tablet 20 mg PO Q6H PRN muscle spasms 10/04/19 [History Confirmed 04/29/22] polyethylene glycol 3350 17 gram oral powder packet (Miralax) 17 g PO DAILY PRN Constipation 04/03/21 [History Confirmed 04/29/22] sennosides 8.6 mg tablet (Senokot) 8.6 mg PO BID PRN Constipation 04/03/21 [History Confirmed 04/29/22] oxycodone-acetaminophen 5 mg-325 mg tablet (Percocet) 1 tab PO TID PRN pain 3 days #9 tabs 01/21/22 [Rx Confirmed 04/29/22] alprazolam 1 mg tablet (Xanax) 1 mg PO TID PRN Anxiety 03/04/22 [History Confirmed 04/29/22] nitrofurantoin monohydrate/macrocrystals 100 mg capsule (Macrobid) 100 mg PO BID7 days #14 caps 10/25/22 [Rx Confirmed 04/29/22] potassium chloride 20 mEq tablet,extended release 20 meq PO DAILY #10 tabs 03/04/22 [Rx Confirmed 04/29/22] gabapentin 600 mg tablet 600 mg PO TID 7 days #21 tabs 07/08/22 [Rx] Allergies Penicillins Allergy (Verified 04/29/22 11:14) Hives Sulfa (Sulfonamide Antibiotics) Allergy (Verified 04/29/22 11:14) Hives vancomycin Allergy (Verified 04/29/22 11:14) Redness of Skin tigecycline [From Tygacil] Adverse Reaction (Verified 04/29/22 11:14) Vomiting Wound/Ulcer Sacrum: Bed Appearance: Beefy Red, Epithelial Tissue or Bridge, [place] and Yellow Percent of Wound Bed Granulated/Red: 50 Percent of Devitalized: 50 Length (cm): 6.0 Width (cm): 17.5 Depth (cm): 0.1 CM Sq: 105.000 Surrounding Tissue Appearance: Hyperpigmented Surrounding Tissue Temp: Warm Drainage Amount: Large Drainage Description: Serosanguineous Drainage Odor: No Odor Results Height: 5 ft 11 in Weight: 63.503 kg Body Mass Index: 19.5 Assessment/Plan Assessment/Plan (1) 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 Mother states she will call Dr. Mireles regarding an appointment. Referral to oncology can be made after the patient establishes a primary care physician. I will refill 1 weeks worth of the patient's gabapentin. Follow-up in about 3 weeks. See Instructions for Orders See Instructions for Orders See Wound Discharge Instructions for Orders: Dictated By: Sam Smith MD DD/ 1310 Signed By: <Electronically signed by MD Sam Smith> 07/08/22 1313 [facility] Work Phone: 1([phone]) 548-263401-31-2023 Progress note Author Sam Smith [facility] June 10, 2022 11:33am Note Date/Time June 10, 2022 1 1:34am [facility] [address] [place] [address] Wound Center Provider Note Signed Patient: Cleveland Swift MR#: [id number] : 1995 Acct:[id number] Age/Sex: 26 / M Copies to: Sam Smith MD NO FAMILY PHYSICIAN~ HPI Date of Visit Date of Visit: Date of Service: 06/10/2022 Time of Service: 11:31 Narrative HPI: Patient states that his left calcanectomy site is healed. He has already seen the foot surgeon in follow-up. Patient has not seen oncology yet regarding the right femur because of difficulty with getting a ride. . The patient's sacral/ischial ulcers continue to improve. Patient is at home with home health. 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: Motorized Scooter Lives with:: Parent Appetite Description: Within Normal Limits Who helps w/ dressing change?: Home Health Why Do You Need Help?: Can't Reach Ulcer, Limited mobility and Taxing effort to leave home Smoking Status: Current every day smoker [facility] Medical History Decubitus ulcer of coccygeal region, stage 4 History of femur fracture RIGHT History of opioid abuse Hx of sepsis Paralysis, unspecified Paraplegia Presence of colostomy Presence of urostomy Surgical History History of back surgery History of urostomy Hx of colostomy Hx of tracheostomy Family History Grandparent Mesothelioma Social History Smoking Status: Current every day smoker Tobacco Type: e-cigarettes Substance Use Type: Marijuana Substance Abuse Comment: pt. states he smoked marijuana this morning. has hx of opioid abuse. Grafts History of Graft History of Graft?: No Exam Physical Exam Vital Signs: Temp Pulse Resp BP O2 Del Method 98.6 F 76 18 90/64 L Room Air 06/10/22 11:04 06/10/22 11:04 06/10/22 11:04 06/10/22 11:04 06/10/22 11:04 Lower/Upper Extremity Exam Vascular Exam-Pulses Right Radial: Pulse Assessment Method: Palpation Objective Meds/Allergies Home Medications baclofen 20 mg tablet 20 mg PO Q6H PRN muscle spasms 10/04/19 [History Confirmed 04/29/22] gabapentin 600 mg tablet 600 mg PO TID 10/25/19 [History Confirmed 04/29/22] polyethylene glycol 3350 17 gram oral powder packet (Miralax) 17 g PO DAILY PRN Constipation 04/03/21 [History Confirmed 04/29/22] sennosides 8.6 mg tablet (Senokot) 8.6 mg PO BID PRN Constipation 04/03/21 [History Confirmed 04/29/22] oxycodone-acetaminophen 5 mg-325 mg tablet (Percocet) 1 tab PO TID PRN pain 3 days #9 tabs 01/21/22 [Rx Confirmed 04/29/22] alprazolam 1 mg tablet (Xanax) 1 mg PO TID PRN Anxiety 03/04/22 [History Confirmed 04/29/22] nitrofurantoin monohydrate/macrocrystals 100 mg capsule (Macrobid) 100 mg PO BID7 days #14 caps 03/04/22 [Rx Confirmed 04/29/22] potassium chloride 20 mEq tablet,extended release 20 meq PO DAILY #10 tabs 03/04/22 [Rx Confirmed 04/29/22] Allergies Penicillins Allergy (Verified 04/29/22 11:14) Hives Sulfa (Sulfonamide Antibiotics) Allergy (Verified 04/29/22 11:14) Hives vancomycin Allergy (Verified 04/29/22 11:14) Redness of Skin tigecycline [From Tygacil] Adverse Reaction (Verified 04/29/22 11:14) Vomiting Wound/Ulcer Sacrum: Bed Appearance: Beefy Red, Epithelial Tissue or Bridge, [place] and Yellow Percent of Wound Bed Granulated/Red: 50 Percent of Devitalized: 50 Length (cm): 6.5 Width (cm): 16.2 Depth (cm): 0.2 CM Sq: 105.300 Surrounding Tissue Appearance: Hyperpigmented Surrounding Tissue Temp: Warm Drainage Amount: Large Drainage Description: Serosanguineous Drainage Odor: No Odor Results Height: 5 ft 11 in Weight: 63.503 kg Body Mass Index: 19.5 Assessment/Plan Assessment/Plan (1) 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 Refer the patient to oncology regarding possible neoplasm in the area of healingfrom his right femur fracture. . Follow-up in about 3 weeks. See Instructions for Orders See Instructions for Orders See Wound Discharge Instructions for Orders: Dictated By: Sam Smith MD DD/ 30 Signed By: <Electronically signed by MD Sam Smith> 06/10/22 113 [facility] Work Phone: 1([phone]) 983-292912-20-2022 Progress note Author Sam Smith [facility] April 29, 2022 12:13pm Note Date/Time April 29, 2022 12:07pm [facility] [address] [place] [address] Wound Center Provider Note Signed Patient: Cleveland Swift MR#: [id number] : 1995 Acct:[id number] Age/Sex: 26 / M Copies to: Sam Smith MD NO FAMILY PHYSICIAN~ HPI Date of Visit Date of Visit: Date of Service: 04/29/2022 Time of Service: 12:03 Narrative HPI: Patient was recently in the hospital at [facility] for a neck abscess. This was treated and the patient was on antibiotics for about 4 weeks. Apparently, the abscess was causing the patient's neck and shoulder symptoms. Also while the patient was in the hospital, he did have a left calcanectomy performed. The right femur fracture did not require surgery but apparently on imaging, there was excessive bone growth and there was concern by a physician there that this may be abnormal and may be a neoplasm. Recommendation was for referral to oncology. The patient's sacral/ischial ulcers have actually improved. This may be secondary to the care while he was at the inpatient spinal cord unit or perhaps from the IV antibiotics used to treat his other infections. Following the patient's hospitalization in [place], attempt was made to place him at a skilled care facility. However, the patient states that because of history of drug abuse, he was rejected by about 30 of the facilities and the 2 that did accept him had bad reviews online that he did not want to go there and therefore went home with home health. 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: Motorized Scooter Lives with:: Parent Appetite Description: Within Normal Limits Who helps w/ dressing change?: Home Health Why Do You Need Help?: Can't Reach Ulcer, Limited mobility and Taxing effort to leave home Smoking Status: Current every day smoker [facility] Medical History Decubitus ulcer of coccygeal region, stage 4 History of femur fracture RIGHT History of opioid abuse Hx of sepsis Paralysis, unspecified Paraplegia Presence of colostomy Presence of urostomy Surgical History History of back surgery History of urostomy Hx of colostomy Hx of tracheostomy Family History Grandparent Mesothelioma Social History Smoking Status: Current every day smoker Tobacco Type: e-cigarettes Substance Use Type: Marijuana Substance Abuse Comment: pt. states he smoked marijuana this morning. has hx of opioid abuse. Grafts History of Graft History of Graft?: No Exam Physical Exam Vital Signs: Temp Pulse Resp BP O2 Del Method 97.7 F 72 18 110/64 Room Air 04/29/22 11:17 04/29/22 11:17 04/29/22 11:17 04/29/22 11:17 04/29/22 11:17 Lower/Upper Extremity Exam Vascular Exam-Pulses Right Radial: Pulse Assessment Method: Palpation Objective Meds/Allergies Home Medications baclofen 20 mg tablet 20 mg PO Q6H PRN muscle spasms 10/04/19 [History Confirmed 04/29/22] gabapentin 600 mg tablet 600 mg PO TID 10/25/19 [History Confirmed 04/29/22] polyethylene glycol 3350 17 gram oral powder packet (Miralax) 17 g PO DAILY PRN Constipation 04/03/21 [History Confirmed 04/29/22] sennosides 8.6 mg tablet (Senokot) 8.6 mg PO BID PRN Constipation 04/03/21 [History Confirmed 04/29/22] oxycodone-acetaminophen 5 mg-325 mg tablet (Percocet) 1 tab PO TID PRN pain 3 days #9 tabs 01/21/22 [Rx Confirmed 04/29/22] alprazolam 1 mg tablet (Xanax) 1 mg PO TID PRN Anxiety 03/04/22 [History Confirmed 04/29/22] nitrofurantoin monohydrate/macrocrystals 100 mg capsule (Macrobid) 100 mg PO BID7 days #14 caps 03/04/22 [Rx Confirmed 04/29/22] potassium chloride 20 mEq tablet,extended release 20 meq PO DAILY #10 tabs 03/04/22 [Rx Confirmed 04/29/22] Allergies Penicillins Allergy (Verified 04/29/22 11:14) Hives Sulfa (Sulfonamide Antibiotics) Allergy (Verified 04/29/22 11:14) Hives vancomycin Allergy (Verified 04/29/22 11:14) Redness of Skin tigecycline [From Tygacil] Adverse Reaction (Verified 04/29/22 11:14) Vomiting Wound/Ulcer Sacrum: Bed Appearance: Epithelial Tissue or Bridge Percent of Wound Bed Granulated/Red: 50 Percent of Devitalized: 50 Length (cm): 7.3 Width (cm): 16.5 Depth (cm): 0.5 CM Sq: 120.450 Surrounding Tissue Appearance: Hyperpigmented Surrounding Tissue Temp: Warm Drainage Amount: Large Drainage Description: Serosanguineous Drainage Odor: No Odor Results Height: 5 ft 11 in Weight: 63.503 kg Body Mass Index: 19.5 Assessment/Plan Assessment/Plan (1) 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 The patient's left foot wound is being followed by his surgeon in [place]. Refer the patient to oncology regarding possible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 free of falls during hospital stay Outcome: Progressing Goal: Free from injury during hospitalization Outcome: Progressing Problem: Acute Pain: Goal: Ability to identify pain intensity on a pain scale and rate it consistently will be achieved and maintained Outcome: Progressing Goal: Understanding of proper administration and use of medicines will be achieved Outcome: Progressing Goal: Acceptable level of pain which allows the patient to achieve functional outcome goals Outcome: Progressing Goal: Ability to identify factors that manage or decrease pain will be achieved Outcome: Progressing Problem: VTE Prophylaxis: Goal: Will be free of DVT Outcome: Progressing Problem: Discharge Planning: Goal: Discharge needs of the adult patient will be met Outcome: Progressing Problem: Infection: Goal: Will be free of signs and symptoms of infection Outcome: Progressing Problem: Impaired Skin Integrity: Goal: Acheive wound healing without signs and symptoms of infection Outcome: Progressing * ID Antibiotic Orders - Cal Garcia MD - 03/17/2022 2:08 PM EST Images from the original note were not included. ID Antibiotic Orders Created/updated on: 03/17/22 Antibiotic Indication: Osteomyelitis; Other Other Antibiotic Indication: Multifocal neck abscesses Pathogens: No microbiology available Patient Treatment Location: [facility] facility Antibiotic documentation does not pull from prior encounters. Have antibiotic order recommendationsbeen verified? YES Antibiotics: Flowsheet Row Medication Details Antimicrobial Routes Meropenem Route Infusion Vancomycin Route Infusion Parenteral (IV or IM) Antimicrobials Meropenem Dose 1 g Meropenem Frequency Every 8 hours Meropenem Start Date 03/11/22 Meropenem End Date 04/08/22 [Needs CT scan of neck prior to d/c] Vancomycin Dose 1 g Vancomycin Frequency Every 8 hours Vancomycin Start Date 03/11/22 Vancomycin End Date 04/08/22 [Needs CT of neck prior to d/c] PO Antimicrobials He will need CT of the neck with contrast prior to stopping antibiotics Lab Orders Frequency Lab Days Lab Test Comments Weekly Thursday or Thursday CBC with diff; Creatinine; CRP; Vancomycin trough Other Fax Labs To: [phone] Is the patient on Warfarin?: No (If patient is on Warfarin, then the anticoagulation clinic should be notified to adjust and monitor chronic anticoagulation dosing.) ID Physician : Dr. Cal Garcia Provider Contact Information: [phone] (phone) For a Change in Clinical Status, Critical/Abnormal Results, or Order Verification: For non-urgent issues during working hours, contact ID nurse/nurse practitioner at [phone] or fax to [phone]. For urgent issues during working hours, contact ID office at [phone] After working hours, contact [facility] ID physician regional otr company driver at [phone] Follow Up: Follow up with ID physician; Follow up with ID nurse practitioner ID Physician approximate follow up date: 03/20/22, ID Nurse Practitioner approximate follow up date: 03/24/22 ID Physician follow up mode: In-person, ID Nurse Practitioner follow up mode: In-person (At [facility] if he ends up going there) Form must be forwarded to c id home iv antibiotic therapy (OPAT) . Done: Yes Allergies Allergies Allergen Reactions Penicillins Swelling Facial swelling (see attending physician note from 03/13/2015) Sulfa Antibiotics IV ACCESS FLUSHING ORDERS: For PICC: When administering antimicrobials, flush with 5-10 milliliters 0.9% normal saline then infuse antimicrobial. After infusion, repeat flush with 5-10 milliliters 0.9% normal saline and finishwith 3-5 milliliters heparin 100 units/milliliter. Flush with 10 milliliters 0.9% normal saline weekly if not in use. For mediport: When administering antimicrobials, flush with 5-10 milliliters 0.9% normal saline then infuse antimicrobial. After infusion, repeat flush with 5-10 milliliters 0.9% normal saline and finish with 3-5 milliliters heparin 100 units/milliliter. Flush with 5 milliliters heparin 100 units/milliliter monthly if not accessed. For Harmon/Broviac: When administering antimicrobials, flush with 5-10 milliliters 0.9% normal saline then infuse antimicrobial. After infusion, repeat flush with 5-10 milliliters 0.9% normal salineand finish with 3-5 milliliters heparin 100 units/milliliter. Flush with 10 milliliters 0.9% normalsaline weekly if not in use. For peripheral IV: Flush with 2-3 milliliters 0.9% normal saline daily or with each dose of therapyand PRN. * Care Plan Note - Anton Franco RN - 03/17/2022 1:17 PM EST Problem: Routine Care: Goal: Patient care will be managed and maintained throughout hospital stay per unit specific routine care procedure Outcome: Progressing Problem: Safety: Goal: Patient will remain free of falls during hospital stay Outcome: Progressing Goal: Free from injury during hospitalization Outcome: Progressing Problem: Acute Pain: Goal: Ability to identify pain intensity on a pain scale and rate it consistently will be achieved and maintained Outcome: Progressing Goal: Understanding of proper administration and use of medicines will be achieved Outcome: Progressing Goal: Acceptable level of pain which allows the patient to achieve functional outcome goals Outcome: Progressing Goal: Ability to identify factors that manage or decrease pain will be achieved Outcome: Progressing Problem: VTE Prophylaxis: Goal: Will be free of DVT Outcome: Progressing Problem: Discharge Planning: Goal: Discharge needs of the adult patient will be met Outcome: Progressing Problem: Infection: Goal: Will be free of signs and symptoms of infection Outcome: Progressing Problem: Impaired Skin Integrity: Goal: Acheive wound healing without signs and symptoms of infection Outcome: Progressing * Care Plan Note - Yohannes Coto RN - 03/17/2022 12:08 AM EST Problem: Routine Care: Goal: Patient care will be managed and maintained throughout hospital stay per unit specific routine care procedure Outcome: Progressing Problem: Safety: Goal: Patient will remain free of falls during hospital stay Outcome: Progressing Goal: Free from injury during hospitalization Outcome: Progressing Problem: Acute Pain: Goal: Ability to identify pain intensity on a pain scale and rate it consistently will be achieved and maintained Outcome: Progressing Goal: Understanding of proper administration and use of medicines will be achieved Outcome: Progressing Goal: Acceptable level of pain which allows the patient to achieve functional outcome goals Outcome: Progressing Goal: Ability to identify factors that manage or decrease pain will be achieved Outcome: Progressing Problem: VTE Prophylaxis: Goal: Will be free of DVT Outcome: Progressing Problem: Discharge Planning: Goal: Discharge needs of the adult patient will be met Outcome: Progressing Problem: Infection: Goal: Will be free of signs and symptoms of infection Outcome: Progressing Problem: Impaired Skin Integrity: Goal: Acheive wound healing without signs and symptoms of infection Outcome: Progressing * Care Plan Note - Reena Guzman RN - 03/16/2022 6:20 PM EST Problem: Routine Care: Goal: Patient care will be managed and maintained throughout hospital stay per unit specific routine care procedure Outcome: Progressing Problem: Safety: Goal: Patient will remain free of falls during hospital stay Outcome: Progressing Goal: Free from injury during hospitalization Outcome: Progressing Problem: Acute Pain: Goal: Ability to identify pain intensity on a pain scale and rate it consistently will be achieved and maintained Outcome: Progressing Goal: Understanding of proper administration and use of medicines will be achieved Outcome: Progressing Goal: Acceptable level of pain which allows the patient to achieve functional outcome goals Outcome: Progressing Goal: Ability to identify factors that manage or decrease pain will be achieved Outcome: Progressing Problem: VTE Prophylaxis: Goal: Will be free of DVT Outcome: Progressing Problem: Discharge Planning: Goal: Discharge needs of the adult patient will be met Outcome: Progressing Problem: Infection: Goal: Will be free of signs and symptoms of infection Outcome: Progressing Problem: Impaired Skin Integrity: Goal: Acheive wound healing without signs and symptoms of infection Outcome: Progressing * Care Plan Note - Terrie Kennedy MD - 03/16/2022 4:08 PM EST ENT Care Plan Update: Patient has not received CT neck with contrast. However patient clinically is stably and subjectively slightly improved from yesterdays examination. No plan for OR today, will continue to re-evaluateclinically and wait for further imaging. Plan: - No OR today - Patient okay for diet - ENT will continue to follow * Care Plan Note - Yohannes Coto RN - 03/16/2022 1:04 AM EDT Problem: Routine Care: Goal: Patient care will be managed and maintained throughout hospital stay per unit specific routine care procedure Outcome: Progressing Problem: Safety: Goal: Patient will remain free of falls during hospital stay Outcome: Progressing Goal: Free from injury during hospitalization Outcome: Progressing Problem: Acute Pain: Goal: Ability to identify pain intensity on a pain scale and rate it consistently will be achieved and maintained Outcome: Progressing Goal: Understanding of proper administration and use of medicines will be achieved Outcome: Progressing Goal: Acceptable level of pain which allows the patient to achieve functional outcome goals Outcome: Progressing Goal: Ability to identify factors that manage or decrease pain will be achieved Outcome: Progressing Problem: VTE Prophylaxis: Goal: Will be free of DVT Outcome: Progressing Problem: Discharge Planning: Goal: Discharge needs of the adult patient will be met Outcome: Progressing Problem: Infection: Goal: Will be free of signs and symptoms of infection Outcome: Progressing Problem: Impaired Skin Integrity: Goal: Acheive wound healing without signs and symptoms of infection Outcome: Progressing * Care Plan Note - Anton Franco RN - 03/14/2022 11:15 AM EDT Problem: Routine Care: Goal: Patient care will be managed and maintained throughout hospital stay per unit specific routine care procedure Outcome: Progressing Problem: Safety: Goal: Patient will remain free of falls during hospital stay Outcome: Progressing Goal: Free from injury during hospitalization Outcome: Progressing Problem: Acute Pain: Goal: Ability to identify pain intensity on a pain scale and rate it consistently will be achieved and maintained Outcome: Progressing Goal: Understanding of proper administration and use of medicines will be achieved Outcome: Progressing Goal: Acceptable level of pain which allows the patient to achieve functional outcome goals Outcome: Progressing Goal: Ability to identify factors that manage or decrease pain will be achieved Outcome: Progressing Problem: VTE Prophylaxis: Goal: Will be free of DVT Outcome: Progressing Problem: Discharge Planning: Goal: Discharge needs of the adult patient will be met Outcome: Progressing Problem: Infection: Goal: Will be free of signs and symptoms of infection Outcome: Progressing Problem: Impaired Skin Integrity: Goal: Acheive wound healing without signs and symptoms of infection Outcome: Progressing * Care Plan Note - Sofi Copeland RN - 03/13/2022 11:52 AM EDT Problem: Routine Care: Goal: Patient care will be managed and maintained throughout hospital stay per unit specific routine care procedure 03/13/2022 1151 by Sofi Copeland, RN Outcome: Progressing Note: Call ramirez within reach. 03/13/2022 1144 by Sofi Copeland RN Outcome: Progressing Note: Call ramirez within reach. 03/13/2022 1142 by Sofi Copeland RN Outcome: Progressing Note: Call ramirez within reach. Problem: Safety: Goal: Patient will remain free of falls during hospital stay 03/13/2022 1151 by Sofi Copeland RN Outcome: Progressing 03/13/2022 1144 by Sofi Copeland RN Outcome: Progressing 03/13/2022 1142 by Sofi Copeland RN Outcome: Progressing Goal: Free from injury during hospitalization 03/13/2022 1151 by Sofi Copeland RN Outcome: Progressing 03/13/2022 1144 by Sofi Copeland RN Outcome: Progressing 03/13/2022 1142 by Sofi Copeland RN Outcome: Progressing Problem: Acute Pain: Goal: Ability to identify pain intensity on a pain scale and rate it consistently will be achieved and maintained 03/13/2022 1151 by Sofi Copeland RN Outcome: Progressing 03/13/2022 1144 by Sofi Copeland RN Outcome: Progressing 03/13/2022 1142 by Sofi Copeland RN Outcome: Progressing Goal: Understanding of proper administration and use of medicines will be achieved 03/13/2022 1151 by Sofi Copeland RN Outcome: Progressing 03/13/2022 1144 by Sofi Copeland RN Outcome: Progressing 03/13/2022 1142 by Sofi Copeland RN Outcome: Progressing Goal: Acceptable level of pain which allows the patient to achieve functional outcome goals 03/13/2022 1151 by Sofi Copeland RN Outcome: Progressing Note: PRN pain medications administered per order. 03/13/2022 1144 by Sofi Copeland RN Outcome: Progressing Note: PRN pain medications administered per order. 03/13/2022 1142 by Sofi Copeland RN Outcome: Progressing Note: PRN pain medications administered per order. Goal: Ability to identify factors that manage or decrease pain will be achieved 03/13/2022 1151 by Sofi Copeland RN Outcome: Progressing 03/13/2022 1144 by Sofi Copeland RN Outcome: Progressing 03/13/2022 1142 by Sofi Copeland RN Outcome: Progressing Problem: VTE Prophylaxis: Goal: Will be free of DVT 03/13/2022 1151 by Sofi Copeland RN Outcome: Progressing 03/13/2022 1144 by Sofi Copeland RN Outcome: Progressing 03/13/2022 1142 by Sofi Copeland RN Outcome: Progressing Problem: Discharge Planning: Goal: Discharge needs of the adult patient will be met 03/13/2022 1151 by Sofi Copeland RN Outcome: Progressing 03/13/2022 1144 by Sofi Copeland RN Outcome: Progressing 03/13/2022 1142 by Sofi Copeland RN Outcome: Progressing Problem: Infection: Goal: Will be free of signs and symptoms of infection Outcome: Progressing Note: IV antibiotics administered per order. Problem: Impaired Skin Integrity: Goal: Acheive wound healing without signs and symptoms of infection Outcome: Progressing Note: Dressings changed per order and wound recs * Post-Procedure Note - Bhavin Cardona MD - 03/13/2022 10:13 AM EDT POST- PROCEDURE NOTE Pre-procedure Diagnosis: left neck fluid collection Post-procedure Diagnosis: same Proceduralist: Dr. Alberto Rowland A TIME OUT was performed prior to the procedure using active communication to verify correct patient, procedure, and site: Yes Procedure Note: Unsuccessful aspiration of left neck fluid collection. Yueh catheter was positionedappropriately within left neck fluid collection under ultrasound without fluid yield on aspiration.Full report to follow in PACS/EPIC Imaging Complications: none Specimens: none Estimated Blood Loss: less than 5 cc Post Procedure Pain Ratin/10 Dr. Dominguez was present for the critical portion of the procedure Bhavin Cardona MD Radiology * Pre-Procedure Note - Bhavin Cardona MD - 03/13/2022 8:35 AM EDT PRE-PROCEDURE NOTE Procedure: US guided Left neck aspiration Indication: left neck fluid collection Site of Procedure: left Site Marked pre-procedure: Yes Pre-Procedure Pain Ratin/10 Bhavin Cardona MD Radiology * Care Plan Note - Sonya Chauhan RN - 03/13/2022 3:26 AM EDT Problem: Routine Care: Goal: Patient care will be managed and maintained throughout hospital stay per unit specific routine care procedure Outcome: Progressing Problem: Safety: Goal: Patient will remain free of falls during hospital stay Outcome: Progressing Goal: Free from injury during hospitalization Outcome: Progressing Problem: Acute Pain: Goal: Ability to identify pain intensity on a pain scale and rate it consistently will be achieved and maintained Outcome: Progressing Goal: Understanding of proper administration and use of medicines will be achieved Outcome: Progressing Goal: Acceptable level of pain which allows the patient to achieve functional outcome goals Outcome: Progressing Goal: Ability to identify factors that manage or decrease pain will be achieved Outcome: Progressing Problem: VTE Prophylaxis: Goal: Will be free of DVT Outcome: Progressing Problem: Discharge Planning: Goal: Discharge needs of the adult patient will be met Outcome: Progressing * Treatment Plan Note - Merna Carroll MD - 03/12/2022 12:05 PM EDT Contacted by medicine team who asked for comment on patient's OSH imaging findings. OSH reads are available and transcribed in medicine notes. The CT Soft Tissue Neck w/ contrast includes the phrase The abscess along the left pharyngeal space extending from the level of C3, inferiorly to the levelof T1, due to which the medicine team wanted a comment from the spine surgery team. We discussed at length that the patient has a complex soft tissue infection involving the neck and extending into the axilla, but the primary team was not aware of any involvement of the spinal structures themselves. An appropriate surgical team (ENT) has been consulted for management of the soft-tissue process. We agreed that there was not yet information that would necessitate a spine surgery evaluation, however are immediately available for consultation if new information becomes apparent or if requested by another surgical service. Merna Carroll MD MPH Neurosurgery PGY-3 Service Pager [phone] documented in this [id number] Consult note* Ana Meza COTA - 04/02/2022 10:31 AM EST OCCUPATIONAL THERAPY PROGRESS SUMMARY Patient seen from 10:31AM to 10:49AM on 4E unit for 18 minute treatment. SUBJECTIVE: I can move my left arm more! OBJECTIVE: Pain: (L) shoulder; unrated Appearance/Behavior: Upon arrival, pt was supine in bed. Pleasant and cooperative. RLE in KI, LLE in [place] splint. Cognition: A&O x3 UE Status: In supine, (B) shoulders 3/4 with increased effort. LUE x5 overhead reaches and x10 elbow curls, pronate/supinate x10 RUE x10 overhead reaches x10 elbow curls, pronate/supinate x10 Self Care: Assistance Level NA Dep Max Mod Min CG CS DS NC I Set-Up Cues Comment Feeding x Grooming/ Hygiene x x Seated EOB; assist for balance for (B) hand tasks Bathing: Upper Body x Anticipates Bathing: Lower Body x Dressing: Upper Body x x To bring gown around backside Dressing: Lower Body x Toileting x Toilet Transfers x Bed Transfer x Bed Mobility x x Supine to sit EOB with max assist. Sitting balance with close supervision ~8 minutes Patient was left supine in bed with call light in reach and bed alarm activated. Endurance for Self Care: Fair Patient/Family Education: Discussed father getting family training regarding charbel however pt reports father will not be able to drive here. Discussed having home therapist educate father. DME: Pt states he ordered hospital bed/charbel for discharge home. 6 Clicks Daily Activity OT 04/02/2022 Help from another person Eating meals 3 Help from another person taking care of personal grooming 3 Help from another person bathing 2 Help from another person putting on and taking off regular upper body clothing 3 Help from another person putting on and taking off regular lower body clothing 1 Help from another person toileting 1 OT 6 Clicks Score 13 6 Click Score Guidelines: 1 - Unable = Total/Dependent Assist 2 - A lot = Max/Moderate Assist 3 - A little = Minimum/Contact Guard Assist/Supervision 4 - Non = Modified Brooks/Independent ASSESSMENT: Patient continues to function below baseline level of Modified Independent in regards to functional mobility and ADLs. Recommend further therapy services in an appropriate rehab setting once medically cleared (PM&R was denied). However pt states he will be returning home with familyassist. If pt returns then pt will benefit from home therapies. Will continue to follow patient while in hospital as appropriate. Revised Goals revised today 03/19/2022 for 1-3x/wk as indicated below: ONGOING Patient will feed self with Modified Independent Patient will perform grooming with Distant Supervision Patient will dress upper body with distant supervision Patient will dress lower body with Moderate assistance Patient will perform bed mobility with Moderate assistance Patient will perform bathing with Moderate assistance Patient will perform bed transfers with Moderate assistance and transfer board Patient will increase ROM in LEFT UE for max level of ADL independently Patient will increase muscle grade in bilateral UE's for max level of ADL/home function. PLAN: Continue with Plan as per Initial Evaluation. JANIE Sharpe NA = Not Assessed, I = Independent, NC = Modified Independent, Sup = Supervised, Set up = Physical Assistance for Set-up Only, Min = Minimal Assistance, Mod = Moderate Assistance, Max = Max assistance; Dep = Dependent; AROM = Active Range of Motion;PROM=Passive Rangeof Motion; MMT = Manual Muscle Test; Shld= Shoulder; Add = Adduction; Abd = Abduction * Viviana Nina RD - 04/01/2022 9:06 AM EST Images from the original note were not included. 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) Substance abuse (HCC) Past Surgical History: Procedure Laterality Date EXCISION, BONE SPUR Left 03/21/2022 Procedure: Patial Calcanectomy, Calcaneus Bone Biopsy; Surgeon: Ky Spangler DPM; Location: PERIOPERATIVE SERVICES; Service: Podiatry FUSION, SPINAL, LUMBAR N/A 03/09/2015 Procedure: FUSION, SPINAL, LUMBAR Inpatient 5c; Surgeon: Glenn Ellis MD; Location: PERIOPERATIVE SERVICES; Service: Neurosurgery FUSION, SPINAL, POSTERIOR,THORACIC N/A 03/09/2015 Procedure: FUSION, SPINAL, POSTERIOR,THORACIC; Surgeon: Glenn Ellis MD; Location: PERIOPERATIVE SERVICES; Service: Neurosurgery INSERTION, CHEST TUBE 03/09/2015 Procedure: INSERTION, CHEST TUBE; Surgeon: Glenn Ellis MD; Location: PERIOPERATIVE SERVICES; Service: Neurosurgery PEG WITH TRACHEOSTOMY N/A 03/20/2015 Procedure: PEG WITH TRACHEOSTOMY Inpatient 5c; Surgeon: Cheryl Ware MD; Location: PERIOPERATIVE SERVICES; Service: General is allergic to penicillins and sulfa antibiotics. Labs: Basic Metabolic Panel Na K Cl CO2 Gap Glu BUN Cr Ca Mg PO4 03/30/22 0550 1.8 03/30/22 0550 139 3.7 106 23 14 90 16 <0.20 9.2 Component 03/12/2022 Ferritin 342.0 (H) Prealbumin 17.0 (L) CBC (last 3 years, up to 5 values) (Last 5 results in the past 3 years) WBC RBC Hgb Hct MCV RDW Plt 03/30/22 0550 7.0 3.77 10.6 32.3 86 21.8 334 03/29/22 0220 6.2 3.87 10.7 32.8 85 21.4 334 03/28/22 0131 7.2 3.96 10.7 33.3 84 22.2 356 03/27/22 0152 7.6 3.99 11.0 33.8 85 23.1 337 03/26/22 0138 8.4 4.08 11.2 34.6 85 23.7 358 LFT's (last 3 years, up to 5 values) None Lipids (last 3 years, up to 5 values) None Arterial Blood Gases None No results found for: HBA1C Accuchecks: Fingerstick Glucose (last 72 hours) None Vitamin B12 (pg/mL) Date Value 03/12/2022 182 (L) Folic Acid, Serum (ng/mL) Date Value 03/12/2022 5.0 (L) Iron (ug/dL) Date Value 03/12/2022 47 Component Ref Range & Units 3 yr ago Iron 41 - 186 ug/dL 42 TIBC 232 - 386 ug/dL 139 Low Transferrin Saturation 15 - 57 % 30 Component Ref Range & Units 4 yr ago Iron 45 - 160 ug/dL 40 Low Iron Saturation 20 - 55 % 23 TIBC 250 - 410 ug/mL 176 Low Transferrin 210 - 375 mg/dL 126 Low Component Ref Range & Units 4 yr ago Ferritin 11.5 - 300.0 ng/mL 180.3 Component 03/12/2022 Iron 47 %SAT 22 TIBC 214 (L) Transferrin, Serum 153 (L) Component 03/12/2022 Ferritin 342.0 (H) Vitamin D, 25-OH (ng/mL) Date Value 04/13/2015 22.0 03/18/2015 7.0 (L) No results found for: ZINC Vital sign ranges over the past 24 hours (retrieved 04/01/2022 at 9:12 AM): Tmax (24 hours): 98.2 F (36.8 C) Pulse Av Min: 88 Max: 102 Systolic (24hrs), Av , Min:100 , Max:119 Diastolic (24hrs), Av, Min:63, Max:68 MAP (mmHg) Av mmHg Min: 71 mmHg Max: 80 mmHg Resp Av Min: 18 Max: 18 SpO2 Av.3 % Min: 98 % Max: 99 % 03/31 - Urostomy with ~6L output. Colostomy output not being documented Nutritionally Significant Meds: baclofen, cerovite MVI tab, buprenorphine, colace, folic acid tab, gabapentin, meropenem, senna once daily,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 supplement. Pt currently on vitB12, folic [id number], vitC and zinc sulfate, recommend to continue. No recent vitD would recommend checking levels. See recs below. Plan/recommendations: 1. Continue regular diet 2. Continue Boost Plus TID 3. Continue folic acid, B12, zinc, and vitC. 4. Consider checking vitD levels Salvatore Aceves RD Personal Pager: [phone] * Sho Elliott, PT - 03/23/2022 1:37 PM EST PHYSICAL THERAPY PROGRESS SUMMARY Patient seen from 1337 to 1348 on GC 4E unit for 11 minute co-treatment with OT For professional assistance and safety to promote mobility. Procedure since seen by PT: 03/21/2022 by Ky Spangler, [place] [employer]: 1. Partial resection calcaneus, left. 2. Bone biopsy calcaneus, left 3. Complex wound closure Precautions: NWB in [place] brace left LE (Per Podiatry note 03/23/2022) NWB RLE, KI on, OK for knee ROM with PT SUBJECTIVE: Patient Subjective/Goals: Patient stated he did not want to get out of bed. Patient stated My family is visiting. OBJECTIVE: Appearance: Patient in bed with knee immobilizer right LE and [place] splint left LE. Patient's mother and 2 Aunts present in room during Therapy session. Behavior: Patient agreeable to working with Therapy for ROM activities only. Pain: Site/Location: Left shoulder and left UE; Pain Scale: 5-6/10 Pain Relief Interventions Implemented: Positioning Mobility Patient declined to attempt sitting at edge of bed or other functional activities with Therapy. Bilateral LEs PROM 10 reps PROM bilateral hip flexion with knees extended bilateral hip abduction/adduction Right ankle DF/PF LE PROM Hip flexion with knees extension: Left ~ 60* and right ~90* Hip abduction: Left ~15 and right ~30* Knee flexion Left minimal knee flexion and Right Not tested 2/2 KI Ankle DF: Left Not tested due to in [place] splint and right ~-308 with hard end feel Functional Endurance: Impaired Patient/Family Education: Instructed Patient in roles of therapy. Patient up in bed with call light in reach. Patient's family present in room at end of Therapy session. DME: With Patients permission ordered no equipment via [employer] Order. If any questions contact [facility] DME Provider at [phone]. 6 Clicks Basic Mobility PT 03/21/2022 Difficulty turning over in bed 2 Difficulty sitting down and standing up from a chair with arms 1 Difficulty moving from lying on back to sitting on the side of the bed 2 Help from another person moving to and from bed to a chair 1 Help from another person to walk in hospital room 1 Help from another person climbing 3-5 steps with a railing 1 PT 6 Clicks Score 8 6 Click Score Guidelines: 1 - Total = Requires total assistance, or cannot do at all. 2 - A lot = Requires a lot of help (maximun to moderate assistance) Can use assistive devices. 3 - A little = Requires a little help (supervision, minimal assistance) Can use assistive devices. 4 - None = Does not require any help and does the activity independently. Can use assistive devices. ASSESSMENT: Patient currently requires extensive assistance for all mobility and remains below his previous baseline level. Recommend further therapy services in an appropriate Inpatient Rehabilitation setting once medically cleared. Will continue to follow patient while in hospital as appropriate. Revised Goals: ONGOING Patient will achieve acceptable level of pain control to allow participation in therapy. Patient will increase bed mobility to contact guard assistance Patient will perform transfer bed to/from chair with transfer board with minimal assistance Patient will increase ROM/Strength/Endurance/Balance to allow for above goals. Patient/Family independent with exercise program/precautions. PLAN: Will follow established Plan of Care Sho Elliott, PT NA = Not Assessed, I = Independent, NC = Modified Independent, Sup = Supervised, Set up = Physical Assistance for Set-up Only, Min = Minimal Assistance, Mod = Moderate Assistance, Max = Maximal assistance; Dep = Dependent; AROM = Active Range of Motion; PROM = Passive Range of Motion; MMT = Manual Muscle Test * Derrick AnaJANIE - 03/23/2022 1:36 PM EST OCCUPATIONAL THERAPY PROGRESS SUMMARY Patient seen from 1:36PM to 1:48PM on 4E unit for 12 minute treatment. SUBJECTIVE: My family is visiting . OBJECTIVE: Pain: 5-6/10 (L) shoulder. Declined ice. Appearance/Behavior: Upon arrival, pt was supine in bed. RLE knee immobilizer, LLE [place] splint. Family members present. Cognition: A&O x3 UE Status: No improvements with BUE numbness. LUE shoulder flexion ~1/4 AROM with increased effort;AAROM WFL, distally WFL. RUE: Near full shoulder flexion, elbow flexion 3/4, elbow extension WFL, pronation WFL, 1/2 AROM supination, wrist/digits flex/ext WFL. In supine performed x10 overhead BUE AAROM reaches at bed level, x10 arm curls, grasp/release exercises. Self Care: Assistance Level NA Dep Max Mod Min CG CS DS NC I Set-Up Cues Comment Feeding x Eating food family brought in Grooming/ Hygiene x Pt declined self care tasks Bathing: Upper Body x Bathing: Lower Body x Dressing: Upper Body x Dressing: Lower Body x Toileting x Toilet Transfers x Bed Transfer x Bed Mobility x Pt declined despite education and encouragement Patient was left supine in bed with call light in reach and bed alarm activated. Endurance for Self Care: Fair Patient/Family Education: Encouraged pt on importance of mobility to prevent further deconditioning. 6 Clicks Daily Activity OT 03/23/2022 Help from another person Eating meals 3 Help from another person taking care of personal grooming 3 Help from another person bathing 2 Help from another person putting on and taking off regular upper body clothing 3 Help from another person putting on and taking off regular lower body clothing 1 Help from another person toileting 1 OT 6 Clicks Score 13 6 Click Score Guidelines: 1 - Unable = Total/Dependent Assist 2 - A lot = Max/Moderate Assist 3 - A little = Minimum/Contact Guard Assist/Supervision 4 - Non = Modified Brooks/Independent ASSESSMENT: Patient continues to function below baseline level of Modified Independent in regards to functional mobility and ADLs. Recommend further therapy services in an appropriate rehab setting once medically cleared (PM&R was denied). Will continue to follow patient while in hospital as appropriate. Revised Goals revised today 03/19/2022 for 1-3x/wk as indicated below: ONGOING Patient will feed self with Modified Independent Patient will perform grooming with Distant Supervision Patient will dress upper body with distant supervision Patient will dress lower body with Moderate assistance Patient will perform bed mobility with Moderate assistance Patient will perform bathing with Moderate assistance Patient will perform bed transfers with Moderate assistance and transfer board Patient will increase ROM in LEFT UE for max level of ADL independently Patient will increase muscle grade in bilateral UE's for max level of ADL/home function. PLAN: Continue with Plan as per Initial Evaluation. JANIE Sharpe NA = Not Assessed, I = Independent, NC = Modified Independent, Sup = Supervised, Set up = Physical Assistance for Set-up Only, Min = Minimal Assistance, Mod = Moderate Assistance, Max = Max assistance; Dep = Dependent; AROM = Active Range of Motion;PROM=Passive Rangeof Motion; MMT = Manual Muscle Test; Shld= Shoulder; Add = Adduction; Abd = Abduction * Cheryl Brennan, PT - 03/21/2022 1:41 PM EST PHYSICAL THERAPY PROGRESS SUMMARY Patient seen from 1220 to 1236 on 4E unit for 16 minute treatment. Dx: c/f neck abscesses. Precautions: NWB RLE, SERGEI on, OK for knee ROM with PT, Low fall risk, full code, IPMP SUBJECTIVE: Patient Subjective/Goals: I can't do it today, my arms hurt too bad. You can stretch me though. OBJECTIVE: Appearance: pt awake and in bed upon therapy arrival, pt's mother in room, pt provided consent for family to stay. R SERGEI, B Z Boots, IV running, aiken Behavior: Pleasant and cooperative. Pain: Site/Location: B UE with LUE > RUE; Pain Scale: 7-9/10 Pain Relief Interventions Implemented: Positioning Mobility - declined this date. Functional Endurance: Impaired. Therapeutic exercises: PROM to B shoulders - all planes, elbow F/E, wrist F/E all x 10 PROM to BLE: calf stretches (contracted Bilaterally) 2 min x 2 BLE, hip abduction x 10 Patient/Family Education: Instructed Patient in roles of therapy. Patient up in bed with call light in reach. DME: With Patients permission ordered no equipment via [employer] Order. If any questions contact [facility] DME Provider at [phone]. 6 Clicks Basic Mobility PT 03/21/2022 Difficulty turning over in bed 2 Difficulty sitting down and standing up from a chair with arms 1 Difficulty moving from lying on back to sitting on the side of the bed 2 Help from another person moving to and from bed to a chair 1 Help from another person to walk in hospital room 1 Help from another person climbing 3-5 steps with a railing 1 PT 6 Clicks Score 8 6 Click Score Guidelines: 1 - Total = Requires total assistance, or cannot do at all. 2 - A lot = Requires a lot of help (maximun to moderate assistance) Can use assistive devices. 3 - A little = Requires a little help (supervision, minimal assistance) Can use assistive devices. 4 - None = Does not require any help and does the activity independently. Can use assistive devices. ASSESSMENT: Pt is limited by UE weakness and is functioning below baseline. Feel he would benefit from cont PT in inpatient setting to maximize functional progress to reach baseline function of independence w/ transfers. PT recommended PM&R, however, per notes PM&R declined and rec'd SNF. Pt is discouraged and upset regarding recommendation for SNF vs PM&R. Education provided this date. Cont to follow Revised Goals: ONGOING Patient will achieve acceptable level of pain control to allow participation in therapy. Patient will increase bed mobility to contact guard assistance Patient will perform transfer bed to/from chair with transfer board with minimal assistance Patient will increase ROM/Strength/Endurance/Balance to allow for above goals. Patient/Family independent with exercise program/precautions. PLAN: Will follow established Plan of Care Cheryl Brennan PT NA = Not Assessed, I = Independent, NC = Modified Independent, Sup = Supervised, Set up = Physical Assistance for Set-up Only, Min = Minimal Assistance, Mod = Moderate Assistance, Max = Maximal assistance; Dep = Dependent; AROM = Active Range of Motion; PROM = Passive Range of Motion; MMT = Manual Muscle Test * Ana Meza COTA - 03/20/2022 10:55 AM EST OCCUPATIONAL THERAPY PROGRESS SUMMARY Patient seen from 10:55AM to 11:12AM on unit for 17 minute treatment. SUBJECTIVE: I think I need a little break . OBJECTIVE: Pain: 12/18 LUE; ice pack given Appearance/Behavior: Upon arrival, pt was supine in bed. Pleasant and cooperative. (B) Z flex boots, RLE in KI, ileostomy, urostomy. Cognition: A&O x3 UE Status: LUE: c/o numbness. Shoulder flexion ~1/4 AROM with increased effort/pain; PROM WFL, distally WFL. RUE: numbness in 4th/5th digit. Shoulder flexion WFL, elbow flexion 3/4, elbow extension WFL, wrist/digits flex/ext WFL. In supine performed x10 overhead BUE AAROM reaches at bed level, x10 arm curls, grasp/release exercises. Self Care: Assistance Level NA Dep Max Mod Min CG CS DS NC I Set-Up Cues Comment Feeding x Eating a popsicle Grooming/ Hygiene x Pt declined Bathing: Upper Body x Bathing: Lower Body x Dressing: Upper Body x Dressing: Lower Body x Toileting x Toilet Transfers x Bed Transfer x Bed Mobility x Supine to sit EOB with max assist. Sitting balance with CG for ~6 minutes Patient was left supine in bed with call light in reach and bed alarm activated. (B) Z flex boots on. Endurance for Self Care: Impaired Patient/Family Education: Encouraged pt to for UB HEP. 6 Clicks Daily Activity OT 03/20/2022 Help from another person Eating meals 3 Help from another person taking care of personal grooming 3 Help from another person bathing 2 Help from another person putting on and taking off regular upper body clothing 3 Help from another person putting on and taking off regular lower body clothing 1 Help from another person toileting 1 OT 6 Clicks Score 13 6 Click Score Guidelines: 1 - Unable = Total/Dependent Assist 2 - A lot = Max/Moderate Assist 3 - A little = Minimum/Contact Guard Assist/Supervision 4 - Non = Modified Brooks/Independent ASSESSMENT: Patient continues to function below baseline level of Modified Independent in regards to functional mobility and ADLs. Recommend further therapy services in an appropriate rehab setting once medically cleared (PM&R was denied). Will continue to follow patient while in hospital as appropriate. Revised Goals revised today 03/19/2022 for 1-3x/wk as indicated below: ONGOING Patient will feed self with Modified Independent Patient will perform grooming with Distant Supervision Patient will dress upper body with distant supervision Patient will dress lower body with Moderate assistance Patient will perform bed mobility with Moderate assistance Patient will perform bathing with Moderate assistance Patient will perform bed transfers with Moderate assistance and transfer board Patient will increase ROM in LEFT UE for max level of ADL independently Patient will increase muscle grade in bilateral UE's for max level of ADL/home function. PLAN: Continue with Plan as per Initial Evaluation. JANIE Sharpe NA = Not Assessed, I = Independent, NC = Modified Independent, Sup = Supervised, Set up = Physical Assistance for Set-up Only, Min = Minimal Assistance, Mod = Moderate Assistance, Max = Max assistance; Dep = Dependent; AROM = Active Range of Motion;PROM=Passive Rangeof Motion; MMT = Manual Muscle Test; Shld= Shoulder; Add = Adduction; Abd = Abduction * Dilia Roe - 03/19/2022 11:54 AM EST PHYSICAL THERAPY PROGRESS SUMMARY Patient seen on [id number] for 28 minutes. Time in/out: [id number] Partial Co-treat with LIMA for safety/progression of mobility SUBJECTIVE: Patient Subjective/Goals: Pt upset at onset d/t recently being told he was denied acute rehab and recommended SNF level. The places by me are awful, I don't want ot go to a fdc facility I am going to get worse Pain: Site/Location: denies pain at rest, reports UE pain/weakness w/ ROM therex Pain Relief Interventions Implemented: positioning, therex OBJECTIVE: Appearance: supine at onset, RN present at onset Behavior: Somnolent d/t recent news re: d/c planning. Overall pt pleasant and agreeable to PT Mobility NA Dep Max Mod Min CG CS DS NC I Comment Supine to sit x2 LE and upper body assist required ; pt attempts to use UE to assist EOB sitting x CS w/ anterior pelvic tilt x10 mins Transfers x2 Using sliding board therapist in front and behind pt to assist- mod cues for fwd lean and UE technique Therapeutic exercise: Performed to improve ROM, BLE strength, to overall improve muscle endurance, reduce pain, maintain joint integrity, reduce BLE swelling, and to aide in maximal mobility of pt. X10 BUE AAROM push/pull sitting in bedside chair Functional Endurance: limited Patient/Family Education: Instructed Patient in roles of therapy. Supportive listening offered re: d/c plan Education provided regarding benefits of rehab in SNF vs return to home Reviewed wt shifts when seated in chair and importance use of call light DME: With Patients permission ordered no equipment via [employer] Order. If any questions contact [facility] DME Provider at [phone]. 6 Clicks Basic Mobility PT 03/17/2022 Difficulty turning over in bed 2 Difficulty sitting down and standing up from a chair with arms 1 Difficulty moving from lying on back to sitting on the side of the bed 2 Help from another person moving to and from bed to a chair 1 Help from another person to walk in hospital room 1 Help from another person climbing 3-5 steps with a railing 1 PT 6 Clicks Score 8 6 Click Score Guidelines: 1 - Total = Requires total assistance, or cannot do at all. 2 - A lot = Requires a lot of help (maximun to moderate assistance) Can use assistive devices. 3 - A little = Requires a little help (supervision, minimal assistance) Can use assistive devices. 4 - None = Does not require any help and does the activity independently. Can use assistive devices. Pt remained in bedside recliner +air cushion at end of session with call light within reach. Informed to call nursing to return to bed pt verbalize understanding. ASSESSMENT: Pt is limited by UE weakness and is functioning below baseline. Feel he would benefit from cont PT in inpatient setting to maximize functional progress to reach baseline function of independence w/ transfers. PT recommended PM&R, however, per notes PM&R declined and rec'd SNF. Pt is discouraged and upset regarding recommendation for SNF vs PM&R. Education provided this date. Cont to follow Revised Goals: ongoing Patient will achieve acceptable level of pain control to allow participation in therapy. Patient will increase bed mobility to contact guard assistance Patient will perform transfer bed to/from chair with transfer board with minimal assistance Patient will increase ROM/Strength/Endurance/Balance to allow for above goals. Patient/Family independent with exercise program/precautions. PLAN: Continue with plan per Initial Evaluation Dilia Lyman PTA NA = Not Assessed, I = Independent, NC = Modified Independent, Sup = Supervised, Set up = Physical Assistance for Set-up Only, Min = Minimal Assistance, Mod = Moderate Assistance, Max = Maximal assistance; Dep = Dependent; AROM = Active Range of Motion; PROM = Passive Range of Motion; MMT = Manual Muscle Test * Ronit Sharpe, OT - 03/19/2022 10:29 AM EST OCCUPATIONAL THERAPY PROGRESS SUMMARY Patient seen from 10:29AM to 11:07AM on 4E unit for 38 minute treatment. (Partial cotx with PT for safety concerns) SUBJECTIVE: The nursing homes by my house are awful . Pt upset regarding denial for acute rehab. OBJECTIVE: Pain: (L) shoulder; unrated Appearance/Behavior: Upon arrival, pt was supine in bed. RN present. (B) Z flex boots, RLE in KI, ileostomy, urostomy. Pleasant and cooperative. Cognition: A&O x3 UE Status: Numbness in (B) hands. RUE grossly WFL. (L) Shoulder flexion ~1/4 AROM with increased effort/pain; self ranges with assist from RUE. Elbow flex/ext grossly WFL; Wrist/digits flex/ext WFL Self Care: Assistance Level NA Dep Max Mod Min CG CS DS NC I Set-Up Cues Comment Feeding x Grooming/ Hygiene x x Applied deodorant Bathing: Upper Body x x Washed BUEs seated Bathing: Lower Body x x Anticipates Dressing: Upper Body x x To doff/don gown Dressing: Lower Body x x To don socks Toileting x Toilet Transfers x Bed Transfer x2 x EOB to chair via slide board; cues for correct technique Bed Mobility x2 x Supine to sit EOB; cues for correct hand placement. Sitting balance with CG and bed rail use Patient was left seated in bedside chair with chair alarm activated and darien cushion on chair; RN notified of pts location. Call light in reach. Instructed pt to call nursing for assist back into bed; pt verbalized understanding. Endurance for Self Care: Impaired Patient/Family Education: Encouraged pt for OOBTC. 6 Clicks Daily Activity OT 03/19/2022 Help from another person Eating meals 3 Help from another person taking care of personal grooming 3 Help from another person bathing 2 Help from another person putting on and taking off regular upper body clothing 3 Help from another person putting on and taking off regular lower body clothing 1 Help from another person toileting 1 OT 6 Clicks Score 13 6 Click Score Guidelines: 1 - Unable = Total/Dependent Assist 2 - A lot = Max/Moderate Assist 3 - A little = Minimum/Contact Guard Assist/Supervision 4 - Non = Modified Brooks/Independent ASSESSMENT: Patient continues to function below baseline level of Modified Independent in regards to functional mobility and ADLs. Recommend further therapy services in an appropriate rehab setting once medically cleared (PM&R was denied). Will continue to follow patient while in hospital as appropriate. Goals (to be achieved by discharge from acute care): Pt is progressing towards goals unless indicated. Patient will feed self with Modified Independent Patient will perform grooming with Minimal assistance MET Patient will dress upper body with Minimal assistance MET Patient will dress lower body with Moderate assistance Patient will perform bed mobility with Moderate assistance Patient will perform bathing with Moderate assistance Patient will perform bed transfers with Moderate assistance and transfer board Patient will increase ROM in LEFT UE for max level of ADL independently Patient will increase muscle grade in bilateral UE's for max level of ADL/home function. Revised Goals: Goals revised today 03/19/2022 for 1-3x/wk as indicated below Patient will feed self with Modified Independent Patient will perform grooming with Distant Supervision Patient will dress upper body with distant supervision Patient will dress lower body with Moderate assistance Patient will perform bed mobility with Moderate assistance Patient will perform bathing with Moderate assistance Patient will perform bed transfers with Moderate assistance and transfer board Patient will increase ROM in LEFT UE for max level of ADL independently Patient will increase muscle grade in bilateral UE's for max level of ADL/home function. PLAN: Continue with Plan as per Initial Evaluation. Ana Derrick, LIMA Addendum: I agree with the above LIMA/L's treatment and documentation as indicated above. Addendum made to revise goals. DEANNA Bourne/Madelaine NA = Not Assessed, I = Independent, NC = Modified Independent, Sup = Supervised, Set up = Physical Assistance for Set-up Only, Min = Minimal Assistance, Mod = Moderate Assistance, Max = Max assistance; Dep = Dependent; AROM = Active Range of Motion;PROM=Passive Rangeof Motion; MMT = Manual Muscle Test; Shld= Shoulder; Add = Adduction; Abd = Abduction * Yady Park - 03/18/2022 12:08 PM ESTAssociated Order(s): IP PM&R CONSULT PM&R following. SCI team assessed patient this date 03/18, recommending SNF for wound healing. Patient current wound precludes him from AR level of care PM&R SCI Consult Note with Dr Tony Ivey recs to follow. ALFONZO Edgar PM&R Liaison [phone] * Viviana Nina RD - 03/18/2022 10:08 AM EST Images from the original note were not included. Initial Adult Inpatient Nutrition Assessment Reason for Visit: PNS - wound Dietitian vs DietaryTech: Dietitian and Director Compliance Nutrition Assessment: Admitting Diagnosis: multiple abscess Past Medical History: Diagnosis Date Anxiety Paraplegia following spinal cord injury (HCC) Past Surgical History: Procedure Laterality Date FUSION, SPINAL, LUMBAR N/A 03/09/2015 Procedure: FUSION, SPINAL, LUMBAR Inpatient 5c; Surgeon: Glenn Ellis MD; Location: PERIOPERATIVE SERVICES; Service: Neurosurgery FUSION, SPINAL, POSTERIOR,THORACIC N/A 03/09/2015 Procedure: FUSION, SPINAL, POSTERIOR,THORACIC; Surgeon: Glenn Ellis MD; Location: PERIOPERATIVE SERVICES; Service: Neurosurgery INSERTION, CHEST TUBE 03/09/2015 Procedure: INSERTION, CHEST TUBE; Surgeon: Glenn Ellis MD; Location: PERIOPERATIVE SERVICES; Service: Neurosurgery PEG WITH TRACHEOSTOMY N/A 03/20/2015 Procedure: PEG WITH TRACHEOSTOMY Inpatient 5c; Surgeon: Cheryl Ware MD; Location: PERIOPERATIVE SERVICES; Service: General is allergic to penicillins and sulfa antibiotics. Labs: Basic Metabolic Panel Na K Cl CO2 Gap Glu BUN Cr Ca Mg PO4 03/18/22202 1.7 03/18/22202 136 3.8 108 19 13 84 13 0.42 8.5 03/17/22128 1.9 03/17/22128 137 4.6 107 23 12 79 14 0.41 9.0 03/16/22101 2.1 03/16/22101 134 4.5 105 23 11 117 10 0.39 8.8 Component 03/12/2022 Ferritin 342.0 (H) Prealbumin 17.0 (L) CBC (last 3 years, up to 5 values) (Last 5 results in the past 3 years) WBC RBC Hgb Hct MCV RDW Plt 03/18/22202 11.5 3.98 10.5 32.9 83 20.5 426 03/17/22128 11.6 3.99 10.5 32.8 82 20.1 501 03/16/22 010 9.0 3.95 10.6 32.6 82 20.0 478 03/15/22 0333 7.1 4.03 10.5 32.2 80 19.3 532 03/14/22 0904 6.9 3.85 10.2 31.3 81 19.0 388 LFT's (last 3 years, up to 5 values) None Lipids (last 3 years, up to 5 values) None Arterial Blood Gases None No results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 lower leg. He is also concerned about possible fracture deformity of the leg. He also states he slept on his right shoulder and had developed numbness extending from the shoulder to the fingers and also decreased range of motion ofthe wrist and fingers on the right. He has been wearing a wrist splint. Patient states that today his right shoulder and arm symptoms are better. He has more range of motion at the wrist and fingers although he does not wear the splint he still has some wrist drop. Neurology appointment has not been made yet. The patient was in the emergency room recently and x-rays did reveal a right femur fracture. Orthopedics was consulted and the patient was sent home from the emergency room. Patient was to follow with an orthopedic surgeon to later but has not made a follow-up appointment. Patient has increasing pain in the right leg. Patient did have duplex scan which showed no DVT. He also did have PVRs done which showed apparently adequate flow to the leg/foot. Patient states he is eating better. He is trying to increase protein in his diet. He does not have a primary care provider currently. He is trying to find another primary care provider. 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 Device Used Today: Wheelchair Lives with:: Alone Appetite Description: Within Normal Limits Who helps w/ dressing change?: Home Health Why Do You Need Help?: Can't Reach Ulcer, Limited mobility and Taxing effort to leave home Smoking Status: Current every day smoker Constitutional Constitutional: Denies fever(s) Musculoskeletal Musculoskeletal: Reports other (Swelling of right leg) Integumentary/Breasts Skin/Breast: Reports wounds [facility] Medical History (Updated 02/18/22 @ 13:42 by Sam Smith MD) Decubitus ulcer of coccygeal region, stage 4 History of femur fracture RIGHT History of opioid abuse Hx of sepsis Paralysis, unspecified Paraplegia Presence of colostomy Presence of urostomy Surgical History History of back surgery History of urostomy Hx of colostomy Hx of tracheostomy Family History Grandparent Mesothelioma Social History Smoking Status: Current every day smoker Tobacco Type: e-cigarettes Substance Use Type: Marijuana Substance Abuse Comment: pt. states he smoked marijuana this morning. has hx of opioid abuse. Grafts History of Graft History of Graft?: No Exam Physical Exam Vital Signs: Temp Pulse Resp BP O2 Del Method 98.6 F 80 18 116/71 Room Air 02/18/22 11:18 02/18/22 11:18 02/18/22 11:18 02/18/22 11:18 02/18/22 11:18 Const General: cooperative and no acute distress Skin Wounds: wounds noted Neuro General: patient alert and patient awake Motor: other Extrem General: edema (Right leg) Lower/Upper Extremity Exam Vascular Exam-Pulses Left Radial: Pulse Assessment Method: Palpation Objective Meds/Allergies Home Medications baclofen 20 mg tablet 20 mg PO Q6H PRN muscle spasms 10/04/19 [History Confirmed 01/21/22] gabapentin 600 mg tablet 600 mg PO TID 10/25/19 [History Confirmed 01/21/22] polyethylene glycol 3350 17 gram oral powder packet (Miralax) 17 g PO DAILY PRN Constipation 04/03/21 [History Confirmed 01/21/22] sennosides 8.6 mg tablet (Senokot) 8.6 mg PO BID PRN Constipation 04/03/21 [History Confirmed 01/21/22] oxycodone-acetaminophen 5 mg-325 mg tablet (Percocet) 1 tab PO TID PRN pain 3 days #9 tabs 01/21/22 [Rx] Allergies Penicillins Allergy (Verified 02/18/22 12:36) Hives Sulfa (Sulfonamide Antibiotics) Allergy (Verified 02/18/22 12:36) Hives vancomycin Allergy (Verified 02/18/22 12:36) Redness of Skin tigecycline [From Tygacil] Adverse Reaction (Verified 02/18/22 12:36) Vomiting Wound/Ulcer Right Ischium: Bed Appearance: Beefy Red, Epithelial Tissue or Bridge, [place] and Yellow Percent of Wound Bed Granulated/Red: 50 Percent of Devitalized: 50 Length (cm): 9.0 Width (cm): 10.8 Depth (cm): 0.6 CM Sq: 97.200 Undermining Position: 5-6 Undermining Depth: 2.5 Surrounding Tissue Appearance: Hyperpigmented Surrounding Tissue Temp: Warm Drainage Amount: Large Drainage Description: Serosanguineous Drainage Odor: No Odor Lidocaine Applied Topically: 2% Jelly Left Ischium: Bed Appearance: Beefy Red, Epithelial Tissue or Bridge, Hardware and Rolled Edges Percent of Wound Bed Granulated/Red: 20 Percent of Devitalized: 80 Length (cm): 7.6 Width (cm): 5.5 Depth (cm): 0.5 CM Sq: 41.800 Undermining Position: 6-12 Undermining Depth: 0.8 Surrounding Tissue Appearance: Hyperpigmented Surrounding Tissue Temp: Warm Drainage Amount: Moderate Drainage Description: Serosanguineous and Yellow Drainage Odor: No Odor Lidocaine Applied Topically: 2% Jelly Left Heel: Bed Appearance: Beefy Red, [place] and Yellow Percent of Wound Bed Granulated/Red: 20 Percent of Devitalized: 80 Length (cm): 3.5 Width (cm): 3.4 Depth (cm): 0.2 CM Sq: 11.900 Tunneling Position: 03:00 Tunneling Depth: 2 Surrounding Tissue Appearance: Hyperpigmented Surrounding Tissue Temp: Warm Drainage Amount: Large Drainage Description: Yellow and Brown Drainage Odor: Slight Odor Lidocaine Applied Topically: 2% Jelly Left Hip: Bed Appearance: Beefy Red, [place] and Yellow Percent of Wound Bed Granulated/Red: 50 Percent of Devitalized: 50 Length (cm): 0 Width (cm): 0 Depth (cm): 0 CM Sq: 0.000 Undermining Depth: 1.5 Surrounding Tissue Appearance: Hyperpigmented Surrounding Tissue Temp: Warm Drainage Amount: None Drainage Description: Serosanguineous Drainage Odor: No Odor Right Posterior Ankle: Bed Appearance: Beefy Red and [place] Percent of Wound Bed Granulated/Red: 100 Percent of Devitalized: 0 Length (cm): 0 Width (cm): 0 Depth (cm): 0 CM Sq: 0.000 Surrounding Tissue Appearance: Hyperpigmented Surrounding Tissue Temp: Warm Drainage Amount: None Drainage Description: Serosanguineous Drainage Odor: No Odor Right Dorsal Foot: Bed Appearance: Beefy Red, Dried Exudate and [place] Percent of Wound Bed Granulated/Red: 50 Percent of Devitalized: 50 Length (cm): 2.0 Width (cm): 0.6 Depth (cm): 0.1 CM Sq: 1.200 Surrounding Tissue Appearance: Ethnic/Norm Surrounding Tissue Temp: Warm Drainage Amount: Moderate Drainage Description: Serosanguineous Right Toe - 2nd Digit: Bed Appearance: Dried Exudate, [place] and Yellow Percent of Wound Bed Granulated/Red: 10 Percent of Devitalized: 90 Length (cm): 0.5 Width (cm): 1.5 Depth (cm): 0.1 CM Sq: 0.750 Surrounding Tissue Appearance: Ethnic/Norm Surrounding Tissue Temp: Warm Drainage Amount: Scant Drainage Description: Serosanguineous Drainage Odor: No Odor Results Height: 5 ft 10 in Weight: 63.503 kg Body Mass Index: 20.0 Assessment/Plan Assessment/Plan (1) 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: Code(s): L89.314 - Pressure ulcer of right buttock, stage 4 Status: Chronic (2) Stage IV pressure ulcer of sacral region: Code(s): L89.154 - Pressure ulcer of sacral region, stage 4 Status: Chronic (3) 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: Code(s): L89.324 - Pressure ulcer of left buttock, stage 4 Status: Chronic (4) Paraplegia: Code(s): G82.20 - Paraplegia, unspecified Status: Chronic (5) Open wound of left hip: Code(s): S71.002A - Unspecified open wound, left hip, initial encounter Status: Acute (6) Open wound of left heel: Code(s): S91.302A - Unspecified open wound, left foot, initial encounter Status: Acute (7) Wrist drop, right wrist: Code(s): M21.331 - Wrist drop, right wrist Status: Acute (8) Right arm numbness: Code(s): R20.0 - Anesthesia of skin Status: Acute (9) Swelling of right lower extremity: Code(s): M79.89 - Other specified soft tissue disorders Status: Acute (10) Pressure ulcer of right foot, stage 2: Code(s): L89.892 - Pressure ulcer of other site, stage 2 Status: Acute (11) Right femoral fracture: Code(s): S72.91XA - Unspecified fracture of right femur, initial encounter for closed fracture Status: Acute Plan the patient will continue with his dressing changes for his sacral/ischial ulcers. Regarding the worsening pain of the right leg, patient is thinking about goingto the emergency room to have this re-evaluated. May be referral to tertiary care center orthopedics can be expedited from the emergency room. Patient is encouraged to see neurology regarding the right arm symptoms. However, at this point, the right leg fracture is his primary concern. Patient follow-up in the Wound Center in about 1 month. See Instructions for Orders See Instructions for Orders See Wound Discharge Instructions for Orders: Patient may require serial debridement to excise devitalized tissue and encourage granulation. Dictated By: Sam Smith MD DD/ [id number] Signed By: <Electronically signed by MD Sam Smith> 02/18/22 1343 [facility] Work Phone: 1(211) 860-731109-06-2022 Progress note Author Sam Smith [facility] January 14, 2022 12:01pm Note Date/Time January 14, 2022 12:01pm [facility] [address] [place] [address] Wound Center Provider Note Signed Patient: Cleveland Swift MR#: [id number] : 1995 Acct:[id number] Age/Sex: 26 / M Copies to: Sam Smith MD NO FAMILY PHYSICIAN~ HPI Date of Visit Date of Visit: Date of Service: 01/14/2022 Time of Service: 11:53 Narrative HPI: Patient is being followed for his sacral/ischial ulcers and foot ulcers. He does have home health. Sacral and ischial ulcers are improving. Patient has developed new foot and heel ulcers which he thinks is secondary to atemporary wheelchair he had while his power chair was being repaired. Patient also has developed swelling of the right lower leg. He is also concerned about possible fracture deformity of the leg. He also states he slept on his right shoulder and has developed numbness extending from the shoulder to the fingers and also decreased range of motion ofthe wrist and fingers on the right. He has been wearing a wrist splint. Patient states he is eating better. He is trying to increase protein in his diet. He does not have a primary care provider currently. He is trying to find another primary care provider. 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 [facility] Medical History Decubitus ulcer of coccygeal region, stage 4 History of opioid abuse Hx of sepsis Paralysis, unspecified Paraplegia Presence of colostomy Presence of urostomy Surgical History History of back surgery History of urostomy Hx of colostomy Hx of tracheostomy Family History Grandparent Mesothelioma Social History Smoking Status: Current every day smoker Tobacco Type: cigarettes Substance Use Type: Alcohol and Marijuana Substance Abuse Comment: pt. states he smoked marijuana this morning. has hx of opioid abuse. Grafts History of Graft History of Graft?: No Exam Physical Exam Vital Signs: Temp Pulse Resp BP O2 Del Method 97.3 F L 98 H 16 110/67 Room Air 01/14/22 11:08 01/14/22 11:08 01/14/22 11:08 01/14/22 11:08 01/14/22 11:08 Const General: cooperative and no acute distress Skin Wounds: wounds noted Neuro General: patient alert and patient awake Motor: other Other: Decreased flexion, extension of the right wrist with reduction in movement of right fingers. Patient wearing a wrist splint currently. Also with some numbness extending from the shoulder to the fingers. Extrem General: edema (Right leg) Lower/Upper Extremity Exam Vascular Exam-Pulses Left Radial: Pulse Assessment Method: Palpation Objective Meds/Allergies Home Medications baclofen 20 mg tablet 20 mg PO Q6H PRN muscle spasms 10/04/19 [History Confirmed 09/17/21] gabapentin 600 mg tablet 600 mg PO TID 10/25/19 [History Confirmed 09/17/21] polyethylene glycol 3350 17 gram oral powder packet (Miralax) 17 g PO DAILY PRN Constipation 04/03/21 [History Confirmed 09/17/21] sennosides 8.6 mg tablet (Senokot) 8.6 mg PO BID PRN Constipation 04/03/21 [History Confirmed 09/17/21] Allergies Penicillins Allergy (Verified 09/17/21 10:25) Hives Sulfa (Sulfonamide Antibiotics) Allergy (Verified 09/17/21 10:25) Hives vancomycin Allergy (Verified 09/17/21 10:25) Redness of Skin tigecycline [From Tygacil] Adverse Reaction (Verified 09/17/21 10:25) Vomiting Wound/Ulcer Right Hip: Bed Appearance: Beefy Red, [place] and Yellow Percent of Wound Bed Granulated/Red: 50 Percent of Devitalized: 50 Length (cm): 0 Width (cm): 0 Depth (cm): 0 CM Sq: 0.000 Surrounding Tissue Appearance: Hyperpigmented Surrounding Tissue Temp: Warm Drainage Amount: None Drainage Description: Serosanguineous Drainage Odor: No Odor Lidocaine Applied Topically: 2% Jelly Right Ischium: Bed Appearance: Beefy Red, [place] and Yellow Percent of Wound Bed Granulated/Red: 50 Percent of Devitalized: 50 Length (cm): 10 Width (cm): 9.8 Depth (cm): 0.3 CM Sq: 98.000 Undermining Position: 5-6 Undermining Depth: 2.5 Surrounding Tissue Appearance: Hyperpigmented Surrounding Tissue Temp: Warm Drainage Amount: Large Drainage Description: Serosanguineous and Yellow Drainage Odor: No Odor Lidocaine Applied Topically: 2% Jelly Left Ischium: Bed Appearance: Beefy Red and Hardware Percent of Wound Bed Granulated/Red: 20 Percent of Devitalized: 80 Length (cm): 8 Width (cm): 3.2 Depth (cm): 0.5 CM Sq: 25.600 Undermining Position: 9-11 Undermining Depth: 1.5 Surrounding Tissue Appearance: Hyperpigmented Surrounding Tissue Temp: Warm Drainage Amount: Large Drainage Description: Serosanguineous and Yellow Drainage Odor: No Odor Lidocaine Applied Topically: 2% Jelly Left Heel: Bed Appearance: Beefy Red, Black Dry and Yellow Percent of Wound Bed Granulated/Red: 20 Percent of Devitalized: 80 Length (cm): 1 Width (cm): 1 Depth (cm): 1.3 CM Sq: 1.000 Tunneling Position: 03:00 Tunneling Depth: 2 Surrounding Tissue Appearance: Ethnic/Norm Surrounding Tissue Temp: Warm Drainage Amount: Large Drainage Description: Purulent Drainage Odor: Slight Odor Left Hip: Bed Appearance: Beefy Red, [place] and Yellow Percent of Wound Bed Granulated/Red: 50 Percent of Devitalized: 50 Length (cm): 2.5 Width (cm): 3.0 Depth (cm): 0.1 CM Sq: 7.500 Undermining Depth: 1.5 Surrounding Tissue Appearance: Ethnic/Norm Surrounding Tissue Temp: Warm Drainage Amount: Small Drainage Description: Serosanguineous Drainage Odor: No Odor Right Posterior Ankle: Bed Appearance: Beefy Red and [place] Percent of Wound Bed Granulated/Red: 100 Percent of Devitalized: 0 Length (cm): 1 Width (cm): 1 Depth (cm): 0.1 CM Sq: 1.000 Surrounding Tissue Appearance: Ethnic/Norm Surrounding Tissue Temp: Warm Drainage Amount: Small Drainage Description: Serosanguineous Drainage Odor: No Odor Right Dorsal Foot: Bed Appearance: Beefy Red, [place] and Yellow Percent of Wound Bed Granulated/Red: 75 Percent of Devitalized: 25 Length (cm): 3 Width (cm): 1 Depth (cm): 0.1 CM Sq: 3.000 Surrounding Tissue Appearance: Ethnic/Norm Surrounding Tissue Temp: Warm Drainage Amount: Moderate Drainage Description: Serosanguineous Right Toe - 2nd Digit: Bed Appearance: Beefy Red, [place] and Yellow Percent of Wound Bed Granulated/Red: 90 Percent of Devitalized: 10 Length (cm): 1 Width (cm): 2 Depth (cm): 0.1 CM Sq: 2.000 Surrounding Tissue Appearance: Ethnic/Norm Surrounding Tissue Temp: Warm Drainage Amount: Small Drainage Description: Serosanguineous Drainage Odor: No Odor Results Height: 5 ft 10 in Weight: 63.503 kg Body Mass Index: 20.0 Assessment/Plan Assessment/Plan (1) 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: Code(s): L89.314 - Pressure ulcer of right buttock, stage 4 Status: Chronic (2) Stage IV pressure ulcer of sacral region: Code(s): L89.154 - Pressure ulcer of sacral region, stage 4 Status: Chronic (3) 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: Code(s): L89.324 - Pressure ulcer of left buttock, stage 4 Status: Chronic (4) Paraplegia: Code(s): G82.20 - Paraplegia, unspecified Status: Chronic (5) Open wound of left hip: Code(s): S71.002A - Unspecified open wound, left hip, initial encounter Status: Acute (6) Open wound of left heel: Code(s): S91.302A - Unspecified open wound, left foot, initial encounter Status: Acute (7) Wrist drop, right wrist: Code(s): M21.331 - Wrist drop, right wrist Status: Acute (8) Right arm numbness: Code(s): R20.0 - Anesthesia of skin Status: Acute (9) Swelling of right lower extremity: Code(s): M79.89 - Other specified soft tissue disorders Status: Acute (10) Pressure ulcer of right foot, stage 2: Code(s): L89.892 - Pressure ulcer of other site, stage 2 Status: Acute Plan With the right leg swelling, will obtain x-rays of the leg as well as a venous duplex scan. We will also refer the patient to neurology regarding the right shoulder and wrist and finger deficits. Continue current dressing changes for the ischial and sacral ulcers. We will use collagen and alginate dressings for the foot and toe ulcers. Patient will follow-up following the studies. See Instructions for Orders See Instructions for Orders See Wound Discharge Instructions for Orders: Patient may require serial debridement to excise devitalized tissue and encourage granulation. Dictated By: Sam Smith MD DD/ 1153 Signed By: <Electronically signed by MD Sam Smith> 01/14/22 [address] [facility] Work Phone: [phone] Progress note Author Sam Smith [facility] October 22, 2021 11:40am Note Date/Time October 22, 2021 11:4 0am [facility] [address] [place] [address] Wound Center Provider Note Signed Patient: Cleveland Swift MR#: [id number] : 1995 Acct:[id number] Age/Sex: 25 / M Copies to: Sam Smith MD NO FAMILY PHYSICIAN~ HPI Date of Visit Date of Visit: Date of Service: 10/22/2021 Time of Service: 11:35 Narrative HPI: Patient is being followed for his sacral/ischial ulcers and foot ulcers. He does have home health. The lump in the right upper thigh has resolved. Sacral/ischial ulcers are improving. Patient did have some problems with his power chair and is using a temporary manual chair. Because of this, he did develop ulcerations in the left hip and the left heel. Patient states he is eating better. He is trying to increase protein in his diet. He denies other new medical problems. He is currently trying to find a another primary care provider. 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 Assistive Device Used Today: Wheelchair Lives with:: Alone Appetite Description: Within Normal Limits Who helps w/ dressing change?: Home Health Why Do You Need Help?: Can't Reach Ulcer, Limited mobility and Taxing effort to leave home Smoking Status: Current every day smoker Constitutional Constitutional: Denies fever(s) Integumentary/Breasts Skin/Breast: Reports wounds PMFSH Medical History Decubitus ulcer of coccygeal region, stage 4 History of opioid abuse Hx of sepsis Paralysis, unspecified Paraplegia Presence of colostomy Presence of urostomy Surgical History History of back surgery History of urostomy Hx of colostomy Hx of tracheostomy Family History Grandparent Mesothelioma Social History Smoking Status: Current every day smoker Tobacco Type: cigarettes Substance Use Type: Alcohol and Marijuana Substance Abuse Comment: pt. states he smoked marijuana this morning. has hx of opioid abuse. Grafts History of Graft History of Graft?: No Exam Physical Exam Vital Signs: Temp Pulse Resp BP 97.2 F L 96 H 18 102/60 10/22/21 10:31 10/22/21 10:31 10/22/21 10:31 10/22/21 10:31 Const General: cooperative and no acute distress Skin Wounds: wounds noted Neuro General: patient alert and patient awake Lower/Upper Extremity Exam Vascular Exam-Pulses Left Radial: Pulse Assessment Method: Palpation Objective Meds/Allergies Home Medications baclofen 20 mg tablet 20 mg PO Q6H PRN 10/04/19 [History Confirmed 09/17/21] gabapentin 600 mg tablet 600 mg PO TID 10/25/19 [History Confirmed 09/17/21] polyethylene glycol 3350 17 gram oral powder packet (Miralax) 17 g PO DAILY PRN 04/03/21 [History Confirmed 09/17/21] sennosides 8.6 mg tablet (Senokot) 8.6 mg PO BID PRN 04/03/21 [History Confirmed 09/17/21] Allergies Penicillins Allergy (Verified 09/17/21 10:25) Hives Sulfa (Sulfonamide Antibiotics) Allergy (Verified 09/17/21 10:25) Hives vancomycin Allergy (Verified 09/17/21 10:25) Redness of Skin tigecycline [From Tygacil] Adverse Reaction (Verified 09/17/21 10:25) Vomiting Wound/Ulcer Right Ischium: Bed Appearance: Beefy Red, Bone Palpable, [place] and Yellow Percent of Wound Bed Granulated/Red: 50 Percent of Devitalized: 50 Length (cm): 10 Width (cm): 5.5 Depth (cm): 0.5 CM Sq: 55.000 Undermining Position: 2-4 o'clock Undermining Depth: 0.5 Surrounding Tissue Appearance: Hyperpigmented and Rolled Edges Surrounding Tissue Temp: Warm Drainage Amount: Large Drainage Description: Serosanguineous and Yellow Drainage Odor: Slight Odor Lidocaine Applied Topically: 2% Jelly Left Ischium: Bed Appearance: Beefy Red, Epithelial Tissue or Bridge, [place] and Yellow Percent of Wound Bed Granulated/Red: 50 Percent of Devitalized: 50 Length (cm): 7 Width (cm): 10 Depth (cm): 1.0 CM Sq: 70.000 Undermining Position: 9-11 Undermining Depth: 1.5 Surrounding Tissue Appearance: Hyperpigmented and Rolled Edges Surrounding Tissue Temp: Warm Drainage Amount: Large Drainage Description: Serosanguineous and Yellow Drainage Odor: Slight Odor Lidocaine Applied Topically: 2% Jelly Left Heel: Bed Appearance: Beefy Red, [place] and Yellow Percent of Wound Bed Granulated/Red: 99 Percent of Devitalized: 1 Length (cm): 2.5 Width (cm): 3.0 Depth (cm): 0.2 CM Sq: 7.500 Surrounding Tissue Appearance: Macerated Surrounding Tissue Temp: Warm Drainage Amount: Small Drainage Description: Serosanguineous Drainage Odor: No Odor Left Hip: Bed Appearance: Beefy Red, [place] and Yellow Percent of Wound Bed Granulated/Red: 50 Percent of Devitalized: 50 Length (cm): 2.5 Width (cm): 3.0 Depth (cm): 0.1 CM Sq: 7.500 Surrounding Tissue Appearance: Ethnic/Norm Surrounding Tissue Temp: Warm Drainage Amount: Small Drainage Description: Serosanguineous Drainage Odor: No Odor Results Height: 5 ft 10 in Weight: 63.503 kg Body Mass Index: 20.0 Assessment/Plan Assessment/Plan (1) 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: Code(s): L89.314 - Pressure ulcer of right buttock, stage 4 Status: Chronic (2) Stage IV pressure ulcer of sacral region: Code(s): L89.154 - Pressure ulcer of sacral region, stage 4 Status: Chronic (3) 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: Code(s): L89.324 - Pressure ulcer of left buttock, stage 4 Status: Chronic (4) Paraplegia: Code(s): G82.20 - Paraplegia, unspecified Status: Chronic (5) Subcutaneous mass of right lower extremity: Code(s): R22.41 - Localized swelling, mass and lump, right lower limb Status: Acute (6) Open wound of left hip: Code(s): S71.002A - Unspecified open wound, left hip, initial encounter Status: Acute (7) Open wound of left heel: Code(s): S91.302A - Unspecified open wound, left foot, initial encounter Status: Acute Plan Continue current dressing changes for the sacral/ischial ulcers. Will start collagen and alginate dressings for the new left hip and left heel ulcers. Patient will follow-up in about 3 to 4 weeks. Patient is given prescription for handicap placard. See Instructions for Orders See Instructions for Orders See Wound Discharge Instructions for Orders: Patient may require serial debridement to excise devitalized tissue and encourage granulation. Dictated By: Sam Smith MD DD/ 1135 Signed By: <Electronically signed by MD Sam Smith> 10/22/21 114[address] [facility] Work Phone: [phone] Progress note Author Sam Smith [facility] September 17, 2021 11:17am Note Date/Time September 17, 2021 11:17 am [facility] [address] [place] [address] Wound Center Provider Note Signed Patient: Cleveland Swift MR#: [id number] : 1995 Acct:[id number] Age/Sex: 25 / M Copies to: Sam Smith MD NO FAMILY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 pain unresponsive Reason for Visit Open wound of left h eel Open wound of left hip Pressure ulcer of right foot, stage 2 Right arm numbness Right femoral fracture Subcutaneous mass of right lower extremity Swelling of right lower extremity Wrist drop, right wrist Paraplegia 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 Stage IV pressure ulcer of sacral region Chief Complaint pain edema r leg Right Leg Injury Open Wound CART rt leg pain unresponsive arm issues Reason for Visit Open wound of left h eel Open wound of left hip Pressure ulcer of right foot, stage 2 Right arm numbness Right femoral fracture Subcutaneous mass of right lower extremity Swelling of right lower extremity Wrist drop, right wrist Paraplegia 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 Stage IV pressure ulcer of sacral region Chief Complaint Right Leg Injury Open Wound CART rt leg pain unresponsive arm issues Reason for Visit Open wound of left h eel Open wound of left hip Pressure ulcer of right foot, stage 2 Right arm numbness Right femoral fracture Subcutaneous mass of right lower extremity Swelling of right lower extremity Wrist drop, right wrist Paraplegia 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 Stage IV pressure ulcer of sacral region Chief Complaint Open Wound - cart Need for IV Antibiotics Reason for Visit Femur fracture, righ t 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 Traumatic ulcer of foot with fat layer exposed Paraplegia 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 Chief Complaint Need for IV Antibiot ics Open Wound - cart Reason for Visit Femur fracture, righ t 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 Traumatic ulcer of foot with fat layer exposed Paraplegia 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 Chief Complaint Open Wound - cart Bilateral buttock wounds, right foot and toes PVD W/ ULCER Reason for Visit Femur fracture, righ t 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 Traumatic ulcer of foot with fat layer exposed Paraplegia 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 Ulcer of right foot with necrosis of muscle Paraplegia 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 Stage IV pressure ulcer of sacral region Chief Complaint Open Wound Open Wound - post op Hip Ulcer Right Reason for Visit Stage IV pressure ul cer of right hip Ulcer of right foot with necrosis of muscle Paraplegia 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 Stage IV pressure ulcer of sacral region Reason for Referral Specialty Diagnoses / Procedures Referred By Contac t Referred To Contact Radiology Diagnoses Abscess Procedures MR NEURO IMAGE IMPORT([facility]LLY) Renetta Dawson DO [address] [place] [address] S MRI [address] [place] [address] Referral ID Status Reason Start Date Expiration Date V isits Requested Visits Authorized [id number] Pending Review 03/11/2022 03/11/2023 1 1 Referral ID Status Reason Start Date Expiration Date V isits Requested Visits Authorized [id number] Pending Review 03/11/2022 03/11/2023 1 1 Specialty Diagnoses / Procedures Referred By Contac t Referred To Contact Radiology Diagnoses Abscess Procedures MR MSK IMAGE IMPORT([place]LLY) Renetta Dawson DO [address] [place] [address] S [address] [place] [address] Referral ID Status Reason Start Date Expiration Date V isits Requested Visits Authorized [id number] Pending Review 03/11/2022 03/11/2023 1 1 Specialty Diagnoses / Procedures Referred By Contac t Referred To Contact Radiology Diagnoses Abscess Procedures CT NEURO IMAGE IMPORT([place]LLY) Renetta Dawson DO [address] [place] [address] [facility] [address] [facility] Referral ID Status Reason Start Date Expiration Date V isits Requested Visits Authorized [id number] Pending Review 03/11/2022 03/11/2023 1 1 Specialty Diagnoses / Procedures Referred By Contac t Referred To Contact Neurology Diagnoses Abscess of right thigh Nicolle Brown DO [address] [place] [address] [facility] [address] [place] [address] Referral ID Status Reason Start Date Expiration Date V isits Requested Visits Authorized [id number] Authorized 04/04/2022 04/04/2023 3 3 Scheduling Instructions Please call the Neurology Clinic at to schedule an appointment if one was not made for you today. Question Answer Patient to be evaluated for: Muscle & Nerve Disorders - BUE weakness s/p pancho fixation (paraplegia) Specialty Diagnoses / Procedures Referred By Contac t Referred To Contact Podiatry Diagnoses Abscess of right thigh Nicolle Brown DO [address] [place] [address] [facility] [address] [place] [address] Referral ID Status Reason Start Date Expiration Date V isits Requested Visits Authorized [id number] Authorized 04/04/2022 10/01/2022 3 3 Scheduling Instructions Please call the Podiatry Clinic at to schedule an appointment if one was not made for you today. Specialty Diagnoses / Procedures Referred By Contac t Referred To Contact Orthopedics Diagnoses Abscess of right thigh Nicolle Brown DO [address] [place] [address] [facility] [address] [place] [address] Referral ID Status Reason Start Date Expiration Date V isits Requested Visits Authorized [id number] Authorized 04/04/2022 04/04/2023 3 3 Scheduling Instructions Please call [phone] to schedule your appointment in orthopaedics if an appointment was not yet made for you. Question Answer Adult patient to be evaluated for: Hip / Femur / Pelvis - Deformity - Right [42] Specialty Diagnoses / Procedures Referred By Audi grey Referred To Contact Home Health Diagnoses Upper extremity weakness Nicolle Brown, [address] [place] [address] [facility] Referral ID Status Reason Start Date Expiration Date V isits Requested Visits Authorized [id number] Authorized 04/02/2022 04/02/2023 3 3 Question Answer Are you the patient's PCP? No Will you be following the patient while they are recieving [facility] services No Who will follow patient outside of the hospital setting, be signing the 485 and communicating with homecare? PCP Was the patient seen today for a Home Care [id number] evaluation? Yes What is the qualifying diagnosis for the C Services? Paraplegia Which C services are needed? Physical Therapy, Occupational Therapy, Intermediate Reason for HHC services? Wound Care (3 day dressing supply), assessment for wound healing and wound treatment, assessment for improvements/stability of medical condition Reason the patient is homebound leaving their residence requires the use of a special transportation, pain, weakness, and/or musculoskeletal dysfunction Additional Source Comments (unrecognized sect ion and content) No Status Records FoundNo Status Records FoundNo Status Records FoundNo Status Records FoundNo Status Records FoundNo Status Records FoundNo Status Records FoundNo Status Records FoundNo Status Records FoundNo Status Records FoundNo Status Records FoundNo Status Records FoundNo Status Records FoundNo Status Records Found INFORMATION SOURCE (unrecogn ized section and content) DATE CREATED AUTHOR 10/28/2017 [facility] DATE CREATED AUTHOR AUTHOR'S ORGANIZ ATION 06/10/2021 [facility] DATE CREATED AUTHOR AUTHOR'S ORGANIZ ATION 03/02/2022 [facility] DATE CREATED AUTHOR AUTHOR'S ORGANIZ ATION 05/09/2022 [facility] DATE CREATED AUTHOR AUTHOR'S ORGANIZ ATION 07/18/2023 [facility] EPIC DATE CREATED AUTHOR AUTHOR'S ORGANIZ ATION 09/09/[address] [facility] DATE CREATED AUTHOR AUTHOR'S ORGANIZ ATION 02/17/2024 [facility] DATE CREATED AUTHOR AUTHOR'S ORGANIZ ATION 02/29/2024 [facility] Care Teams (unrecognized sec tion and content) Team Status: Active Member Role Status Dates [employer] [facility] Primary Care Provider Activ e Team Status: Active Member Role Status Dates [employer] [facility] Primary Care Provider Activ e Start: July 07, 2023 End: July 10, 2023 Glenn Hirsch MD Attending Provider Active Sta rt: July 07, 2023 End: July 10, 2023 Priscilla MISTRY MD Referring Provider Active Start: July 07, 2023 End: July 10, 2023 Team Status: Active Member Role Status Dates [employer] [facility] Primary Care Provider Activ e Start: September 15, 2023 Sam Smith MD Attending Provider Active Sta rt: September 15, 2023 Team Status: Inactive Member Role Status Dates [employer] [facility] Primary Care Provider Activ e Start: September 25, 2023 End: September 25, 2023 Sam Smith MD Attending Provider Active Sta rt: September 25, 2023 End: September 25, 2023 Team Status: Inactive Member Role Status Dates PHYSICIAN NO FAMILY Primary Care Provider Active Sam Smith MD Attending Provider Active Team Status: Inactive Member Role Status Dates Edy Gallego MD Attending Provider Active [employer] [facility] Primary Care Provider Activ e Team Status: Active Member Role Status Dates Sam Smith MD Attending Provider Active PHYSICIAN NO FAMILY Primary Care Provider Active Team Status: Active Member Role Status Dates PHYSICIAN NO FAMILY Primary Care Provider Active Team Status: Inactive Member Role Status Dates PHYSICIAN NO FAMILY Primary Care Provider Active Emi Monzon APRN Emergency Provider Active Team Status: Inactive Member Role Status Dates PHYSICIAN NO FAMILY Primary Care Provider Active Paxton Guerra APRN Emergency Provider Active Team Status: Inactive Member Role Status Dates Stan Fong DO Emergency Provider Active PHYSICIAN NO FAMILY Primary Care Provider Active Team Status: Inactive Member Role Status Dates PHYSICIAN NO FAMILY Primary Care Provider Active Stan Fong DO Emergency Provider Active Construction Sales Manager Relationship Specialty Start Date End Date Kay Birmingham MD [address] [place] [address] [id number] PCP - General Internal Medicine 04/13/15 Construction Sales Manager Relationship Specialty Start Date End Date Kay Birmingham MD [address] [place] [id number] PCP - General Internal Medicine 04/13/15 Construction Sales Manager Relationship Specialty Start Date End Date Kay Birmingham MD [address] [place] [id number] PCP - General Internal Medicine 04/13/15 Renetta Dawson DO [address] [place] [address] [id number] Physician Trauma Surgery 03/15/22 Construction Sales Manager Relationship Specialty Start Date End Date Kay Birmingham MD [address] [place] [id number] PCP - General Internal Medicine 04/13/15 Renetta Dawson DO [address] [place] [address] [id number] Physician Trauma Surgery 03/15/22 Construction Sales Manager Relationship Specialty Start Date End Date Kay Birmingham MD [address] [place] [address] [id number] PCP - General Internal Medicine 04/13/15 Renetta Dawson DO [address] [place] [address] [id number] Physician Trauma Surgery 03/15/22 Construction Sales Manager Relationship Specialty Start Date End Date Kay Birmingham MD [address] [place] [id number] PCP - General Internal Medicine 04/13/15 Renetta Dawson [address] [place] [address] [id number] Physician Trauma Surgery 03/15/22 Construction Sales Manager Relationship Specialty Start Date End Date Kay Birmingham MD [address] [place] [id number] PCP - General Internal Medicine 04/13/15 Renetta Dawson DO [address] [place] [address] [id number] Physician Trauma Surgery 03/15/22 Construction Sales Manager Relationship Specialty Start Date End Date Kay Birmingham MD [address] [place] [id number] PCP - General Internal Medicine 04/13/15 Renetta Dawson DO [address] [place] [address] [id number] Physician Trauma Surgery 03/15/22 Construction Sales Manager Relationship Specialty Start Date End Date Kay Birmingham MD [address] [place] [phone] PCP - General Internal Medicine 04/13/15 Renetta Dawson DO [address] [place] [address] [id number] Physician Trauma Surgery 03/15/22 Construction Sales Manager Relationship Specialty Start Date End Date Kay Birmingham MD [address] [place] [address] [phone] PCP - General Internal Medicine 04/13/15 Renetta Dawson DO [address] [place] [address] [id number] Physician Trauma Surgery 03/15/22 Team Status: Inactive Member Role Status Dates Sam Smith MD Attending Provider Active PHYSICIAN NO FAMILY Primary Care Provider Active Construction Sales Manager Relationship Specialty Start Date End Date Kay Birmingham MD [address] [place] [id number] PCP - General Internal Medicine 04/13/15 Renetta Dawson, [address] [id number] Physician Trauma Surgery 03/15/22 Construction Sales Manager Relationship Specialty Start Date End Date Kay Birmingham MD [address] [place] [id number] PCP - General Internal Medicine 04/13/15 Renetta Dawson, [address] [id number] Physician Trauma Surgery 03/15/22 Team Status: Active Member Role Status Dates PHYSICIAN NO FAMILY Primary Care Provider Active Sam Smith MD Attending Provider Active Team Status: Inactive Member Role Status Dates PHYSICIAN NO FAMILY Primary Care Provider Active Start: April 07, 2023 End: April 07, 2023 Sam Smith MD Attending Provider Active Sta rt: April 07, 2023 End: April 07, 2023 Team Status: Active Member Role Status Dates [facility] Primary Care Provider Activ e Start: June 02, 2023 Sam Smith MD Attending Provider Active Sta rt: June 02, 2023 Team Status: Inactive Member Role Status Dates [facility] Primary Care Provider Activ e Start: June 18, 2023 End: June 18, 2023 Scar Ann MD Attending Provider Active Start: June 18, 2023 End: June 18, 2023 Goals (unrecognized section and content) Goals may be documented in a n alternate sectionGoals may be documented in an alternate sectionGoals may be documented in an alternate sectionGoals may be documented in an alternate sectionGoals may be documented in an alternate section No data available for this sectionGoals may be documented in an alternate sectionGoals may be documented in an alternate sectionGoals may be documented in an alternate sectionGoals may be documented in an alternate sectionNo Information No data available for this section No data available for this section No data available for this section No data available for this section No data available for this section No data available for this section No data available for this section No data available for this section No data available for this section No data available for this section Reason for Visit (unrecogniz ed section and content) Reason Onset Date Comments ID Home Iv Antibiotic Therapy 03/17/2022 Specialty Diagnoses / Procedures Referred By Contac t Referred To Contact Hospital Medicine Diagnoses multiple abscess Eli Haney MD [address] [place] [address] [facility] [address] [place] [id number] Phone: [phone] Referral ID Status Reason Start Date Expiration Date Visits Re quested Visits Authorized [id number] 3 Specialty Diagnoses / Procedures Referred By Contac t Referred To Contact Radiology Diagnoses Abscess Procedures CT BODY IMAGE IMPORT(CHELLY) DOWNLOAD POWERSHARE IMAGES TO Renetta Vallecillo DO [address] [place] [address] [facility] [address] [place] [address] Referral ID Status Reason Start Date Expiration Date Visits Re quested Visits Authorized [id number] Closed 03/11/2022 03/11/2023 1 1 Reason Comments Error - erroneous encounter disregard Scheduled Active and Recently Administ ered Medications (unrecognized section and content) Medication Order 04/02/2022 04/03/2022 04/04/2022 baclofen (LIORESAL) tablet 10 mg, Oral, 4 TIMES DAILY, First dose on Thu03/12/22 at 1700, Until Discontinued 0019 (Given - Provider: Sonya Chauhan RN)0537 (Given - Provider: Sonya Chauhan RN)1331 (Given - Provider: Yohannes Coto RN)1844 (Given - Provider: Yohannes Coto RN)2343 (Given - Provider: Yuriy Lucero, ELIZABETH) 0641 (Given - Provider: Yuriy Lucero RN)1358 (Given - Provider: Faiza Mcmullen RN)1734 (Given - Provider: Glenn Maldonado) 0009 (Given - Provider: Brionna Lopez RN)0640 (Given - Provider: Brionna Lopez RN)1117 (Given - Provider: Jacqueline Stuart RN)1800 (Due) buprenorphine (SUBUTEX) 2 MG SL tablet 4 mg, Sublingual, 3 TIMES DAILY, First dose (after last modification) on Thu03/28/22 at 0600, Until Discontinued 0537 (Given - Provider: Sonya Chauhan RN)1331 (Given - Provider: Yohannes Coto RN)2152 (Given - Provider: Sonya Chauhan RN) 0641 (Given - Provider: Yuriy Lucero RN)1358 (Given - Provider: Faiza Mcmullen RN)2254 (Given - Provider: Glenn Maldonado) 0640 (Given - Provider: Brionna Lopez RN)1343 (Given - Provider: Jacqueline Stuart RN)2200 (Due) cerovite jr chew tab 1 Tablet, Oral, DAILY, First dose on Thu03/12/22 at 1630, Until Discontinued 0817 (Given - Provider: Yohannes Coto RN) 1054 (Given - Provider: Faiza Mcmullen RN) 0955 (Hold/Not Given - Provider: Jacqueline Stuart RN - Reason: Patient refused) diclofenac (VOLTAREN) 1 % topical GEL 2 g, Topical, 4 TIMES DAILY, First dose on Thu03/18/22 at 1300, Until Discontinued 0818 (Given - Provider: Yohannes Coto RN)1300 (Hold/Not Given - Provider: Yohannes Coto RN - Reason: Not indicated)1700 (Hold/Not Given - Provider: Yohannes Coto RN - Reason: Patient refused)2153 (Given - Provider: Sonya Chauhan RN) 1055 (Given - Provider: Faiza Mcmullen RN)1400 (Given - Provider: Faiza Mcmullen RN)1700 (Hold/Not Given - Provider: Glenn Maldonado - Reason: Not indicated)2257 (Given - Provider: Glenn Maldonado) 0955 (Given - Provider: Jacqueline Stuart RN)1343 (Hold/Not Given - Provider: Jacqueline Stuart RN - Reason: Patient refused)1700 (Due)2100 (Due) docusate sodium (COLACE) capsule 100 mg, Oral, 2 TIMES DAILY, First dose on Thu03/12/22 at 0900, Until Discontinued 0816 (Given - Provider: Yohannes Coto RN)2100 (Hold/Not Given - Provider: Sonya Chauhan RN - Reason: Patient refused) 1054 (Given - Provider: Faiza Mcmullen RN)2254 (Given - Provider: Glenn Maldonado) 0955 (Given - Provider: Jacqueline Stuart RN)2100 (Due) doxycycline (VIBRA-TABS) 100 MG tablet 100 mg, Oral, 2 TIMES DAILY, First dose on Thu04/03/22 at 0900, Until Discontinued 1054 (Given - Provider: Faiza Mcmullen RN)2254 (Given - Provider: Glenn Maldonado) 0954 (Given - Provider: Jacqueline Stuart RN)2100 (Due) folic acid 1 MG tablet 1 mg, Oral, DAILY, 60 doses, First dose on Thu03/18/22 at 1200, Last dose on Thu05/16/22 at 0900 0817 (Given - Provider: Yohannes Coto RN) 1054 (Given - Provider: Faiza Mcmullen RN) 0955 (Given - Provider: Jacquleine Stuart RN) gabapentin (NEURONTIN) capsule 600 mg, Oral, 3 TIMES DAILY, First dose (after last modification) on Thu03/12/22 at 0900, Until Discontinued 0537 (Given - Provider: Sonya Chauhan RN)1331 (Given - Provider: Yohannes Coto RN)2152 (Given - Provider: Sonya Chauhan RN) 0641 (Given - Provider: Yuriy Lucero RN)1358 (Given - Provider: Faiza Mcmullen RN)2254 (Given - Provider: Glenn Maldonado) 0640 (Given - Provider: Brionna Lopez RN)1343 (Given - Provider: Jacqueline Stuart RN)2200 (Due) heparin (porcine) 5,000 units/mL injection 5,000 Units, Subcutaneous, EVERY 8 HOURS, First dose on Thu03/22/22 at 1400, Until Discontinued 0600 (Hold/Not Given - Provider: Sonya Chauhan RN - Reason: Patient refused)1400 (Hold/Not Given - Provider: Yohannes Coto RN - Reason: Patient refused)2200 (Hold/Not Given - Provider: Sonya Chauhan RN - Reason: Patient refused) 0639 (Hold/Not Given - Provider: Yuriy Lucero RN - Reason: Patient refused)1359 (Given - Provider: Faiza Mcmullen, ELIZABETH)2254 (Given - Provider: Glenn Maldonado) 0640 (Hold/Not Given - Provider: Brionna Lopez RN - Reason: Patient refused)1343 (Given - Provider: Jacqueline Stuart RN)2200 (Due) honey (MEDIHONEY) 80 % gel Topical, DAILY, First dose on Thu03/12/22 at 1330, Until Discontinued 0817 (Given - Provider: Yohannes Coto RN) 1056 (Given - Provider: Faiza Mcmullen RN) 0955 (Hold/Not Given - Provider: Jacqueline Stuart RN - Reason: Not indicated) hypochlorous acid (VASHE) external solution Topical, DAILY, First dose on Thu03/13/22 at 0900, Until Discontinued 0900 (Given - Provider: Yohannes Coto RN) 1056 (Given - Provider: Faiza Mcmullen RN) 0955 (Given - Provider: Jacqueline Stuart, ELIZABETH) iohexol (OMNIPAQUE) 350 MG/ML injection (COMPLETED) 75 mL, Intravenous Push, Once at Radiology exam, 1 dose, Starting on Thu04/02/22 at 1138, Until Thu04/02/22 at 1147, Imaging Protocol Orders 1147 (Given - Provider: Dilia Leong) mepilex silver (MEPILEG AG) 4 X 4 topical dressing 1 Each, Topical, EVERY OTHER DAY, First dose on Thu03/12/22 at 1330, Until Discontinued 0900 (Hold/Not Given - Provider: Faiza Mcmullen RN - Reason: Not indicated) meropenem (MERREM)1 g in 50 mL IVPB duplex (CANCELED) 1,000 mg, Intravenous, EVERY 8 HOURS ANTIBIOTIC, First dose on Thu03/12/22 at 1900, Until Discontinued 0537 (IV New Bag - Provider: Sonya Cahuhan RN)1331 (IV New Bag - Provider: Yohannes Coto RN) Normal consistency supplement Oral, 2 TIMES DAILY WITH MEALS, First dose (after last modification) on Thu04/02/22 at 1700, Until Discontinued, Normal Consistency Supplement: Boost Plus- Chocolate 1700 (Hold/Not Given - Provider: Yohannes Coto RN - Reason: Patient refused) 0900 (Hold/Not Given - Provider: Faiza Mcmullen RN - Reason: Patient refused)1700 (Hold/Not Given - Provider: Glenn Maldonado - Reason: Patient refused) 1004 (Hold/Not Given - Provider: Jacqueline Stuart RN - Reason: Patient refused)1700 (Due) Normal consistency supplement Oral, DAILY WITH LUNCH, First dose on Thu04/02/22 at 1200, Until Discontinued, Normal Consistency Supplement: Boost Plus- Vanilla 1200 (Hold/Not Given - Provider: Yohannes Coto RN - Reason: Patient refused) 1200 (Hold/Not Given - Provider: Faiza Mcmullen RN - Reason: Patient refused) 1120 (Hold/Not Given - Provider: Jacqueline Stuart RN - Reason: Patient refused) Normal consistency supplement Oral, DAILY WITH DINNER, First dose on Thu04/02/22 at 1800, Until Discontinued, Normal Consistency Supplement: Magic Cup-Vanilla 1800 (Hold/Not Given - Provider: Yohannes Coto RN - Reason: Patient refused) 1800 (Given - Provider: Glenn Maldonado) 1800 (Due) senna (SENOKOT) tablet 8.6 mg, Oral, AT BEDTIME, First dose on Thu03/12/22 at 0100, Until Discontinued 2200 (Hold/Not Given - Provider: Sonya Chauhan RN - Reason: Patient refused) 2254 (Given - Provider: Glenn Maldonado) 2200 (Due) vancomycin (VANCOCIN) 1,000 mg/200 mL iv soln (ROOM TEMP PREMIX) (CANCELED) 1,000 mg, Intravenous, EVERY 8 HOURS, First dose (after last reorder) on Thu03/12/22 at 1200, Until Discontinued 0126 (IV New Bag - Provider: Sonya Chauhan RN)1029 (IV New Bag - Provider: Yohannes Coto RN)1800 (Hold/Not Given - Provider: Yohannes Coto RN - Reason: Loss of IV access) vancomycin lab draw (COMPLETED) Other, ONCE, 1 dose, On Thu04/02/22 at 0100 0100 (Given - Provider: Sonya Chauhan RN) vitamin B-12 (CYANOCOBALAMIN) tablet 1,000 mcg, Oral, DAILY, 60 doses, First dose on Thu03/18/22 at 1200, Last dose on Thu05/16/22 at 0900 0817 (Given - Provider: Yohannes Coto RN) 1054 (Given - Provider: Faiza Mcmullen RN) 0954 (Given - Provider: Jacqueline Stuart RN) vitamin C (ASCORBIC ACID) tablet 500 mg, Oral, 2 TIMES DAILY, First dose on Thu03/12/22 at 1630, Until Discontinued 0816 (Given - Provider: Yohannes Coto RN)2152 (Given - Provider: Sonya Chauhan RN) 1054 (Given - Provider: Faiza Mcmullen RN)2254 (Given - Provider: Glenn Maldonado) 0954 (Given - Provider: Jacqueline Stuart RN)2100 (Due) PRN Medication Order 04/02/2022 04/03/2022 04/04/2022 acetaminophen (TYLENOL) tablet 650 mg, Oral, EVERY 6 HOURS PRN, Starting on Thu03/12/22 at 0040, Until Discontinued, Mild Pain (pain score 1,2,3), Moderate Pain (pain score 4,5,6) 0817 (Given - Provider: Yohannes Coto RN)2343 (Given - Provider: Yuriy Lucero RN) 1358 (Given - Provider: Faiza Mcmullen RN)2254 (Given - Provider: Glenn Maldonado) diphenhydrAMINE (BENADRYL) 50 MG/ML injection 25 mg, Intravenous Push, EVERY 6 HOURS PRN, Starting on Thu03/12/22 at 0311, Until Discontinued, antibiotic reaction melatonin tablet 3 mg, Oral, AT BEDTIME PRN, Starting on Thu03/12/22 at 0040, Until Discontinued, Sleep 2151 (Given - Provider: Sonya Chauhan RN) 225 (Given - Provider: Glenn Maldonado) ondansetron (ZOFRAN) 4 MG/2ML injection 4 mg, Intravenous Push, EVERY 4 HOURS PRN, Starting on Thu03/27/22 at 1043, Until Discontinued, Nausea 1029 (Given - Provider: Yohannes Coto RN) oxyCODONE immediate release tablet 5 mg, Oral, EVERY 4 HOURS PRN, Starting on Thu03/12/22 at 0252, Until Discontinued, Severe Pain (pain score 7,8,9,10) 0019 (Given - Provider: Sonya Chauhan RN)0817 (Given - Provider: Yohannes Coto RN)1331 (Given - Provider: Yohannes Coto RN)1844 (Given - Provider: Yohannes Coto RN)2343 (Given - Provider: Yuriy Lucero RN) 1054 (Given - Provider: Faiza Mcmullen RN)1734 (Given - Provider: Glenn Maldonado)2254 (Given - Provider: Glenn Maldonado) 0640 (Given - Provider: Brionna Lopez RN)1118 (Given - Provider: Jacqueline Stuart, ELIZABETH)1554 (Given - Provider: Jacqueline Stuart RN) polyethylene glycol (MIRALAX) 17 g packet 17 g, Oral, DAILY PRN, Starting on Thu03/12/22 at 1616, Until Discontinued, Constipation tizanidine (ZANAFLEX) tablet 2 mg, Oral, EVERY 8 HOURS PRN, Starting on Thu03/12/22 at 0858, Until Discontinued, Muscle spasms 1054 (Given - Provider: Faiza Mcmullen RN)2254 (Given - Provider: Glenn Maldonado) FOR RECORDS PERTAINING TO PATIENTS WHO ARE OR HAVE BEEN ENROLLED IN A CHEMICAL DEPENDENCY/SUBSTANCEABUSE PROGRAM, SOME INFORMATION MAY BE OMITTED. This clinical summary was aggregated from multiple sources. Caution should be exercised in using it in the provision of clinical care. This summary normalizes information from multiple sources, and as a consequence, information in this document may materially change the coding, format and clinical context of patient data. In addition, data may be omitted in some cases. CLINICAL DECISIONS SHOULD BE BASED ON THE PRIMARY CLINICAL RECORDS. [facility]. provides no warranty or guarantee of the accuracy or completeness of information in this document.
[2024-02-29 22:21] LABS: Hematocrit 45.7 % (42.0-54.0); Hemoglobin 15.5 g/dL (14.0-18.0); Mean Corpuscular HGB Conc 33.9 g/dL (29.9-35.2); Mean Corpuscular Hemoglobin 27.7 pg (25.9-34.0); Mean Corpuscular Volume 81.8 fL (80.0-94.0); Mean Platelet Volume 9.1 fL (9.5-13.5); Platelet Count 615 10^3/uL (150-450); Red Blood Count 5.59 10^6/uL (4.70-6.10); Red Cell Distribution Width 21.1 % (11.0-15.0); White Blood Count 11.4 10^3/uL (4.0-11.0)
[2024-02-29 22:30] LABS: Anion Gap 17.2; Calcium 7.9 mg/dL (8.5-10.1); Estimated GFR (African America 16 (>=60 mL/min/1.73m^2); Estimated GFR (Non-African Ame 14 (>=60 mL/min/1.73m^2); Glucose 127 mg/dL (74-106); Potassium 3.2 mmol/L (3.5-5.1); Sodium 129 mmol/L (136-145)
[2024-02-29 22:34] LABS: Bilirubin Urine SMALL (NEGATIVE); Blood Urine LARGE (NEGATIVE); Clarity Urine CLEAR (CLEAR); Color Urine YELLOW (YELLOW); Glucose Urine UA NEGATIVE (NEGATIVE); Ketones Urine NEGATIVE (NEGATIVE); Leukocyte Esterase Urine MODERATE (NEGATIVE); Nitrite Urine NEGATIVE (NEGATIVE); Protein Urine >=300 mg/dL (NEG/TRACE); Urobilinogen Urine 0.2 EU/dL (0.2-1.0)
[2024-02-29 22:34] LABS: Chloride 76 mmol/L (98-107)
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
--- NOTE | 2024-02-29 22:35 | CT_ITS ---
The [address] [address] Patient Name: MILAD HYDE MRN: [id number] date: 1995 Sex: M Assigned Patient Location: ER Current Patient Location: Accession/Order Number: [id number] Exam Date: 02/29/2024 22:37 Report Date: 03/01/2024 01:46 At the request of: ROXANA SMITH Procedure: CT abdomen pelvis wo con CT ABDOMEN PELVIS WITHOUT CONTRAST HISTORY: R41.82; altered mental status. Recent bowel obstruction. Recent fall. COMPARISON: None. TECHNIQUE: Thin section axial CT images were obtained from the lung bases to the pubis symphysis. This CT exam was performed using one or more of the following dose reduction techniques: Automated exposure control, adjustment of the mA and/or kV according to patient size, or use of iterative reconstruction technique. Thin section coronal and sagittal images were reconstructed from the axial data set. All images were reviewed and interpreted. CONTRAST: No contrast was given for this study but there does appear to be some contrast on board within the kidneys and collecting systems as well as some bowel contrast seen within the ostomy at left lower quadrant. Correlate with history. Patient came from outside institution. FINDINGS: Assessment of solid organs is limited without the benefit of IV contrast. LUNG BASES: Normal dependent atelectasis and/or scarring. Lung bases otherwise clear. No layering pleural fluid. Cardiac chambers are not enlarged. No obvious lower rib fractures or lower thoracic spine fractures. There is significant streak artifact from metal throughout the thoracic upper lumbar spine. GE JUNCTION AND STOMACH: Negative. No hiatal hernia. LIVER: Negative. GALLBLADDER AND BILIARY TREE: Mild gallbladder distention. Multiple gallstones some calcified and others contain cholesterol noted throughout the lumen. No specific CT findings of acute cholecystitis. SPLEEN: Negative. PANCREAS: Negative. ADRENALS: Negative. KIDNEYS AND URETERS: Negative. No urinary tract calculi or hydronephrosis. No renal masses or cysts are evident. SMALL BOWEL: Left lower quadrant ileostomy. There is some bowel contrast within small bowel loops in this region extending at the ostomy. Correlate with history. There is some fluid-filled mildly dilated small bowel loops within the lower abdomen and right lower quadrant. There are air-fluid levels within small bowel. Cannot exclude enteritis or possible developing small bowel obstruction. Follow-up. LARGE BOWEL: Considerable fecal matter in large bowel. Correlate for constipation. No obvious colitis. APPENDIX: The appendix is not clearly identified and there are no secondary findings to suggest acute appendicitis. AORTA: The abdominal aorta is normal size. IVC: Negative. LYMPH NODES: There is no lymphadenopathy. BLADDER: Decompressed. Limited assessment. No obvious filling defect. Question of some wall thickening. Correlate urinalysis. BONES: Extensive thoracolumbar posterior spinal fixation hardware. This is seen throughout the imaged lower thoracic spine extending to L3 with pedicle screws and rods. There is chronic deformity of the sacrum and coccyx. There is chronic erosion and destruction of the right femoral head and neck with chronic dislocation at right hip joint. Chronic erosions across both sides of right hip joint. There is chronic dislocation of left hip. Suspected chronic paralysis. Correlate with history. Likewise there is chronic erosion destruction of the right left and ischial regions with large sacral decubitus ulcers likely chronic with probable chronic osteomyelitis. Correlate with history. COMMENTS: No ascites or free air. No intra-abdominal abscess. CT/CT abdomen pelvis wo con IMPRESSION: 1. Dilated fluid and air-filled small bowel loops within the abdomen and pelvis which could be related to developing small bowel obstruction and/or enteritis. Left-sided ileostomy with bowel contrast. Correlate with stomal output. Follow-up. 2. Considerable stool retention. Correlate for chronic constipation. 3. Chronic bilateral decubitus ulcers within the sacral and ischial tuberosity regions bilaterally with chronic dislocations of both hip joints and femoral heads and chronic erosive and destructive changes throughout the right acetabulum and proximal femur with suspected chronic osteomyelitis of both ischial tuberosities. Some of these findings may be congenital or could be due to chronic dialysis. Correlate with history. 4. Cholelithiasis. Electronically authenticated by: SHANNEN DAMON Date: 03/01/2024 01:46
[2024-02-29 22:47] LABS: Bacteria Urine LARGE #/HPF (NONE SEEN)
[2024-02-29 22:49] LABS: Amorphous Sediment Urine MODERATE; Cast Seen? NONE SEEN #/LPF (NONE SEEN); Crystals Seen? None Seen #/HPF (None Seen); Mucus Urine NONE SEEN (NONE SEEN)
[2024-02-29 22:52] LABS: Squamous Epithelial Cell Urine RARE #/LPF (NONE/RARE)
[2024-02-29 22:53] LABS: Urine Culture Indicated YES
[2024-02-29 22:54] LABS: Amphetamine Screen Urine POSITIVE (NEGATIVE); Barbiturates Screen Urine NEGATIVE (NEGATIVE); Benzodiazepines Screen Urine POSITIVE (NEGATIVE); Buprenorphine Screen Urine NEGATIVE (NEGATIVE); Cannabinoid Screen Urine POSITIVE (NEGATIVE); Cocaine Screen Urine POSITIVE (NEGATIVE); Methadone Screen Urine NEGATIVE (NEGATIVE); Methamphetamines Screen Urine POSITIVE (NEGATIVE); Opiate Screen Urine POSITIVE (NEGATIVE); Oxycodone Screen Urine NEGATIVE (NEGATIVE); Phencyclidine Screen Urine NEGATIVE (NEGATIVE); Tricyclic Antidepressant Urine NEGATIVE (NEGATIVE)
[2024-02-29] MEDS: 0.9 % SODIUM CHLORIDE 1,000 ML 1000 ML IV (23:09)
[2024-02-29 23:13] LABS: Alanine Aminotransferase 43 U/L (16-63); Albumin Globulin Ratio 0.7; Alkaline Phosphatase 108 U/L (46-116); Aspartate Amino Transferase 82 U/L (15-37); Bilirubin Total 0.7 mg/dL (0.2-1.0)
[2024-02-29 23:20] LABS: Bilirubin Direct 0.3 mg/dL (0.0-0.2)
[2024-02-29 23:22] LABS: Lactate/Lactic Acid 2.2 mmol/L (0.4-2.0)
[2024-02-29] MEDS: CEFTRIAXONE 1,000 MG in 0.9 % SODIUM CHLORIDE 50 ML 100 MG IV (23:31)
[2024-02-29 23:37] LABS: Ethanol <3 mg/dL
[2024-02-29 23:44] LABS: Lymphocytes Absolute Manual 2.73 10^3/uL (1.20-3.80); Monocytes Absolute Manual 1.48 10^3/uL (0.30-0.80); Segmented Neut Absolute Manual 7.18 10^3/uL (1.4-6.5)
[2024-03-01] VITALS (89 sets, daily range): BP systolic 92–124; BP diastolic 51–78; PULSE 61–127; O2SAT 92–100
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
[2024-03-01] MEDS: 0.9 % SODIUM CHLORIDE 1,000 ML 1000 ML IV (02:39)
[2024-03-01] MEDS: 0.9 % SODIUM CHLORIDE 1,000 ML 200 ML IV ×2 (04:01→10:46)
[2024-03-01] MEDS: LORAZEPAM 2 MG/ML VIAL 1 MG IV ×2 (06:32→06:46)
[2024-03-01 07:53] LABS: Anion Gap 14.2; BUN Creatinine Ratio 21.2; Calcium 6.9 mg/dL (8.5-10.1); Carbon Dioxide 34.6 mmol/L (21.0-32.0); Chloride 88 mmol/L (98-107); Estimated GFR (African America 26 (>=60 mL/min/1.73m^2); Estimated GFR (Non-African Ame 22 (>=60 mL/min/1.73m^2); Glucose 107 mg/dL (74-106); Sodium 134 mmol/L (136-145)
[2024-03-01 07:55] LABS: Potassium 2.8 mmol/L (3.5-5.1)
--- NOTE | 2024-03-01 07:56 | ECG_ITS ---
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
[2024-03-01 07:58] LABS: Lactate/Lactic Acid 1.1 mmol/L (0.4-2.0)
[2024-03-01] MEDS: POTASSIUM CHLORIDE IN WATER 10 MEQ/100 ML PREMIX 100 MEQ IV (08:08)
[2024-03-01 08:33] LABS: Creatine Kinase 2032 U/L (39-308)
[2024-03-01] MEDS: ALPRAZOLAM 0.5 MG TABLET 1 MG PO (09:22)
--- NOTE | 2024-03-01 10:30 | PC.NURSE ---
pt continues to be restless and thrashing his arms. pt also states I will remove that IV if I can reach it. Mom remains at bedside. soft restraints removed briefly. skin warm, pink, dry and intact under restraints. pt given ice chips per Dr. Holden. restraints reapplied to keep patient from pulling out medical devices.
--- NOTE | 2024-03-01 10:58 | PC.NURSE ---
pt O2 titrated down to RA. pt maintaining O2 at 95% on RA.
[2024-03-01] MEDS: CEFTRIAXONE 1,000 MG in 0.9 % SODIUM CHLORIDE 50 ML 100 MG IV (11:22)
== END 2024-03-01 14:40 | disposition short-term general hospital (02) ==
PROVIDERS: Emergency Medicine; Emergency Provider Emergency Medicine
DX: N17.9 Acute kidney failure, unspecified (principal); N39.0 Urinary tract infection, site not specified; R41.82 Altered mental status, unspecified; F19.10 Other psychoactive substance abuse, uncomplicated; G82.20 Paraplegia, unspecified; Z93.3 Colostomy status; L89.154 Pressure ulcer of sacral region, stage 4; Z93.6 Other artificial openings of urinary tract status; Z99.3 Dependence on wheelchair
CPT/HCPCS: 36415; 70450; 71045; 74176; 80048; 80076; 80307; 80320; 81001; 82550; 83605; 85007; 85027; 87040; 87086; 93005; 96361; 96365; 96366; 96367; 96375; 99285; J0696; J2060; J3480

== ENCOUNTER 2024-05-21 22:37 | Emergency (ER) | payer OTHER, MEDICARE, SELFPAY ==
[2024-05-21] VITALS (9 sets, daily range): BP systolic 97–104; BP diastolic 50–56; PULSE 90–97; O2SAT 95–99; BMI 24.8
--- NOTE | 2024-05-21 22:44 | ECG_ITS ---
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
--- OUTSIDE RECORDS SUMMARY | 2024-05-21 22:48 | XMS_ITS | CCD ---
Author Organization [facility] Care Team Providers Care Laborer Prestressed Concrete Name Role Phone NEAL GASTON Unavailable Unavailable [...] Care Unavailable PAY, DR PHILLIP Admitting Unavailable GRECHNY, LUIS CARLOS JONES Consulting Unavailable PAY, DR PHILLIP Attending Unavailable MD Sam Smith Attending Provider [phone] NO FAMILY, PHYSICIAN Primary Care Provider Unava ilable MARY Monzon Emergency Provider NO FAMILY, PHYSICIAN Primary Care Provider Unava ilable MD Sam Smith Attending Provider [phone] MARY Guerra Emergency Provider DO Stan Fong Emergency Provider STAN WINSTON Attending Unavailable Vinnie OLIVERA, Kay Blake Primary Care Provider Fiona Dawson DO Unavailable Zoey Mireles Primary Care Physician Rupinder Barrera Unavailable Unavailable Almaz Matthew Unavailable Unavailable Kay Birmingham MD Primary Care Provider Samir DO Fiona Unavailable NO FAMILY, PHYSICIAN Primary Care Provider Unava ilable MARY Monzon Emergency Provider MD Sam Smith Attending Provider [phone] MARY Guerra Emergency Provider [phone] DO Stan Fong Emergency Provider [phone] NO FAMILY, PHYSICIAN Primary Care Provider Unava ilable MD Sam Smith Attending Provider MD Edy Gallego Attending Provider [facility] Provide r MD Edy Gallego Attending Provider [phone] [facility] Primary Care Provide r NO FAMILY, PHYSICIAN Primary Care Provider Unava ilMD Sam Vasquez Attending Provider [phone] [facility] Provide r MD Scar Ann Attending Provider Adwoa Nascimento Unavailable CONCHA PARIS Primary Care Physician [phone] GLENN LAURA Attending Unavailable [facility] Provide r MD Sam Smith Attending Provider [phone] Abbie Collier Attending Unavailable Samson Shane Attending Unavailable Samson Shane Admitting Unavailable Samson Shane Attending Unavailable Samson Shane Admitting Unavailable NONE, XXXX Primary Care Physician Unavailab Kay Gooden MD Primary Care Provider EDY SMITH Referring Unavailable REQUEST, IP PHYSICAL THERAPY SERVICE Consulting Unavailable FERCHO BLAKELY Admitting Unavailable MARY GROVER Attending Unavailable KAY [place] Primary Care Unavailable REQUEST, IP OCCUPATIONAL THERAPY SERVICE Consult ing Unavailable CONSULT, IP NEUROLOGY Consulting Unavailabl e [phone], IP EGS TEAM Consulting Unavailabl e CONSULT, IP PSYCHIATRIC ADULT Consulting Un available PROVIDER, UNKNOWN Attending Unavailable EDY SMITH Referring Unavailable FERCHO BLAKELY Admitting Unavailable KAY [place] Primary Care Unavailable Hospitalist Post Disch, Results Reviewer Consult ing Unavailable Dolchina, Glenn Vargas Attending Unavailable Dolce, Viet R Admitting Unavailable Dolce, Viet R Attending Unavailable Priscilla Oseguera Admitting Unavailable OJUKWU, Mbanefo Attending Unavailable Blank, Glenn S Consulting Unavailable Mel Hirsch Glenn S Consulting Unavailable Blank, Glenn S Consulting Unavailable Blank, Glenn S Consulting Unavailable Blank, Glenn S Consulting Unavailable Blank, Glenn S Consulting Unavailable Blank, Glenn S Consulting Unavailable Blank, Glenn S Consulting Unavailable Blank, Glenn S Consulting Unavailable Blank, Glenn S Consulting Unavailable Dolce, Glenn Vargas Consulting Unavailable Dolce, DPM Glenn Vargas Consulting Unavailable Dolce, Glenn Vargas Consulting Unavailable Dolce, Glenn Vargas Consulting Unavailable Dolce, Glenn Vargas Consulting Unavailable Dolce, Glenn Vargas Consulting Unavailable Dolce, Glenn Vargas Consulting Unavailable Dolce, Glenn Vargas Consulting Unavailable Dolce, Glenn Vargas Consulting Unavailable Dolce, Glenn Vargas Consulting Unavailable Dolce, Glenn Vargas Consulting Unavailable Dolce, Glenn Vargas Attending Unavailable Dolce, Glenn Vargas Referring Unavailable Dolce, Viet R Attending Unavailable Dolce, Viet R Attending Unavailable Dolce, Ivet R Attending Unavailable Dolce, Viet R Attending Unavailable Dolce, Viet R Attending Unavailable Dolce, Viet R Attending Unavailable [facility] Unav ailable Sam Smith Attending Unavailable Carlos Smitht Admitting Unavailable Scar Ann Admitting Unavailabl e [facility] Unav ailable Scar Ann Attending Unavailabl e [facility] Unav ailable Sam Smith Attending Unavailable Sam Smith Admitting Unavailable Zoey Mireles MD Unavailable Unallocated , [place] Provider Primary Care [facility] miriam Zoey Mireles MD Unavailable [phone] Allergies Allergy Classification Reported Allergen(s) Allergy Type Date of Onset Reaction(s) Facility Penicillins (antibiotic) (1 source) Penicillin; Translations: [penicillin] Drug Allergy Unknown (qualifier value) [facility] Sulfonamides (antibiotic) (1 source) Sulfonamides (Antibiotic); Translations: [sulfa drugs] Drug Allergy Unknown [facility] (12 sources) Penicillins; Translations: [PENICILLINS] Drug allergy (disorder) 03-09-20 15 [facility] (12 sources) Sulfonamides (Antibiotic); Translations: [SULFA (SULFONAMIDE ANTIBIOTICS)] Allergy to substance 03-09-20 15 [facility] (15 sources) tigecycline; Translations: [TIGECYCLINE] Drug Allergy 09-11-19 19 GI intolerance [facility] (11 sources) Vancomycin; Translations: [vancomycin] Drug Allergy 09-18-19 22 Redness of Skin [facility] (20 sources) Penicillins Propensity to adverse reactions to drug 03-09-20 15 [facility] Sulfonamides (Antibiotic); Translations: [SULFA ANTIBIOTICS] Propensity to adverse reactions to drug 03-09-20 15 Unknown [facility] (17 sources) Penicillin; Translations: [penicillin] Drug Allergy Unknown (qualifier value) [facility] (17 sources) Sulfonamides (Antibiotic); Translations: [sulfa drugs] Drug allergy Unknown [facility] (1 source) Penicillins (Antibiotic) Propensity to adverse reactions Unknown [employer] [facility] [employer] Other (1 source) Sulfonamides (Antibiotic) Propensity to adverse reactions Unknown [employer] [facility] [employer] Other (1 source) Penicillins Drug allergy (disorder) 09-25-19 24 [facility] Repository Medications Current Medications Medication Drug Class(es) Dates Sig (Normalized) Sig (Original) acetaminophen 325 mg / oxyCODONE hydrochloride 5 mg oral tablet (18 sources) Opioid Agonist Start: 07-10-2023 End: 07-17-2023 Percocet 5 mg-325 mg oral tablet 1 tab(s), Oral, q6hr as needed for pain for 7 day(s), 20 tab(s), Refill(s) 0, [facility]/pharmacy #[id number], 172, cm, 07/06/23 19:06:00 [...] 13, 2017 12:00am February 10, 2017 2:25pm ciprofloxacin 750 mg oral tablet (2 sources) Quinolone Antimicrobial Start: 07-10-2023 End: 07-24-2023 take 1 tablet by mouth every twelve hours ciprofloxacin 750 mg Tab 750 mg = 1 tab(s), Oral, q12hr, X 14 day(s), # 28 tab(s), Refills(s) 0, Pharmacy: [facility]/pharmacy #[id number], 172, cm, 07/06/23 19:06:00 [...] day(s), # 28 cap(s), Refills(s) 0, Pharmacy: [facility]/pharmacy #[id number], 172, cm, 07/06/23 19:06:00 [...] End: 04-03-2022 fluconazole 100 mg oral tablet (20 sources) Azole Antifungal Start: 09-30-2017 take 1 tablet by mouth once fluconazole (DIFLUCAN) 100 MG tablet TAKE 1 TABLET BY MOUTH EVERY THURSDAY 3 09/30/2017 Active Start: 09-30-2017 folic acid 1 mg oral tablet (14 sources) Start: 03-18-2022 End: 05-17-2022 take 1 tablet by mouth once daily in the evening folic acid 1 MG tablet Take 1 Tablet by mouth daily. 90 Tablet 3 04/02/2022 3:52 PM EST 04/03/2022 Active sodium hypochlorite 2.5 mg/ml topical solution (4 sources) Start: 08-25-2023 Sodium Hypochl orite (Dakin's Solution) 0.25 % solution Active 1 APPLIC TOPICAL Daily August 25, 2023 12:00am Start: 03-31-2023 End: 06-02-2023 Sodium Hypochlorite (Dakin's Solution) 0.125 % Solution Discontinued 1 APPLIC TOPICAL Daily March 31, 2023 1:00am June 02, 2023 12:51pm hypochlorous acid (VASHE) SO LN external solution (12 sources) Start: 04-03-2022 hypochlorous a kwesi (VASHE) SOLN external solution Apply topically daily. 228 mL 3 04/03/2022 Suspended Start: 04-03-2022 hypochlorous a kwesi (VASHE) SOLN external solution Apply topically daily. 228 mL 3 04/03/2022 Active linaclotide 0.29 mg oral capsule (20 sources) Guanylate Cyclase-C Agonist Start: 04-13-2017 End: 05-26-2018 take 1 capsule by mouth once daily LINZESS 290 MCG CAPS capsule Take 290 mcg by mouth daily. 10 09/30/2017 Active linezolid 600 mg oral tablet (1 source) Oxazolidinone Antibacterial Start: 08-31-2023 take 600 mg by mouth every twelve hours Linezolid Active 600 MG PO Every 12 hours August 31, 2023 12:00am melatonin 3 mg oral tablet (14 sources) Start: 04-02-2022 Start: 03-12-2022 take 1 tablet by herrera th in the evening, then take 0.5 tablet by mouth at bedtime melatonin 3 MG TABS tablet Take 1 and 1/2 Tablets by mouth at bedtime. 135 Tablet 3 04/02/2022 3:52 PM EST 04/02/2022 Active naloxone hydrochloride 40 mg/ml nasal spray (20 sources) Opioid Antagonist Start: 07-10-2023 Narcan 4 mg/ 0.1 mL nasal spray 4 mg, Nasal, As Directed, for suspected overdose symptoms, # 1 kit(s), Refills(s) 0, Pharmacy: [facility]/pharmacy #[id number], 172, cm, 07/06/23 19:06:00 EST, Height/Length Dosing, 61.3, kg, 07/07/23 9:40:00 EST, Weight Dosing Start Date: 07/10/23 Status: Ordered Start: 08-19-2017 naloxone 4 MG/ 0.1ML LIQD nasal liquid Indications: Opioid Overdose Instill 0.1 mL into one nostril (alternate sides) as needed for Other (Drug overdose, give and call 911). 1 Each 1 08/19/2017 Active omeprazole 40 mg delayed release oral capsule (3 sources) Proton Pump Inhibitor Start: 11-12-2022 take 1 capsule by mouth before mealtime omeprazole (PriLOSEC) [address] capsule Indications: Gastroesophageal reflux disease without esophagitis Take 1 capsule (40 mg) by mouth in the morning. Take before meals. Do not crush or chew. . 90 capsule 3 11/12/2022 Active polyethylene glycol 3350 82649 mg powder for oral solution (20 sources) Osmotic Laxative Start: 03-04-2024 End: 06-02-2024 polyethylene glycol (GLYCOLAX) 17 GM/SCOOP powder Take 17 g by mouth daily as needed. 510 g 1 03/04/2024 10:26 AM EDT 03/04/2024 06/02/2024 Active Start: 03-03-2024 17 g, Oral, 2 times daily, First dose (after last modification) on Allie 03/03/24 at 1000, Until Discontinued Start: 03-02-2024 End: 03-03-2024 17 g, Oral, DAILY, First dos e on 03/02/24 at 1030, Until Discontinued Start: 04-03-2021 Polyethylene G lycol 3350 (Miralax) 17 gram Powder In Packet [...] 2019 9:37am QUEtiapine 25 mg oral tablet (10 sources) Atypical Antipsychotic Start: 03-04-2024 take 3 tablets by mouth at bedtime QUEtiapine (SEROQUEL) 25 MG tablet Take 3 Tablets by mouth at bedtime. 03/04/2024 Active Start: 03-01-2024 take 75 mg by mouth at bedtime 75 mg, Oral, AT BEDTIME, First dose on Thu03/01/24 at 2200, Until Discontinued Start: 02-28-2024 quetiapine 25 mg Tab 25 mg = 1 tab(s), Refills(s) 0 Start Date: 02/28/24 Status: Ordered Start: 10-28-2022 take 1 tablet by herrera th once daily at bedtime Quetiapine (Seroquel) 25 [...] dressing (AQUACEL AG EXTRA) 4 X5 PADS (19 sources) Start: 08-19-2017 silver dressin g (AQUACEL [...] 1,000 mg intravenously. 0 03/11/2022 04/08/2022 Active tiZANidine 2 mg oral tablet (20 sources) Central alpha-2 Adrenergic Agonist Start: 08-19-2017 take 1 tablet by mouth every eight hours as needed tizanidine (ZANAFLEX) 2 MG tablet Take 1 Tablet by mouth every 8 hours as needed (muscle cramps). 90 Tablet 3 08/19/2017 Active Start: 08-19-2017 End: 05-24-2019 take 2 mg by mouth twice daily Tizanidine Discontinued 2 MG PO Twice daily February 26, 2019 12:00am May 24, 2019 11:47am Start: 01-13-2017 End: 05-26-2018 take 2 mg by mouth every eight hours Tizanidine Discontinued 2 MG PO Q8H January 13, 2017 12:00am May 26, 2018 3:56pm traZODone hydrochloride 50 m g oral tablet (20 sources) Serotonin Reuptake Inhibitor Start: 03-01-2024 Start: 02-26-2019 End: 10-04-2019 take 150 mg by mouth once daily at bedtime Trazodone Discontinued 150 MG PO Daily at bedtime February 26, 2019 5:00pm October 04, 2019 9:37am Start: 11-16-2018 End: 02-26-2019 take 25 mg by mouth once daily at bedtime Trazodone Discontinued 25 MG PO Daily at bedtime 02 17November 16, 2018 12:00am February 26, 2019 5:01pm vitamin b12 0.5 mg oral tablet (14 sources) Vitamin B12 Start: 03-18-2022 End: 05-17-2022 take 2 tablets by mouth once daily in the evening vitamin B-12 (CYANOCOBALAMIN) 500 MCG tablet Take 2 Tablets by mouth daily. 180 Tablet 3 04/02/2022 3:52 PM EST 04/03/2022 Active (1 source) Start: 08-19-2017 (2 sources) Start: 04-03-2022 Start: 03-13-2022 apply 1 dose topical ly once daily Topical, DAILY, First dose on Thu03/13/22 at 0900, Until Discontinued Completed/Discontinued Medications Medication Drug Class(es) Dates Sig (Normalized) Sig (Original) acetaminophen 325 mg oral tablet (12 sources) Start: 03-01-2024 650 mg, Oral, EVERY 4 HOURS PRN, Starting on Thu03/01/24 at 1953, Until Discontinued, Mild Pain (pain score 1,2,3), Moderate Pain (pain score 4,5,6), Fever 38 C and higher, Severe Pain (pain score 7,8,9,10) Start: 03-12-2022 650 mg, Oral, EVERY 6 HOURS PRN, Starting on Thu03/12/22 at 0040, Until Discontinued, Mild Pain (pain score 1,2,3), Moderate Pain (pain score 4,5,6) Start: 02-10-2017 End: 10-04-2019 take 1 tablet by mouth every six hours Acetaminophen (Acetaminophen Extra Strength) 500 mg Tablet Discontinued 500 MG PO Every 6 hours February 10, 2017 12:00am October 04, 2019 9:37am [id number] 200 actuat albuterol 0.09 mg/actuat metered dose [...] Start: 08-19-2017 take 1 tablet by herrera once daily vitamin C (ASCORBIC ACID) 500 [...] Soln Discontinued 2.5 GM IV Q8H 90 30 March 08, 2021 12:00am April 09, 2021 11:25am baclofen 20 mg oral tablet (20 sources) gamma-Aminobutyri c Acid-ergic Agonist Start: 03-01-2024 take 20 mg by mouth once daily 20 mg, Oral, DAILY, First dose on Thu03/01/24 at 2030, Until Discontinued Start: 10-04-2019 take 1 tablet by herrera th every six hours as needed for muscle [...] 13, 2017 12:00am October 04, 2019 9:37am take 1 tablet by herrera th once daily baclofen (Lioresal) 10 MG tablet Take 10 mg by mouth 1 (one) time each day at the same time. Active Balsam [place] [employer] (10 sources) Start: 09-21-2020 End: 10-30-2020 Balsam [place] [employer] Disco ntinued 1 APPLIC TOPICAL Three times daily 60 September 20, 2020 11:00pm October 30, 2020 9:48am Start: 09-21-2020 End: 10-30-2020 Balsam [place] [employer] Disco ntinued 1 APPLIC TOPICAL Three times daily 60 September 21, 2020 12:00am October 30, 2020 10:48am bisacodyl 5 mg delayed release oral tablet (20 sources) Stimulant Laxative Start: 02-26-2019 End: 10-04-2019 take 10 mg by mouth once daily Bisacodyl Discontinued 10 MG PO Daily February 26, 2019 12:00am October 04, 2019 9:37am Start: 01-13-2017 End: 05-26-2018 Bisacodyl Discontinued 10 MG SC Daily January 12, 2017 11:00pm May 26, 2018 2:54pm Start: 01-13-2017 End: 05-26-2018 Bisacodyl Discontinued 10 MG SC Daily January 13, 2017 12:00am May 26, [...] dose, First dose on Thu03/18/22 at 1500 buprenorphine 8 mg / naloxone 2 mg sublingual tablet (20 sources) Partial Opioid Agonist, Opioid Antagonist Start: 03-01-2024 take 2.5 tablets under the tongue once daily 2.5 Tablet, Sublingual, DAILY, First dose on Thu03/01/24 at 2030, Until Discontinued Start: 10-31-2022 Buprenorphine HCl-Naloxone HCl (Suboxone) 8-[address] 2 Film under the tongue 1 (one) time. 10/31/2022 Active Start: 03-19-2022 End: 04-18-2022 buprenorphine-naloxone (Subo xone) 8-2 MG FILM SL film Indications: Opioid use disorder Place 1 Film under the tongue 2 times daily for 14 days. 28 Each 04/04/2022 10:28 AM EST 04/03/2022 Active Start: 03-19-2022 End: 04-18-2022 Start: 03-20-2020 End: 10-30-2020 Buprenorphine-Naloxone Disco ntinued 1 FILM SUBLINGUAL Twice daily March 20, 2020 1:00am October 30, 2020 10:48am Suboxone Active busPIRone hydrochloride 10 mg oral tablet (20 sources) Start: 09-21-2020 End: 10-30-2020 take 10 mg by mouth three times daily Buspirone Discontinued 10 MG PO Three times daily September 21, 2020 12:00am October 30, 2020 [...] tablet Discontinued 1 TAB PO Twice daily 60 March 25, 2020 1:00am September 19, [...] mg capsule Discontinued 1 GM PO Q12H 40 January 20, 2018 12:00am April 20, 2018 [...] Discontinued 450 MG PO Three times daily 189 February 22, 2021 12:00am March 08, 2021 [...] Push, ONCE PRN, 1 dose, Starting on 03/15/22 at 0913, Until Discontinued, Anxiety, Prior to [...] 13, 2017 1:00am January 20, 2018 6:24pm 0.4 ml enoxaparin sodium 100 mg/ml prefilled syringe (1 source) Low Molecular Weight Heparin Start: 03-01-2024 inject 40 mg by subcutaneous injection once daily 40 mg, Subcutaneous, DAILY, First dose on Thu03/01/24 at 2030, Until Discontinued ergocalciferol 1.25 mg oral capsule (10 sources) Provitamin D2 Compound Start: 03-25-2020 End: 09-19-2020 take 23399 [IU] by mouth every week Ergocalciferol (Vitamin D2) Discontinued 00419 UNIT PO every week 60 March 25, [...] 5 MIN PRN, 5 doses, Starting on Thu03/21/22 at 2215, Until 03/22/22 at 0144, Severe [...] 13, 2017 1:00am January 20, 2018 6:24pm gabapentin 300 mg oral capsule (20 sources) Anti-epileptic Agent Start: 03-01-2024 take 600 mg by mouth three times daily 600 mg, Oral, 3 TIMES DAILY, First dose on Thu03/01/24 at 2200, Until Discontinued Start: 03-12-2022 take 600 mg by mouth three times daily 600 mg, Oral, 3 TIMES DAILY, First dose (after last modification) on Thu03/12/22 at 0900, Until Discontinued Start: 10-25-2019 End: 07-08-2022 take 1 tablet by mouth in the morning, then take 1 tablet by mouth in the evening, then take 1 tablet by mouth at bedtime gabapentin (Neurontin) 600 MG tablet Indications: Paraplegia, unspecified (CMS/HCC) Take 1 tablet (600 mg) by mouth in the morning and 1 tablet (600 mg) in the evening and 1 tablet (600 mg) before bedtime. 90 tablet 2 11/12/2022 Active Start: 09-10-2018 End: 10-04-2019 take 600 mg by mouth three times daily Gabapentin Discontinued 600 MG PO Three times daily September 10, 2018 12:00am October 04, 2019 9:37am Start: 08-19-2017 take 2 capsules by m [facility] four times daily gabapentin (NEURONTIN) 400 MG capsule Take 2 Capsules by mouth 4 times daily. 120 Capsule 3 08/19/2017 Active Start: 01-13-2017 End: 09-10-2018 take 400 mg by mouth three times daily Gabapentin Discontinued 400 MG PO Three times daily January 13, 2017 12:00am September 10, 2018 1:03pm take 1 capsule by mo [facility] every six hours Gabapentin 400 MG 1 capsule Orally four times a day Active Gadoterate Meglumine (DOTAREM) 10 MMOL/20ML solution (1 [...] 26, 2019 12:00am April 02, 2019 7:21pm hydrophilic wound dressing (TRIAD) external paste (1 source) Start: 03-02-2024 Apply external ly, DAILY, First dose on Thu03/02/24 at 1630, Until Discontinued hydrOXYzine pamoate 50 mg oral capsule (10 [...] 21, 2020 12:00am October 30, 2020 10:46am LORazepam 0.5 mg oral tablet (3 sources) [...] 13, 2017 1:00am February 09, 2018 10:33am 100 ml magnesium sulfate 40 mg/ml injection (5 sources) Start: 03-04-2024 End: 03-04-2024 4,000 mg, Intravenous, ONCE, 1 dose, On Thu03/04/24 at 0800 Start: 03-02-2024 End: 03-02-2024 4,000 mg, Intravenous, ONCE, 1 dose, On Thu03/02/24 at 0830 Start: 03-23-2022 End: 03-23-2022 2 g (2,000 mg), Intravenous, ONCE, 1 dose, On 03/23/22 at 0630 Start: 03-20-2022 End: 03-20-2022 1,000 mg, Intravenous, ONCE, 1 dose, On Allie 03/20/22 at 0700 Start: 03-18-2022 End: 03-18-2022 2 g (2,000 mg), Intravenous, ONCE, 1 dose, On Thu03/18/22 at 0700 mecobalamin (10 sources) Start: 03-25-2020 [...] Methadone Discontinued 20 MG PO Twice daily September 30, 2018 11:15am November 16, 2018 10:16am Start: 10-01-2017 End: 04-04-2022 take 2 tablets by mouth twice daily methadone (DOLOPHINE) 10 MG tablet Take 20 mg by mouth 2 times daily. 0 10/01/2017 04/04/2022 Discontinued Start: 01-13-2017 End: 09-10-2018 take 10 mg by mouth twice daily Methadone Discontinued 10 MG PO Twice daily January 13, 2017 12:00am September 10, 2018 1:04pm 100 ml metroNIDAZOLE 5 [...] 11:47am 1 ml morphine sulfate 2 mg/ml cartridge (2 sources) Opioid Agonist Start: 03-01-2024 End: 03-01-2024 take 1 dose intravenously once 2 mg, Intravenous Push, ONCE, 1 dose, On Thu03/01/24 at 2300 Start: 07-08-2023 End: 07-10-2023 inject 4 mg [...] 2019 10:39am Started first dose 11/15/18. nystatin 660320 unt/ml oral suspension (10 sources) Polyene Antifungal Start: 02-17-2021 End: 03-03-2021 take 005959 [IU] by mouth four times daily Nystatin Discontinued 466293 UNIT PO Four times daily February 17, 2021 12:00am March 03, 2021 2:52pm 2 ml ondansetron 2 mg/ml injection (11 sources) Serotonin-3 Receptor Antagonist Start: 03-27-2022 take 4 mg intravenously every four hours as needed 4 mg, Intravenous Push, EVERY 4 HOURS PRN, Starting on Thu03/27/22 at 1043, Until Discontinued, Nausea Start: 06-29-2018 [...] hours Oxycodone Discontinued 5 MG PO Q6H 20 March 08, 2021 March 26, 2021 10:56am Start: 10-01-2017 End: 10-04-2019 take 1 tablet by mouth every four hours oxycodone (ROXICODONE) 15 MG immediate release tablet TAKE 1 TABLET BY MOUTH EVERY 4 HOURS 0 10/01/2017 Active Start: 10-01-2017 End: 11-16-2018 take 15 mg by mouth every six hours Oxycodone Discontinued 15 MG PO Every 6 hours 0 September 30, 2018 11:15am November 16, 2018 10:17am Start: 01-13-2017 End: 09-10-2018 take 15 mg by mouth every six hours as needed Oxycodone Discontinued 15 MG PO Q6H January 13, 2017 12:00am September 10, 2018 1:02pm 10-15mg Q6H prn pantoprazole 40 mg delayed release oral tablet (11 sources) Proton Pump Inhibitor Start: 03-02-2024 take 40 mg by mouth once daily 30 minutes before breakfast 40 mg, Oral, DAILY 30 MIN BEFORE BREAKFAST, First dose on Thu03/02/24 at 0830, Until Discontinued Start: 05-24-2019 End: 10-04-2019 take 40 mg [...] 25, 2020 1:00am September 19, 2020 1:02pm microencapsulated potassium chloride 20 meq extended release oral tablet (20 sources) Start: 03-02-2024 End: 03-03-2024 take 1 dose by mouth once 20 mEq, Oral, ONCE, 1 dose, On Allie 03/03/24 at 1000 Start: 03-02-2024 End: 03-02-2024 take 1 dose by mouth once 40 mEq, Oral, ONCE, 1 dose, On 03/02/24 at 0100 Start: 03-02-2024 End: 03-02-2024 20 mEq, Intravenous, ONCE, 1 dose, On Thu03/02/24 at 0100, at 50 mL/hr Start: 03-04-2022 End: 06-02-2023 take 20 mEq [...] capsule Discontinued 75 MG PO Twice daily August 17, 2018 12:00am September 16, 2018 12:01am Start: 01-13-2017 End: 02-10-2017 take 75 mg by mouth twice daily Pregabalin Discontinued 75 MG PO Twice daily January 13, 2017 12:00am February 10, 2017 2:23pm promethazine hydrochloride 25 mg oral tablet (20 sources) Phenothiazine Start: 03-01-2024 take 25 mg by mouth twice daily as needed 25 mg, Oral, 2 TIMES DAILY PRN, Starting on Thu03/01/24 at 1953, Until Discontinued, Nausea Start: 11-03-2019 End: 03-20-2020 take 12.5 mg [...] 2020 1:00am September 19, 2020 1:02pm sennosides, alf 8.6 mg oral tablet (20 sources) Start: 03-03-2024 take 17.2 mg by mouth at bedtime 17.2 mg, Oral, AT BEDTIME, First dose (after last modification) on Allie 03/03/24 at 2200, Until Discontinued Start: 03-02-2024 End: 03-03-2024 take 8.6 mg by mouth at bedtime 8.6 mg, Oral, AT BEDTI ME, First dose on Thu03/02/24 at 2200, Until Discontinued Start: 03-12-2022 take 8.6 mg by mouth at bedtim e 8.6 mg, Oral, AT BEDTIME, First dose on Thu03/12/22 at 0100, Until Discontinued Start: 08-19-2017 End: 10-04-2019 take 1 tablet by mouth twice daily Sennosides (Senokot ) 8.6 mg Tablet Discontinued 8.6 MG PO Twice daily April 02, 2019 1:00am October 04, 2019 9:37am Start: 01-13-2017 End: 05-26-2018 take 1 tablet by mouth once daily as needed for constipation senna (SENOKOT) 8.6 MG tablet Take 1 Tablet by mouth daily as needed for Constipation. 30 Tablet 3 08/19/2017 Active sulfamethoxazole 800 mg / trimethoprim 160 mg [...] weeks. Orders called and faxed to facility. vancomycin 1000 mg injection (20 sources) Glycopeptide [...] Translations: [Lower abdominal pain, unspecified] 07-05-2019 Episodic Acute and unspecified renal failure (4 sources) Acute renal failure syndrome; Translations: [Acute kidney failure, unspecified] Onset: 03-01-2024 03-01-2024 Episodic Administrative/social admission (10 sources) Impaired mobility; Translations: [Other reduced mobility] 03-20-2020 Episodic Anxiety disorders (20 sources) Anxiety; Translations: [Anxiety disorder, unspecified] Onset: 01-05-2023 04-05-2021 Chronic Bacterial infection; unspecified site (20 [...]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 UA with Cult Rflxon 02-27-20 24 Bacteria Auto Ql (U) 4+ /HPF Abnormal Trace [facility] Comment on above: Performed By: #### 4 [id number] #### [facility] [address] [place] [address] Bilirubin Ql (U) Negative Normal Negative [facility] Comment on above: Performed By: #### 4 [id number] #### [facility] [address] [place] [address] Clarity (U) Ex.Turbid Abnormal Clear [facility] Comment on above: Performed By: #### 4 [id number] #### [facility] [address] [place] [address] Color (U) Light-[place] Abnormal Yellow [facility] Comment on above: Result Comment: Micr oscopic readings are only performed on those samples that meet specific criteria set forth by [facility]. Performed By: #### 4 [id number] #### [facility] [address] [place] [address] Glucose Ql (U) Negative Normal Negative [facility] Comment on above: Performed By: #### 4 [id number] #### [facility] [address] [place] [address] Hemoglobin Auto test strip (U) [Mass/Vol] Trace Abnormal Negative [facility] Comment on above: Performed By: #### 4 [id number] #### [facility] [address] [place] [address] Ketones Auto test strip Ql (U) Trace Abnormal Negative [facility] Comment on above: Performed By: #### 4 [id number] #### [facility] [address] [place] [address] Leukocyte esterase Auto test strip Ql (U) 250 Farhat/uL Abnormal Negative [facility] Comment on above: Performed By: #### 4 [id number] #### [facility] [address] [place] [address] Mucus Auto Ql (U) 4+ CD:[id number] Abnormal Negative [facility] Comment on above: Performed By: #### 4 [id number] #### [facility] [address] [place] [address] Nitrite Auto test strip Ql (U) Negative Normal Negative [facility] Comment on above: Performed By: #### 4 [id number] #### [facility] [address] [place] [address] pH (U) 7.0 [pH] Invalid Interpretation Code 5.0-9.0 [facility] Comment on above: Performed By: #### 4 [id number] #### [facility] [address] [place] [address] Protein Ql (U) 1+ mg/dL Abnormal Negative [facility] Comment on above: Performed By: #### 4 [id number] #### [facility] [address] [place] [address] RBC Ql (U) 4-20 Abnormal 0-3 [facility] Comment on above: Performed By: #### 4 [id number] #### [facility] [address] [place] [address] Specific gravity (U) [Rel density] 1.015 Invalid Interpretation Code 1.005-1.030 [facility] Comment on above: Performed By: #### 4 [id number] #### [facility] [address] [place] [address] Urobilinogen (U) [Mass/Vol] Negative Normal Negative [facility] Comment on above: Performed By: #### 4 [id number] #### [facility] [address] [place] [address] WBC Auto (Urine sed) [#/Area] 31-75 Abnormal 0-5 [facility] Comment on above: Performed By: #### 4 [id number] #### [facility] [address] [place] [address] Type of Urine collection method Clean Catch Normal [facility] Comment on above: Performed By: #### 4 [id number] #### [facility] [address] [place] [address] URINALYSISOrdered By: SYSTEM SYSTEM on 02-27-2024 Bacteria Auto Ql (U) 4+ /HPF Invalid Interpretation Code Trace/HPF [facility] UA Auto SS Bilirubin Ql (U) Negative Normal Negativemg/ dL [facility] UA Auto SS Clarity (U) Ex.Turbid *ABN* (02/27/24 6:32 PM) Invalid Interpretation Code Clear [facility] UA Auto SS Color (U) Light-[place] 1 *ABN* (02/27/24 6:32 PM) Invalid Interpretation Code Yellow [facility] UA Auto SS Comment on above: Interpretive Data: M icroscopic readings are only performed on those samples that meet specific criteria set forth by [facility]. Glucose Ql (U) Negative Normal Negativemg/ dL [facility] UA Auto SS Hemoglobin Auto test strip (U) [Mass/Vol] Trace mg/dL Invalid Interpretation Code Negativemg/ dL [facility] UA Auto SS Ketones Auto test strip Ql (U) Trace mg/dL Invalid Interpretation Code Negativemg/ dL [facility] UA Auto SS Leukocyte esterase Auto test strip Ql (U) 250 Farhat/uL Farhat/uL Invalid Interpretation Code NegativeLeu /uL [facility] UA Auto SS Mucus Auto Ql (U) 4+ graded/LPF Invalid Interpretation Code Negativegra ded/LPF [facility] UA Auto SS Nitrite Auto test strip Ql (U) Negative Normal Negativemg/ dL [facility] UA Auto SS pH (U) 7.0 *NA* (02/27/24 6:32 PM) Invalid Interpretation Code 5.0 - 9.0 [facility] UA Auto SS Protein Ql (U) 1+ mg/dL Invalid Interpretation Code Negativemg/ dL [facility] UA Auto SS RBC Ql (U) 4-20 graded/HPF Invalid Interpretation Code 0-3graded/H PF [facility] UA Auto SS Specific gravity (U) [Rel density] 1.015 *NA* (02/27/24 6:32 PM) Invalid Interpretation Code 1.005 - 1.030 [facility] UA Auto SS Urobilinogen (U) [Mass/Vol] Negative Normal Negativemg/ dL [facility] UA Auto SS WBC Auto (Urine sed) [#/Area] 31-75 graded/HPF Invalid Interpretation Code 0-5graded/H PF [facility] UA Auto SS URINALYSISOrdered By: Nalini Paez on 02-27-2024 UA Spec Desc Clean Catch (02/27/24 6:32 PM) Normal [facility] UA Auto SS eGFRon 02-27-2024 eGFR 127 mL/min/1.73 m2 Normal >=59 [facility] Comment on above: Performed By: #### 1 [id number] #### [facility] [address] [place] [address] XR Foot 3+ Views Lefton 10-10 XR [...] Edilson Chun DO Transcribed by: ISA Technologist: CML Technical Comments Radiation Dose: Ka,r in mGy = . DAP = . Normal [facility] Coding Summary.on 10-29-2023 Coding Summary. HMZPSekc69JKp0kBd+PG hl YWQ+QE1KVXTlR71lfGUsbG 5eG4ATIOqTKeowVTVOCByW DpBkbxBbRZ7wbAFmXYRz IC8+KY8fGZYpJtxgrHIuy2 M5zHB0B59dpr4oDDffzWY0 DAFfTrZwbiggh5jyfTr5HZ cuNmluOyBt JKMwtO00OUS8eW08Ax87mS UyiQDkd7aheOv5NmPjYFLn QDM7aTuyFDjjq1JjMVElF3 3tlPIku6G8 QLSkrVcqmUHoBgWtmNW5oI 1mSXarfmdkp0hzcsamQjh7 in24rDVso9K6bBX4V6Quui Z7VSFtuAAx TsxskEGPuM7nlhmhw1tecc kaInOsCMHsSPs1ITv3QQZa mXbkLjNpBX28DAM0ZUStvb ZkE7ExCIUq xFtbZmW5c2R6Bg0XT9KNGk wtL1NXUBEJJLnqrMH+PC90 at55R4NtNuvsIpj0TZHrAJ X7xRX7gM3f TQYcQYien2D9vXV7K0Dfuj Iblp6hd4fqPTYcEIahC16z hUPng9J8WQJhpHS0FZOslH wmTyTaxF75 Oyc+LRXpqSbai2EqMzhzn4 oje4pjaIh4DlbjAOEczwSv uFnmGQV4l4DmNd5zARPqcR V7bCN6kC8m FtQsKbM0VUznZ583XgRdeA SuXduhK82fC3HvpJF+PHRy Mcl6ETKgyKihUK4mT5NfRS RpbmctbGVm uNkqML9mQCYngysqYVGtfO 8rVOXoX4i9AyHtJqB4VBdq W9DaBMWtqkxvXp43hS0kSs EtIcM0DZjy M7DtykI8VQUbbKOeLHwrNQ U6Z53wm1Q7VPEwPBHuWNN2 oZU7jP8akVjbqwjcyLXtyJ sgdmVydGlj NAkbKVrnV282ERYjuXlrVl NvZGluZyBEYXRlOiAgMDYv MjAvMjAyNDwvdGQ+PHRkIH D7gLfaLKRz gPBtQTnySe5vpIjmgEniWV 5vKOEgewjgDTJvwS6tIXXe cEPbiWvcZB7dGJAgkycqp3 13NxCoECU3 TXBokNWxN9OxqP3aQbCnRG PcYSRkO6MlyGMfEOboJ438 VWtiYnH9EMBxykPeN2QkBI FsaWduOiB0 j6O4El5Ol4FamuhcL6ZtiQ YlOkZbOdwbKCy6N6VuKtwk dHI+SD24UILsBB47GGw0DP R3fKoqUBms ABOjF2KjrZ5bApAqNJCkPR RkOyc+PHRhYmxlIHdpZHRo OEzdNALjTwUkgErzAL6pBn 9yZGVyLWNv dYvoyDXcMhYzi3ceDNWgCP ftFD2czUcwF4IsaOE1HFOw p5y0Sn92C79vO7JlnAN+PG LtyUH3pEZ8 eP8gUvIdRuI8OAxfT050Ua OcjFQqAvvcj6cyo3jpuUo2 EaC1RGJkmuRugIxvCXC6q2 WtEj60I49m IHdpZHRoPSIxNSUiIHZhbG fqhd2qyI4pOe0+PGNvbCB3 hGS5gC4oTqVsDwP9MRktN8 49InRvcCIv Tyodx6wnv0rfkAy7YaIkBB ButdUcnRkvGYQ1r9JlHn34 M3YkkTkvu4XoNyr2nt94kP Zqu9K2pES1 W5MtYGPvuvvhwKHxtSoeOD 4qZGXyzccaQCKesT1vGBFg Q7v6VbZyOgN1EWqyE9Aksx I1OELtoZVx NDGlrRVBfH0clzfso2gfgm kgSzMuAOGxRDw0ECw1BGIf gFaiUhYmDPY1CkK8JWI8sH YdtT7bfOgs pptqiG0dYtk+IQG3aBBabA VPXX8cVfhvxLP+PHRkIHN0 sRxlNDboOSHasD3cJCInO8 c5FtRpTwD9 VIffZ1YsnjL3TYMtjCBdZG RikWLYwY5xttyuk2tvbjdm EzHrFXWqPNg2NWg1IAMvwP duOiBsZWZ0 CgK0LUQ2jCPpcJ1pmSxsgr ubtU4gSzk+QmlydGggRGF0 UNk9H0QqArl6BSMmiYgtKM 0ncGFkZGlu Fl1oqWunpBgqCN4kAPDplq glc159RlKqm2wnKFMfoDVg FTlhSPB2X80kb7P6VZBiAD AgHTD8jHU8 iZ6veXckdrajlRFoeCbjhm VshDlbWApkKQyaX260TVKo bIseUdEyFKy7F6UmWla8TF LdfAxiYA5q mJGwLLfpHu8rrHykoPztBF 9wOJHyuqdjq038RlTbd6kx XIYkaNXqZWeyEZD3U40uu9 I4FCAlOAAt FJI0hGT9yH1piEyuudhhdN VmdDsgdmVydGljYWwtYWxp K812NSLqpMneYyEbhAz7O9 YuVlg3QKHk lQwuFF4lbXMoKZzaMr2vrN dabPysNW7hTYWugzaix733 IbXan6fqKDFscZCfPXhvYE M5I89nf4A7 AWGsGQCoCVX8rKU3fB0ltV lnbjogbGVmdDsgdmVydGlj CWsoYEkoP182QUWpySupVr BhdGllbnQg HWdnDQz1Y3XnRpnotZV+PC 44IAUlTO13vNFwtUHuh6xa mHp1HeNdYTEjGIB0eJchEQ jds0PoTGOd O45buNVbq0F0OMOhrAtmlZ JpZvLjdZR1rU7kVBjgmfeo m5bhdzezZelur6penr73mX 83E27pOEaf ZHRoPSIzMCUiIHZhbGlnbj 2kqP3tWb4+GMFioSD4cVE2 vH4aCQCrBhA1GXyoI922St RvcCIvPjxj x3vye3rbvXn5JeO8ZNVivf SwqBlcGIB3t0HeFo89Y85l IHdpZHRoPSIyMCUiIHZhbG zhun0qqG2q Ii8+YDCshRX0yPV7fQ8nMb RkJrT9XPzxS655NzHtnXAv ZtlfL50qT3BozGU+PHRyPj o7UTMrhYnn FP8wwZMmODurCm4tBXN6Tn JdSfZkWLirG6TqOMJuoauo dvregKJ4HMIaGWEqxL01Ma 9udDogMTBw bHEIyB5naqtus7pnoolaEk NgAHRoTRf3DJk0VIUsuRze OuQoAOM3XxI1QZZ3vQDjdA 1hbGlnbjog hR2uT0EiFNHijxzpEc98nH 1cWyXdSqN1RTaeOsx+TkVJ QJawEAcMZwVZZxXXKF63SC 74sCNwb5V3 wFG9I8NrBXZanfqfucoxiK U0WRHrCHGrpZ91lJHdYChl Mm8hg0S9f454YVPrPMBmfS 30Xv0onGav QPKsbOEYqD9dnqopb0yqgn dwQlFfTONuQCp9NDx3QBAj bXpmWfDcRNT3WzM5PFR7eD BopO9fiGpk smobyD1iPrk+MDcvMDYvMT y5KGwfbCN+EFAsAUA1jVhz JWvjQAWqpF1kLDMlQ0j7Mz DcYrB3RYfj Y3GcLHRzbigyBw58eJ3iPm CxPmD0CPsfH0RfcqO2ZAJq zOXyDBplMFL3W07pk6O6HW MwMDAwMDA7 kMN0cE4xvShmlesssRZbnH gcwxQxwGxtLOnaPBddM411 OSKlxZjuNmF0IRqqARCkNK 73BP67aVUb v6H1eYL6Z3SaAVFrqbfqve pufNF8HQUfLHUtkS00bCTy BQkeBn0sq3S8l751UZSoQK BvsS88Ui9o hQzxHPEovEVVpI5thfomi4 oknzhqKgQjCPHlRPd0BGr4 MRNiuFptDeUaTND3QaV4EV D4gQJbxF6n uZqidqicyO4wBlq+TWFsZT wvdGQ+KRBhYBI8aNrgUJxz HNLmiC3oHKDfM1a6RcUrRb X0VTxzC8Zv VBMozkouZf86xM3rAuCpIk S1WRhaH3WfxbR6QIKqdLCu PQoxOPL1U35ss4B3DSQqTJ SiBBM1kZT6 sW0lcAljaecwbLCoeTskph ZicMbzILntVGapU550BHYo cZzfPo75vLGuzUlzrtI5O7 RkPjwvdHI+ KE28XBLvRA44aCCcuJLry3 jobUi3IzOuMGMjXHA1oGdb TJqse7LcYYIoX72hvPMyr2 K7WIKapZmw mMHfOcEqyFE6wA4mPWwwyq gxv0milixwGwrpm8xsme01 oE12S02tDDpzAOSgQAHtJX UiIHZhbGln yc6vnH9xCh7+QKVexFV1gC D9hZ5cFqKaMbN5TAgqG218 BzDsnFUfCtrgx4sce3tovO v1BwAnDKDr mnEioXnhFUA6g2QdYj57Z8 9sIHdpZHRoPSIyMCUiIHZh fLmykx6obQ2kGd2+PC9jb2 saar24lS16 dHI+KHAuRMW1qLsoYXarAD QjoM5iGPnjFlV7KJWaStEo zA33gVAgCOwaQn5zcChkrN abXL6aEEMu kfrui922DdQbh1ejEHDpeB MqKRdqODT1H75ts5A8JCKs YWNsKNA5iHJ7yV9ruJyjcn ogbGVmdDsg xfXhsGrpNEtrCSlqY562TN PjqCniZrLxiONlH2ljotPB FP6mXdpplJB+ZCFqOJJ7nV xlPSdwYWRk bR2uLRIlE9j7PhVcCoQ0WB aoA0PdisN5TBDzpVSdUPVu gFWMaK8vjdxou9qchuqnMi AwMDAwMDt0 HCl9KTWoqBwnByWnTYE0Dg N2JKT0dRAbaF3etUekysiw kJ4bGpu+RklOOjwvdGQ+PH AqGKP6yYye KZigYRTreY3hDQYrT5k3Np YrBaV8YNdnS0HruiS8KGYs eQXjSDOfkAWFzV7mxiayj2 xvcjogIzAw PKIeJLy5NNm6MOXlwMgzLe KxVNP7SqT0NQP8jYFseB8l aVujgsfwiO6bKrm+TVJOOj wvdGQ+PHRk SBI6tVrtTJeuICDvrG6uSS BfH0f1VlZoSvI1BGshW9Xa lsL7UQYngNVnMXRihHOHeM 6wvvows9ve hypdJlTmZGIyCAc2FOn1QE JqcHfaPxOoHEG2AeN8POD5 qQFlxV1kdTyjrmdnjX4tIz c+KXK6NEU1 OR15BC80U7AyCrowkRGvpX U+PHRhYmxlIHdpZHRoPScx UMNtDsWtxFqbTM2mSo1uAI VyLWNvbGxh cEFgGoZeg4emK (more content not included)... Normal [facility] Nursing Note - Woundon 10-28 Nursing Note - Wound 159.140.124. 060 [id number]#1. 00TIFF [facility] Physician Orderon 10-29-2023 Physician Order [id number] 60 [id number]#2. 00TIFF [facility] Procedure - Woundon 10-29-19 Procedure - Wound [id number] 60 [id number]#2. 00TIFF [facility] Progress Note - Woundon 10-10 Progress Note - Wound 159.140.124.25. 4060 [id number]#2. 00TIFF [facility] Consent for Procedure/Surger yon 10-28-2023 Consent for Procedure/Surgery [id number]#1. 00TIFF [facility] Consent for Treatmenton 10-09 Consent for Treatment [id number] 4060 [id number]#1.0 0TIFF [facility] Consent for Treatment [id number] 4060 [id number]#1.0 0TIFF [facility] Multi-Wound Charton 10-28-19 24 Multi-Wound Chart [id number] 60 [id number]#2. 00TIFF [facility] Nursing Assessment - Woundon 10-28-2023 Nursing Assessment - Wound [id number]#1. 00TIFF [facility] Physician Orderon 10-28-2023 Physician Order [id number] 60 [id number]#1 .00TIFF [facility] Physician Order [id number] 31 [id number]#1.0 0TIFF [facility] Nursing Assessment - Woundon 10-14-2023 Nursing Assessment - Wound [id number]#1. 00TIFF [facility] Nursing Note - Woundon 10-13 Nursing Note - Wound 159.140.124. 060 [id number]#1. 00TIFF [facility] Consent for Procedure/Surger yon 10-07-2023 Consent for Procedure/Surgery [id number]#1. 00TIFF [facility] Consent for Treatmenton 09-09 Consent for Treatment 159.140.128.34. 4050 [id number]#1.0 0TIFF [facility] Multi-Wound Charton 10-07-19 24 Multi-Wound Chart 159.140.124. 50 [id number]#1. 00TIFF [facility] Physician Orderon 10-07-2023 Physician Order [id number] 50 [id number]#1. 00TIFF [facility] Procedure - Woundon 10-07-19 24 Procedure - Wound 159.140.124. 50 [id number]#1. 00TIFF [facility] Progress Note - Woundon 09-09 Progress Note - Wound 159.140.124.25. 4050 [id number]#1. 00TIFF [facility] Aerobic Cultureon 09-25-2023 Aerobic Culture Comment right ischia l bone culture ORGANISM: Strep. agalactiae Grp B (O:B) Quantity of Growth Light Growth Comment right ischial bone culture Anaerobic Culture Results Light Mixed Anaerobic Vonda 3 Days Comment right ischial bone culture Gram Stain Result No Bacteria Seen PERFORMED BY: [place] [id number] PATHOLOGIST BUSINESS SERVICES SPECIALIST SALES MARK PURVIS M.D. Normal [facility] Comment on above: Performed By: #### A ERC #### [address] [address] [facility] Aerobic Culture Comment right ischia l ulcer [...] RESISTANT TO ALL B-LACTAM DRUGS. PERFORMED BY: [address] [address] PATHOLOGIST BUSINESS SERVICES SPECIALIST SALES MARK PURVIS M.D. Normal [facility] Comment on above: Performed By: #### A ERC #### [address] [address] [facility] Amphetamine Screen Ql (U)Ord ered By: Conrad Cohn on 09-25-2023 Amphetamines Ql (U) Negative Negative [facility] Barbiturates [Presence] in U rine by Screen methodOrdered By: Conrad Cohn on 09-25-2023 Barbiturates Screen Ql (U) Negative Negative [facility] Benzodiazepines Screen Ql (U )Ordered By: Conrad Cohn on 09-25-2023 Benzodiazepines Ql (U) Negative Negative [facility] Benzoylecgonine [Presence] i n Urine by Screen methodOrdered By: Conrad Cohn on 09-25-2023 Benzoylecgonine Screen Ql (U) Negative Negative [facility] Cannabinoids [Presence] in U rine by Screen methodOrdered By: Conrad Cohn on 09-25-2023 Cannabinoids Screen Ql (U) Positive Negative [facility] Comment on above: These are unconfirme d results and should not be used for legal purposes. Drug Cut-Off Concentration: AMPH 1000 ng/mL SCOTT 200 ng/mL JUICE 200 ng/mL COCM 300 ng/mL OP 300 ng/mL PCP 25 ng/mL THC 20 ng/mL Drug Screen,Urineon 09-25-19 24 Amphetamine Screen,Urine Negative Normal Negative [facility] Comment on above: Performed By: #### U RDS #### [address] Barbiturate Screen,Urine Negative Normal Negative [facility] Comment on above: Performed By: #### U RDS #### [facility] [address] [place] [address] [place] Benzodiazepines Screen,Urine Negative Normal Negative [facility] Comment on above: Performed By: #### U RDS #### [place] [address] [place] Cannabinoid Screen,Urine Positive High Negative [facility] Comment on above: Result Comment: Thes e are unconfirmed results and should not be used for legal purposes. Drug Cut-Off Concentration: AMPH 1000 ng/mL SCOTT 200 ng/mL JUICE 200 ng/mL COCM 300 ng/mL OP 300 ng/mL PCP 25 ng/mL THC 20 ng/mL PERFORMED BY: [place] [address] PATHOLOGIST BUSINESS SERVICES SPECIALIST SALES MARK PURVIS M.D. Performed By: #### U RDS #### [facility] [address] [place] [address] [place] Cocaine Screen,Urine Negative Normal Negative [facility] Comment on above: Performed By: #### U RDS #### [facility] [address] [place] [address] [place] Opiate Screen,Urine Positive High Negative [facility] Comment on above: Performed By: #### U RDS #### [facility] [address] Phencyclidine Screen,Urine Negative Normal Negative [facility] Comment on above: Performed By: #### U RDS #### [facility] [address] [place] [address] [place] Yann 09-25-2023 L Specimen: [id number] Received: 09/25/23 Status: GAMAL Wild Num: [id number] Spec Type: Surgical Subm Dr: Sam Smith MD Tissues: A Debridement-Skin/Other Than Skin (POD RT HIP) Procedures: HE, Gross/Micro L3 Age/ Patient Sex Location Account Attending Physician Cleveland Swift 27/M [place] [id number] Sam Smith MD SPEC NUM: [id number] RECD: 09/25/23 STATUS: GAMAL WILD NUM: [id number] CELINE: 09/25/23- SUBM DR: Sam Smith MD ENTERED: 09/25/[address] [facility] [address]: SPEC TYPE: Surgical DEPT: S ORDERED: [...] Cut sections reveal pink-white and unremarkable surfaces. Brass Sorter sections are submitted in A1. TW ---- Specimen: [id number] Received: 09/25/23 Status: GAMAL Wild Num: [id number] Spec Type: Surgical Subm Dr: Sam Smith MD Tissues: A Debridement-Skin/Other Than Skin (POD RT HIP) Procedures: SHERRILL, Gross/Micro L3 ---- Patient: Cleveland Swift [id number] (Continued) ---- Specimen: [id number] Received: 09/25/23 (Continued) Signed (signature on file) Diana Romero MD 09/28/232056 ---- Specimen: Received: 09/25/23 Status: GAMAL Wild Num: [id number] Spec Type: Surgical Subm Dr: Sam Smith MD Tissues: A Debridement-Skin/Other Than Skin (POD RT HIP) Procedures: SHRERILL, Destini/Uzair L3 ---- Patient: Cleveland Swift [id number] (Continued) ---- Specimen: Received: 09/25/23 (Continued) CPT Codes 81258 ---- ---- Specimen: Received: 09/25/23 Status: GAMAL Wild Num: [id number] Spec Type: Surgical Subm Dr: Sam Smith MD Tissues: A Debridement-Skin/Other Than Skin (POD RT HIP) Procedures: HE, Gross/Micro L3 ---- Patient: Cleveland Swift [id number] (Continued) ---- Signed (signature on file) Diana Romero MD 09/28/232056 Normal [facility] Opiates [Presence] in Urine by Screen methodOrdered By: Conrad Cohn on 09-25-2023 Opiates Screen Ql (U) Positive Negative [facility] Phencyclidine Screen Ql (U)O rdered By: Conrad Cohn on 09-25-2023 Phencyclidine Ql (U) Negative Negative [facility] Consent for Procedure/Surger yon 09-09-2023 Consent for Procedure/Surgery [id number]#1. 00TIFF Normal [facility] Consent for Treatmenton Consent for Treatment [id number] 4050 [id number]#1.0 0TIFF Normal [facility] Multi-Wound Charton 09-09-19 Multi-Wound Chart [id number] 50 [id number]#1. 00TIFF [facility] Nursing Assessment - Woundon 09-09-2023 Nursing Assessment - Wound [id number]#1. 00TIFF [facility] Nursing Note - Woundon 09-08 Nursing Note - Wound 159.140.124. [facility] [id number]#1. 00TIFF [facility] Physician Orderon 09-09-2023 Physician Order [id number] 50 [id number]#1. 00TIFF [facility] Procedure - Woundon 09-09-19 Procedure - Wound 159.140.124.. 50 [id number]#1. 00TIFF [facility] Progress Note - Woundon Progress Note - Wound 159.140.124.25. 4050 [id number]#1. 00TIFF [facility] Consent for Procedure/Surger yon 08-26-2023 Consent for Procedure/Surgery [id number] [id number]#1. 00TIFF [facility] Consent for Treatmenton 08-09 Consent for Treatment [id number] 4040 [id number]#1.0 0TIFF [facility] Multi-Wound Charton 08-26-19 Multi-Wound Chart [id number] 40 [id number]#1. 00TIFF [facility] Nursing Assessment - Woundon 08-26-2023 Nursing Assessment - Wound [id number] [id number]#1. 00TIFF [facility] Nursing Note - Woundon 08-25 Nursing Note - Wound 170.71.118.120.6835 [facility][note 3] [id number]#1. 00TIFF [facility] Physician Orderon 08-26-2023 Physician Order [id number] 40 [id number]#1. 00TIFF [facility] Procedure - Woundon 08-26-19 Procedure - Wound [id number] 40 [id number]#1. 00TIFF [facility] Progress Note - Woundon 08-09 Progress Note - Wound [id number] 7339 [id number]#1. 00TIFF [facility] Aerobic Cultureon 08-25-2023 Aerobic Culture ORGANISM: Enterococc us faecalis (O:ENTFAC) Quantity of Growth Moderate Growth ORGANISM: Methicillin Resis Staph Aureus (O:MRSA) Quantity of Growth Light Growth ORGANISM: Strep agalactiae - (group b) (O:STRAGA) Quantity of Growth Light Growth ORGANISM: Prevotella bivia (O:PREBIV) Comments Sent to [facility] for Sensitivity Testing Quantity of Growth [...] RESISTANT TO ALL B-LACTAM DRUGS. PERFORMED BY: [place] [address] PATHOLOGIST BUSINESS SERVICES SPECIALIST SALES MARK PURVIS M.D. Normal [facility] Comment on above: Performed By: #### A ERC #### [address] Gram stain for investigation of transfusion reactionOrdered By: Sam Smith on 08-25-2023 Microscopic observation Gram stain Nom (Unsp spec) Prevotella bivia [facility] ANTIMICROBIAL SUSCEPT-ANAERO BEon 08-23-2023 FINAL REPORT SEE NOTE Normal [facility] Comment on above: Order Comment: Speci men Type: MICROBIAL ISOLATE Ordering Facility: [facility] Address: [address] [place], [place] [address] Result Comment: Prev otella bivia Organism identified [...] methodology. Interpret results with caution. Performed By: [employer] [address] [place] [address] Senior Data Modeler: Franklin Bishop MD, PhD CLIA Number: [id number] Performed By: #### S USANA #### [employer] CLIA [id number] [address] [place] [address] #### [id number] #### [facility] CLIA [id number] [address] [place] [address] [place] Bacterial susceptibility escobedo el JACQUELYN (Isol)on 08-23-2023 BLACT Positive Normal [facility] Comment on above: Order Comment: Speci men Type: MICROBIAL ISOLATE Ordering Facility: [facility] Address: [address] [place] [address] Performed By: #### S USANA #### [facility] CLIA [id number] [address] [place] [address] #### [id number] #### [facility] CLIA [id number] [address] [place] [address] [place] Microorganism identified Cx Nom (Unsp spec) [id number] Abnormal [facility] Comment on above: Order Comment: Speci men Type: MICROBIAL ISOLATE Ordering Facility: [facility] Address: [address] [place] [address] Result Comment: Prev otella bivia Identification performed by client. Susceptibility results have been completed by [facility]. Performed By: #### S USANA #### [facility] CLIA [id number] [address] [place] [address] #### [id number] #### [facility] CLIA [id number] [address] [place] [address] [place] Nursing Note - Woundon 08-11 Nursing Note - Wound 170.71.110.768.3468 030 [id number]#3. 00TIFF [facility] Consent for Procedure/Surger yon 08-04-2023 Consent for Procedure/Surgery [id number]#1. 00TIFF [facility] Progress Note-Nurseon 2023 Progress Note-Nurse [id number] 20 [id number]#1 .00TIFF [facility] Consent for Treatmenton 07-09 Consent for Treatment [id number] 4030 [id number]#1.0 0TIFF [facility] Multi-Wound Charton 07-28-19 24 Multi-Wound Chart [id number] 30 [id number]#1. 00TIFF [facility] Nursing Assessment - Woundon 07-28-2023 Nursing Assessment - Wound [id number] [id number]#1. 00TIFF [facility] Physician Orderon 07-28-2023 Physician Order [id number] 30 [id number]#1. 00TIFF [facility] Progress Note - Nutritionon 07-28-2023 Progress Note - Nutrition Met with pt and his mom on this day in the wound clinic. PMH: paraplegia. 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 Pt also has a dorsal foot wound on L foot in addition to a sacral wound (tx at [facility]). Per the physician wounds are healing well. Discussed with pt the importance of adequate calories, protein, and hydration to help with healing. Pt appears well nourished; denies recent wt loss or loss of appetite. Est needs: 2000-2150kcals, 68-80g pro, 2000cc water. Shared handout regarding High Protein and High Calorie foods. Pt and mom do not have questions. Contact info given. [facility] Progress Note - Woundon 07-09 Progress Note - Wound [id number] 8490 [id number]#3. 00TIFF [facility] Consent for Procedure/Surger yon 07-21-2023 Consent for Procedure/Surgery [id number] [id number]#1. 00TIFF [facility] Consent for Treatmenton 07-09 Consent for Treatment [id number] 4030 [id number]#1.0 0TIFF [facility] Consent to Photographon 07-09 Consent to Photograph 170.71.121.75.2023 0302 [id number]#1. 00TIFF [facility] Correspondence - Woundon Correspondence - Wound 170.71.121.75.202 54688 [id number]#1. 00TIFF [facility] Multi-Wound Charton 07-21-19 24 Multi-Wound Chart [id number] 30 [id number]#1. 00TIFF [facility] Nursing Assessment - Woundon 07-21-2023 Nursing Assessment - Wound [id number] [id number]#1. 00TIFF [facility] Nursing Note - Woundon 07-20 Nursing Note - Wound 170.71.394.670.5911 030 [id number]#1. 00TIFF [facility] Outside Recordson 07-21-2023 Outside Records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 above: Performed By: #### 1 [id number], 3325680, 8121915 ####[address] [address] Hematocrit (Bld) [Volume fraction] 35.0 % Low 37.7-49.0 [facility] Comment on above: Performed By: #### 1 [id number], 3968079, 6903034 ####[address] [address] Hemoglobin (Bld) [Mass/Vol] 11.0 g/dL Low 13.5-17.5 [facility] Comment on above: Performed By: #### 1 [id number], 5418369, 8422089 ####[address] [address] Lymph Absolute 1.6 E9/L Normal 1.0-4.0 [facility] Comment on above: Performed By: #### 1 [id number], 3405019, 7496624 ####[address] [address] Lymphocytes/100 WBC (Bld) 10.1 % Low 14.0-50.0 [facility] Comment on above: Performed By: #### 1 0900557, 9152354, 1050314 ####[address] [address] MCH (RBC) [Entitic mass] 26.6 pg Low 27.0-34.0 [facility] Comment on above: Performed By: #### 1 [id number], 4406324, 2434029 ####[address] [address] MCHC (RBC) [Mass/Vol] 31.5 g/dL Normal 31.4-36.0 [facility] Comment on above: Performed By: #### 1 [id number], 8901345, 3513500 ####[address] [address] MCV (RBC) [Entitic vol] 84.3 fL Normal 80.0-100.0 [facility] Comment on above: Performed By: #### 1 [id number], 3372788, 3898215 ####[address] [address] Carroll Absolute 0.8 E9/L Normal 0.2-1.0 [facility] Comment on above: Performed By: #### 1 [id number], 8705341, 7065571 ####[address] [address] Monocytes/100 WBC (Bld) 5.4 % Normal 4.0-14.0 [facility] Comment on above: Performed By: #### 1 [id number], 1841238, 1361894 ####[address] [address] Neutro Absolute 12.8 E9/L High 2.0-7.5 [facility] Comment on above: Performed By: #### 1 8386874, 8813893, 5482060 ####[address] [address] Neutro Auto 83.2 % High 36.0-75.0 [facility] Comment on above: Performed By: #### 1 1041489, 9139504, 7774278 ####[address] [address] Platelet 597.0 E9/L High 150.0-500.0 [facility] Comment on above: Performed By: #### 1 [id number], 5324029, 0160213 ####[facility] [address] [place] [address] Platelet mean volume (Bld) [Entitic vol] 6.8 fL Normal 6.4-10.8 [facility] Comment on above: Performed By: #### 1 6286224, 5595801, 3311146 ####[facility] [address] [place] [address] RBC 4.2 E12/L Low 4.3-5.9 [facility] Comment on above: Performed By: #### 1 1747079, 4825879, 7330347 ####[facility] [address] [place] [address] WBC 15.4 E9/L High 4.0-11.0 [facility] Comment on above: Performed By: #### 1 5753764, 5155294, 4203758 ####[facility] [address] [place] [address] CHEMISTRYOrdered By: SYSTEM SYSTEM on 07-06-2023 Anion [...] Treatmenton 06-12 Consent for Treatment [id number] Normal [facility] HEMATOLOGYOrdered By: SYSTEM SYSTEM on 07-06-2023 Basophil [...] Normal 80.0 - 100.0 fL Remisol Heme [place] Absolute 0.8 E9/L Normal 0.2 - 1.0 [...] 07-06-2023 eGFR 151 mL/min/1.73 m2 Normal >=59 [facility] Comment on above: Order Comment: Order added by Discern Expert. Performed By: #### 1 [id number], 0007008, [id number] ####[facility] [id number] US UNI ankle/arm indiceson 0 06-18-2023 US UNI ankle/arm indices [facility] [place] [address] Ultrasound Report Signed Patient: Cleveland Swift MR#: [id number] 59 : 1995 Acct:[id number] Age/Sex: 27 / M ADM Date: 06/18/23 Loc: [facility] Room: Type: [facility] Attending Dr: Scar Ann MD Ordering Provider: [...] Scar Ann MD06/18/2023 11:50 AM Dictation Location: [place] [address] Tech: Brenda Jorgensen Transcribed By: JAYSHREE 06/18/23 1150 Dictated By: Scar Ann MD 06/18/23 1149 Signed By: 06/18/23 1150 Normal [facility] C-REACTIVE PROTEINon 022 CRP [Mass/Vol] 2.7 mg/dL High NINF - 0.8 mg/dL [facility] Interpretation and review of laboratory results Abnormal [facility] Earlene 03-12 CT DLP 210 (mGy.cm) [facility] CT Series Topogram,Topogram,NE CK WITH [facility] CTDI VOL 0.08 (mGy),0.08 (mGy),7.09 (mGy) [facility] PHANTOM TYPE IEC Body Dosimetry Phantom,IEC Body Dosimetry Phantom,IEC Body Dosimetry Phantom [facility] RADIOLOGY [facility] Radiology Study observation (narrative) [facility] VANCOMYCIN TROUGHon 04-02-20 22 Interpretation and review of laboratory results Normal [facility] Vancomycin trough [Mass/Vol] 16.0 ug/mL 10.0 - 20.0 ug/mL [facility] Basic metabolic 2000 panelon 03-30-2022 Anion gap [Moles/Vol] 14 mmol/L 10 - 20 Met [facility] Calcium [Mass/Vol] 9.2 mg/dL 8.4 - 10. 4 mg/dL [facility] Chloride [Moles/Vol] 106 mmol/L 97 - 11 1 mmol/L [facility] CO2 [Moles/Vol] 23 mmol/L 21 - 30 mmol/L [facility] Creatinine [Mass/Vol] mg/dL Low 0.80 - 1.30 mg/dL [facility] Glucose [Mass/Vol] 90 mg/dL 68 - 110 mg/dL [facility] Interpretation and review of laboratory results Abnormal [facility] Potassium [Moles/Vol] 3.7 mmol/L 3.3 - 5.3 mmol/L [facility] Sodium [Moles/Vol] 139 mmol/L 135 - 148 mmol/L [facility] Urea nitrogen [Mass/Vol] 16 mg/dL 8 - 22 mg/dL [facility] CBC panel Auto (Bld)on 03-30 Erythrocyte distribution [...] [#/Vol] 7.0 10*3/uL 4.5 - 11.5 K/uL [facility] MAGNESIUMon 03-30-2022 Interpretation and review of laboratory results Normal [facility] Magnesium [Mass/Vol] 1.8 mg/dL 1.6 - 2 .8 mg/dL [facility] No Panel Informationon 03-30 [facility] ANAEROBIC CULTURE, [facility] ed By: Regine Collins on 03-29-2022 Bacteria identified Anaer cx Nom (Unsp spec) No Anaerobes isolated [facility] Interpretation and review of laboratory results Normal [facility] Basic metabolic 2000 panelon 03-29-2022 Anion gap [Moles/Vol] 13 mmol/L - 20 Met [facility] Calcium [Mass/Vol] 10.2 mg/dL 8.4 - 10. 4 mg/dL [facility] Chloride [Moles/Vol] 102 mmol/L 97 - 11 1 mmol/L [facility] CO2 [Moles/Vol] 27 mmol/L 21 - 30 mmol/L [facility] Creatinine [Mass/Vol] mg/dL Low 0.80 - 1.30 mg/dL [facility] Glucose [Mass/Vol] 82 mg/dL 68 - 110 mg/dL [facility] Interpretation and review of laboratory results Abnormal [facility] Potassium [Moles/Vol] 4.4 mmol/L 3.3 - 5.3 mmol/L [facility] Sodium [Moles/Vol] 138 mmol/L 135 - 148 mmol/L [facility] Urea nitrogen [Mass/Vol] 17 mg/dL 8 - 22 mg/dL [facility] CBC panel Auto (Bld)on 03-29 Erythrocyte distribution width (RBC) [Ratio] 21.4 % High 11.5 - 14.5 % [facility] Hematocrit (Bld) [Volume fraction] 32.8 % Low 41.0 - 53.0 % [facility] Hemoglobin (Bld) [Mass/Vol] 10.7 g/dL Low 13.9 - 16.3 g/dL [facility] Interpretation and review of laboratory results Abnormal [facility] MCH (RBC) [Entitic mass] 27.5 pg 26.0 - 34.0 pg [facility] MCHC (RBC) [Mass/Vol] 32.5 g/dL 32.0 - 35.9 g/dL [facility] MCV (RBC) [Entitic vol] 85 fL 80 - 100 fL [facility] Platelet mean volume (Bld) [Entitic vol] 7.0 fL Low 7.5 - 11.2 fL [facility] Platelets (Bld) [#/Vol] 334 10*3/uL 150 - 400 K/uL [facility] RBC (Bld) [#/Vol] 3.87 10*6/uL Low [facility] WBC (Bld) [#/Vol] 6.2 10*3/uL 4.5 - 11.5 K/uL [facility] MAGNESIUMon 03-29-2022 Interpretation and review of laboratory results Normal [facility] Magnesium [Mass/Vol] 1.9 mg/dL 1.6 - 2 .8 mg/dL [facility] No Panel Informationon 03-29 [facility] Basic metabolic 2000 panelon 03-28-2022 Anion gap [Moles/Vol] 17 mmol/L 10 - 20 Met [facility] Calcium [Mass/Vol] 10.1 mg/dL 8.4 - 10. 4 mg/dL [facility] Chloride [Moles/Vol] 105 mmol/L 97 - 11 [...] [Mass/Vol] 16 mg/dL 8 - 22 mg/dL [facility] CBC panel Auto (Bld)on 03-28 Erythrocyte distribution [...] 6.9 fL Low 7.5 - 11.2 fL [facility] Platelets (Bld) [#/Vol] 356 10*3/uL 150 - 400 K/uL [facility] RBC (Bld) [#/Vol] 3.96 10*6/uL Low [facility] WBC (Bld) [#/Vol] 7.2 10*3/uL 4.5 - 11.5 K/uL [facility] MAGNESIUMon 03-28-2022 Interpretation and review of laboratory results Normal [facility] Magnesium [Mass/Vol] 2.1 mg/dL 1.6 - 2 .8 mg/dL [facility] No Panel Informationon 03-28 [facility] Basic metabolic 2000 panelon 03-27-2022 Anion gap [Moles/Vol] 10 mmol/L 10 - 20 Met [facility] Calcium [Mass/Vol] 9.7 mg/dL 8.4 - [...] 11.0 g/dL Low 13.9 - 16.3 g/dL [facility] [...] - 11.2 fL [facility] Platelets (Bld) [#/Vol] 337 10*3/uL 150 - 400 K/uL [facility] RBC (Bld) [#/Vol] 3.99 10*6/uL Low [facility] WBC (Bld) [#/Vol] 7.6 10*3/uL 4.5 - 11.5 K/uL [facility] MAGNESIUMon 03-27-2022 Interpretation and review of laboratory results Normal [facility] Magnesium [Mass/Vol] 1.8 mg/dL 1.6 - 2 .8 mg/dL [facility] No Panel Informationon 03-27 [facility] Basic metabolic 2000 panelon 03-26-2022 Anion gap [Moles/Vol] 11 mmol/L 10 - 20 Met [facility] Calcium [Mass/Vol] 10.2 mg/dL 8.4 - 10. 4 mg/dL [facility] Chloride [Moles/Vol] 101 mmol/L 97 - 11 1 mmol/L [facility] CO2 [Moles/Vol] 25 mmol/L 21 - 30 mmol/L [facility] Creatinine [Mass/Vol] 0.22 mg/dL Low 0.80 - 1.30 mg/dL [facility] GFR/1.73 sq M.predicted MDRD (S/P/Bld) [Vol rate/Area] 183 mL/min/{1.73_m2} - PINF [facility] Glucose [Mass/Vol] 86 mg/dL 68 - 110 mg/dL [facility] Interpretation and review of laboratory results Abnormal [facility] Potassium [Moles/Vol] 4.3 mmol/L 3.3 - 5.3 mmol/L [facility] Sodium [Moles/Vol] 137 mmol/L 135 - 148 mmol/L [facility] Urea nitrogen [Mass/Vol] 19 mg/dL 8 - 22 mg/dL [facility] CBC panel Auto (Bld)on 03-26 Erythrocyte distribution width (RBC) [Ratio] 23.7 % High 11.5 - 14.5 % [facility] Hematocrit (Bld) [Volume fraction] 34.6 % Low 41.0 - 53.0 % [facility] Hemoglobin (Bld) [Mass/Vol] 11.2 g/dL Low 13.9 - 16.3 g/dL [facility] Interpretation and review of laboratory results Abnormal [facility] MCH (RBC) [Entitic mass] 27.5 pg 26.0 - 34.0 pg [facility] MCHC (RBC) [Mass/Vol] 32.4 g/dL 32.0 - 35.9 g/dL [facility] MCV (RBC) [Entitic vol] 85 fL 80 - 100 fL [facility] Platelet mean volume (Bld) [Entitic vol] 7.3 fL Low 7.5 - 11.2 fL [facility] Platelets (Bld) [#/Vol] 358 10*3/uL 150 - 400 K/uL [facility] RBC (Bld) [#/Vol] 4.08 10*6/uL Low [facility] WBC (Bld) [#/Vol] 8.4 10*3/uL 4.5 - 11.5 K/uL [facility] MAGNESIUMon 03-26-2022 Magnesium [Mass/Vol] 2.0 mg/dL 1.6 - 2 .8 mg/dL [facility] MR Upper arm - left WO and W contrast Earlene 03-26-2022 RADIOLOGY [facility] Radiology Study observation (narrative) [facility] MR Upper arm - left WO and W contrast IVOrdered By: Dino Wing on 03-26-2022 [facility] Work Phone: No Panel Informationon 03-26 Interpretation and review of laboratory results Normal [facility] VANCOMYCIN TROUGHon 03-26-20 22 Vancomycin trough [Mass/Vol] 14.3 ug/mL 10.0 - 20.0 ug/mL [facility] Basic metabolic 2000 panelon 03-25-2022 Anion gap [Moles/Vol] 8 mmol/L Low 10 - 20 Met [facility] Calcium [Mass/Vol] 10.1 mg/dL 8.4 - 10. 4 mg/dL [facility] Chloride [Moles/Vol] 102 mmol/L 97 - 11 1 mmol/L [facility] CO2 [Moles/Vol] 27 mmol/L 21 - 30 mmol/L [facility] Creatinine [Mass/Vol] 0.26 mg/dL Low 0.80 - 1.30 mg/dL [facility] GFR/1.73 sq M.predicted MDRD (S/P/Bld) [Vol rate/Area] 174 mL/min/{1.73_m2} - PINF [facility] Glucose [Mass/Vol] 83 mg/dL 68 - 110 mg/dL [facility] Interpretation and review of laboratory results Abnormal [facility] Potassium [Moles/Vol] 4.5 mmol/L 3.3 - 5.3 mmol/L [facility] Sodium [Moles/Vol] 137 mmol/L 135 - 148 mmol/L [facility] Urea nitrogen [Mass/Vol] 14 mg/dL 8 - 22 mg/dL [facility] CBC panel Auto (Bld)on 03-25 Erythrocyte distribution width (RBC) [Ratio] 23.6 % High 11.5 - 14.5 % [facility] Hematocrit (Bld) [Volume fraction] 34.3 % Low 41.0 - 53.0 % [facility] Hemoglobin (Bld) [Mass/Vol] 11.1 g/dL Low 13.9 - 16.3 g/dL [facility] Interpretation and review of laboratory results Abnormal [facility] MCH (RBC) [Entitic mass] 27.6 pg 26.0 - 34.0 pg [facility] MCHC (RBC) [Mass/Vol] 32.3 g/dL 32.0 - 35.9 g/dL [facility] MCV (RBC) [Entitic vol] 85 fL 80 - 100 fL [facility] Platelet mean volume (Bld) [Entitic vol] 7.3 fL Low 7.5 - 11.2 fL [facility] Platelets (Bld) [#/Vol] 350 10*3/uL 150 - 400 K/uL [facility] RBC (Bld) [#/Vol] 4.02 10*6/uL Low [facility] WBC (Bld) [#/Vol] 8.3 10*3/uL 4.5 - 11.5 K/uL [facility] MAGNESIUMon 03-25-2022 Interpretation and review of laboratory results Normal [facility] Magnesium [Mass/Vol] 2.0 mg/dL 1.6 - 2 .8 mg/dL [facility] No Panel Informationon 03-25 [facility] Basic metabolic 2000 panelon 03-24-2022 Anion gap [Moles/Vol] 10 mmol/L 10 - 20 Met [facility] Calcium [Mass/Vol] 9.7 mg/dL 8.4 - 10. 4 mg/dL [facility] Chloride [Moles/Vol] 103 mmol/L 97 - 11 [...] 7.2 fL Low 7.5 - 11.2 fL [facility] Platelets (Bld) [#/Vol] 290 10*3/uL 150 - 400 K/uL [facility] RBC (Bld) [#/Vol] 3.76 10*6/uL Low [facility] WBC (Bld) [#/Vol] 6.9 10*3/uL 4.5 - 11.5 K/uL [facility] MAGNESIUMon 03-24-2022 Interpretation and review of laboratory results Normal [facility] Magnesium [Mass/Vol] 2.0 mg/dL 1.6 - 2 .8 mg/dL [facility] No Panel Informationon 03-24 [facility] TISSUE CULTURE, AEROBICOrder ed By: Kenia Eli [...] (Unsp spec) No organisms seen [facility] Basic metabolic 2000 panelon 03-23-2022 Anion gap [Moles/Vol] 7 mmol/L Low 10 - 20 Met [facility] [...] - 34.0 pg [facility] MCHC (RBC) [Mass/Vol] 33.1 g/dL 32.0 - 35.9 g/dL [facility] MCV (RBC) [Entitic vol] 84 fL 80 - 100 fL [facility] Platelet mean volume (Bld) [Entitic vol] 7.2 fL Low 7.5 - 11.2 fL [facility] Platelets (Bld) [#/Vol] 286 10*3/uL 150 - 400 K/uL [facility] RBC (Bld) [#/Vol] 3.36 10*6/uL Low [facility] WBC (Bld) [#/Vol] 8.3 10*3/uL 4.5 - 11.5 K/uL [facility] HEMOGLOBIN ONLYon 03-23-2022 Hemoglobin (Bld) [Mass/Vol] 10.2 g/dL Low 13.9 - 16.3 g/dL [facility] Interpretation and review of laboratory results Abnormal [facility] MAGNESIUMon 03-23-2022 Interpretation and review of laboratory results Normal [facility] Magnesium [Mass/Vol] 1.7 mg/dL 1.6 - 2 .8 mg/dL [facility] No Panel Informationon 03-23 [facility] Basic metabolic 2000 panelon 03-22-2022 Anion gap [Moles/Vol] 11 mmol/L 10 - 20 Met [facility] Calcium [Mass/Vol] 9.9 mg/dL 8.4 - 10. 4 mg/dL [facility] Chloride [Moles/Vol] 101 mmol/L 97 - 11 1 mmol/L [facility] CO2 [Moles/Vol] 24 mmol/L 21 - 30 mmol/L [facility] Creatinine [Mass/Vol] 0.26 mg/dL Low 0.80 - 1.30 mg/dL [facility] GFR/1.73 sq M.predicted MDRD (S/P/Bld) [Vol rate/Area] 174 mL/min/{1.73_m2} - PINF [facility] Glucose [Mass/Vol] 93 mg/dL 68 - 110 mg/dL [facility] Interpretation and review of laboratory results Abnormal [facility] Potassium [Moles/Vol] 4.6 mmol/L 3.3 - 5.3 mmol/L [facility] Sodium [Moles/Vol] 136 mmol/L 135 - 148 mmol/L [facility] Urea nitrogen [Mass/Vol] 14 mg/dL 8 - 22 mg/dL [facility] CBC panel Auto (Bld)on 03-22 Erythrocyte distribution width (RBC) [Ratio] 23.0 % High 11.5 - 14.5 % [facility] Hematocrit (Bld) [Volume fraction] 33.2 % Low 41.0 - 53.0 % [facility] Hemoglobin (Bld) [Mass/Vol] 10.8 g/dL Low 13.9 - 16.3 g/dL [facility] Interpretation and review of laboratory results Abnormal [facility] MCH (RBC) [Entitic mass] 27.3 pg 26.0 - 34.0 pg [facility] MCHC (RBC) [Mass/Vol] 32.6 g/dL 32.0 - 35.9 g/dL [facility] MCV (RBC) [Entitic vol] 84 fL 80 - 100 fL [facility] Platelet mean volume (Bld) [Entitic vol] 7.5 fL 7.5 - 11.2 fL [facility] Platelets (Bld) [#/Vol] 331 10*3/uL 150 - 400 K/uL [facility] RBC (Bld) [#/Vol] 3.96 10*6/uL Low [facility] WBC (Bld) [#/Vol] 8.6 10*3/uL 4.5 - 11.5 K/uL [facility] MAGNESIUMon 03-22-2022 Interpretation and review of laboratory results Normal [facility] Magnesium [Mass/Vol] 1.8 mg/dL 1.6 - 2 .8 mg/dL [facility] No Panel Informationon 03-22 [facility] Basic metabolic 2000 panelon 03-21-2022 Anion gap [Moles/Vol] 9 mmol/L Low 10 - 20 Met [facility] Calcium [Mass/Vol] 9.6 mg/dL 8.4 - 10. 4 mg/dL [facility] Chloride [Moles/Vol] 102 mmol/L 97 - 11 1 mmol/L [facility] CO2 [Moles/Vol] 27 mmol/L 21 - 30 mmol/L [facility] Creatinine [Mass/Vol] 0.27 mg/dL Low 0.80 - 1.30 mg/dL [facility] GFR/1.73 sq M.predicted MDRD (S/P/Bld) [Vol rate/Area] 172 mL/min/{1.73_m2} - PINF [facility] Glucose [Mass/Vol] 74 mg/dL 68 - 110 mg/dL [facility] Interpretation and review of laboratory results Abnormal [facility] Potassium [Moles/Vol] 4.7 mmol/L 3.3 - 5.3 mmol/L [facility] Sodium [Moles/Vol] 138 mmol/L 135 - 148 mmol/L [facility] Urea nitrogen [Mass/Vol] 21 mg/dL 8 - 22 mg/dL [facility] CBC panel Auto (Bld)on 03-21 Erythrocyte distribution width (RBC) [Ratio] 22.4 % High 11.5 - 14.5 % [facility] Hematocrit (Bld) [Volume fraction] 32.6 % Low 41.0 - 53.0 % [facility] Hemoglobin (Bld) [Mass/Vol] 10.8 g/dL Low 13.9 - 16.3 g/dL [facility] Interpretation and review of laboratory results Abnormal [facility] MCH (RBC) [Entitic mass] 27.7 pg 26.0 - 34.0 pg [facility] MCHC (RBC) [Mass/Vol] 33.0 g/dL 32.0 - 35.9 g/dL [facility] MCV (RBC) [Entitic vol] 84 fL 80 - 100 fL [facility] Platelet mean volume (Bld) [Entitic vol] 6.9 fL Low 7.5 - 11.2 fL [facility] Platelets (Bld) [#/Vol] 364 10*3/uL 150 - 400 K/uL [facility] RBC (Bld) [#/Vol] 3.89 10*6/uL Low [facility] WBC (Bld) [#/Vol] 7.3 10*3/uL 4.5 - 11.5 K/uL [facility] - Blood bankon ABO and Rh group Nom (Bld) Blood group O Rh(D) positive [facility] MAGNESIUMon 03-21-2022 Interpretation and review of laboratory results Normal [facility] Magnesium [Mass/Vol] 2.1 mg/dL 1.6 - 2 .8 mg/dL [facility] No Panel Informationon 03-21 [facility] Interpretation and review of laboratory results Normal [facility] PARTIAL THROMBOPLASTIN TIMEo n 03-21-2022 aPTT Coag (Bld) [Time] 35 s [facility] PROTHROMBIN TIME AND INRon 1 05-21-2021 INR Coag (PPP) [Relative time] 0.95 {INR} 0.90 - 1.10 [facility] Coag (PPP) [Time] 10.7 s [facility] TYPE AND SCREENon 03-21-2022 Blood group antibody screen Ql Negative [facility] Basic metabolic 2000 panelon 03-20-2022 Anion gap [Moles/Vol] 8 mmol/L Low 10 - 20 Met [facility] Calcium [Mass/Vol] 9.7 mg/dL 8.4 - 10. 4 mg/dL [facility] Chloride [Moles/Vol] 102 mmol/L 97 - 11 1 mmol/L [facility] CO2 [Moles/Vol] 28 mmol/L 21 - 30 mmol/L [facility] Creatinine [Mass/Vol] 0.29 mg/dL Low 0.80 - 1.30 mg/dL [facility] GFR/1.73 sq M.predicted MDRD (S/P/Bld) [Vol rate/Area] 168 mL/min/{1.73_m2} - PINF [facility] Glucose [Mass/Vol] 88 mg/dL 68 - 110 mg/dL [facility] Interpretation and review of laboratory results Abnormal [facility] Potassium [Moles/Vol] 4.7 mmol/L 3.3 - 5.3 mmol/L [facility] Sodium [Moles/Vol] 138 mmol/L 135 - 148 mmol/L [facility] Urea nitrogen [Mass/Vol] 19 mg/dL 8 - 22 mg/dL [facility] [facility] CBC panel Auto (Bld)on 03-20 Erythrocyte distribution width (RBC) [Ratio] 20.7 % High 11.5 - 14.5 % [facility] Hematocrit (Bld) [Volume fraction] 32.5 % Low 41.0 - 53.0 % [facility] Hemoglobin (Bld) [Mass/Vol] 10.9 g/dL Low 13.9 - 16.3 g/dL [facility] Interpretation and review of laboratory results Abnormal [facility] MCH (RBC) [Entitic mass] 27.9 pg 26.0 - 34.0 pg [facility] MCHC (RBC) [Mass/Vol] 33.6 g/dL 32.0 - 35.9 g/dL [facility] MCV (RBC) [Entitic vol] 83 fL 80 - 100 fL [facility] Platelet mean volume (Bld) [Entitic vol] 7.1 fL Low 7.5 - 11.2 fL [facility] Platelets (Bld) [#/Vol] 406 10*3/uL High 150 - 400 K/uL [facility] RBC (Bld) [#/Vol] 3.92 10*6/uL Low [facility] WBC (Bld) [#/Vol] 9.4 10*3/uL 4.5 - 11.5 K/uL [facility] MAGNESIUMon 03-20-2022 Interpretation and review of laboratory results Normal [facility] Magnesium [Mass/Vol] 1.9 mg/dL 1.6 - 2 .8 mg/dL [facility] Basic metabolic 2000 panelon 03-19-2022 Anion gap [Moles/Vol] 11 mmol/L 10 - 20 Met [facility] Calcium [Mass/Vol] 9.1 mg/dL 8.4 - 10. 4 mg/dL [facility] Chloride [Moles/Vol] 103 mmol/L 97 - 11 1 mmol/L [facility] CO2 [Moles/Vol] 24 mmol/L 21 - 30 mmol/L [facility] Creatinine [Mass/Vol] 0.36 mg/dL Low 0.80 - 1.30 mg/dL [facility] GFR/1.73 sq M.predicted MDRD (S/P/Bld) [Vol rate/Area] 157 mL/min/{1.73_m2} - PINF [facility] Glucose [Mass/Vol] 88 mg/dL 68 - 110 mg/dL [facility] Interpretation and review of laboratory results Abnormal [facility] Potassium [Moles/Vol] 4.1 mmol/L 3.3 - 5.3 mmol/L [facility] Sodium [Moles/Vol] 138 mmol/L 135 - 148 mmol/L [facility] Urea nitrogen [Mass/Vol] 20 mg/dL 8 - 22 mg/dL [facility] CBC panel Auto (Bld)on 03-19 Erythrocyte distribution width (RBC) [Ratio] 21.2 % High 11.5 - 14.5 % [facility] Hematocrit (Bld) [Volume fraction] 32.3 % Low 41.0 - 53.0 % [facility] Hemoglobin (Bld) [Mass/Vol] 10.4 g/dL Low 13.9 - 16.3 g/dL [facility] Interpretation and review of laboratory results Abnormal [facility] MCH (RBC) [Entitic mass] 26.9 pg 26.0 - 34.0 pg [facility] MCHC (RBC) [Mass/Vol] 32.2 g/dL 32.0 - 35.9 g/dL [facility] MCV (RBC) [Entitic vol] 84 fL 80 - 100 fL [facility] Platelet mean volume (Bld) [Entitic vol] 7.8 fL 7.5 - 11.2 fL [facility] Platelets (Bld) [#/Vol] 442 10*3/uL High 150 - 400 K/uL [facility] RBC (Bld) [#/Vol] 3.87 10*6/uL Low [facility] WBC (Bld) [#/Vol] 11.1 10*3/uL 4.5 - 11.5 K/uL [facility] MAGNESIUMon 03-19-2022 Interpretation and review of laboratory results Normal [facility] Magnesium [Mass/Vol] 1.9 mg/dL 1.6 - 2 .8 mg/dL [facility] No Panel Informationon 03-19 [facility] VANCOMYCIN TROUGHOrdered By: Brenda Luque on 03-19-2022 Interpretation and review of laboratory results Normal [facility] Vancomycin trough [Mass/Vol] 17.7 ug/mL 10.0 - 20.0 ug/mL [facility] Basic metabolic 2000 panelon 03-18-2022 Anion gap [Moles/Vol] 13 mmol/L 10 - 20 Met [facility] Calcium [Mass/Vol] 8.5 mg/dL 8.4 - 10. 4 mg/dL [facility] Chloride [Moles/Vol] 108 mmol/L 97 - 11 1 mmol/L [facility] CO2 [Moles/Vol] 19 mmol/L Low 21 - 30 mmol/L [facility] Creatinine [Mass/Vol] 0.42 mg/dL Low 0.80 - 1.30 mg/dL [facility] GFR/1.73 sq M.predicted MDRD (S/P/Bld) [Vol rate/Area] 150 mL/min/{1.73_m2} - PINF [facility] Glucose [Mass/Vol] 84 mg/dL 68 - 110 mg/dL [facility] Interpretation and review of laboratory results Abnormal [facility] Potassium [Moles/Vol] 3.8 mmol/L 3.3 - 5.3 mmol/L [facility] Sodium [Moles/Vol] 136 mmol/L 135 - 148 mmol/L [facility] Urea nitrogen [Mass/Vol] 13 mg/dL 8 - 22 mg/dL [facility] CBC panel Auto (Bld)on 03-18 Erythrocyte distribution width (RBC) [Ratio] 20.5 % High 11.5 - 14.5 % [facility] Hematocrit (Bld) [Volume fraction] 32.9 % Low 41.0 - 53.0 % [facility] Hemoglobin (Bld) [Mass/Vol] 10.5 g/dL Low 13.9 - 16.3 g/dL [facility] Interpretation and review of laboratory results Abnormal [facility] MCH (RBC) [Entitic mass] 26.4 pg 26.0 - 34.0 pg [facility] MCHC (RBC) [Mass/Vol] 32.0 g/dL 32.0 - 35.9 g/dL [facility] MCV (RBC) [Entitic vol] 83 fL 80 - 100 fL [facility] Platelet mean volume (Bld) [Entitic vol] 6.3 fL Low 7.5 - 11.2 fL [facility] Platelets (Bld) [#/Vol] 426 10*3/uL High 150 - 400 K/uL [facility] RBC (Bld) [#/Vol] 3.98 10*6/uL Low [facility] WBC (Bld) [#/Vol] 11.5 10*3/uL 4.5 - 11.5 K/uL [facility] MAGNESIUMon 03-18-2022 Interpretation and review of laboratory results Normal [facility] Magnesium [Mass/Vol] 1.7 mg/dL 1.6 - 2 .8 mg/dL [facility] No Panel Informationon 03-18 [facility] Basic metabolic 2000 panelon 03-17-2022 Anion gap [Moles/Vol] 12 mmol/L 10 - 20 Met [facility] Calcium [Mass/Vol] 9.0 mg/dL 8.4 - [...] 11.6 10*3/uL High 4.5 - 11.5 K/uL [facility] Laboratory - Microbiology an d Antimicrobial susceptibilityon 03-17-2022 Bacteria identified Cx Nom (Bld) No Growth [facility] MAGNESIUMon 03-17-2022 Interpretation and review of laboratory results Normal [facility] Magnesium [Mass/Vol] 1.9 mg/dL 1.6 - 2 .8 mg/dL [facility] MR Ankle and Footon 03-17-20 RADIOLOGY [facility] Radiology Study observation (narrative) [facility] MR Ankle and FootOrdered By: Ky Buckley on 03-17-2022 [facility] Work Phone: MR Thigh - right WO contrast on 03-17-2022 RADIOLOGY [facility] Radiology Study observation (narrative) [facility] No Panel Informationon 03-17 Interpretation and review of laboratory results Normal [facility] Basic metabolic 2000 panelon 03-16-2022 Anion gap [Moles/Vol] 11 mmol/L 10 - 20 Met [facility] Calcium [Mass/Vol] 8.8 mg/dL 8.4 - 10. 4 mg/dL [facility] Chloride [Moles/Vol] 105 mmol/L 97 - 11 1 mmol/L [facility] CO2 [Moles/Vol] 23 mmol/L 21 - 30 mmol/L [facility] Creatinine [Mass/Vol] 0.39 mg/dL Low 0.80 - 1.30 mg/dL [facility] GFR/1.73 sq M.predicted MDRD (S/P/Bld) [Vol rate/Area] 154 mL/min/{1.73_m2} - PINF [facility] Glucose [Mass/Vol] 117 mg/dL High 68 - 110 mg/dL [facility] Interpretation and review of laboratory results Abnormal [facility] Potassium [Moles/Vol] 4.5 mmol/L 3.3 - 5.3 mmol/L [facility] Sodium [Moles/Vol] 134 mmol/L Low 135 - 148 mmol/L [facility] Urea nitrogen [Mass/Vol] 10 mg/dL 8 - 22 mg/dL [facility] CBC panel Auto (Bld)on 03-16 Erythrocyte distribution width (RBC) [Ratio] 20.0 % High 11.5 - 14.5 % [facility] Hematocrit (Bld) [Volume fraction] 32.6 % Low 41.0 - 53.0 % [facility] Hemoglobin (Bld) [Mass/Vol] 10.6 g/dL Low 13.9 - 16.3 g/dL [facility] Interpretation and review of laboratory results Abnormal [facility] MCH (RBC) [Entitic mass] 26.9 pg 26.0 - 34.0 pg [facility] MCHC (RBC) [Mass/Vol] 32.6 g/dL 32.0 - 35.9 g/dL [facility] MCV (RBC) [Entitic vol] 82 fL 80 - 100 fL [facility] Platelet mean volume (Bld) [Entitic vol] 7.4 fL Low 7.5 - 11.2 fL [facility] Platelets (Bld) [#/Vol] 478 10*3/uL High 150 - 400 K/uL [facility] RBC (Bld) [#/Vol] 3.95 10*6/uL Low [facility] WBC (Bld) [#/Vol] 9.0 10*3/uL 4.5 - 11.5 K/uL [facility] CT Neck W contrast IVOrdered By: Glenn Cordero on 03-16-2022 CT DLP 388.88 (mGycm) [facility] Work Phone: CT Series Neck,Neck,Neck [facility] Work Phone: CTDI VOL 12.29 (mGy) [facility] Work Phone: PHANTOM TYPE IEC Body Dosimetry Phantom [facility]: CT Neck W contrast Earlene 11-0 RADIOLOGY [facility] Radiology Study observation (narrative) [facility] MAGNESIUMon 03-16-2022 Interpretation and review of laboratory results Normal [facility] Magnesium [Mass/Vol] 2.1 mg/dL 1.6 - 2 .8 mg/dL [facility] Basic metabolic 2000 panelon 03-15-2022 Anion gap [Moles/Vol] 11 mmol/L 10 - 20 Met [facility] Calcium [Mass/Vol] 8.5 mg/dL 8.4 - 10. 4 mg/dL [facility] Chloride [Moles/Vol] 105 mmol/L 97 - 11 1 mmol/L [facility] CO2 [Moles/Vol] 22 mmol/L 21 - 30 mmol/L [facility] Creatinine [Mass/Vol] 0.34 mg/dL Low 0.80 - 1.30 mg/dL [facility] GFR/1.73 sq M.predicted MDRD (S/P/Bld) [Vol rate/Area] 160 mL/min/{1.73_m2} - PINF [facility] Glucose [Mass/Vol] 157 mg/dL High 68 - 110 mg/dL [facility] Interpretation and review of laboratory results Abnormal [facility] Potassium [Moles/Vol] 3.9 mmol/L 3.3 - 5.3 mmol/L [facility] Sodium [Moles/Vol] 134 mmol/L Low 135 - 148 mmol/L [facility] Urea nitrogen [Mass/Vol] 9 mg/dL 8 - 22 mg/dL [facility] CBC panel Auto (Bld)Ordered By: Cici Maurer on 03-15-2022 Erythrocyte distribution width (RBC) [Ratio] 19.3 % High 11.5 - 14.5 % [facility] Hematocrit (Bld) [Volume fraction] 32.2 % Low 41.0 - 53.0 % [facility] Hemoglobin (Bld) [Mass/Vol] 10.5 g/dL Low 13.9 - 16.3 g/dL [facility] Interpretation and review of laboratory results Abnormal [facility] MCH (RBC) [Entitic mass] 26.1 pg 26.0 - 34.0 pg [facility] MCHC (RBC) [Mass/Vol] 32.6 g/dL 32.0 - 35.9 g/dL [facility] MCV (RBC) [Entitic vol] 80 fL 80 - 100 fL [facility] Platelet mean volume (Bld) [Entitic vol] 6.6 fL Low 7.5 - 11.2 fL [facility] Platelets (Bld) [#/Vol] 532 10*3/uL High 150 - 400 K/uL [facility] RBC (Bld) [#/Vol] 4.03 10*6/uL Low [facility] WBC (Bld) [#/Vol] 7.1 10*3/uL 4.5 - 11.5 K/uL [facility] MAGNESIUMon 03-15-2022 Interpretation and review of laboratory results Normal [facility] Magnesium [Mass/Vol] 1.7 mg/dL 1.6 - 2 .8 mg/dL [facility] VANCOMYCIN TROUGHon 03-15-20 Interpretation and review of laboratory results Normal [facility] Vancomycin trough [Mass/Vol] 16.4 ug/mL 10.0 - 20.0 ug/mL [facility] Basic metabolic 2000 panelon 03-14-2022 Anion gap [Moles/Vol] 10 mmol/L 10 - 20 Met [facility] Calcium [Mass/Vol] 8.7 mg/dL 8.4 - 10. 4 mg/dL [facility] Chloride [Moles/Vol] 107 mmol/L 97 - 11 1 mmol/L [facility] CO2 [Moles/Vol] 22 mmol/L 21 - 30 mmol/L [facility] Creatinine [Mass/Vol] 0.26 mg/dL Low 0.80 - 1.30 mg/dL [facility] GFR/1.73 sq M.predicted MDRD (S/P/Bld) [Vol rate/Area] 174 mL/min/{1.73_m2} - PINF [facility] Glucose [Mass/Vol] 85 mg/dL 68 - 110 mg/dL [facility] Interpretation and review of laboratory results Abnormal [facility] Potassium [Moles/Vol] 4.0 mmol/L 3.3 - 5.3 mmol/L [facility] Sodium [Moles/Vol] 135 mmol/L 135 - 148 mmol/L [facility] Urea nitrogen [Mass/Vol] 6 mg/dL Low 8 - 22 mg/dL [facility] panel Auto (Bld)on 03-14 Erythrocyte distribution width (RBC) [Ratio] 19.0 % High 11.5 - 14.5 % [facility] Hematocrit (Bld) [Volume fraction] 31.3 % Low 41.0 - 53.0 % [facility] Hemoglobin (Bld) [Mass/Vol] 10.2 g/dL Low 13.9 - 16.3 g/dL [facility] Interpretation and review of laboratory results Abnormal [facility] MCH (RBC) [Entitic mass] 26.6 pg 26.0 - 34.0 pg [facility] MCHC (RBC) [Mass/Vol] 32.7 g/dL 32.0 - 35.9 g/dL [facility] MCV (RBC) [Entitic vol] 81 fL 80 - 100 fL [facility] Platelet mean volume (Bld) [Entitic vol] 6.4 fL Low 7.5 - 11.2 fL [facility] Platelets (Bld) [#/Vol] 388 10*3/uL 150 - 400 K/uL [facility] RBC (Bld) [#/Vol] 3.85 10*6/uL Low [facility] WBC (Bld) [#/Vol] 6.9 10*3/uL 4.5 - 11.5 K/uL [facility] CT Neck W contrast IVOrdered By: Glenn Chowdhury on 03-14-2022 CT DLP 251.4 (mGy.cm) [facility] Work Phone: CT Series Neck [facility] Work Phone: CTDI VOL 8.3 (mGy) [facility] Work Phone: PHANTOM TYPE IEC Body Dosimetry Phantom [facility] Work Phone: [facility] Work Phone: CT Neck W contrast Earlene 11-0 RADIOLOGY [facility] Radiology Study observation (narrative) [facility] MAGNESIUMon 03-14-2022 Interpretation and review of laboratory results Normal [facility] Magnesium [Mass/Vol] 1.8 mg/dL 1.6 - 2 .8 mg/dL [facility] MR Spine studyon 03-14-2022 RADIOLOGY [facility] MR Spine studyOrdered By: Demario Dunham on 03-14-2022 [facility] Work Phone: XR Femur - right 2 Viewson 1 05-14-2021 RADIOLOGY [facility] Radiology Study observation (narrative) [facility] XR Femur - right 2 ViewsOrde red By: Genaro Muñoz on 03-14-2022 [facility] Work Phone: HIV 1 and 2 Ab and HIV 1 p24 Ag panel IAon 03-13-2022 HIV 1+2 Ab+HIV1 p24 Ag IA Ql Non-Reactive NON-REACTIV E [facility] MR Spine studyon 03-13-2022 Radiology Study observation (narrative) [facility] US Guidance for fluid aspira tion of Unspecified body regionon 03-13-2022 RADIOLOGY [facility] Radiology Study observation (narrative) [facility] US Guidance for fluid aspira tion of Unspecified body regionOrdered By: Butch Dominguez on 03-13-2022 [facility] Work Phone: VANCOMYCIN TROUGHon 03-13-20 Interpretation and review of laboratory results Normal [facility] Vancomycin trough [Mass/Vol] 18.4 ug/mL 10.0 - 20.0 ug/mL [facility] XR Calcaneus - left Viewson 03-13-2022 RADIOLOGY [facility] Radiology Study observation (narrative) [facility] XR Calcaneus - left ViewsOrd ered By: Juan Nicole on 03-13-2022 [facility] Work Phone: Basic metabolic 2000 panelon 03-12-2022 Anion gap [Moles/Vol] 10 mmol/L 10 - 20 [facility] Cal[facility] [Mass/Vol] 8.6 mg/dL 8.4 - 10. [...] 6.8 fL Low 7.5 - 11.2 fL [facility] Platelets (Bld) [#/Vol] 342 10*3/uL 150 - 400 K/uL [facility] RBC (Bld) [#/Vol] 3.78 10*6/uL Low [facility] WBC (Bld) [#/Vol] 6.9 10*3/uL 4.5 - 11.5 K/uL [facility] FERRITINon 03-12-2022 Ferritin [Mass/Vol] 342.0 ng/mL High 11.5 - 300.0 ng/mL [facility] Interpretation and review of laboratory results Abnormal [facility] FOLIC ACIDon 03-12-2022 Folate [Mass/Vol] 5.0 ng/mL Low 5.9 - 24.7 ng/mL [facility] Interpretation and review of laboratory results Abnormal [facility] IRON AND TIBCon 03-12-2022 Iron [Mass/Vol] 47 ug/dL 45 - 160 ug/dL [facility] Iron binding capacity [Mass/Vol] 214 ug/mL Low 250 - 410 ug/mL [facility] Iron saturation [Mass fraction] 22 % 20 - 55 % [facility] Transferrin [Mass/Vol] 153 mg/dL Low 210 - 375 mg/dL [facility] MANUAL DIFF AND MORPHon 11 Anisocytosis Ql (Bld) Slight [facility] Cells Counted Total (Bld) [#] [facility] Ovalocytes LM Ql (Bld) Few [facility] Polychromasia LM Ql (Bld) Slight [facility] No Panel Informationon 03-12 Interpretation and review of laboratory results Abnormal [facility] PREALBUMINon 03-12-2022 Prealbumin [Mass/Vol] 17.0 mg/dL Low 21.7 - 43.3 mg/dL [facility] PROTHROMBIN TIME AND INRon 1 05-12-2021 INR Coag (PPP) [Relative time] 1.13 {INR} High 0.90 - 1.10 [facility] Interpretation and review of laboratory results Abnormal [facility] PT Coag (PPP) [Time] 12.8 s [facility] VITAMIN B12 (CYANOCOBALAMIN) on 03-12-2022 Cobalamin (Vitamin B12) [Moles/Vol] 182 pg/mL Low 300 - PINF pg/mL [facility] Interpretation and review of laboratory results Abnormal [facility] Urine culture routineOrdered By: Stan Fong on 03-08-2022 Bacteria identified Cx Nom (U) Escherichia coli [facility] Bacteria identified Cx Nom (U) Klebsiella pneumoniae (ESBL) [facility] Albumin [Mass/volume] in Ser um or PlasmaOrdered By: Stan Fong on 03-04-2022 Albumin [Mass/Vol] 2.9 g/dL 3.2-5.5 [facility] Amphetamine Screen Ql (U)Ord ered By: Stan Fong on 03-04-2022 Amphetamines Ql (U) Positive Negative [facility] Automated erythrocytes count in urine sediment (number/area)Ordered By: Stan Fong on 03-04-2022 RBC Auto (Urine sed) [#/Area] 3-4 [HPF] 0-4 [facility] Automated leukocytes count i n urine sediment (number/area)Ordered By: Stan Fong on 03-04-2022 WBC Auto (Urine sed) [#/Area] Innumerable [HPF] 0-4 [facility] Automated urine hyaline cast s count (number/volume)Ordered By: Stan Fong on 03-04-2022 Hyaline casts Auto (U) [#/Vol] 3-4 [LPF] 0-1 [facility] Automated urine sediment bina cium oxalate crystal count by microscopy (number/high powOrdered By: Stan Fong on 03-04-2022 Calcium oxalate crystals LM.HPF (Urine sed) [#/Area] Rare [HPF] [facility] Barbiturates [Presence] in U rineOrdered By: Stan Fong on 03-04-2022 Barbiturates Ql (U) Negative Negative [facility] Basophils Auto (Bld) [#/Vol] Ordered By: Stan Fong on 03-04-2022 Basophils (Bld) [#/Vol] 0.1 10*3/uL 0.0-0.2 [facility] Basophils/100 WBC Auto (Bld) Ordered By: Stan Fong on 03-04-2022 Basophils/100 WBC (Bld) 0.5 % . [facility] Benzodiazepines [Presence] i n UrineOrdered By: Stan Fong on 03-04-2022 Benzodiazepines Ql (U) Positive Negative Fi [facility] Bilirubin Test strip Ql (U)O rdered By: Stan Fong on 03-04-2022 Bilirubin Ql (U) Negative Negative [facility] Cannabinoids [Presence] in U rine by Screen methodOrdered By: Stan Fong on 03-04-2022 Cannabinoids Screen Ql (U) Positive Negative [facility] Comment on above: These are unconfirme d [...] (Urine sed) None seen [LPF] None Seen [facility] Color Auto (U)Ordered By: Ted red Hetal on 03-04-2022 Color (U) Yellow Yellow [facility] Creatine kinase [Enzymatic a ctivity/volume] in Serum or PlasmaOrdered By: Stan Fong on 03-04-2022 CK [Catalytic activity/Vol] 1113 U/L 22-269 [facility] Creatinine and Glomerular fi ltration rate.predicted panel (S/P/Bld)Ordered By: Stan Fong on 03-04-2022 Creatinine [Mass/Vol] 0.73 mg/dL 0.64-1.27 [facility] Eosinophils Auto (Bld) [#/Vo l]Ordered By: Stan Fong on 03-04-2022 Eosinophils (Bld) [#/Vol] 0.1 10*3/uL 0.0-0.45 [facility] Eosinophils/100 WBC Auto (Bl d)Ordered By: Stan Fong on 03-04-2022 Eosinophils/100 WBC (Bld) 1.4 % . [facility] Erythrocyte distribution wid th Auto (RBC) [Ratio]Ordered By: Stan Fong on 03-04-2022 Erythrocyte distribution width (RBC) [Ratio] 18.8 % 12.0-14.8 [facility] Estimated glomerular filtrat ion rate (GFR) non- AmericanOrdered By: Stan Fong on 03-04-2022 GFR/1.73 sq M.predicted among non-blacks MDRD (S/P/Bld) [Vol rate/Area] > 60 mL/Min [facility] Globulin Calc (S) [Mass/Vol] Ordered By: Stan Fong on 03-04-2022 Globulin (S) [Mass/Vol] 5.3 g/dL [facility] Hematocrit Auto (Bld) [Volum e fraction]Ordered By: Stan Fong on 03-04-2022 Hematocrit (Bld) [Volume fraction] 39.8 % 38.8-50.0 [facility] Hemoglobin [Mass/volume] in BloodOrdered By: Stan Fong on 03-04-2022 Hemoglobin (Bld) [Mass/Vol] 12.4 g/dL 13.0-17.0 [facility] Ketones Auto test strip (U) [Mass/Vol]Ordered By: Stan Fong on 03-04-2022 Ketones (U) [Mass/Vol] Negative Negative [facility] Laboratory - Drug toxicology Ordered By: Stan Fong on 03-04-2022 Opiates Ql (U) Positive Negative [facility] Laboratory - Hematology and Cell countsOrdered By: Stan Fong on 03-04-2022 Nucleated RBC/100 WBC (Bld) [Ratio] 0.1 % 0-0.5 [facility] Leukocytes [#/volume] in Blo od by Automated countOrdered By: Stan Fong on 03-04-2022 WBC (Bld) [#/Vol] 10.4 10*3/uL 4.5-11.0 [facility] Lymphocytes Auto (Bld) [#/Vo l]Ordered By: Stan Fong on 03-04-2022 Lymphocytes (Bld) [#/Vol] 1.9 10*3/uL 1.00-4.8 [facility] Lymphocytes/100 WBC Auto (Bl d)Ordered By: Stan Fong on 03-04-2022 Lymphocytes/100 WBC (Bld) 17.8 % . [facility] MCH Auto (RBC) [Entitic mass ]Ordered By: Stan Fong on 03-04-2022 MCH (RBC) [Entitic mass] 25.3 pg 27.5-35.2 [facility] MCHC Auto (RBC) [Mass/Vol]Or dered By: Stan Fong on 03-04-2022 MCHC (RBC) [Mass/Vol] 31.2 g/dL 32.5-35.6 [facility] MCV Auto (RBC) [Entitic vol] Ordered By: Stan Fong on 03-04-2022 MCV (RBC) [Entitic vol] 81.2 fL 83.5-101 [facility] Monocytes Auto (Bld) [#/Vol] Ordered By: Stan Fong on 03-04-2022 Monocytes (Bld) [#/Vol] 0.7 10*3/uL 0.0-0.8 [facility] Monocytes/100 WBC Auto (Bld) Ordered By: Stan Fong on 03-04-2022 Monocytes/100 WBC (Bld) 6.7 % . [facility] Neutrophils Auto (Bld) [#/Vo l]Ordered By: Stan Fong on 03-04-2022 Neutrophils (Bld) [#/Vol] 7.7 10*3/uL 1.8-7.7 [facility] Neutrophils/100 WBC Auto (Bl d)Ordered By: Stan Fong on 03-04-2022 Neutrophils/100 WBC (Bld) 73.6 % . [facility] Nitrite Test strip Ql (U)Ord ered By: Stan Fong on 03-04-2022 Nitrite Ql (U) Negative Negative [facility] No Panel InformationOrdered By: Stan Fong on 03-04-2022 Estimated GFR () > 60 mL/Min [facility] Comment on above: GFR estimated refere nce range: According to KDOQI guidelines, <60 ml/min/1.73m2 is sufficient to diagnose a patient with chronic kidney disease. Pharmacy Creatinine Clearance (Chem 125.65 [facility] Phencyclidine Screen Ql (U)O rdered By: Stan Fong on 03-04-2022 Phencyclidine Ql (U) Negative Negative [facility] Platelet mean volume Auto (B ld) [Entitic vol]Ordered By: Stan Fong on 03-04-2022 Platelet mean volume (Bld) [Entitic vol] 7.6 fL 6.6-10.1 [facility] Platelets Auto (Bld) [#/Vol] Ordered By: Stan Fong on 03-04-2022 Platelets (Bld) [#/Vol] 407 10*3/uL 150-450 [facility] Protein Auto test strip (U) [Mass/Vol]Ordered By: Stan Fong on 03-04-2022 Protein (U) [Mass/Vol] 100 mg/dL Negative Fi [facility] Protein [Mass/volume] in Ser um or PlasmaOrdered By: Stan Fong on 03-04-2022 Protein [Mass/Vol] 8.2 g/dL 6.1-7.9 [facility] RBC Auto (Bld) [#/Vol]Ordere d By: Stan Fong on 03-04-2022 RBC (Bld) [#/Vol] 4.90 10*6/uL 3.90-5.60 [facility] Serum or plasma alanine mcgill otransferase measurement without P-5'-P (enzymatic activiOrdered By: Stan Fong on 03-04-2022 ALT No additional P-5'-P [Catalytic activity/Vol] 60 U/L 10-60 [facility] Serum or plasma albumin/glob ulin mass ratioOrdered By: Stan Fong on 03-04-2022 Albumin/Globulin [Mass ratio] 0.5 {ratio} [facility] Serum or plasma alkaline jose cruz sphatase measurement (enzymatic activity/volume)Ordered By: Stan Fong on 03-04-2022 ALP [Catalytic activity/Vol] 204 U/L 32-92 [facility] Serum or plasma anion gap de terminationOrdered By: Stan Fong on 03-04-2022 Anion gap [Moles/Vol] 13.1 mmol/L 6.0-15.0 [facility] Serum or plasma aspartate am inotransferase measurement (enzymatic activity/volume)Ordered By: Stan Fong on 03-04-2022 AST [Catalytic activity/Vol] 114 U/L 10- [facility] Serum or plasma calcium lizet urement (mass/volume)Ordered By: Stan Fong on 03-04-2022 Calcium [Mass/Vol] 8.9 mg/dL 8.2-10.2 [facility] Serum or plasma chloride chepe surement (moles/volume)Ordered By: Stan Fong on 03-04-2022 Chloride [Moles/Vol] 98 mmol/L 95-114 [facility] Serum or plasma glucose lizet urement (mass/volume)Ordered By: Stan Fong on 03-04-2022 Glucose [Mass/Vol] 111 mg/dL 70-100 [facility] Comment on above: ADA recommended refe rence rangeRandom Glucose Reference Range is dependent on time and content of last meal. Glucose of more than 200 mg/dL in a nonstressed, ambulatory subject supports the diagnosis of Diabetes Mellitus. Serum or plasma potassium me asurement (moles/volume)Ordered By: Stan Fong on 03-04-2022 Potassium [Moles/Vol] 2.6 mmol/L 3.5-5.1 [facility] Comment on above: Results calledat 151 2 on 03/04/22 Serum or plasma sodium measu rement (moles/volume)Ordered By: Stan Fong on 03-04-2022 Sodium [Moles/Vol] 132 mmol/L 136-146 [facility] Serum or plasma total biliru bin measurement (mass/volume)Ordered By: Stan Fong on 03-04-2022 Bilirubin [Mass/Vol] 0.5 mg/dL 0.3-1.2 [facility] Serum or plasma total carbon dioxide measurement (moles/volume)Ordered By: Stan Fong on 03-04-2022 CO2 [Moles/Vol] 23.5 mmol/L 22.0-30.0 [facility] Serum or plasma urea nitroge n measurement (mass/volume)Ordered By: Stan Fong on 03-04-2022 Urea nitrogen [Mass/Vol] 23 mg/dL - [facility] Specific gravity Auto test s trip (U) [Rel density]Ordered By: Stan Fong on 03-04-2022 Specific gravity (U) [Rel density] 1.015 1.001-1.030 [facility] Squamous epithelial cells de tection in urine sediment by light microscopyOrdered By: Stan Fnog on 03-04-2022 Epithelial cells.squamous LM Ql (Urine sed) 0-1 [HPF] 0-2 [facility] Urine bacteria detection by automated methodOrdered By: Stan Fong on 03-04-2022 Bacteria Auto Ql (U) 4+ None Seen [facility] Urine clarity by refractomet ry automatedOrdered By: Stan Fong on 03-04-2022 Clarity Refractometry automated (U) Turbid Clear [facility] Urine cocaine detectionOrder ed By: Stan Fong on 03-04-2022 Cocaine Ql (U) Negative Negative [facility] Urine glucose measurement by automated test strip (mass/volume)Ordered By: Stan Fong on 03-04-2022 Glucose Auto test strip (U) [Mass/Vol] 100 mg/dL Normal [facility] Urine hemoglobin detection b y automated test stripOrdered By: Stan Fong on 03-04-2022 Hemoglobin Auto test strip Ql (U) 3+ Negative [facility] Urine leukocyte esterase det ection by automated test stripOrdered By: Stan Fong on 03-04-2022 Leukocyte esterase Auto test strip Ql (U) 4+ Negative [facility] Urobilinogen Auto test strip (U) [Mass/Vol]Ordered By: Stan Fong on 03-04-2022 Urobilinogen (U) [Mass/Vol] Normal mg/dL Normal [facility] Yeast detection in urine sed iment by light microscopyOrdered By: Stan Fong on 03-04-2022 Yeast LM Ql (Urine sed) None seen [HPF] None Se en [facility] pH Auto test strip (U)Ordere d By: Stan Fong on 03-04-2022 pH (U) 5.5 [pH] 5.0-9.0 [facility] Office Visiton 02-25-2022 Follow-up visit [id number] More Swift 1995 M Date Provider Department Center 02/25/2022 STAN GALAVIZ MP ORTHO MPORTHO Family History Family Status - Relation Status Age at Mother Alive Father Alive Level of Service:58473 [place] OFFICE/OUTPATIENT NEW SF MDM 15-29 MINUTES Reason for Visit and Comments: New Patient [632] - New patient present today for right femur Normal [facility] Basophils Auto (Bld) [#/Vol] Ordered By: Paxton Guerra on 02-18-2022 Basophils (Bld) [#/Vol] 0.1 10*3/uL 0.0-0.2 [facility] Basophils/100 WBC Auto (Bld) Ordered By: Paxton Guerra on 02-18-2022 Basophils/100 WBC (Bld) 0.6 % . [facility] Blood hemoglobin measurement (mass/volume)Ordered By: Paxton Guerra on 02-18-2022 Hemoglobin (Bld) [Mass/Vol] 11.1 g/dL 13.0-17.0 [facility] Blood leukocytes automated c ount (number/volume)Ordered By: Paxton Guerra on 02-18-2022 WBC (Bld) [#/Vol] 13.9 10*3/uL 4.5-11.0 [facility] Eosinophils Auto (Bld) [#/Vo l]Ordered By: Paxton Guerra on 02-18-2022 Eosinophils (Bld) [#/Vol] 0.2 10*3/uL 0.0-0.45 [facility] Eosinophils/100 WBC Auto (Bl d)Ordered By: Paxton Guerra on 02-18-2022 Eosinophils/100 WBC (Bld) 1.4 % . [facility] Erythrocyte distribution wid th Auto (RBC) [Ratio]Ordered By: Paxton Guerra on 02-18-2022 Erythrocyte distribution width (RBC) [Ratio] 18.9 % 12.0-14.8 [facility] Hematocrit Auto (Bld) [Volum e fraction]Ordered By: Paxton Guerra on 02-18-2022 Hematocrit (Bld) [Volume fraction] 35.7 % 38.8-50.0 [facility] Laboratory - Hematology and Cell countsOrdered By: Paxton Guerra on 02-18-2022 Nucleated RBC/100 WBC (Bld) [Ratio] 0.0 % 0-0.5 [facility] Lymphocytes Auto (Bld) [#/Vo l]Ordered By: Paxton Guerra on 02-18-2022 Lymphocytes (Bld) [#/Vol] 2.7 10*3/uL 1.00-4.8 [facility] Lymphocytes/100 WBC Auto (Bl d)Ordered By: Paxton Guerra on 02-18-2022 Lymphocytes/100 WBC (Bld) 19.1 % . [facility] MCH Auto (RBC) [Entitic mass ]Ordered By: Paxton Guerra on 02-18-2022 MCH (RBC) [Entitic mass] 25.3 pg 27.5-35.2 [facility] MCHC Auto (RBC) [Mass/Vol]Or dered By: Paxton Guerra on 02-18-2022 MCHC (RBC) [Mass/Vol] 31.2 g/dL 32.5-35.6 [facility] MCV Auto (RBC) [Entitic vol] Ordered By: Paxton Guerra on 02-18-2022 MCV (RBC) [Entitic vol] 81.0 fL 83.5-101 [facility] Monocytes Auto (Bld) [#/Vol] Ordered By: Paxton Guerra on 02-18-2022 Monocytes (Bld) [#/Vol] 0.4 10*3/uL 0.0-0.8 [facility] Monocytes/100 WBC Auto (Bld) Ordered By: Paxton Guerra on 02-18-2022 Monocytes/100 WBC (Bld) 3.0 % . [facility] Neutrophils Auto (Bld) [#/Vo l]Ordered By: Paxton Guerra on 02-18-2022 Neutrophils (Bld) [#/Vol] 10.6 10*3/uL 1.8-7.7 [facility] Neutrophils/100 WBC Auto (Bl d)Ordered By: Paxton Guerra on 02-18-2022 Neutrophils/100 WBC (Bld) 75.9 % . [facility] Platelet mean volume Auto (B ld) [Entitic vol]Ordered By: Paxton Guerra on 02-18-2022 Platelet mean volume (Bld) [Entitic vol] 7.0 fL 6.6-10.1 [facility] Platelets Auto (Bld) [#/Vol] Ordered By: Paxton Guerra on 02-18-2022 Platelets (Bld) [#/Vol] 674 10*3/uL 150-450 [facility] RBC Auto (Bld) [#/Vol]Ordere d By: Paxton Montemayormond on 02-18-2022 RBC (Bld) [#/Vol] 4.40 10*6/uL 3.90-5.60 [facility] CREATININEon 04-23-2021 Creatinine [Mass/Vol] 0.45 mg/dL Critically low 0.66-1.25 [facility] Comment on above: Performed By: #### C VIOLETTE, CRP #### [facility] [address] [address] [address] Clarissa Romero EGFR-AF [place] >60 Normal >=60 [facility] Comment on above: Performed By: #### C VIOLETTE, CRP #### [facility] [address] [address] [address] Clarissa Romero EGFR-NON AF [place] >60 Normal >=60 [facility] Comment on above: Performed By: #### C VIOLETTE, CRP #### [facility] [address] [address] [address] Clarissa Romero CRPon 04-23-2021 CRP 4.4 mg/dL Critically high <=1.0 [facility] Comment on above: Performed By: #### C VIOLETTE, CRP #### [facility] [address] [address] [address] Clarissa Romero CREATININEon 04-16-2021 Creatinine [Mass/Vol] 0.35 mg/dL Critically low 0.66-1.25 [facility] Comment on above: Performed By: #### C RP, CREA #### [facility] [address] [address] [address] Clarissa Romero EGFR-AF [place] >60 Normal >=60 [facility] Comment on above: Performed By: #### C RP, CREA #### [facility] [address] [place] [address] Dr. Clarissa Romero EGFR-NON AF [place] >60 Normal >=60 [facility] Comment on above: Performed By: #### C RP, CREA #### [facility] [address] [place] [address] Dr. Clarissa Romero CRPon 04-16-2021 CRP 4.0 mg/dL Critically high <=1.0 [facility] Comment on above: Performed By: #### C RP, CREA #### [facility] [address] [place] [address] Dr. Clarissa Romero CREATININEon 03-18-2021 Creatinine [Mass/Vol] 0.39 mg/dL Critically low 0.66-1.25 [facility] Comment on above: Performed By: #### C VIOLETTE, CRP #### [facility] [address] [place] [address] Dr. Clarissa Romero EGFR-AF [place] >60 Normal >=60 [facility] Comment on above: Performed By: #### C VIOLETTE, CRP #### [facility] [address] [place] [address] Dr. Clarissa Romero EGFR-NON AF [place] >60 Normal >=60 [facility] Comment on above: Performed By: #### C VIOLETTE, CRP #### [facility] [address] [place] [address] Dr. Clarissa Romero CRPon 03-18-2021 CRP 3.5 mg/dL Critically high <=1.0 [facility] Comment on above: Performed By: #### C VIOLETTE, CRP #### [facility] [address] [place] [address] Dr. 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 [...] F Oxacillin <=0.25 S F Normal [facility] Comment on above: Performed By: #### W OUNDCX #### [facility] [address] [place], [place] [id number] Divya Vásquez Vital Signs Date Time Vital Sign Value Performing Clinician Facility 05-18-2024 10:47-0500 Body height 182.9 cm Glenn MOSSM FACFAS Work Phone: [facility] 05-18-2024 10:47-0500 Body mass index (BMI) [Ratio] 17.63 kg/m2 Glenn MOSSM FACFAS Work Phone: [facility] 05-18-2024 10:47-0500 Body weight 58.97 kg Glenn Laura DPM FACFAS Work Phone: [facility] 05-18-2024 10:47-0500 Diastolic blood pressure 75 mm[Hg] Glenn Laura DPM FACFAS Work Phone: [facility] 05-18-2024 10:47-0500 Heart rate 72 /min Glenn Laura DPM FACFAS Work Phone: [facility] 05-18-2024 10:47-0500 Systolic blood pressure 128 mm[Hg] Glenn Laura DPM FACFAS Work Phone: [facility] 03-04-2024 13:36-0400 Body temperature 98.2 [degF] Fercho Atassi DO Work Phone: [facility] 03-04-2024 13:36-0400 Diastolic blood pressure 61 mm[Hg] Fercho Atassi DO Work Phone: [facility] 03-04-2024 13:36-0400 Heart rate 82 /min Fercho Atassi DO Work Phone: [facility] 03-04-2024 13:36-0400 Respiratory rate 18 /min Fercho Atassi DO Work Phone: [facility] 03-04-2024 13:36-0400 SaO2% (BldA) [Mass fraction] 98 % Fercho Atassi DO Work Phone: [facility] 03-04-2024 13:36-0400 Systolic blood pressure 108 mm[Hg] Fercho Atassi DO Work Phone: [facility] 03-01-2024 17:56-0400 Body height 167.6 cm Fercho Atassi DO Work Phone: [facility] 02-29-2024 01:14-0400 Hourly Rounding Samson Boron [facility] 02-29-2024 01:14-0400 Promise to Return Samson Boron [facility] 02-29-2024 00:49-0400 Hourly Rounding Samson Boron [facility] 02-29-2024 00:49-0400 Promise to Return Samson Svitlana [facility] 02-28-2024 23:49-0400 Hourly Rounding Samson Svitlana [facility] 02-28-2024 23:49-0400 Promise to Return Samson Boron [facility] 02-28-2024 23:13-0400 Heart rate 98 /min Samson Svitlana [facility] 02-28-2024 23:13-0400 SaO2% (BldA) [Mass fraction] 93 % Samson Svitlana [facility] 02-28-2024 23:12-0400 Body temperature 98.24 [degF] Samson Svitlana [facility] 02-28-2024 23:12-0400 Diastolic blood pressure 72 mm[Hg] Samson Svitlana [facility] 02-28-2024 23:12-0400 Mean blood pressure 83 mm[Hg] Samson Boron [facility] 02-28-2024 23:12-0400 Systolic blood pressure 105 mm[Hg] Samson Svitlana [facility] 02-28-2024 20:08-0400 Heart rate 95 /min Samson Boron [facility] 02-28-2024 20:08-0400 Respiratory rate 16 /min Samson Boron [facility] 02-28-2024 20:08-0400 SaO2% (BldA) [Mass fraction] 94 % Samson Boron [facility] 02-28-2024 20:08-0400 Body temperature 98.06 [degF] Samson Svitlana [facility] 02-28-2024 20:08-0400 Blood Pressure Location Samson Boron [facility] 02-28-2024 20:08-0400 Diastolic blood pressure 75 mm[Hg] Samson Boron [facility] 02-28-2024 20:08-0400 Mean blood pressure 85 mm[Hg] Samson Boron [facility] 02-28-2024 20:08-0400 Systolic blood pressure 107 mm[Hg] Samson Svitlana [facility] 02-28-2024 18:00-0400 Respiratory rate 17 /min Samson Boron [facility] 02-28-2024 15:22-0400 Heart rate 84 /min Samson Boron [facility] 02-28-2024 15:22-0400 SaO2% (BldA) [Mass fraction] 96 % Samson Svitlana [facility] 02-28-2024 15:22-0400 Diastolic blood pressure 77 mm[Hg] Samson Boron [facility] 02-28-2024 15:22-0400 Mean blood pressure 93 mm[Hg] Samson Boron [facility] 02-28-2024 15:22-0400 Systolic blood pressure 124 mm[Hg] Samson Svitlana [facility] 02-28-2024 15:21-0400 Body temperature 97.7 [degF] Samson Svitlana [facility] 02-28-2024 03:00-0400 Body temperature 97.34 [degF] Samson Svitlana [facility] 02-28-2024 03:00-0400 Mean blood pressure 91 mm[Hg] Samson Svitlana [facility] 02-28-2024 00:58-0400 Body temperature 98.42 [degF] Samson Boron [facility] 02-28-2024 00:58-0400 Heart rate 63 /min Samson Boron [facility] 02-27-2024 23:55-0400 Mean blood pressure 93 mm[Hg] Samson Svitlana [facility] 02-27-2024 22:10-0400 Mean blood pressure 93 mm[Hg] Samson Boron [facility] 02-27-2024 18:27-0400 Heart rate 85 /min Samson Svitlana [facility] 02-27-2024 17:16-0400 Body temperature 98.24 [degF] Samson Svitlana [facility] 02-27-2024 17:16-0400 Heart rate 85 /min Samson Svitlana [facility] 09-25-2023 13:15-0400 Diastolic blood pressure 49 mm[Hg] [facility] Work Phone: [facility] 09-25-2023 13:15-0400 Heart rate 70 /min [facility] Work Phone: [facility] 09-25-2023 13:15-0400 Respiratory rate 16 /min [facility] Work Phone: [facility] 09-25-2023 13:15-0400 SaO2% (BldA) [Mass fraction] 98 % [facility] Work Phone: [facility] 09-25-2023 13:15-0400 Systolic blood pressure 78 mm[Hg] [facility] Work Phone: [facility] 09-25-2023 11:27-0400 Body height 182.88 cm [facility] Work Phone: [facility] 09-25-2023 11:27-0400 Body mass index (BMI) [Ratio] 16.9 kg/m2 [facility] Work Phone: [facility] 09-25-2023 11:27-0400 Body weight 56.69 kg [facility] Work Phone: [facility] 09-25-2023 10:59-0400 Body temperature 97.9 [degF] [facility] Work Phone: [facility] 09-15-2023 12:18-0400 Body height 177.8 cm [facility] Work Phone: [facility] 09-15-2023 12:18-0400 Body mass index (BMI) [Ratio] 41.1 kg/m2 [facility] Work Phone: [facility] 09-15-2023 12:18-0400 Body weight 130 kg [facility] Work Phone: [facility] 09-15-2023 10:54-0400 Body temperature 98.1 [degF] [facility] Work Phone: [facility] 09-15-2023 10:54-0400 Diastolic blood pressure 67 mm[Hg] [facility] Work Phone: [facility] 09-15-2023 10:54-0400 Heart rate 99 /min [facility] Work Phone: [facility] 09-15-2023 10:54-0400 Respiratory rate 18 /min [facility] Work Phone: [facility] 09-15-2023 10:54-0400 Systolic blood pressure 110 mm[Hg] [facility] Work Phone: [facility] 07-10-2023 14:00-0500 Blood Pressure Location [facility] 07-10-2023 14:00-0500 Body temperature 97.88 [degF] [facility] 07-10-2023 14:00-0500 Heart rate 69 /min [facility] 07-10-2023 14:00-0500 Hourly Rounding [facility] 07-10-2023 14:00-0500 Respiratory rate 16 /min [facility] 07-10-2023 14:00-0500 SaO2% (BldA) [Mass fraction] 98 % [facility] 07-10-2023 13:42-0500 Heart rate 103 /min [facility] 07-10-2023 13:42-0500 SaO2% (BldA) [Mass fraction] 96 % [facility] 07-10-2023 13:42-0500 Diastolic blood pressure 70 mm[Hg] [facility] 07-10-2023 13:42-0500 Mean blood pressure 82 mm[Hg] [facility] 07-10-2023 13:42-0500 Systolic blood pressure 106 mm[Hg] [facility] 07-10-2023 13:41-0500 Body temperature 98.42 [degF] [facility] 07-10-2023 10:04-0500 Hourly Rounding [facility] 07-10-2023 10:04-0500 Promise to Return [facility] 07-10-2023 09:29-0500 Hourly Rounding [facility] 07-10-2023 09:29-0500 Promise to Return [facility] 07-10-2023 08:00-0500 Promise to Return [facility] 07-10-2023 07:43-0500 Heart rate 80 /min [facility] 07-10-2023 07:43-0500 SaO2% (BldA) [Mass fraction] 97 % [facility] 07-10-2023 07:41-0500 Body temperature 98.06 [degF] [facility] 07-10-2023 07:41-0500 Diastolic blood pressure 75 mm[Hg] [facility] 07-10-2023 07:41-0500 Mean blood pressure 85 mm[Hg] [facility] 07-10-2023 07:41-0500 Systolic blood pressure 107 mm[Hg] [facility] 07-10-2023 02:25-0500 Diastolic blood pressure 70 mm[Hg] [facility] 07-10-2023 02:25-0500 Systolic blood pressure 104 mm[Hg] [facility] 07-09-2023 20:10-0500 Blood Pressure Location [facility] 07-09-2023 20:10-0500 Respiratory rate 16 /min [facility] 07-09-2023 15:31-0500 Blood Pressure Location [facility] 07-09-2023 15:31-0500 Mean blood pressure 76 mm[Hg] [facility] 07-09-2023 15:31-0500 Respiratory rate 18 /min [facility] 07-09-2023 10:53-0500 Mean blood pressure 77 mm[Hg] [facility] 07-09-2023 03:30-0500 Respiratory rate 16 /min [facility] 07-08-2023 19:38-0500 Body temperature 98.24 [degF] [facility] 07-08-2023 19:38-0500 Mean blood pressure 54 mm[Hg] [facility] 07-08-2023 19:30-0500 Mean blood pressure 57 mm[Hg] [facility] 07-08-2023 19:13-0500 Body temperature 98.42 [degF] [facility] 07-08-2023 19:05-0500 Respiratory rate 55 /min [facility] 07-08-2023 19:00-0500 Respiratory rate 57 /min [facility] 07-07-2023 03:52-0500 Heart rate 74 /min [facility] 07-06-2023 19:03-0500 Heart rate 113 /min [facility] 06-18-2023 10:30-0500 Body height 172.72 cm Adwoa Nascimento Other [employer] [facility] [employer] Other 06-18-2023 10:30-0500 Body mass index (BMI) [Ratio] 19.76 kg/m2 Adwoa Nascimento Other [employer] Other 06-18-2023 10:30-0500 Body temperature 97.8 [degF] Adwoa Nascimento Other [employer] Other 06-18-2023 10:30-0500 Body weight 58.97 kg Adwoa Nascimento Other [employer] Other 06-18-2023 10:30-0500 Diastolic blood pressure 62 mm[Hg] Adwoa Nascimento Other [employer] Other 06-18-2023 10:30-0500 SaO2% (BldA) [Mass fraction] 98 % Adwoa Nascimento Other [facility] [employer] Other 06-18-2023 10:30-0500 Systolic blood pressure 110 mm[Hg] Adwoa Nascimento Other [facility] [facility] [employer] Other 06-02-2023 12:09-0500 Body height 177.8 cm PHYSICIAN NO [facility] 06-02-2023 12:09-0500 Body mass index (BMI) [Ratio] 41.1 kg/m2 PHYSICIAN NO [facility] 06-02-2023 12:09-0500 Body weight 130 kg PHYSICIAN NO [facility] 06-02-2023 10:54-0500 Body temperature 97.2 [degF] PHYSICIAN NO [facility] 06-02-2023 10:54-0500 Diastolic blood pressure 59 mm[Hg] PHYSICIAN NO [facility] 06-02-2023 10:54-0500 Heart rate 70 /min PHYSICIAN NO [facility] 06-02-2023 10:54-0500 Systolic blood pressure 95 mm[Hg] PHYSICIAN NO [facility] 04-07-2023 12:09-0500 Body height 180.34 cm [employer] Work Phone: [facility] 04-07-2023 12:09-0500 Body mass index (BMI) [Ratio] 19.5 kg/m2 [employer] Work Phone: [facility] 04-07-2023 12:09-0500 Body weight 63.5 kg [employer] Work Phone: [facility] 04-07-2023 11:12-0500 Body temperature 97.7 [degF] [employer] Work Phone: [facility] 04-07-2023 11:12-0500 Diastolic blood pressure 61 mm[Hg] [employer] Work Phone: [facility] 04-07-2023 11:12-0500 Heart rate 76 /min [facility] Work Phone: [facility] 04-07-2023 11:12-0500 Respiratory rate 18 /min [facility] Work Phone: [facility] 04-07-2023 11:12-0500 Systolic blood pressure 95 mm[Hg] [facility] Work Phone: [facility] 03-03-2023 12:06-0400 Body height 180.34 cm PHYSICIAN NO [facility] 03-03-2023 12:06-0400 Body mass index (BMI) [Ratio] 19.5 kg/m2 PHYSICIAN NO [facility] 03-03-2023 12:06-0400 Body weight 63.5 kg PHYSICIAN NO [facility] 03-03-2023 11:34-0400 Body temperature 98.6 [degF] PHYSICIAN NO [facility] 03-03-2023 11:34-0400 Diastolic blood pressure 72 mm[Hg] PHYSICIAN NO [facility] 03-03-2023 11:34-0400 Heart rate 101 /min PHYSICIAN NO [facility] 03-03-2023 11:34-0400 Respiratory rate 18 /min PHYSICIAN NO [facility] 03-03-2023 11:34-0400 Systolic blood pressure 112 mm[Hg] PHYSICIAN NO [facility] 04-04-2022 13:13-0500 Body temperature 98.1 [degF] Mo Cruz MD Work Phone: [facility] 04-04-2022 13:13-0500 Diastolic blood pressure 71 mm[Hg] Mo Cruz MD Work Phone: [facility] 04-04-2022 13:13-0500 Heart rate 106 /min Mo Cruz MD Work Phone: [facility] 04-04-2022 13:13-0500 Respiratory rate 18 /min Mo Cruz MD Work Phone: [facility] 04-04-2022 13:13-0500 SaO2% (BldA) [Mass fraction] 98 % Mo Cruz MD [facility] 04-04-2022 13:13-0500 Systolic blood pressure 120 mm[Hg] Mo Cruz MD Work Phone: [facility] 03-12-2022 00:40-0400 Body mass index (BMI) [Ratio] 17.63 kg/m2 Mo Cruz [facility] 03-12-2022 00:40-0400 Body weight 58.97 kg Mo Cruz MD Work Phone: [facility] 03-12-2022 00:26-0400 Body height 182.9 cm Mo Cruz MD Work Phone: [facility] 03-04-2022 17:43-0400 Diastolic blood pressure 72 mm[Hg] PHYSICIAN NO [facility] 03-04-2022 17:43-0400 Heart rate 106 /min PHYSICIAN NO [facility] 03-04-2022 17:43-0400 Respiratory rate 18 /min PHYSICIAN NO [facility] 03-04-2022 17:43-0400 Systolic blood pressure 115 mm[Hg] PHYSICIAN NO [facility] 03-04-2022 16:09-0400 SaO2% (BldA) [Mass fraction] 95 % PHYSICIAN NO [facility] 03-04-2022 12:00-0400 Body height 182.88 cm PHYSICIAN NO [facility] 03-04-2022 12:00-0400 Body weight 58.96 kg PHYSICIAN NO [facility] 03-04-2022 11:59-0400 Body temperature 96.9 [degF] PHYSICIAN NO [facility] 02-19-2022 09:28-0400 Heart rate 120 /min PHYSICIAN NO [facility] 02-19-2022 09:26-0400 Body temperature 97.5 [degF] PHYSICIAN NO [facility] 02-19-2022 09:26-0400 Diastolic blood pressure 64 mm[Hg] PHYSICIAN NO [facility] 02-19-2022 09:26-0400 Respiratory rate 20 /min PHYSICIAN NO [facility] 02-19-2022 09:26-0400 SaO2% (BldA) [Mass fraction] 94 % PHYSICIAN NO [facility] 02-19-2022 09:26-0400 Systolic blood pressure 126 mm[Hg] PHYSICIAN NO [facility] 02-18-2022 16:00-0400 Body temperature 98.7 [degF] PHYSICIAN NO [facility] 02-18-2022 16:00-0400 Diastolic blood pressure 64 mm[Hg] PHYSICIAN NO [facility] 02-18-2022 16:00-0400 Heart rate 86 /min PHYSICIAN NO [facility] 02-18-2022 16:00-0400 Respiratory rate 16 /min PHYSICIAN NO [facility] 02-18-2022 16:00-0400 SaO2% (BldA) [Mass fraction] 100 % PHYSICIAN NO [facility] 02-18-2022 16:00-0400 Systolic blood pressure 113 mm[Hg] PHYSICIAN NO [facility] 02-18-2022 13:43-0400 Body height 177.8 cm PHYSICIAN NO [facility] 02-18-2022 13:43-0400 Body mass index (BMI) [Ratio] 20 kg/m2 PHYSICIAN NO [facility] 02-18-2022 13:43-0400 Body weight 63.5 kg PHYSICIAN NO [facility] 02-18-2022 12:42-0400 Body height 167.64 cm PHYSICIAN NO [facility] 02-18-2022 12:42-0400 Body weight 54.43 kg PHYSICIAN NO [facility] 02-18-2022 11:18-0400 Body temperature 98.6 [degF] PHYSICIAN NO [facility] 02-18-2022 11:18-0400 Diastolic blood pressure 71 mm[Hg] PHYSICIAN NO [facility] 02-18-2022 11:18-0400 Heart rate 80 /min PHYSICIAN NO [facility] 02-18-2022 11:18-0400 Respiratory rate 18 /min PHYSICIAN NO [facility] 02-18-2022 11:18-0400 Systolic blood pressure 116 mm[Hg] PHYSICIAN NO [facility] 01-21-2022 18:24-0400 Body height 182.88 cm MD Sam Smith Work Phone: [facility] 01-21-2022 18:24-0400 Body temperature 98.9 [degF] MD Sam Smith Work Phone: [facility] 01-21-2022 18:24-0400 Body weight 58.96 kg MD Sam Smith Work Phone: [facility] 01-21-2022 18:24-0400 Diastolic blood pressure 50 mm[Hg] MD Sam Smith Work Phone: [facility] 01-21-2022 18:24-0400 Heart rate 78 /min MD Sam Smith Work Phone: [facility] 01-21-2022 18:24-0400 Respiratory rate 18 /min MD Sam Smith Work Phone: [facility] 01-21-2022 18:24-0400 SaO2% (BldA) [Mass fraction] 96 % MD Sam Smith Work Phone: [facility] 01-21-2022 18:24-0400 Systolic blood pressure 111 mm[Hg] MD Sam Smith Work Phone: [facility] 01-14-2022 12:01-0400 Body height 177.8 cm MD Sam Smith Work Phone: [facility] 01-14-2022 12:01-0400 Body mass index (BMI) [Ratio] 20 kg/m2 MD Sam Smith Work Phone: [facility] 01-14-2022 12:01-0400 Body weight 63.5 kg MD Sam Smith Work Phone: [facility] 01-14-2022 11:08-0400 Body temperature 97.3 [degF] MD Sam Smith Work Phone: [facility] 01-14-2022 11:08-0400 Diastolic blood pressure 67 mm[Hg] MD Sam Smith Work Phone: [facility] 01-14-2022 11:08-0400 Heart rate 98 /min MD Sam Smith Work Phone: [facility] 01-14-2022 11:08-0400 Respiratory rate 16 /min MD Sam Smith Work Phone: [facility] 01-14-2022 11:08-0400 Systolic blood pressure 110 mm[Hg] MD Sam Smith Work Phone: [facility] Encounters Encounter Date Encounter Type Care Provider Facility Start: 05-18-2024 End: 05-18-2024 Lab Drop off Glenn Pruett [facility] Start: 05-18-2024 End: 05-18-2024 Bamboo flowsheet Glenn Laura DPM FACFAS Work Phone: [facility] Start: 05-18-2024 End: 05-18-2024 Bamboo flowsheet Glenn Laura DPM FACFAS Work Phone: [facility] Start: 05-18-2024 End: 05-18-2024 Office outpatient visit 25 minutes Glenn Laura DPM FACFAS Work Phone: [facility] Comment on above: Abscess of right marie t (Primary Dx); Foot abscess, right; 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); Paraplegia, unspecified (CMS/HCC) Start: 05-03-2024 ambulatory [facility] Facility:[facility] Start: 04-06-2024 End: 04-06-2024 ambulatory Gege Mcleod RN [facility] Care Management/Patient Access Start: 04-06-2024 End: 04-06-2024 Coordination of care plan Gege Mcleod RN [facility] Care Management/Patient Access Comment on above: Transitional Care Ma carmenvee; Care Coordination; 30 day d/c from TCM Start: 03-01-2024 End: 03-04-2024 Evaluation and management of inpatient Fercho Blakely DO Work Phone: [address] Comment on above: Acute renal failure, unspecified acute renal failure type (HCC) (Primary Dx); Decubitus ulcer of sacral region, stage 4 (HCC); Opioid abuse; Seizure-like activity (HCC); Acute encephalopathy; IVDU (intravenous drug user); Paraplegia (HCC); Anxiety; Neurogenic bladder; Polysubstance abuse (HCC); Chronic heel ulcer, left, with unspecified severity (HCC); S/P ileal conduit ([facility]); Neurogenic bowel; Opioid use disorder Start: 03-01-2024 End: 03-01-2024 Telephone encounter Fercho Blakely DO Work Phone: [facility] Start: 02-27-2024 End: 02-29-2024 ambulatory Samson Shane Facility[facility] Start: 02-27-2024 Emergency department patient visit Ebonyaurelio Munguiadomingo Facility:[facility] Start: 02-27-2024 End: 02-29-2024 Observation Samson Shane [facility] Start: 02-03-2024 End: 02-03-2024 ambulatory Viet Laura Facility:[facility] Start: 02-03-2024 End: 02-03-2024 Patient encounter procedure Viet Dmitriy Laura [facility] Start: 11-18-2023 End: 11-18-2023 ambulatory Viet R Angice Facility:[facility] Start: 11-18-2023 End: 11-18-2023 Patient encounter procedure Viet R Angichina [facility] Start: 10-28-2023 End: 10-28-2023 ambulatory Viet Dmitriy Laura Facility:[facility] Start: 10-28-2023 End: 10-28-2023 Patient encounter procedure Viet Laura [facility] Start: 10-28-2023 End: 10-28-2023 ambulatory Viet Dmitriy Whitleyce Facility:[facility] Start: 10-28-2023 End: 10-28-2023 Patient encounter procedure Viet Dmitriy Laura [facility] Start: 10-07-2023 End: 10-07-2023 ambulatory Viet Dmitriy Laura Facility:[facility] Start: 10-07-2023 End: 10-07-2023 Patient encounter procedure Viet Laura [facility] Start: 09-25-2023 End: 09-25-2023 Admission to same day surgery center [facility] [employer] Work Phone: [facility] [place] Start: 09-25-2023 End: 09-25-2023 ambulatory [facility] Work Phone: [facility] Work Phone: Start: 09-15-2023 Registered Recurring [facility] [employer] Work Phone: [facility] [place] Work Phone: Start: 09-09-2023 End: 09-09-2023 ambulatory Viet Dmitriy Laura Facility:[facility] Start: 09-09-2023 End: 09-09-2023 Patient encounter procedure Viet Laura [facility] Start: 08-26-2023 End: 08-26-2023 ambulatory Viet Dmitriy Laura Facility:[facility] Start: 08-26-2023 End: 08-26-2023 Patient encounter procedure Viet Dmitriy Laura [facility] Start: 07-28-2023 End: 07-28-2023 ambulatory Glenn Laura Facility:[facility] Start: 07-28-2023 End: 07-28-2023 Patient encounter procedure Glenn Laura [facility] Start: 07-21-2023 End: 07-21-2023 ambulatory Glenn Laura Facility:[facility] Start: 07-21-2023 End: 07-21-2023 Patient encounter procedure Glenn Laura [facility] Start: 07-17-2023 End: 07-17-2023 ambulatory GLENN LAURA Not Available Start: 07-07-2023 End: 07-10-2023 Non-patient / Non-visit [employer] Work Phone: [facility] Work Phone: Start: 07-07-2023 End: 07-10-2023 Evaluation and management of inpatient Priscilla Oseguera Facility:[facility] Start: 07-06-2023 End: 07-10-2023 Evaluation and management of inpatient Priscilla Oseguera [facility] Start: 06-18-2023 Office outpatient ne w 30 minutes Adwoa Nascimento [facility] Start: 06-18-2023 End: 06-18-2023 Patient encounter procedure PHYSICIAN NO [facility]Ultrasound [facility] Start: 06-18-2023 End: 06-18-2023 ambulatory PHYSICIAN IVAN [facility] [employer] Other Start: 06-02-2023 Registered Recurring PHYSICIAN IVAN [facility] [place] Work Phone: Start: 04-07-2023 End: 04-07-2023 ambulatory [employer] Work Phone: [facility] Work Phone: Start: 04-07-2023 End: 04-07-2023 Discharged Recurring [facility] Work Phone: [facility] [place] Work Phone: Start: 03-04-2023 End: 03-04-2023 Admission to same day surgery center PHYSICIAN NO [facility]-Interventional Radiology Work Phone: Start: 03-04-2023 End: 03-04-2023 ambulatory PHYSICIAN NO [facility] Work Phone: Start: 03-03-2023 Registered Recurring PHYSICIAN NO [facility] [place] Work Phone: Start: 05-19-2022 Letter encounter Kay Birmingham MD Work Phone: [facility] Start: 04-10-2022 End: 04-10-2022 Telemedicine consultation with patient Garrett Humphries MD Work Phone: [facility] [employer] Comment on above: ENCOUNTER OPENED IN ERROR (Primary Dx) Start: 04-10-2022 ambulatory Garrett Humphries MD Work Phone: [facility] [employer] Comment on above: antibiotics Start: 04-10-2022 E-mail encounter fro m caregiver Garrett Humphries MD Work Phone: [facility] [employer] Start: 04-04-2022 Letter encounter Kay Birmingham MD Work Phone: [facility] Hospital Medicine Start: 04-02-2022 Letter encounter Kay Birmingham MD Work Phone: [facility] [employer] Start: 03-26-2022 End: 03-26-2022 Evaluation and management of inpatient Mo Cruz MD Work Phone: [facility] Radiology Comment on above: Arrived Start: 03-21-2022 End: 03-21-2022 Evaluation and management of inpatient Mo Cruz MD Work Phone: [facility] Radiology Comment on above: Arrived Start: 03-19-2022 End: 03-19-2022 Evaluation and management of inpatient Mo Cruz MD Work Phone: [facility] Radiology Comment on above: Arrived Start: 03-16-2022 End: 03-16-2022 Evaluation and management of inpatient Mo Cruz MD Work Phone: [facility] Radiology CT Comment on above: Arrived Start: 03-11-2022 End: 03-11-2022 Subsequent hospital visit by physician Kriss [facility] Radiology Comment on above: Abscess Start: 03-11-2022 Evaluation and management of inpatient Fiona Dawson DO Work Phone: Inpatient [facility] Start: 03-11-2022 Telephone encounter Mo forrest MD Work Phone: [facility] Start: 03-11-2022 End: 04-04-2022 Evaluation and management of inpatient Mo Cruz MD Work Phone: [address] Start: 03-07-2022 End: 03-22-2022 Pre-admission assessment Eric Saha [facility] Start: 03-04-2022 End: 03-04-2022 Emergency department patient visit PHYSICIAN NO [facility]-Emergency Room Start: 02-25-2022 ambulatory [facility] Start: 02-19-2022 End: 02-19-2022 Emergency department patient visit PHYSICIAN NO [facility]Emergency Room Start: 02-18-2022 End: 02-18-2022 Emergency department patient visit PHYSICIAN NO [facility]-Emergency Room Start: 02-18-2022 End: 02-18-2022 ambulatory PHYSICIAN NO [facility] Work Phone: Start: 02-18-2022 End: 02-18-2022 Discharged Recurring PHYSICIAN NO [facility] [place] Start: 02-18-2022 Registered Recurring PHYSICIAN NO [facility] [place] Start: 01-21-2022 End: 01-21-2022 Emergency department patient visit MD Sam Smith Work Phone: [facility]Emergency Room Start: 01-18-2022 End: 01-18-2022 Patient encounter procedure MD Sam Smith Work Phone: [facility] [place] Start: 01-14-2022 Registered Recurring MD Sam Smith Work Phone: [facility] [place] Start: 04-23-2021 End: 04-23-[address] DOCTOR MISC Facility:[facility] Start: 04-16-2021 End: 04-16-[address] DOCTOR MISC Facility:[facility] Start: 03-27-2021 End: 03-27-2021 ambulatory ANÍBAL HOBSON Facility:[facility] Start: 03-18-2021 End: 03-18-2021 ambulatory DOCTOR MISC Facility:[facility] Start: 12-07-2020 End: 12-07-2020 ambulatory DOCTOR MISC Facility:[facility] Start: 11-15-2020 End: 11-15-[address] DOCTOR MISC Facility:[facility] Start: 07-19-2020 End: 07-19-[address] DOCTOR MISC Facility:[facility] Start: 09-29-2016 End: 09-30-2016 Ambulatory NEAL GASTON Facility:[facility] Procedures Date Procedure Procedure Detail Performing Clinician Start: 03-04-2024 Assay of magnesium Mary Grover MD Work Phone: Start: 03-03-2024 Assay of magnesium Mary Grover MD Work Phone: Start: 03-02-2024 Drug screen class list a Mary Grover MD Work Phone: Start: 03-02-2024 Radiologic exam abdomen 1 view Mary hammond MD Work Phone: Start: 03-02-2024 Glucose blood reagent strip Mary Grover MD Work Phone: Start: 03-01-2024 Assay of magnesium Fercho Atassi DO Work Phone: Start: 03-01-2024 Urine culture Fercho Atassi DO Work Phone: Start: 03-01-2024 Urnls dip stick/tablet rgnt auto w/o microscopy Fercho Atassi DO Work Phone: Start: 09-25-2023 Debridement [facility] [employer] Work Phone: Start: 08-25-2023 Investigation of transfusion reaction [facility] Work Phone: Start: 07-08-2023 Amputated toe (finding) Priscilla Cherryelda Start: 07-07-2023 H/O: ileostomy Priscilla Ana Rosa Start: 03-04-2023 Insertion of peripherally inserted central catheter PHYSICIAN NO FAMILY Start: 04-02-2022 Ct soft tissue neck w/contrast material Elda Vences MD Work Phone: Start: 04-02-2022 Drug screen quantitative vancomycin Elise Betancourt DO Work Phone: Start: 03-30-2022 Assay of [...] Phone: Start: 03-26-2022 Drug screen quantitative vancomycin Wai Mobley Work Phone: Start: 03-25-2022 Assay of [...] Phone: Start: 03-13-2022 Drug screen quantitative vancomycin Mo Cruz MD Work Phone: Start: 03-12-2022 Prothrombin time Ben Suarez DO Work Phone: Start: 03-12-2022 H/O: surgery S/P ileal conduit Mh 02 Start: 03-12-2022 Antibody hiv-1&hiv-2 single result Ben Suarez DO Work Phone: Start: 03-12-2022 Culture bacterial blood aerobic w/id isolates Ben Suarez DO Work Phone: Start: 03-12-2022 Cyanocobalamin vitamin b-12 Ben barksdale DO Work Phone: Start: 03-11-2022 CT BODY IMAGE IMPORT Fiona Dawson DO Work Phone: Start: 03-11-2022 CT NEURO IMAGE IMPORT Fiona Dawson DO Work Phone: Start: 03-11-2022 MR MSK IMAGE IMPORT Finoa Dawson DO Work Phone: Start: 03-11-2022 MR NEURO IMAGE IMPORT Fiona Dawson DO Work Phone: Start: 03-04-2022 CT [...] Phone: H/O: surgery S/P ileal condui t ([facility]) Mo Cruz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 on Thu03/12/22 at 0040, Until Discontinued, Sleep 2152 (Given - Provider: Sonya Chauhan RN) 2254 (Given - Provider: Glenn Maldonado) ondansetron (ZOFRAN) [...] Jacqueline Stuart, ELIZABETH)1554 (Given - Provider: Jacqueline Stuart, ELIZABETH) polyethylene glycol (MIRALAX) 17 g packet 17 g, Oral, DAILY PRN, Starting on Thu03/12/22 at 1616, Until Discontinued, Constipation tizanidine (ZANAFLEX) tablet 2 mg, Oral, EVERY 8 HOURS PRN, Starting on Thu03/12/22 at 0858, Until Discontinued, Muscle spasms 1054 (Given - Provider: Faiza Mcmullen RN)2254 (Given - Provider: Glenn Maldonado) Scheduled Medication Order 03/02/2024 03/03/2024 03/04/2024 baclofen (LIORESAL) 20 MG tablet 20 mg, Oral, DAILY, First dose on Thu03/01/24 at 2030, Until Discontinued 0907 (Given - Provider: Glenn Palmer RN) 0904 (Given - Provider: Ashli Dawson, ELIZABETH) 1151 (Given - Provider: Glenn Palmer RN) buprenorphine-naloxone (SUBOXONE) 8-2 MG SL tablet 2.5 Tablet, Sublingual, DAILY, First dose on Thu03/01/24 at 2030, Until Discontinued 1625 (Given - Provider: Glenn Palmer RN - Comment: Patient requested later) 0904 (Given - Provider: Ashli Dawson RN) 0948 (Given - Provider: Glenn Palmer RN) enoxaparin (LOVENOX) 40 MG/0.4ML injection 40 mg 40 mg, Subcutaneous, DAILY, First dose on Thu03/01/24 at 2030, Until Discontinued 0903 (Given - Provider: Glenn Palmer RN) 0905 (Given - Provider: Ashli Dawson RN) 0948 (Given - Provider: Glenn Palmer RN) gabapentin (NEURONTIN) capsule 600 mg, Oral, 3 TIMES DAILY, First dose on Thu03/01/24 at 2200, Until Discontinued 0600 (Hold/Not Given - Provider: Yenni Mojica RN - Reason: Patient refused)0903 (Given - Provider: Glenn Palmer RN)1624 (Given - Provider: Glenn Palmer RN)2237 (Given - Provider: Lexy Sanchez RN) 0550 (Given - Provider: Lexy Sanchez RN)1358 (Given - Provider: Ashli Dawson, ELIZABETH)2150 (Given - Provider: Lexy Sanchez RN) 0617 (Given - Provider: Lexy Sanchez RN)1530 (Given - Provider: Glenn Palmer RN)2200 (Due) hydrophilic wound dressing (TRIAD) external paste Apply externally, DAILY, First dose on Thu03/02/24 at 1630, Until Discontinued 1629 (Given - Provider: Glenn Palmer RN) 1044 (Given - Provider: Ashli Dawson, ELIZABETH) 1510 (Given - Provider: Glenn Palmer RN) magnesium sulfate 4 GM/100ML in 100 mL ivpb (COMPLETED) 4,000 mg, Intravenous, ONCE, 1 dose, On Thu03/02/24 at 0830 0903 (IV New Bag - Provider: Glenn Palmer RN) magnesium sulfate 4 GM/100ML in 100 mL ivpb (COMPLETED) 4,000 mg, Intravenous, ONCE, 1 dose, On Thu03/04/24 at 0800 0947 (IV New Bag - Provider: Glenn Palmer RN) pantoprazole (PROTONIX) tablet 40 mg, Oral, DAILY 30 MIN BEFORE BREAKFAST, First dose on Thu03/02/24 at 0830, Until Discontinued 0904 (Given - Provider: Glenn Palmer RN) 0905 (Given - Provider: Ashli Dawson RN) 0948 (Given - Provider: Glenn Palmer RN) polyethylene glycol (MIRALAX) 17 g packet (CANCELED) 17 g, Oral, DAILY, First dose on Thu03/02/24 at 1030, Until Discontinued 1355 (Given - Provider: Glenn Palmer RN) 0900 (Hold/Not Given - Provider: Ashli Dawson RN - Reason: Not indicated - Comment: duplicate order) polyethylene glycol (MIRALAX) 17 g packet 17 g, Oral, 2 times daily, First dose (after last modification) on Thu03/03/24 at 1000, Until Discontinued 0905 (Given - Provider: Ashli Dawson RN)2143 (Given - Provider: Lexy Sanchez RN) 0948 (Given - Provider: Glenn Palmer RN)2100 (Due) potassium chloride 20 mEq in SW 100 mL IVPB (COMPLETED) 20 mEq, Intravenous, ONCE, 1 dose, On Thu03/02/24 at 0100, at 50 mL/hr 0012 (IV New Bag - Provider: Yenni Mojica RN) potassium chloride 20 MEQ/15ML (10%) oral solution (COMPLETED) 40 mEq, Oral, ONCE, 1 dose, On Thu03/02/24 at 0100 0011 (Given - Provider: Yenni Mojica RN) potassium chloride SA (K-DUR) controlled release tablet (COMPLETED) 40 mEq, Oral, ONCE, 1 dose, On Thu03/02/24 at 1400 1354 (Given - Provider: Glenn Palmer RN) potassium chloride SA (K-DUR) controlled release tablet (COMPLETED) 20 mEq, Oral, ONCE, 1 dose, On Thu03/03/24 at 1000 1044 (Given - Provider: Ashli Dawson RN) QUEtiapine (SEROQUEL) tablet 75 mg, Oral, AT BEDTIME, First dose on Thu03/01/24 at 2200, Until Discontinued 2236 (Given - Provider: Lexy Sanchez RN) 2142 (Given - Provider: Lexy Sanchez RN) 2199 (Due) senna (SENOKOT) tablet (CANCELED) 8.6 mg, Oral, AT BEDTIME, First dose on Thu03/02/24 at 2200, Until Discontinued 2236 (Given - Provider: Lexy Sanchez RN) senna (SENOKOT) tablet 17.2 mg, Oral, AT BEDTIME, First dose (after last modification) on Thu03/03/24 at 2200, Until Discontinued 2142 (Given - Provider: Lexy Sanchez RN) 2199 (Due) trazodone (DESYREL) tablet 50 mg, Oral, AT BEDTIME, First dose on Thu03/01/24 at 2200, Until Discontinued 2199 (Hold/Not Given - Provider: Lexy Sanchez RN - Reason: Patient refused) 2199 (Hold/Not Given - Provider: Lexy Sanchez RN - Reason: Patient refused) 2199 (Due) PRN Medication Order 03/02/2024 03/03/2024 03/04/2024 acetaminophen (TYLENOL) tablet 650 mg, Oral, EVERY 4 HOURS PRN, Starting on Thu03/01/24 at 1953, Until Discontinued, Mild Pain (pain score 1,2,3), Moderate Pain (pain score 4,5,6), Fever 38 C and higher, Severe Pain (pain score 7,8,9,10) 1624 (Given - Provider: Glenn Palmer RN) 0948 (Given - Provider: Glenn Palmer RN) ALPRAZolam (XANAX) tablet 0.5 mg, Oral, 2 TIMES DAILY PRN, Starting on Thu03/01/24 at 1953, Until Discontinued, Anxiety 0913 (Given - Provider: Glenn Palmer RN)2237 (Given - Provider: Lexy Sanchez, ELIZABETH) 0904 (Given - Provider: Ashli Dawson RN)2146 (Given - Provider: Lexy Sanchez RN) 1151 (Given - Provider: Glenn Palmer RN) promethazine (PHENERGAN) tablet 25 mg, Oral, 2 TIMES DAILY PRN, Starting on Thu03/01/24 at 1953, Until Discontinued, Nausea FOR RECORDS PERTAINING TO PATIENTS WHO ARE [...] BE BASED ON THE PRIMARY CLINICAL RECORDS. [facility] [employer] provides no warranty or guarantee of the accuracy or completeness of information in this document.
--- NOTE | 2024-05-21 22:52 | ED.OVERDOSE1 ---
HPI HPI - Overdose General Chief Complaint: Overdose Stated Complaint: collapsed Time Seen by Provider: 05/21/24 22:43 Source: law enforcement Mode of arrival: ambulance Limitations: altered mental status Limitations comment: ETOH INTOXICATION, AND UNKNOWN SUBSTANCE USE History of Present Illness HPI Narrative: The patient is a 28-year-old male. He presents the emergency room via EMS. Patient was brought in accompanied by police secondary to being unconscious. It is unclear who called 911. But EMS arrived and found the patient unconscious. The patient was administered intranasal Narcan. There was no response. Then a second intranasal Narcan was given and the patient became arousable. The patient was at a neighbor's house. He does admit to doing drugs but he does not know which drugs and he does not know which route. He also states that he drank alcohol this evening. The patient is a paraplegic and has a urostomy and colostomy bag present. The patient has no complaints at this time. An IV was not started on this patient because he was flailing his arms about and route to the hospital. No suicidal ideation. MD complaint: Reports accidental overdose Onset (ago): unknown Related Data Home Medications ?Medication ?Instructions ?Recorded ?Confirmed alprazolam 0.5 mg tablet 0.5 mg PO BID PRN anxiety 02/29/24 03/01/24 baclofen 20 mg tablet 20 mg PO BID 02/29/24 03/01/24 buprenorphine 8 mg-naloxone 2 mg 2.5 film sublingual DAILY 02/29/24 03/01/24 sublingual film gabapentin 600 mg tablet 600 mg PO TID 02/29/24 03/01/24 omeprazole 40 mg capsule,delayed 40 mg PO DAILY 02/29/24 03/01/24 release promethazine 25 mg tablet 12.5 mg PO DAILY PRN nausea and 02/29/24 03/01/24 vomiting quetiapine 25 mg tablet 75 mg PO QPM 02/29/24 03/01/24 sodium hypochlorite 0.25 % 1 applic irrigation Q24H 02/29/24 03/01/24 solution (HySept) vilazodone 10 mg tablet 10 mg PO DAILY 02/29/24 03/01/24 Allergies Allergy/AdvReac Type Severity Reaction Status Date / Time Penicillins Allergy Unknown Verified 02/29/24 22:17 Sulfa (Sulfonamide Allergy Unknown Verified 02/29/24 22:17 Antibiotics) Opioid HPI Opioid Management Most Recent Opioid Data: Ur Phencyclidine Scrn Negative (NEGATIVE) 02/29/24 22:16 02/29/24 Review of Systems ROS Narrative 10 Systems were reviewed, and unless noted in the HPI, all other systems are reviewed, unremarkable, or noncontributory. PFSH PFS Social History Little interest or pleasure in doing things: not at all Feeling down, depressed, or hopeless: not at all Exam Narrative Exam Narrative: Prior to examining the patient, I have washed with hospital approved and provided Antiseptic Hand Allergist/Pediatric Pulmonologist and have also applied gloves.? Prior to touching the patient, I asked for consent to examine the patient.? General: Alert and oriented to self and hospital, well nourished, moderate psychiatric distress and psychomotor agitation Eye: PERRL, EOMI, normal conjunctiva. 4 mm and sluggishly reactive. HENT: Normocephalic, normal hearing, moist oral mucosa, no scleral icterus Neck: Supple, non-tender, no lymphadenopathy. Lungs: Clear to auscultation and percussion, non-labored respiration. No rhonchi, rales, wheezing. Heart: Normal rate, regular rhythm, no murmur, gallop or edema. Abdomen: Soft, non-tender, non-distended, normal bowel sounds, no masses. The patient has an colostomy bag on the right and a urostomy bag on the left. Both ostomies are pink and vibrant in nature. No evidence of herniation. Musculoskeletal: Normal range of motion and strength, no tenderness or swelling. Skin: Skin is warm, dry and pink, no rashes or lesions. Patient has had operative surgery to his right forefoot. Neurologic: Awake, alert, and oriented X2, CN II-XII intact. Psychiatric: patient has psychomotor agitation Following the conclusion of the examination, I have washed my hands thoroughly after removing examination gloves. Constitutional Vital Signs, click to edit/add: Last Vital Signs Pulse 91 H 05/21/24 22:41 Resp 18 05/21/24 22:41 BP 97/55 05/21/24 22:41 Pulse Ox 95 05/21/24 22:41 Course Course Hospital Course: I was in the room a patient arrival with police. The superintendent police that brought him and did not know him from the community but stated that the house that he was picked up at is well-known. He did not have any specific information about my patient. I ordered the overdose workup. Vital Signs Vital signs: Vital Signs Pulse Rate 91 H 05/21/24 22:41 Respiratory Rate 18 05/21/24 22:41 Blood Pressure 97/55 05/21/24 22:41 Pulse Oximetry 95 05/21/24 22:41 Pulse Rate 91 H 05/21/24 22:41 Respiratory Rate 18 05/21/24 22:41 Blood Pressure 97/55 05/21/24 22:41 Pulse Oximetry 95 05/21/24 22:41 MDM - Overdose Differential Diagnosis Differential diagnosis: Likely suicide attempt by multiple drug overdose and drug overdose Medical Records Attestation: I reviewed the patient's medical records. Lab Data Attestation: I reviewed the patient's lab results. ECG Data Attestation: I personally reviewed and interpreted this ECG as follows: ECG interpretation date: 05/21/24 ECG interpretation time: 23:05 Prior ECG tracings: not available for review Discharge Plan Discharge Chief Complaint: Overdose Clinical Impression: Altered mental status Prescriptions / Home Meds: No Action quetiapine 25 mg tablet 75 mg PO QPM gabapentin 600 mg tablet 600 mg PO TID omeprazole 40 mg capsule,delayed release(DR/EC) 40 mg PO DAILY baclofen 20 mg tablet 20 mg PO BID alprazolam 0.5 mg tablet 0.5 mg PO BID PRN (Reason: anxiety) promethazine 25 mg tablet 12.5 mg PO DAILY PRN (Reason: nausea and vomiting) HySept 0.25 % solution 1 applic irrigation Q24H buprenorphine-naloxone 8-2 mg film 2.5 film sublingual DAILY vilazodone 10 mg tablet 10 mg PO DAILY Print Language: Malagasy Referrals: Physician,Non-Staff, MD [Primary Care Provider] - 1 week
[2024-05-21 23:42] LABS: Basophils Absolute Auto 0.1 10^3/uL (0.0-0.1); Basophils Percent Auto 0.9 % (0.2-2.0); Eosinophils Absolute Auto 0.2 10^3/uL (0.0-0.7); Eosinophils Percent Auto 3.5 % (0.9-7.0); Hematocrit 42.8 % (42.0-54.0); Hemoglobin 14.1 g/dL (14.0-18.0); Immature Granulocytes Abs Auto 0.07 10^3/uL (0.00-0.03); Lymphocytes Absolute Auto 1.9 10^3/uL (1.2-3.8); Lymphocytes Percent Auto 27.5 % (20.5-60.0); Mean Corpuscular HGB Conc 32.9 g/dL (29.9-35.2); Mean Corpuscular Hemoglobin 29.3 pg (25.9-34.0); Mean Corpuscular Volume 88.8 fL (80.0-94.0); Mean Platelet Volume 8.8 fL (9.5-13.5); Monocytes Absolute Auto 0.3 10^3/uL (0.3-0.8); Monocytes Percent Auto 4.8 % (1.7-12.0); Neutrophils Absolute Auto 4.3 10^3/uL (1.4-6.5); Neutrophils Percent Auto 62.3 % (43.0-75.0); Platelet Count 318 10^3/uL (150-450); Red Blood Count 4.82 10^6/uL (4.70-6.10); Red Cell Distribution Width 14.6 % (11.0-15.0); White Blood Count 6.8 10^3/uL (4.0-11.0)
[2024-05-21 23:46] LABS: Amphetamine Screen Urine POSITIVE (NEGATIVE); Barbiturates Screen Urine NEGATIVE (NEGATIVE); Benzodiazepines Screen Urine POSITIVE (NEGATIVE); Buprenorphine Screen Urine NEGATIVE (NEGATIVE); Cannabinoid Screen Urine POSITIVE (NEGATIVE); Cocaine Screen Urine NEGATIVE (NEGATIVE); Methadone Screen Urine NEGATIVE (NEGATIVE); Methamphetamines Screen Urine POSITIVE (NEGATIVE); Opiate Screen Urine POSITIVE (NEGATIVE); Oxycodone Screen Urine NEGATIVE (NEGATIVE); Phencyclidine Screen Urine NEGATIVE (NEGATIVE); Tricyclic Antidepressant Urine NEGATIVE (NEGATIVE)
[2024-05-21 23:52] LABS: Ethanol 262 mg/dL; Salicylate 3.7 mg/dL (<=19.9)
[2024-05-21 23:59] LABS: Acetaminophen <2.0 ug/mL (10.0-30.0)
[2024-05-22] VITALS (14 sets, daily range): BP systolic 88–108; BP diastolic 52–71; PULSE 78–97; O2SAT 98–99
== END 2024-05-22 05:15 | disposition home or self-care (01) ==
PROVIDERS: Emergency Provider Emergency Medicine
DX: R41.82 Altered mental status, unspecified (principal); G82.20 Paraplegia, unspecified; Z93.3 Colostomy status; Z93.6 Other artificial openings of urinary tract status
CPT/HCPCS: 36415; 80179; 80307; 80320; 80329; 83605; 85025; 93005; 99284

== ENCOUNTER 2025-01-11 11:06 | Outpatient (REF) | payer OTHER, MEDICARE, SELFPAY ==
--- OUTSIDE RECORDS SUMMARY | 2024-10-27 06:00 | XMS_ITS ---
Author Organization [facility] Servic es Address [address] [place] [address] Care Team Providers Care Paver Operator Name Role Phone Korin Chase Primary Care Provider Tatum Rosenbaum Unavailable [phone] Jumana Sands Unavailable [phone] REASON FOR VISIT 3 MONTH F/U Encounters Encounter Location Date Provider Diagnosis [place] [address] [place] [address] 10/27/2024 Jumana Sands Plan Of Treatment Next Appt Details Provider Name:Korin mendoza, 02/15/2025 10:30:00 AM, [address], [place], [address], Progress Notes * MILAD HYDE KDOB: 4 (29 yo M)Acc No.[id number]:10/27/2024 Progress Notes Patient: Ky SIBLEY MILAD Molly Provider: Emiliano Nunes CNP :1995 A ge:28 Y S ex:Male Date:10/27/2024 Address:[address] [place] [address], [place], [id number] Pcp:Korin Chase Subjective: * Chief Complaints: * 1 . 3 MONTH F/U. * Medical History: Objective: * Vitals: Assessment: Plan: * Treatment: * Images: * Electronic signature of HIRO Kovacs-Jacqueline on 01/11/2025 at 11:11 AM EDT Sign off status: Pending * Provider: Emiliano Nunes CNP Date: 0 10/27/2024 Generated for Gera khanna/Carmen/Acacia on: 0 01/11/2025 11:11 AM EDT
--- OUTSIDE RECORDS SUMMARY | 2024-11-01 11:00 | XMS_ITS ---
Author Organization [facility] Servic es Address [address] [place] [address] Care Team Providers Care Stonemason Apprentice Name Role Phone Korin Chase Primary Care Provider Tatum Rosenbaum Unavailable [phone] Nohemy Chavez Unavailable [phone] REASON FOR VISIT STEFANI FROM [facility] Encounters Encounter Location Date Provider Diagnosis [place] [address] [place] [address] 11/01/2024 Nohemy Chavez Plan Of Treatment Next Appt Details Provider Name:Korin mendoza, 02/15/2025 10:30:00 AM, [address] [place], [address], Progress Notes * MILAD HYDE KDOB: [birth year] (29 yo M)Acc No.[id number]:11/01/2024 Progress Notes Patient: MILAD BUENROSTRO Provider: Faustino Chavez :1995 A ge:28 Y S ex:Male Date:11/01/2024 Address:[address] [place] [address], [place], [id number] Pcp:Korin Chase Subjective: * Chief Complaints: * 1 . [facility] FROM [facility]. * Medical History: Objective: * Vitals: Assessment: Plan: * Treatment: * Images: * Electronic signature of Alexus Chavez NP on 01/11/2025 at 11:12 AM EDT Sign off status: Pending * Provider: Faustion Chavez Date: 0 11/01/2024 Generated for Gera khanna/Carmen/Acacia on: 0 01/11/2025 11:12 AM EDT
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
--- OUTSIDE RECORDS SUMMARY | 2025-01-11 11:12 | XMS_ITS | Encounter Summary ---
Author Organization [facility] Address [address] [place] [address] Care Team Providers Care Db2 Systems Programmer Name Role Phone mEanuelalicia Denson Benscar Lance Primary Care Provi shamir Source Comments In the event this information is protected by the Federal Confidentiality of Alcohol and Drug AbusePatient Records regulations: The Federal rules restrict any use of the information to criminally investigate or prosecute any alcohol or drug abuse patient.[facility] Encounter Details Date Type Department Care Team (Late st Contact Info) Description 04/27/2019 [id number] [address] [place] [address] Ze Keyes MD [address] [place] [address] Social History Tobacco Use Types Packs/Day Years Used Date Smoking Tobacco: Some Days Cigarettes 1 7 Smokeless Tobacco: Current Chew Comments:10 cigarettes per/d ay Alcohol Use Standard Drinks/Week Comments Not Currently 0 (1 standard drink = 0.6 oz pur e alcohol) AUDIT-C Answer Date Recorded Q1: How often do you have a drink containing alc ohol? Never 04/25/2019 Average Number of Drinks Not on file 019 Frequency of Binge Drinking Not on file 04/10 PHQ-2 Answer Date Recorded PHQ2 Score 0 04/25/2019 Sex and Gender Information Value Date Recorded Sex Assigned at Not on file Legal Sex Male 10:46 AM EDT Gender Identity Not on file Sexual Orientation Not on file documented as of this encounter Functional Status * Are you deaf or do you have serious difficulty hearing? Answer Date of Assessment Author No 03/02/2019 4:44 PM EDT Milagros Macias APRN.SYSTEMS INTEGRATION MANAGER * Are you blind or do you have serious difficulty seeing, even when wearing glasses? Answer Date of Assessment Author No 03/02/2019 4:44 PM EDT Milagros Macias APRN.SYSTEMS INTEGRATION MANAGER * Do you have serious difficulty walking or climbing stairs? Answer Date of Assessment Author Yes 03/02/2019 4:44 PM EDT Milagros Macias APRN.SYSTEMS INTEGRATION MANAGER * Do you have difficulty dressing or bathing? Answer Date of Assessment Author Yes 03/02/2019 4:44 PM EDT Milagros Macias APRN.SYSTEMS INTEGRATION MANAGER * Because of a physical, mental, or emotional condition, do you have difficulty doing errands alone such as visiting a doctor's office or shopping? Answer Date of Assessment Author Yes 03/02/2019 4:44 PM EDT Milagros Macias APRN.SYSTEMS INTEGRATION MANAGER documented as of this encounter Mental Status * Because of a physical, mental, or emotional condition, do you have serious difficulty concentrating, remembering, or making decisions? Answer Entry Date Author Yes 03/02/2019 4:44 PM EDT Milagros Macias APRN.SYSTEMS INTEGRATION MANAGER documented in this encounter Plan of Treatment Not on file documented as of this encounter Visit Diagnoses Not on filedocumented in this encounter Care Teams Db2 Systems Programmer Relationship Specialty Start Date End Date Jose Eduardo Cruz Jr., DO [address] [place] [address] PCP - General Emergency Medicine 04/11/19 Cecy chandler [facility] 05/03/19 documented as of this encounter
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
--- OUTSIDE RECORDS SUMMARY | 2025-01-11 11:12 | XMS_ITS | Encounter Summary ---
Author Organization [facility] Address [address] [place] [address] Care Team Providers Care Transport Rn Name Role Phone Reed Birmingham MD Primary Care Provider [phone] Fiona Dawson DO Unavailable Destiny Osborn DIRECTOR OF LAND-BULK CLERK Unavailable [phone] Marcos Beauchamp MD Unavailable [phone] Brenda Bundy MD Unavailable Encounter Details Date Type Department Care Team (Late st Contact Info) Description 03/27/2016 Results Only [facility] Infectious Disease [address] [place] [id number] Cherri Otero RN [address] [id number] Social History Tobacco Use Types Packs/Day Years Used Date Smoking Tobacco: Former Cigarettes 1 2 1 - 03/09/2015 Smokeless Tobacco: Former Chew Quit: 03/09/2015 Alcohol Use Standard Drinks/Week Comments Not Asked 0 (1 standard drink = 0.6 oz pur e alcohol) Substance Use Types Use/Week Comments Yes HEROIN Sex and Gender Information Value Date Recorded Sex Assigned at Not on file Legal Sex Male 1:15 AM EDT Gender Identity Not on file Sexual Orientation Not on file documented as of this encounter Functional Status * Hearing impairment? Answer Date of Assessment Author No 03/05/2016 9:05 PM EDT Misty Pfeiffer RN * Visual impairment? Answer Date of Assessment Author No 03/05/2016 9:05 PM EDT Misty Pfeiffer RN * Gait/Transfer impairment? Answer Date of Assessment Author Yes 03/05/2016 9:05 PM EDT Misty Pfeiffer RN * ADL impairment? Answer Date of Assessment Author Yes 03/05/2016 9:05 PM EDT Misty Pfeiffer RN * Difficulty with errands? Answer Date of Assessment Author Yes 03/05/2016 9:05 PM EDT Misty Pfeiffer RN documented as of this encounter Mental Status * Cognitive difficulty? Answer Entry Date Author No 03/05/2016 9:05 PM Misty Bassett RN documented in this encounter Plan of Treatment Pending Results Name Type Priority Associated Diagnoses Date /Time BASIC METABOLIC PANEL Lab Routine 04/2016 BASIC METABOLIC PANEL Lab Routine documented as of this encounter Procedures Procedure Name Priority Date/Time Associated Diagnosis Comments VANCOMYCIN TROUGH Routine 05/11/2017 BASIC METABOLIC PANEL Routine 04/20/2017 COMPLETE BLOOD COUNT W/DIFF Routine 04/20/2017 VANCOMYCIN TROUGH Routine 04/20/2017 BASIC METABOLIC PANEL Routine 04/14/2017 COMPLETE BLOOD COUNT W/DIFF Routine 04/14/2017 BASIC METABOLIC PANEL Routine 03/30/2017 COMPLETE BLOOD COUNT W/DIFF Routine 03/30/2017 BASIC METABOLIC PANEL Routine 03/24/2017 COMPLETE BLOOD COUNT W/DIFF Routine 03/24/2017 VANCOMYCIN TROUGH Routine 03/24/2017 BASIC METABOLIC PANEL Routine 03/16/2017 COMPLETE BLOOD COUNT W/DIFF Routine 03/16/2017 VANCOMYCIN TROUGH Routine 03/16/2017 HEPATIC FUNCTION PANEL Routine 03/03/2017 BASIC METABOLIC PANEL Routine 03/03/2017 COMPLETE BLOOD COUNT W/DIFF Routine 03/03/2017 VANCOMYCIN TROUGH Routine 03/03/2017 BASIC METABOLIC PANEL Routine 02/23/2017 COMPLETE BLOOD COUNT W/DIFF Routine 02/23/2017 VANCOMYCIN TROUGH Routine 02/23/2017 VANCOMYCIN TROUGH Routine 02/19/2017 5:0 0 PM EDT COMPLETE BLOOD COUNT W/DIFF Routine 04/28/2016 CREATINE KINASE Routine 04/28/2016 HEPATIC FUNCTION PANEL Routine 04/21/2016 COMPLETE BLOOD COUNT W/DIFF Routine 04/21/2016 C-REACTIVE PROTEIN Routine 04/21/2016 CREATINE KINASE Routine 04/21/2016 VANCOMYCIN TROUGH Routine 04/18/2016 BASIC METABOLIC PANEL Routine 04/14/2016 VANCOMYCIN TROUGH Routine 04/14/2016 FACTOR V ASSAY Routine 04/03/2016 VANCOMYCIN TROUGH Routine 04/03/2016 VANCOMYCIN TROUGH Routine 04/03/2016 VANCOMYCIN TROUGH Routine 03/29/2016 COMPLETE BLOOD COUNT W/DIFF Routine 03/25/2016 C-REACTIVE PROTEIN Routine 03/25/2016 documented in this encounter Results * VANCOMYCIN TROUGH (05/11/2017) Vancomycin Trough 18.3 10.0 - 20.0 ug/mL [facility] Blood BLOOD SPECIMEN / Unknown 05/11/2017 Provider [facility] GENERAL LAB Final Resu lt Performing Organization Address [facility] de Phone Number [facility] [address] [place] [address] * VANCOMYCIN TROUGH (04/20/2017) Vancomycin Trough 16.3 10.0 - 20.0 ug/mL [facility] Blood BLOOD SPECIMEN / Unknown 04/20/2017 Provider Non-[place] [id number] GENERAL LAB Final Resu lt Performing Organization Address [facility] Phone Number [facility] [address] [place] [phone] * (ABNORMAL) COMPLETE BLOOD COUNT W/DIFF (04/20/2017) WBC 7.6 4 - 10.5 cmm [facility] RBC 4.13 3.8 - 5.6 X10-6/uL [facility] Hemoglobin 9.7(A) 11.5 - 17 g/dL [facility] Hematocrit 32.5(A) 36.0 - 50.0 % [facility] MCV 78.7 UM3 [facility] MCH 23.5 PG [facility] MCHC 29.8(A) 32 - 36 GM/DL [facility] RDW-CV% 28.4 % [facility] MPV 9.5 fL [facility] Platelet 438(A) 140 - 415 x10-3/uL [facility] Granulocyte % 47.3 40 - 74 % [facility] Lymph % 37.1 14 - 46 % [facility] Monocyte % 8.5 4 - 13 % [facility] Eosinophil % 5.9 0 - 7 % [facility] Basophil % 1.1 0 - 3 % [facility] Granulocyte Absolute 3.6 1.8 - 7.8 X10-3/uL [facility] Lymph Absolute 2.8 0.7 - 4.5 x10-3/uL [facility] Monocyte Absolute 0.7 0.1 - 1 x10-3/uL [facility] Eosinophil Absolute 0.5(A) 0.00 - 0.40 x10-3/uL [facility] Basophil Absolute 0.1 0 - 0.2 x10-3/uL [facility] NRBC% [facility] NRBC ABS K/uL [facility] Blood BLOOD SPECIMEN / Unknown 04/20/2017 Provider Non-[place] [address] GENERAL LAB Final Resu lt Performing Organization Address [facility] de Phone Number [facility] [address] [place] [address] * (ABNORMAL) BASIC METABOLIC PANEL (04/20/2017) Pathologist [facility] Sodium 135 - 148 mmol/L [facility] Potassium mmol/L [facility] Chloride mmol/L [facility] Carbon Dioxide [facility] BUN 11 5 - 26 mg/dL [facility] Glucose 65 - 109 mg/dL [facility] Creatinine 0.42(A) 0.5 - 1.5 mg/dL [facility] Anion Gap [facility] Calcium 8.5 - 10.6 mg/dl [facility] Blood BLOOD SPECIMEN / Unknown 04/20/2017 Provider Non-[place] [address] GENERAL LAB Final Resu Performing Organization Address [facility] de Phone Number [facility] [address] [place] [phone] * (ABNORMAL) COMPLETE BLOOD COUNT W/DIFF (04/14/2017) WBC 8.7 4 - 10.5 cmm [facility] RBC 4.44 3.8 - 5.6 X10-6/uL [facility] Hemoglobin 18.5(A) 11.5 - 17 g/dL [facility] Hematocrit 33(A) 36.0 - 50.0 % [facility] MCV 74.4 UM3 [facility] MCH 23.8 PG [facility] MCHC 31.9(A) 32 - 36 GM/DL [facility] RDW-CV% 21.9 % [facility] MPV 7.0 fL [facility] Platelet 566(A) 140 - 415 x10-3/uL [facility] Granulocyte % 53.5 40 - 74 % [facility] Lymph % 34.1 14 - 46 % [facility] Monocyte % 6.4 4 - 13 % [facility] Eosinophil % 5.1 0 - 7 % [facility] Basophil % 0.9 0 - 3 % [facility] Granulocyte Absolute 4.6 1.8 - 7.8 X10-3/uL [facility] Lymph Absolute 3.0 0.7 - 4.5 x10-3/uL [facility] Monocyte Absolute 0.6 0.1 - 1 x10-3/uL [facility] Eosinophil Absolute 0.4 0.00 - 0.40 x10-3/uL [facility] Basophil Absolute 0.1 0 - 0.2 x10-3/uL [facility] NRBC% [facility] NRBC ABS K/uL [facility] Blood BLOOD SPECIMEN / Unknown 04/14/2017 Provider Non-[place] [id number] GENERAL LAB Final Resu lt Performing Organization Address [facility]/ZIP Co de Phone Number [facility] [address] [place] [address] * (ABNORMAL) BASIC METABOLIC PANEL (04/14/2017) Sodium 135 - 148 mmol/L [facility] Potassium 3.6 3.5 - 5.0 mmol/L [facility] Chloride mmol/L [facility] Carbon Dioxide [facility] BUN 10 5 - 26 mg/dL [facility] Glucose 65 - 109 mg/dL [facility] Creatinine 42(A) 0.5 - 1.5 mg/dL [facility] Anion Gap [facility] Calcium 8.5 - 10.6 mg/dl [facility] Blood BLOOD SPECIMEN / Unknown 04/14/2017 Provider [facility] GENERAL LAB Final Resu lt Performing Organization Address City/[facility]/ZIP Co de Phone Number [facility] [address] [place] [address] * (ABNORMAL) COMPLETE BLOOD COUNT W/DIFF (03/30/2017) WBC 7.4 4 - 10.5 cmm [facility] RBC 4.14 3.8 - 5.6 X10-6/uL [facility] Hemoglobin 9.9(A) 11.5 - 17 g/dL [facility] Hematocrit 31.7(A) 36.0 - 50.0 % [facility] MCV 76.6 UM3 [facility] MCH 23.8 PG [facility] MCHC 31.1(A) 32 - 36 GM/DL [facility] RDW-CV% 22.4 % [facility] MPV 7.1 fL [facility] Platelet 449(A) 140 - 415 x10-3/uL [facility] Granulocyte % 47.3 40 - 74 % [facility] Lymph % 37.9 14 - 46 % [facility] Monocyte % 6.8 4 - 13 % [facility] Eosinophil % 7.4(A) 0 - 7 % [facility] Basophil % 0.6 0 - 3 % [facility] Granulocyte Absolute 3.5 1.8 - 7.8 X10-3/uL [facility] Lymph Absolute 2.8 0.7 - 4.5 x10-3/uL [facility] Monocyte Absolute 0.5 0.1 - 1 x10-3/uL [facility] Eosinophil Absolute 0.5(A) 0.00 - 0.40 x10-3/uL [facility] Basophil Absolute 0 - 0.2 x10-3/uL [facility] NRBC% [facility] NRBC ABS K/uL [facility] Blood BLOOD SPECIMEN / Unknown 03/30/2017 Provider Non-[place] [address] GENERAL LAB Final Resu lt Performing Organization Address City/[facility] de Phone Number [facility] [address] [place] [address] * BASIC METABOLIC PANEL (03/30/2017) Pathologist [facility] [place] Sodium 135 - 148 mmol/L [facility] Potassium 4.3 mmol/L [facility] Chloride mmol/L [facility] Carbon Dioxide [facility] BUN 11 5 - 26 mg/dL [facility] Glucose 65 - 109 mg/dL [facility] Creatinine 0.6 0.5 - 1.5 mg/dL [facility] Anion Gap [facility] Calcium 8.5 - 10.6 mg/dl [facility] Blood BLOOD SPECIMEN / Unknown 03/30/2017 Provider [facility] GENERAL LAB Final Resu lt Performing Organization Address City/[facility]/ZIP Co de Phone Number [facility] [address] [place] [address] * VANCOMYCIN TROUGH (03/24/2017) Pathologist [facility] Vancomycin Trough 14.0 10.0 - 20.0 ug/mL [facility] Blood BLOOD SPECIMEN / Unknown 03/24/2017 Provider Non-[facility] GENERAL LAB Final Resu lt [facility] [address] [place] [address] * (ABNORMAL) COMPLETE BLOOD COUNT W/DIFF (03/24/2017) WBC 5.8 4 - 10.5 cmm [facility] RBC 3.54(A) 3.8 - 5.6 X10-6/uL [facility] Hemoglobin 8.6(A) 11.5 - 17 g/dL [facility] Hematocrit 29(A) 36.0 - 50.0 % [facility] MCV 79.7 UM3 [facility] MCH 23.6 PG [facility] MCHC 29.7(A) 32 - 36 GM/DL [facility] RDW-CV% 21.2(A) 11 - 15 % [facility] MPV 9.5 fL [facility] Platelet 386 140 - 415 x10-3/uL [facility] Granulocyte % 43.3 40 - 74 % [facility] Lymph % 37.4 14 - 46 % [facility] Monocyte % 8.6 4 - 13 % [facility] Eosinophil % 9.4(A) 0 - 7 % [facility] Basophil % 1.0 0 - 3 % [facility] Granulocyte Absolute 2.5 1.8 - 7.8 X10-3/uL [facility] Lymph Absolute 2.2 0.7 - 4.5 x10-3/uL [facility] Monocyte Absolute 0.5 0.1 - 1 x10-3/uL [facility] Eosinophil Absolute 0.8(A) 0.00 - 0.40 x10-3/uL [facility] Basophil Absolute 0.1 0 - 0.2 x10-3/uL [facility] NRBC% [facility] NRBC ABS K/uL [facility] Blood BLOOD SPECIMEN / Unknown 03/24/2017 Provider Non-[facility] GENERAL LAB Final Resu lt Performing Organization Address City/[facility]/ZIP Co de Phone Number [facility] [address] [place] [address] * BASIC METABOLIC PANEL (03/24/2017) Pathologist [facility] [place] Sodium 135 - 148 mmol/L [facility] Potassium mmol/L [facility] Chloride mmol/L [facility] Carbon Dioxide [facility] BUN 14 5 - 26 mg/dL [facility] Glucose 65 - 109 mg/dL [facility] Creatinine 0.57 0.5 - 1.5 mg/dL [facility] Anion Gap [facility] Calcium 8.5 - 10.6 mg/dl [facility] Blood BLOOD SPECIMEN / Unknown 03/24/2017 Provider Non-[facility] 98 GENERAL LAB Final Resu lt Performing Organization Address [facility] de Phone Number [facility] [address] [place] [address] * VANCOMYCIN TROUGH (03/16/2017) [facility] Vancomycin Trough 14.7 10.0 - 20.0 ug/mL [facility] Blood BLOOD SPECIMEN / Unknown 03/16/2017 Provider Non-[facility] 98 GENERAL LAB Final Resu lt Performing Organization Address [facility] de Phone Number [facility] [address] [place] [address] * (ABNORMAL) COMPLETE BLOOD COUNT W/DIFF (03/16/2017) Pathologist [facility] WBC 6.4 4 - 10.5 cmm [facility] RBC 3.66(A) 3.8 - 5.6 X10-6/uL [facility] Hemoglobin 8.6(A) 11.5 - 17 g/dL [facility] Hematocrit 29.3(A) 36.0 - 50.0 % [facility] MCV 80.1 UM3 [facility] MCH 23.5 PG [facility] MCHC 29.4(A) 32 - 36 GM/DL [facility] RDW-CV% 22.5 % [facility] MPV 9.3 fL [facility] Platelet 399 140 - 415 x10-3/uL [facility] Granulocyte % 46.4 40 - 74 % [facility] Lymph % 36.6 14 - 46 % [facility] Monocyte % 6.9 4 - 13 % [facility] Eosinophil % 8.9(A) 0 - 7 % [facility] Basophil % 0.9 0 - 3 % [facility] Granulocyte Absolute 3.0 1.8 - 7.8 X10-3/uL [facility] Lymph Absolute 2.3 0.7 - 4.5 x10-3/uL [facility] Monocyte Absolute 0.4 0.1 - 1 x10-3/uL [facility] Eosinophil Absolute 0.6(A) 0.00 - 0.40 x10-3/uL [facility] Basophil Absolute 0.1 0 - 0.2 x10-3/uL [facility] NRBC% [facility] NRBC ABS K/uL [facility] Blood BLOOD SPECIMEN / Unknown 03/16/2017 Provider Non-[place] [address] GENERAL LAB Final Resu lt Performing Organization Address [facility] de Phone Number [facility] [address] [place] [address] * (ABNORMAL) BASIC METABOLIC PANEL (03/16/2017) Sodium 135 - 148 mmol/L [facility] Potassium mmol/L [facility] Chloride mmol/L [facility] Carbon Dioxide [facility] BUN 12 5 - 26 mg/dL [facility] Glucose 65 - 109 mg/dL [facility] Creatinine 0.48(A) 0.5 - 1.5 mg/dL [facility] Anion Gap [facility] Calcium 8.5 - 10.6 mg/dl [facility] Blood BLOOD SPECIMEN / Unknown 03/16/2017 Provider Non-[place] [address] GENERAL LAB Final Resu lt Performing Organization Address [facility] Co de Phone Number [facility] [address] [place] [address] * (ABNORMAL) VANCOMYCIN TROUGH (03/03/2017) Vancomycin Trough 5.3(A) 10.0 - 20.0 ug/mL [facility] Blood BLOOD SPECIMEN / Unknown 03/03/2017 Provider Non-[place] [address] GENERAL LAB Final Resu lt Performing Organization Address [facility] Co de Phone Number [facility] [address] [place] [address] * HEPATIC FUNCTION PANEL (03/03/2017) Protein, Total 6 - 8.5 g/dL [facility] Albumin 3.5 - 5.5 g/dL [facility] Bilirubin, Direct 0.00 - 0.40 mg/dL [facility] Bilirubin, Total 0.1 - 1.2 mg/dL [facility] Alkaline Phosphatase 25 - 400 IU/L [facility] ALT (SGPT) 25 0 - 40 IU/L [facility] AST (SGOT) 19 0 - 40 IU/L [facility] Blood BLOOD SPECIMEN / Unknown 03/03/2017 us Provider Non-[facility] 98 GENERAL LAB Final Resu lt [facility] [address] [place] [address] * (ABNORMAL) COMPLETE BLOOD COUNT W/DIFF (03/03/2017) WBC 7.2 4 - 10.5 cmm [facility] RBC 3.32(A) 3.8 - 5.6 X10-6/uL [facility] Hemoglobin 7.7(A) 11.5 - 17 g/dL [facility] Hematocrit 26.3(A) 36.0 - 50.0 % [facility] MCV 79.2 UM3 [facility] MCH 23.2 PG [facility] MCHC 29.3(A) 32 - 36 GM/DL [facility] RDW-CV% 21.4 % [facility] MPV 8.9 fL [facility] Platelet 379 140 - 415 x10-3/uL [facility] Granulocyte % 62.0 40 - 74 % [facility] Lymph % 24.5 14 - 46 % [facility] Monocyte % 6.9 4 - 13 % [facility] Eosinophil % 3.5 0 - 7 % [facility] Basophil % 0.8 0 - 3 % [facility] Granulocyte Absolute 4.4 1.8 - 7.8 X10-3/uL [facility] Lymph Absolute 1.8 0.7 - 4.5 x10-3/uL [facility] Monocyte Absolute 0.6 0.1 - 1 x10-3/uL [facility] Eosinophil Absolute 0.3 0.00 - 0.40 x10-3/uL [facility] Basophil Absolute 0.1 0 - 0.2 x10-3/uL [facility] NRBC% [facility] NRBC ABS K/uL [facility] Blood BLOOD SPECIMEN / Unknown 03/03/2017 Provider [facility] GENERAL LAB Final Resu lt Performing Organization Address City/[facility]/ZIP Co de Phone Number [facility] [address] [place] [address] * BASIC METABOLIC PANEL (03/03/2017) Sodium 135 - 148 mmol/L [facility] Potassium mmol/L [facility] Chloride mmol/L [facility] Carbon Dioxide [facility] BUN 12 5 - 26 mg/dL [facility] Glucose 65 - 109 mg/dL [facility] Creatinine 0.55 0.5 - 1.5 mg/dL [facility] Anion Gap [facility] Calcium 8.5 - 10.6 mg/dl [facility] Blood BLOOD SPECIMEN / Unknown 03/03/2017 Provider [facility] GENERAL LAB Final Resu lt Performing Organization Address [facility] de Phone Number [facility] [address] [place] [address] * (ABNORMAL) COMPLETE BLOOD COUNT W/DIFF (02/23/2017) WBC 7.8 4 - 10.5 cmm [facility] RBC 3.58(A) 3.8 - 5.6 X10-6/uL [facility] Hemoglobin 8.2(A) 11.5 - 17 g/dL [facility] Hematocrit 25.4(A) 36.0 - 50.0 % [facility] MCV 79.3 UM3 [facility] MCH 22.9 PG [facility] MCHC 28.9(A) 32 - 36 GM/DL [facility] RDW-CV% 20.9 % [facility] MPV 9.5 fL [facility] Platelet 501(A) 140 - 415 x10-3/uL [facility] Granulocyte % 53.3 40 - 74 % [facility] Lymph % 24 14 - 46 % [facility] Monocyte % 6.9 4 - 13 % [facility] Eosinophil % 4.6 0 - 7 % [facility] Basophil % 0.8 0 - 3 % [facility] Granulocyte Absolute 4.9 1.8 - 7.8 X10-3/uL [facility] Lymph Absolute 1.9 0.7 - 4.5 x10-3/uL [facility] Monocyte Absolute 0.5 0.1 - 1 x10-3/uL [facility] Eosinophil Absolute 0.4 0.00 - 0.40 x10-3/uL [facility] Basophil Absolute 0.1 0 - 0.2 x10-3/uL [facility] NRBC% [facility] NRBC ABS K/uL [facility] Blood BLOOD SPECIMEN / Unknown 02/23/2017 Provider Non-[facility] 98 GENERAL LAB Final Resu lt Performing Organization Address [facility] Co de Phone Number [facility] [address] [place] [address] * (ABNORMAL) BASIC METABOLIC PANEL (02/23/2017) Sodium 135 - 148 mmol/L [facility] Potassium mmol/L [facility] Chloride mmol/L [facility] Carbon Dioxide [facility] BUN 7.0 5 - 26 mg/dL [facility] Glucose 65 - 109 mg/dL [facility] Creatinine 0.45(A) 0.5 - 1.5 mg/dL [facility] Anion Gap [facility] Calcium 8.5 - 10.6 mg/dl [facility] Blood BLOOD SPECIMEN / Unknown 02/23/2017 Provider Non-[facility] 98 GENERAL LAB Final Resu lt Performing Organization Address [facility] de Phone Number [facility] [address] [place] [address] * VANCOMYCIN TROUGH (02/23/2017) Vancomycin Trough 14.6 10.0 - 20.0 ug/mL [facility] Blood BLOOD SPECIMEN / Unknown 02/23/2017 Provider Non-[facility] 98 GENERAL LAB Final Resu lt Performing Organization Address [facility] de Phone Number [facility] [address] [place] [address] * VANCOMYCIN TROUGH (02/19/2017 5:00 PM EDT) Vancomycin Trough 13.1 10.0 - 20.0 ug/mL [facility] Blood BLOOD SPECIMEN / Unknown 02/19/2017 5:00 PM EDT Provider Non-[facility] 98 GENERAL LAB Final Resu lt [facility] [address] [place] [address] * (ABNORMAL) CREATINE KINASE (04/28/2016) Pathologist [facility] [place] Creatine Kinase Total 32(A) 57 - 374 IU/L [facility] Blood BLOOD SPECIMEN / Unknown 04/28/2016 Provider Non-[facility] 98 GENERAL LAB Final Resu lt [facility] [address] [place] [address] * (ABNORMAL) COMPLETE BLOOD COUNT W/DIFF (04/28/2016) Pathologist [facility] WBC 6.1 4 - 10.5 cmm [facility] RBC 3.66(A) 3.8 - 5.6 X10-6/uL [facility] Hemoglobin 9.2(A) 11.5 - 17 g/dL [facility] Hematocrit 29.5(A) 36.0 - 50.0 % [facility] MCV 80.5 UM3 [facility] MCH 25 PG [facility] MCHC 31.1(A) 32 - 36 GM/DL [facility] RDW-CV% 17.6 % [facility] MPV 7.5 fL [facility] Platelet 378 140 - 415 x10-3/uL [facility] Granulocyte % 62.1 40 - 74 % [facility] Lymph % 25.5 14 - 46 % [facility] Monocyte % 6.1 4 - 13 % [facility] Eosinophil % 5.4 0 - 7 % [facility] Basophil % 0.9 0 - 3 % [facility] Granulocyte Absolute 3.8 1.8 - 7.8 X10-3/uL [facility] Lymph Absolute 1.6 0.7 - 4.5 x10-3/uL [facility] Monocyte Absolute 0.4 0.1 - 1 x10-3/uL [facility] Eosinophil Absolute 0.3 0.00 - 0.40 x10-3/uL [facility] Basophil Absolute 0.1 0 - 0.2 x10-3/uL [facility] NRBC% [facility] NRBC ABS K/uL [facility] Blood BLOOD SPECIMEN / Unknown 04/28/2016 Provider Non-[facility] 98 GENERAL LAB Final Resu lt [facility] [address] [place] [address] * (ABNORMAL) CREATINE KINASE (04/21/2016) Pathologist [facility] [place] Creatine Kinase Total 46(A) 57 - 374 IU/L [facility] Blood BLOOD SPECIMEN / Unknown 04/21/2016 Provider Non-[facility] 98 GENERAL LAB Final Resu lt Performing Organization Address City/[facility]/ZIP Co de Phone Number [facility] [address] [place] [address] * (ABNORMAL) C-REACTIVE PROTEIN (04/21/2016) [facility] C-Reactive Protein 3.9(A) 0.0 - 0.8 mg/dL [facility] Blood BLOOD SPECIMEN / Unknown 04/21/2016 Provider Non-[facility] 98 GENERAL LAB Final Resu lt Performing Organization Address [facility] Co de Phone Number [facility] [address] [place] [address] * (ABNORMAL) HEPATIC FUNCTION PANEL (04/21/2016) Pathologist [facility] Protein, Total 6 - 8.5 g/dL [facility] Albumin 3.5 - 5.5 g/dL [facility] Bilirubin, Direct 0.00 - 0.40 mg/dL [facility] Bilirubin, Total 0.1 - 1.2 mg/dL [facility] Alkaline Phosphatase 25 - 400 IU/L [facility] ALT (SGPT) 58(A) 0 - 40 IU/L [facility] AST (SGOT) 35 0 - 40 IU/L [facility] Blood BLOOD SPECIMEN / Unknown 04/21/2016 Provider Non-[facility] 98 GENERAL LAB Final Resu lt Performing Organization Address City/[facility]/ZIP Co de Phone Number [facility] [address] [place] [address] * (ABNORMAL) COMPLETE BLOOD COUNT W/DIFF (04/21/2016) WBC 6.4 4 - 10.5 cmm [facility] RBC 3.56(A) 3.8 - 5.6 X10-6/uL [facility] Hemoglobin 9.0(A) 11.5 - 17 g/dL [facility] Hematocrit 28.7(A) 36.0 - 50.0 % [facility] MCV 80.5 UM3 [facility] MCH 25.2 PG [facility] MCHC 31.3(A) 32 - 36 GM/DL [facility] RDW-CV% 18(A) 11 - 16 % [facility] MPV 7.0 fL [facility] Platelet 395 140 - 415 x10-3/uL [facility] Granulocyte % 52 40 - 74 % [facility] Lymph % 33.8 14 - 46 % [facility] Monocyte % 7.2 4 - 13 % [facility] Eosinophil % 5.9 0 - 7 % [facility] Basophil % 1.1 0 - 3 % [facility] Granulocyte Absolute 3.3 1.8 - 7.8 X10-3/uL [facility] Lymph Absolute 2.2 0.7 - 4.5 x10-3/uL [facility] Monocyte Absolute 0.5 0.1 - 1 x10-3/uL [facility] Eosinophil Absolute 0.4 0.00 - 0.40 x10-3/uL [facility] Basophil Absolute 0.1 0 - 0.2 x10-3/uL [facility] NRBC% [facility] NRBC ABS K/uL [facility] Blood BLOOD SPECIMEN / Unknown 04/21/2016 Provider Non-[facility] 98 GENERAL LAB Final Resu lt [facility] [address] [place] [address] * VANCOMYCIN TROUGH (04/18/2016) Vancomycin Trough 12.4 10.0 - 20.0 ug/mL [facility] Blood BLOOD SPECIMEN / Unknown 04/18/2016 Provider Non-[facility] Final Resu lt [facility] [address] [place] [id number] * BASIC METABOLIC PANEL (04/14/2016) Sodium 135 - 148 mmol/L [facility] Potassium mmol/L [facility] Chloride mmol/L [facility] Carbon Dioxide [facility] BUN 5 - 26 mg/dL [facility] Glucose 65 - 109 mg/dL [facility] Creatinine 0.5 0.5 - 1.5 mg/dL [facility] Anion Gap [facility] Calcium 8.5 - 10.6 mg/dl [facility] Blood BLOOD SPECIMEN / Unknown 04/14/2016 Provider Non-[facility] GENER[facility] Final Resu lt Performing Organization Address City/[facility]/ZIP Co de Phone Number [facility] [address] [place] [address] * (ABNORMAL) VANCOMYCIN TROUGH (04/14/2016) Pathologist [facility] [place] Vancomycin Trough 9.3(A) 10.0 - 20.0 ug/mL [facility] Blood BLOOD SPECIMEN / Unknown 04/14/2016 Provider Non-[facility] 98 GENERAL LAB Final Resu lt Performing Organization Address [facility]/ZIP Co de Phone Number [facility] [address] [place] [address] * VANCOMYCIN TROUGH (04/03/2016) Vancomycin Trough 12.6 10.0 - 20.0 ug/mL [facility] Blood BLOOD SPECIMEN / Unknown 04/03/2016 Provider Non-[facility] LAB Final Resu lt [facility] [address] [place] [address] * VANCOMYCIN TROUGH (04/03/2016) Blood BLOOD SPECIMEN / Unknown 04/03/2016 Provider [facility] Final Resu lt [facility] [address] [place] [address] * FACTOR V ASSAY (04/03/2016) Blood BLOOD SPECIMEN / Unknown 04/03/2016 Provider Non-[facility] GENERAL LAB Edited Res ult - Final LAB [facility] [address] [place] [address] * (ABNORMAL) VANCOMYCIN TROUGH (03/29/2016) Vancomycin Trough 8.9(A) 10.0 - 20.0 ug/mL [facility] Blood BLOOD SPECIMEN / Unknown 03/29/2016 Provider Non-[facility] GENERAL LAB Final Resu lt Performing Organization Address City/[facility]/ZIP Co de Phone Number [facility] [address] [place] [address] * (ABNORMAL) COMPLETE BLOOD COUNT W/DIFF (03/25/2016) WBC 6.5 cmm [facility] RBC 3.59 cmm [facility] Hemoglobin 9.3 g/dL [facility] Hematocrit 29.8 % [facility] MCV 82.9 UM3 [facility] MCH 26 PG [facility] MCHC 31.4(A) 32 - 36 GM/DL [facility] RDW-CV% 20.3 % [facility] MPV fL [facility] Platelet 338 150 - 400 CMM [facility] Granulocyte % 57.7 [facility] Lymph % 28.4 % [facility] Monocyte % 7.1 [facility] Eosinophil % 5.6 [facility] Basophil % 1.2 [facility] Granulocyte Absolute 3.8 [facility] Lymph Absolute 1.9 CMM [facility] Monocyte Absolute 0.5 [facility] Eosinophil Absolute 0.4 [facility] Basophil Absolute 0.1 [facility] NRBC% [facility] NRBC ABS K/uL [facility] Blood BLOOD SPECIMEN / Unknown 03/25/2016 Provider Non-[facility] GENERAL LAB Final Resu lt Performing Organization Address City/[facility]/ZIP Co de Phone Number [facility] [address] [place] [address] * (ABNORMAL) C-REACTIVE PROTEIN (03/25/2016) C-Reactive Protein 7.8(A) 0.0 - 0.8 mg/dL [facility] Blood BLOOD SPECIMEN / Unknown 03/25/2016 us Provider Non-[facility] GENERAL LAB Final Resu lt [facility] [address] [place] [address] documented in this encounter Visit Diagnoses Not on filedocumented in this encounter Additional Health Concerns Infection Onset Date Last Indicated Resolved Time 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 difficile 03/27/2022 03/27/20222021 10:44 PM EST Rule-Out C. difficile 03/28/2022 03/28/20222021 9:08 AM EST documented as of this encounter Care Teams Transport Rn Relationship Specialty Start Date End Date Reed Birmingham MD [address] [place] [id number] PCP - General Internal Medicine 04/13/15 Fiona Dawson DO [address] [place], [place] [id number] Physician Trauma Surgery 03/15/22 08/21/23 Destiny Osborn, DIRECTOR OF [employer]AND[employer] CLERK [address] [place] [id number] [id number] [employer] Infectious Diseases 08/13/24 Marcos Beauchamp MD [address] [place] [id number] Physician Orthopaedics 08/13/24 Brenda Bundy MD [address] [place] [address] Physician Infectious Diseases 09/10/24 documented as of this encounter
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
--- OUTSIDE RECORDS SUMMARY | 2025-01-11 11:13 | XMS_ITS | Encounter Summary ---
Author Organization [facility] Address [address] [place] [address] Care Team Providers Care Lean Manufacturing Leader Name Role Phone Nancy Denson Jose Eduardo Thompsonius Primary Care Provi shamir Source Comments In the event this information is protected by the Federal Confidentiality of Alcohol and Drug AbusePatient Records regulations: The Federal rules restrict any use of the information to criminally investigate or prosecute any alcohol or drug abuse patient.[facility] Encounter Details Date Type Department Care Team (Late st Contact Info) Description 11/08/2019 Surgical Case HOSP MAIN [id number] [address] [place] [address] [place] [id number] [address] Social History Tobacco Use Types Packs/Day Years [...] on file Sexual Orientation Not on file COVID-19 Exposure Response Date Recorded In the last month, have you been in contact with someone who was confirmed or suspected to have Coronavirus / COVID-19? No / Unsure 11/04/2019 11:36 AM EDT documented as of this encounter Functional Status * Are you deaf or do you have serious difficulty hearing? Answer Date of Assessment Author No 05/04/2019 11:13 AM Nabila Espino RN * Are you blind or do you have serious difficulty seeing, even when wearing glasses? Answer Date of Assessment Author No 05/04/2019 11:13 AM Nabila Espino RN * Do you have serious difficulty walking or climbing stairs? Answer Date of Assessment Author No 05/04/2019 11:13 AM Nabila Espino RN * Do you have difficulty dressing or bathing? Answer Date of Assessment Author Yes 05/04/2019 11:13 AM Nabila Espino RN * Because of a physical, mental, or emotional condition, do you have difficulty doing errands alone such as visiting a doctor's office or shopping? Answer Date of Assessment Author No 05/04/2019 11:13 AM Nabila Espino RN documented as of this encounter Mental Status * Because of a physical, mental, or emotional condition, do you have serious difficulty concentrating, remembering, or making decisions? Answer Entry Date Author No 05/04/2019 11:13 AM Nabila Espino RN documented in this encounter Plan of Treatment Not on file documented as of this encounter Visit Diagnoses Not on filedocumented in this encounter Care Teams Lean Manufacturing Leader Relationship Specialty Start Date End Date Jose Eduardo Cruz Jr., [address] [place] [address] PCP - General Emergency Medicine 04/11/19 Cecy chandler [facility] 05/03/19 documented as of this encounter
--- OUTSIDE RECORDS SUMMARY | 2025-01-11 11:13 | XMS_ITS | Encounter Summary ---
Author Organization [facility] Address [address] [place], [place] [address] [address] Care Team Providers Care Storage Battery Charger Name Role Phone Reed Birmingham MD Primary Care Provider [phone] Fiona Dawson DO Unavailable Destiny Osborn CLOTH MERCERIZER BACK TENDER-IMPORT/EXPORT FREIGHT FORWARDER Unavailable [phone] Marcos Beauchamp MD Unavailable [phone] Brenda Bundy MD Unavailable Reason for Visit * Auth/Cert (Routine) Specialty Diagnoses / Procedures Referred By Contac t Referred To Contact [facility] Medicine Diagnoses multiple abscess Mo Cruz MD [address] [place] [address] Phone: tel: fax: [facility] [address] [place] [phone] Phone: tel: Referral ID Status Reason Start Date Expiration Date Visits Re quested Visits Authorized [id number] 3 3 Encounter Details Date Type Department Care Team (Late st Contact Info) Description 03/24/2022 Lab Requisition [facility] Pathology [address] [place] [id number] Ky Spangler DPM [address] [place] [address] [place] [address] (work) Social History Tobacco Use Types Packs/Day Years Used Date Smoking Tobacco: Some Days Cigarettes Last attempted to quit: 03/09/2011 Cigars Smokeless Tobacco: Current Chew Comments:1-2 cigarettes Alcohol Use Standard Drinks/Week Comments [...] impairment? Answer Date of Assessment Author No 08/13/2017 11:58 PM EDT Renu Kuo RN * Visual impairment? Answer Date of Assessment Author No 08/13/2017 11:58 PM EDRenu Salas RN * Gait/Transfer impairment? Answer Date of Assessment Author Yes 08/13/2017 11:58 PM EDRenu Salsa RN * ADL impairment? Answer Date of Assessment Author Yes 08/13/2017 11:58 PM Renu Hess RN * Difficulty with errands? Answer Date of Assessment Author No 08/13/2017 11:58 PM Renu Hess RN documented as of this encounter Mental Status * Cognitive difficulty? Answer Entry Date Author No 08/13/2017 11:58 PM Renu Hess RN documented in this encounter Plan of Treatment Not on file documented as of this encounter Procedures Procedure Name Priority Date/Time Associated Diagnosis Comments *SPECIMEN FOR SURGICAL PATHOLOGY Routine 03/21/2022 9:48 AM EST Other chronic osteomyelitis, left ankle and foot (HCC) documented in this encounter Results * *SPECIMEN FOR SURGICAL PATHOLOGY (03/21/2022 9:48 AM EST) Case Report Surgical Pathology Report Case: [id number] Authorizing Provider: Ky Spangler DPM Collected: 03/21/2022 0948 Ordering Location: [facility] Received: 03/24/2022 0949 Pathology Pathologist: Elvira Jaramillo MD Specimen: Bone, Calaneus bone right foot 03/26/2022 4:45 PM EST [facility] Final Diagnosis A. Bone, Calaneus bone right foot, partial resection Bone with acute and chronic inflammation. . I certify that I personally conducted the diagnostic evaluation of the above specimen(s) and have rendered the final diagnosis(es). 03/26/2022 4:45 PM EST [facility] at 1645 EST Clinical Information 03/26/2022 4:45 PM EST [facility] Gross Description A. Requisitioned as bone, calcaneus bone right foot . The specimen is received fresh in one container, labeled with the patient's name and medical record number. Marked as bone . The specimen consists of multiple fragments of bone tissue measuring 6.5 x 4 x 4 cm in aggregate. Tongue And Groove Machine Operator sections are submitted in cassettes labeled [id number] after decal (4, 3). Radha Frazier MD 03/26/2022 4:45 PM EST [facility] Body tissue structure (body structure) SPECIMEN FROM BONE / Unknown 03/21/2022 9:48 AM EST 03/24/2022 9:49 AM EST Ky MOSSM EC CP/AP ORDERABLE Final Resu lt [facility] [address] [place] [id number] documented in this encounter Visit Diagnoses Diagnosis Other chronic osteomyelitis, left ankle and foot (HCC) documented in this encounter Additional Health Concerns Infection Onset Date Last Indicated Resolved Time Rule-Out C. difficile 03/27/2022 03/27/20222021 10:44 PM EST Rule-Out C. difficile 03/28/2022 03/28/20222021 9:08 AM EST documented as of this encounter Care Teams Storage Battery Charger Relationship Specialty Start Date End Date Reed Birmingham MD [address] [place] [address] PCP - General Internal Medicine 04/13/15 Fiona Dawson DO [address] [place] [address] Physician Trauma Surgery 03/15/22 08/21/23 Destiny Osborn, CLOTH MERCERIZER BACK TENDER-IMPORT/EXPORT FREIGHT FORWARDER [address] [place] [address] ASSESSMENT SPECIALIST Infectious Diseases 08/13/24 Marcos Beauchamp MD [address] [place] [address] Physician Orthopaedics 08/13/24 Brenda Bundy MD [address] [place] [address] Physician Infectious Diseases 09/10/24 documented as of this encounter
--- OUTSIDE RECORDS SUMMARY | 2025-01-11 11:13 | XMS_ITS | Encounter Summary ---
Author Organization [facility] Address [address] [place] [address] Care Team Providers Care Diesel Electrician Name Role Phone Reed Birmingham MD Primary Care Provider [phone] Fiona Dawson DO Unavailable Destiny Osborn DIRECTOR OF ANALYTICAL DEVELOPMENT-WELFARE PROJECT MANAGER Unavailable [phone] Marcos Beauchamp MD Unavailable [phone] Brenda Bundy MD Unavailable Encounter Details Date Type Department Care Team (Late st Contact Info) Description 05/22/2015 Procedure Visit Initial Department Assigned, To Be Social History Tobacco Use Types Packs/Day Years [...] impairment? Answer Date of Assessment Author No 04/12/2015 7:43 PM Eduar Barnard RN * Visual impairment? Answer Date of Assessment Author No 04/12/2015 7:43 PM Eduar Barnard RN * Gait/Transfer impairment? Answer Date of Assessment Author Yes 04/12/2015 7:43 PM Eduar Barnard RN * ADL impairment? Answer Date of Assessment Author Yes 04/12/2015 7:43 PM Eduar Barnard RN * Difficulty with errands? Answer Date of Assessment Author Yes 04/12/2015 7:43 PM Eduar Barnard RN documented as of this encounter Mental Status * Cognitive difficulty? Answer Entry Date Author No 04/12/2015 7:43 PM Eduar Barnard RN documented in this encounter Plan of Treatment Not on file documented as of this encounter Visit Diagnoses Not on filedocumented in this encounter Additional Health Concerns Infection Onset Date Last Indicated Resolved Time MRSA 03/10/2016 03/10/2016 02/16/2017 8:34 AM EDT MRSA 02/16/2017 02/16/2017 04/13/2017 12:4 7 PM EST MRSA Comment:See ticket [id number] 04/13/2017 04/13/2017 01/14/2018 12: 00 AM EDT Rule-Out C. difficile 03/27/2022 03/27/20222021 10:44 PM EST Rule-Out C. difficile 03/28/2022 03/28/20222021 9:08 AM EST documented as of this encounter Care Teams Diesel Electrician Relationship Specialty Start Date End Date Reed Birmingham MD [address] [place] [phone] PCP - General Internal Medicine 04/13/15 Fiona Dawson DO [address] [place] [address] Physician Trauma Surgery 03/15/22 08/21/23 Destiny Osborn APRN-WELFARE PROJECT MANAGER [address] [place] [address] TABLE AND DESK FINISHER Infectious Diseases 08/13/24 Marcos Beauchamp MD [address] [place] [address] [place] [address] Physician Orthopaedics 08/13/24 Brenda Bundy MD [address] [place] [address] Physician Infectious Diseases 09/10/24 documented as of this encounter
--- OUTSIDE RECORDS SUMMARY | 2025-01-11 11:13 | XMS_ITS | Clinical Summary ---
Author Organization [facility] Address [address] [place] [address] Care Team Providers Care School Coordinator Name Role Phone Unavailable Primary Care Provider Unavailabl e Allergies Active Allergy Reactions Criticality Noted Date Comments Sulfa (Sulfonamide Antibiotics) 03/09/2015 Other reaction(s): Other: See Comments, Unknown Patient verbalizes he has been tested and no longer allergic to Sulfa or PCN Tigecycline 09/10/2018 Other reaction(s): Vomiting Medications gabapentin (Neurontin) 400 mg capsule 08/19/2017 Active baclofen (Lioresal) 10 mg tablet Take 1 tablet 4 times a day by oral route. 08/19/2017 Active oxyCODONE (Roxicodone) 5 mg immediate release tablet Activ e Active Problems Problem Noted Date Diagnosed Date Closed comminuted intra-nic cular fracture of distal femur, right, initial encounter 02/25/2022 Family History Relation Name Status Comments Father Alive Mother Alive Social History Tobacco Use Types Packs/Day Years Used Date Smoking Tobacco: Some Days Cigarettes Passive Smoke Exposure: Never Smokeless Tobacco: Current Tobacco Cessation:Ready to Q uit: Yes; Counseling Given: Yes Alcohol Use Standard Drinks/Week Comments Never 0 (1 standard drink = 0.6 oz pur e alcohol) Humiliation, Afraid, Rape, and Kick questionnair e Answer Date Recorded Within the last year, have y ou been afraid of your partner or ex-partner? No 02/25/2022 Within the last year, have y ou been humiliated or emotionally abused in other ways by your partner or ex-partner? No Within the last year, have y ou been kicked, hit, slapped, or otherwise physically hurt by your partner or ex-partner? No 02/25/2022 Within the last year, have y ou been raped or forced to have any kind of sexual activity by your partner or ex-partner? No 02/25/2022 Social Connection and Isolat ion Panel [NHANES] Answer Date Recorded In a typical week, how many times do you talk on the phone with family, friends, or neighbors? Three times a week 02/25/2022 How often do you get togethe r with friends or relatives? Twice a week 02/25/2022 How often do you attend chur ch or yarsani services? More than 4 times per year 02/25/2022 Do you belong to any clubs o r organizations such as confucianism groups, unions, fraternal or athletic groups, or school groups? No 02/25/2022 How often do you attend meet ings of the clubs or organizations you belong to? Never 02/25/2022 Are you , , di vorced, , never , or living with a partner? Patient declined 02/25/2022 Overall Financial Resource Strain (CARDIA) Answe r Date Recorded How hard is it for you to pa y for the very basics like food, housing, medical care, and heating? Not hard at all 02/25/2022 PHQ-2 Answer Date Recorded Patient Health Questionnaire-2 Score 0 02/25/2022 [facility] - Occupational Stress Questionnaire Answer Date Recorded Do you feel stress - tense, restless, nervous, or anxious, or unable to sleep at night because your mind is troubled all the time - these days? Only a little 02/25/2022 Housing Stability Vital Sign Answer Andre e Recorded In the last 12 months, was t here a time when you were not able to pay the mortgage or rent on time? No 02/25/2022 Number of Places Lived in the Last Year Not on f ile 02/25/2022 In the last 12 months, was t here a time when you did not have a steady place to sleep or slept in a [facility] (including now)? No 02/25/2022 [place] Safety & Environment Answer Date Rec orded Fear of Current or Ex-Partner Not on file Emotionally Abused Not on file 07/02/2023 Physically Abused Not on file 07/02/2023 Sexually Abused Not on file 07/02/2023 Physically or Sexually Abused Not on file Sex and Gender Information Value Date Recorded Sex Assigned at Not on file Legal Sex Male 11:55 PM EDT Gender Identity Not on file Sexual Orientation Not on file Last Filed Vital Signs Vital Sign Reading Time Taken Comments Blood Pressure - - Pulse - - Temperature - - Respiratory Rate - - Oxygen Saturation - - Inhaled Oxygen Concentration - - Weight 59 kg (130 lb) 02/25/2022 1:49 PM EDT Height 182.9 cm (6') 02/25/2022 1:49 PM EDT Body Mass Index 17.63 02/25/2022 1:49 PM EDT Plan of Treatment Health Maintenance Due Date Last Done Comments Medicare Annual Wellness (AWV) 1993 Depression Screening 2005 Varicella Vaccines (1 of 2 - 13+ 2-dose series) 2006 Pneumococcal Vaccine: Pediatrics (0 to 5 Years) and At-Risk Patients (6 to 64 Years) (1 of 2 - PCV) 2012 Adult Tetanus 11/14/2015 COVID-19 Vaccine ( season) 2025 Influenza Vaccine (#1) 2025 0, 04/25/2019, 04/12/2018, Additional history exists Zoster Vaccines (1 of 2) 11/14/2043 HIB Vaccines Completed 12/05/1994, 05/12, 03/19/1994, Additional history exists IPV Vaccines Completed 12/05/1998, 05/12, 03/19/1994, Additional history exists HPV Vaccines Aged Out No longer eligi ble based on patient's age to complete this topic Meningococcal B Vaccine Aged Out No l onger eligible based on patient's age to complete this topic Meningococcal Vaccine Aged Out No viridiana kanika eligible based on patient's age to complete this topic Rotavirus Vaccines Aged Out No longer eligible based on patient's age to complete this topic Insurance [place] [address]
--- OUTSIDE RECORDS SUMMARY | 2025-01-11 11:13 | XMS_ITS | Encounter Summary ---
Author Organization [facility] Address [address] [place], [place] [id number] Care Team Providers Care Freelance Director Name Role Phone Reed Birmingham MD Primary Care Provider [phone] Destiny Osborn MOLD MAKER [employer] MOLDS-PIN INSERTER Unavailable [phone] Marcos Beauchamp MD Unavailable [phone] Brenda Bundy MD Unavailable Encounter Details Date Type Department Care Team (Late st Contact Info) Description 07/20/2024 Results Only [facility] Infectious Disease [facility] [address] [place] [address] [phone] Rhonda Guerrero RN [place] [phone] Social History Tobacco Use Types Packs/Day Years Used Date Smoking Tobacco: Some Days Cigarettes Last attempted to quit: 03/09/2011 Cigars Smokeless Tobacco: Current Chew Comments:1-2 cigarettes Alcohol Use Standard Drinks/Week Comments Not Asked 0 (1 standard drink = 0.6 oz pur e alcohol) [facility] Utilities Answer Date Recorded In the past 12 months has th e electric, gas, oil, or water company threatened to shut off services in your home? No 07/07/2024 Humiliation, Afraid, Rape, and Kick questionnair e Answer Date Recorded Within the last year, have y ou been afraid of your partner or ex-partner? No 07/07/2024 Within the last year, have y ou been humiliated or emotionally abused in other ways by your partner or ex-partner? No Within the last year, have y ou been kicked, hit, slapped, or otherwise physically hurt by your partner or ex-partner? No 07/07/2024 Within the last year, have y ou been raped or forced to have any kind of sexual activity by your partner or ex-partner? No 07/07/2024 Social Connection and Isolat ion Panel [NHANES] Answer Date Recorded In a typical week, how many times do you talk on the phone with family, friends, or neighbors? More than three times a week 04/22/2022 How often do you get togethe r with friends or relatives? Patient declined 04/22/2022 How often do you attend chur or jainism services? Never 04/22/2022 Do you belong to any clubs o r organizations such as oriental orthodox groups, unions, fraternal or athletic groups, or [...] housing, medical care, and heating? Somewhat hard 04/22/2022 [facility] [place] [facility] Occupat ional Health - Occupational Stress [...] the money to buy more. Never true Within the past 12 months, t he food you bought just didn't last and you didn't have money to get more. Patient declined PRAPARE - Transportation Answer Date Re corded In the past 12 months, has l ack of transportation kept you from medical appointments or from getting medications? No 06/12 In the past 12 months, has l ack of transportation kept you from meetings, work, or from getting things needed for daily living? Yes 07/07/2024 Housing Stability Vital Sign Answer Andre e [...] place to sleep or slept in a longterm (including now)? No 04/22/2022 Housing Stability Vital Sign Answer Andre e Recorded In the last 12 months, was t here a time when you were not able to pay the mortgage or rent on time? No 07/07/2024 Number of Times Moved in the Last Year Not on fi le 07/07/2024 Homeless in the Last Year Not on file 2024 Utilities - Historical Answer Date Zan rded In the past 12 months has th e electric, gas, oil, or water company threatened to shut off services in your home? No 07/07/2024 Education Answer Date Recorded What is the [...] No 08/13/2017 11:58 PM Renu Hess RN * Visual impairment? Answer Date of Assessment Author No 08/13/2017 11:58 PM Renu Hess RN * Gait/Transfer impairment? Answer Date of Assessment Author Yes 08/13/2017 11:58 PM EDT Renu Kuo RN * ADL impairment? Answer Date of Assessment Author Yes 08/13/2017 11:58 PM EDT Renu Kuo RN * Difficulty with errands? Answer Date of Assessment Author No 08/13/2017 11:58 PM EDT Renu Kuo RN documented as of this encounter Mental Status * Cognitive difficulty? Answer Entry Date Author No 08/13/2017 11:58 PM EDT Renu Kuo RN documented in this encounter Plan of Treatment Not on file documented as of this encounter Procedures Procedure Name Priority Date/Time Associated Diagnosis Comments COMPLETE BLOOD COUNT W/DIFF Routine 08/15/2024 11:10 AM EDT C-REACTIVE PROTEIN Routine 08/15/2024 11 :10 AM EDT CREATININE Routine 08/15/2024 11:10 AM EDT CREATINE KINASE Routine 08/15/2024 11:10 AM EDT COMPLETE BLOOD COUNT W/DIFF Routine 08/08/2024 11:00 AM EDT C-REACTIVE PROTEIN Routine 08/08/2024 11 :00 AM EDT CREATININE Routine 08/08/2024 11:00 AM EDT CREATINE KINASE Routine 08/08/2024 11:00 AM EDT COMPLETE BLOOD COUNT W/DIFF Routine 08/01/2024 10:00 AM EDT C-REACTIVE PROTEIN Routine 08/01/2024 10 :00 AM EDT CREATININE Routine 08/01/2024 10:00 AM EDT CREATINE KINASE Routine 08/01/2024 10:00 AM EDT COMPLETE BLOOD COUNT W/DIFF Routine 07/25/2024 9:38 AM EDT C-REACTIVE PROTEIN Routine 07/25/2024 9: 38 AM EDT CREATININE Routine 07/25/2024 9:38 AM EDT CREATINE KINASE Routine 07/25/2024 9:38 AM EDT COMPLETE BLOOD COUNT W/DIFF Routine 07/18/2024 10:00 AM EDT C-REACTIVE PROTEIN Routine 07/18/2024 10 :00 AM EDT CREATININE Routine 07/18/2024 10:00 AM EDT CREATINE KINASE Routine 07/18/2024 10:00 AM EDT documented in this encounter Results * C-REACTIVE PROTEIN (08/15/2024 11:10 AM EDT) C-Reactive Protein 2.5 mg/dL [facility] Blood BLOOD SPECIMEN / Unknown 08/15/2024 11:10 AM EDT Brenda Bundy MD [facility] Final Result Performing Organization Address [facility] Co de Phone Number [facility] [address] [place] [phone] * (ABNORMAL) CREATINE KINASE (08/15/2024 11:10 AM EDT) Creatine Kinase 19(A) 30 - 233 IU/L [facility] Blood BLOOD SPECIMEN / Unknown 08/15/2024 11:10 AM EDT us Brenda Bundy MD [facility] Final Result Performing Organization Address [facility]/ZIP Co de Phone Number [facility] [address] [place] [phone] * (ABNORMAL) CREATININE (08/15/2024 11:10 AM EDT) Creatinine 0.30(A) 0.70 - 1.30 mg/dL [facility] Blood BLOOD SPECIMEN / Unknown 08/15/2024 11:10 AM EDT Brenda Bundy MD [facility] Final Result Performing Organization Address [facility]/ZIP Co de Phone Number [facility] [address] [phone] * (ABNORMAL) COMPLETE BLOOD COUNT W/DIFF (08/15/2024 11:10 AM EDT) WBC 9.3 4.5 - 11.5 K/uL [facility] RBC 3.80(A) 4.50 - 5.90 M/uL [facility] Hemoglobin 10.5(A) 13.9 - 16.3 g/dL [facility] Hematocrit 31.4(A) 41.0 - 53.0 % [facility] Platelet 503(A) 150 - 400 K/uL [facility] RDW-CV [facility] MPV [facility] MDW [facility] Neutrophils 76.0 31.0 - 76.0 % [facility] Lymphocytes [facility] Monocytes [facility] Eosinophil 0.6 0.1 - 4.0 % [facility] Basophils [facility] Neutrophil # 7.10 1.50 - 8.00 K/uL [facility] Lymphocytes # [facility] Monocyte # [facility] Eosinophil # 0.10 0.00 - 0.70 K/uL [facility] Basophil # [facility] Nucleated RBC [facility] Nucleated RBC # [facility] WBC [facility] Nucleated RBCs [facility] Total Cells Counted [facility] Blood BLOOD SPECIMEN / Unknown 08/15/2024 11:10 AM EDT Brenda Bundy MD [facility] Final Result Performing Organization Address [facility]/ZIP Co de Phone Number [facility] [address] [place] [address] * C-REACTIVE PROTEIN (08/08/2024 11:00 AM EDT) C-Reactive Protein 9.4 mg/dL [facility] Blood BLOOD SPECIMEN / Unknown 08/08/2024 11:00 AM EDT Brenda Bundy MD [facility] Final Result Performing Organization Address [facility] Co de Phone Number [facility] [address] [place] [phone] * (ABNORMAL) CREATININE (08/08/2024 11:00 AM EDT) Pathologist [facility] Creatinine 0.30(A) 0.70 - 1.30 mg/dL [facility] Blood BLOOD SPECIMEN / Unknown 08/08/2024 11:00 AM EDT Brenda Bundy MD [facility] Final Result Performing Organization Address [facility] de Phone Number [facility] [address] [place] [phone] * (ABNORMAL) CREATINE KINASE (08/08/2024 11:00 AM EDT) Pathologist [facility] Creatine Kinase 26(A) 30 - 233 IU/L [facility] Blood BLOOD SPECIMEN / Unknown 08/08/2024 11:00 AM EDT Brenda Bundy MD [facility] Final Result Performing Organization Address [facility] de Phone Number [facility] [address] [place] [phone] * (ABNORMAL) COMPLETE BLOOD COUNT W/DIFF (08/08/2024 11:00 AM EDT) WBC 6.1 4.5 - 11.5 K/uL [facility] RBC 3.40(A) 4.50 - 5.90 M/uL [facility] Hemoglobin 9.7(A) 13.9 - 16.3 g/dL [facility] Hematocrit 29.0(A) 41.0 - 53.0 % [facility] MCV [facility] MCH [facility] Platelet 247 150 - 400 K/uL [facility] RDW-CV [facility] MPV [facility] MDW [facility] Neutrophils 71.3 31.0 - 76.0 % [facility] Lymphocytes [facility] Monocytes [facility] Eosinophil 4.0 0.1 - 4.0 % [facility] Basophils [facility] Neutrophil # 4.30 1.50 - 8.00 K/uL [facility] Lymphocytes # [facility] Monocyte # [facility] Eosinophil # 0.20 0.00 - 0.70 K/uL [facility] Basophil # [facility] Nucleated RBC [facility] Nucleated RBC # [facility] WBC [facility] Nucleated RBCs [facility] Total Cells Counted [facility] Blood BLOOD SPECIMEN / Unknown 08/08/2024 11:00 AM EDT us Brenda Bundy MD [facility] Final Result [facility] [address] [place], [place] [phone] * C-REACTIVE PROTEIN (08/01/2024 10:00 AM EDT) C-Reactive Protein 3 mg/dL [facility] Blood BLOOD SPECIMEN / Unknown 08/01/2024 10:00 AM EDT us Brenda Bundy MD [facility] Final Result Performing Organization Address [facility]/ZIP Co de Phone Number [facility] [address] [place], [place] [phone] * (ABNORMAL) CREATININE (08/01/2024 10:00 AM EDT) Creatinine 0.30(A) 0.70 - 1.30 mg/dL [facility] Blood BLOOD SPECIMEN / Unknown 08/01/2024 10:00 AM EDT us Brenda Bundy MD [facility] Final Result [facility] [address] [place], [place] [phone] * (ABNORMAL) CREATINE KINASE (08/01/2024 10:00 AM EDT) Creatine Kinase 28(A) 30 - 233 IU/L [facility] Blood BLOOD SPECIMEN / Unknown 08/01/2024 10:00 AM EDT Brenda Bundy MD [facility] Final Result Performing Organization Address [facility] Co de Phone Number [facility] [address] [place] [phone] * (ABNORMAL) COMPLETE BLOOD COUNT W/DIFF (08/01/2024 10:00 AM EDT) WBC 4.9 4.5 - 11.5 K/uL [facility] RBC 3.20(A) 4.50 - 5.90 M/uL [facility] Hemoglobin 9.4(A) 13.9 - 16.3 g/dL [facility] Hematocrit 27.7(A) 41.0 - 53.0 % [facility] MCV [facility] MCH [facility]C [facility] Platelet 333 150 - 400 K/uL [facility] RDW-CV [facility] MPV [facility] MDW [facility] Neutrophils 47.7 31.0 - 76.0 % [facility] Lymphocytes [facility] Monocytes [facility] Eosinophil 5.1(A) 0.1 - 4.0 % [facility] Basophils [facility] Neutrophil # 2.30 1.50 - 8.00 K/uL [facility] Lymphocytes # [facility] Monocyte # [facility] Eosinophil # 0.20 0.00 - 0.70 K/uL [facility] Basophil # [facility] Nucleated RBC [facility] Nucleated RBC # [facility] WBC [facility] Nucleated RBCs [facility] Total Cells Counted [facility] Blood BLOOD SPECIMEN / Unknown 08/01/2024 10:00 AM EDT Brneda Bundy MD [facility] Final Result Performing Organization Address [facility]/ZIP Co de Phone Number [facility] [address] [place] [address] * C-REACTIVE PROTEIN (07/25/2024 9:38 AM EDT) C-Reactive Protein 4.3 mg/dL [facility] Blood BLOOD SPECIMEN / Unknown 07/25/2024 9:38 AM EDT Brenda Bundy MD [facility] Final Result Performing Organization Address [facility]/ZIP Co de Phone Number [facility] [address] [place] [phone] * (ABNORMAL) CREATININE (07/25/2024 9:38 AM EDT) Creatinine 0.30(A) 0.70 - 1.30 mg/dL [facility] Blood BLOOD SPECIMEN / Unknown 07/25/2024 9:38 AM EDT Brenda Bundy MD [facility] Final Result Performing Organization Address [facility] Co de Phone Number [facility] [address] [place] [phone] * CREATINE KINASE (07/25/2024 9:38 AM EDT) Creatine Kinase 30 30 - 233 IU/L [facility] Blood BLOOD SPECIMEN / Unknown 07/25/2024 9:38 AM EDT Brenda Bundy MD [facility] Final Result Performing Organization Address [facility] Co de Phone Number [facility] [address] [place], [place] [phone] * (ABNORMAL) COMPLETE BLOOD COUNT W/DIFF (07/25/2024 9:38 AM EDT) WBC 7.9 4.5 - 11.5 K/uL [facility] RBC 3.40(A) 4.50 - 5.90 M/uL [facility] Hemoglobin 9.9(A) 13.9 - 16.3 g/dL [facility] Hematocrit 29.4(A) 41.0 - 53.0 % [facility] MCV [facility] MCH [facility] M[facility]C [facility] Platelet 522(A) 150 - 400 K/uL [facility] RDW-CV [facility] MPV [facility] MDW [facility] Neutrophils 61.3 31.0 - 76.0 % [facility] Lymphocytes [facility] Monocytes [facility] Eosinophil 5.3(A) 0.1 - 4.0 % [facility] Basophils [facility] Neutrophil # 4.80 1.50 - 8.00 K/uL [facility] Lymphocytes # [facility] Monocyte # [facility] Eosinophil # 0.40 0.00 - 0.70 K/uL [facility] Basophil # [facility] Nucleated RBC [facility] Nucleated RBC # [facility] WBC [facility] Nucleated RBCs [facility] Total Cells Counted [facility] Blood BLOOD SPECIMEN / Unknown 07/25/2024 9:38 AM EDT us Brenda Bundy MD [facility] Final Result [facility] [address] [place] [address] * C-REACTIVE PROTEIN (07/18/2024 10:00 AM EDT) C-Reactive Protein 9 mg/dL [facility] Blood BLOOD SPECIMEN / Unknown 07/18/2024 10:00 AM EDT Brenda Bundy MD [facility] Final Result [facility] [address] [place] [address] * (ABNORMAL) CREATININE (07/18/2024 10:00 AM EDT) Creatinine 0.40(A) 0.70 - 1.30 mg/dL [facility] Blood BLOOD SPECIMEN / Unknown 07/18/2024 10:00 AM EDT us Brenda Bundy MD [facility] Final Result [facility] [address] [place] [phone] * CREATINE KINASE (07/18/2024 10:00 AM EDT) Creatine Kinase 35 30 - 233 IU/L [facility] Blood BLOOD SPECIMEN / Unknown 07/18/2024 10:00 AM EDT Brenda Bundy MD [facility] Final Result Performing Organization Address [facility]/ZIP Co de Phone Number [facility] [address] [place] [address] * (ABNORMAL) COMPLETE BLOOD COUNT W/DIFF (07/18/2024 10:00 AM EDT) WBC 6.5 4.5 - 11.5 K/uL [facility] RBC 2.90(A) 4.50 - 5.90 M/uL [facility] Hemoglobin 8.9(A) 13.9 - 16.3 g/dL [facility] Hematocrit 25.7(A) 41.0 - 53.0 % [facility] MCV [facility] MCH [facility] MCHC [facility] Platelet 360 150 - 400 K/uL [facility] RDW-CV [facility] MPV [facility] MDW [facility] Neutrophils 67.7 31.0 - 76.0 % [facility] Lymphocytes [facility] Monocytes [facility] Eosinophil 4.6(A) 0.1 - 4.0 % [facility] Basophils [facility] Neutrophil # 4.40 1.50 - 8.00 K/uL [facility] Lymphocytes # [facility] Monocyte # [facility] Eosinophil # 0.30 0.00 - 0.70 K/uL [facility] Basophil # [facility] Nucleated RBC [facility] Nucleated RBC # [facility] WBC [facility] Nucleated RBCs [facility] Total Cells Counted [facility] Blood BLOOD SPECIMEN / Unknown 07/18/2024 10:00 AM EDT us Brenda Bundy MD [facility] Final Result Performing Organization Address [facility]/ZIP Co de Phone Number [facility] [address] [place] [address] documented in this encounter Visit Diagnoses Not on filedocumented in this encounter Care Teams Freelance Director Relationship Specialty Start Date End Date Reed Birmingham MD [address] [place] [address] PCP - General Internal Medicine 04/13/15 Destiny Osborn, MARY-PIN INSERTER [address] [place] [place] [address] [phone] DIGITAL PROJECT MANAGER Infectious Diseases 08/13/24 Marcos Beauchamp MD [address] [place] [address] [phone] Physician Orthopaedics 08/13/24 Brenda Bundy MD [address] [place] [address] [phone] Physician Infectious Diseases 09/10/24 documented as of this encounter
--- OUTSIDE RECORDS SUMMARY | 2025-01-11 11:13 | XMS_ITS | Encounter Summary ---
Author Organization [facility] Address [address] [place] [phone] Care Team Providers Care Manager Statistics Name Role Phone Nancy Denson Jose Eduardo Thompsonius Primary Care Provi shamir Source Comments In the event this information is protected by the Federal Confidentiality of Alcohol and Drug AbusePatient Records regulations: The Federal rules restrict any use of the information to criminally investigate or prosecute any alcohol or drug abuse patient.[facility] Encounter Details Date Type Department Care Team (Late st Contact Info) Description 09/01/2023 Lab Requisition [facility] [address] [place] [phone] Sam Smith [address] [place] [phone] Social History Tobacco Use Types Packs/Day Years [...] (1-100), lower number is lower ri sk Not on file 04/17/2020 State Score (1-10), lower number is lower risk N ot on file 04/17/2020 Data from: https://www.neighborhoodatlas.medicine.[facility]/. Last address used for calculation Not on file 04/17/2020 Sex and Gender Information Value Date Recorded [...] Procedure Name Priority Date/Time Associated Diagnosis Comments ANTIMICROBIAL SUSCEPT-ANAEROBE Routine 08/23/2023 11:15 AM EDT ORGANISM JACQUELYN Routine 08/23/2023 11:15 AM EDT documented in this encounter Results * ANTIMICROBIAL SUSCEPT-ANAEROBE (08/23/2023 11:15 AM EDT) Final Report SEE NOTE 09/08/2023 7:13 AM EDT [facility] [facility] Comment: Prevotella bivia Organism identified by client INTERPRETIVE INFORMATION: [...] methodology. Interpret results with caution. Performed By: [facility] [address] [place] [address] Hotel Breakfast Attendant: Franklin Bishop MD, PhD CLIA Number: [id number] Micro Specimen HIP JOINT SYNOVIAL FLUID / Unknown 08/23/2023 11:15 AM EDT 09/01/2023 3:52 AM EDT [facility] Final Res ult [facility] [address] [place] [address] * (ABNORMAL) ORGANISM JACQUELYN (08/23/2023 11:15 AM EDT) Culture, Organism JACQUELYN Result Prevotella bivia(A) MINIMUM INHIBITORY CONCENTRATION ([place]) 09/08/2023 2:54 PM EDT [facility] Comment: Identification performed by client. Susceptibility results have been completed by [employer]. Beta Lactamase Positive 09/08/2023 2:54 PM EDT [facility] Micro Specimen HIP JOINT SYNOVIAL FLUID / Unknown 08/23/2023 11:15 AM EDT 09/01/2023 3:52 AM EDT us [facility] Final Res ult [facility] [address] [facility] [address] [place] [address], documented in this encounter Visit Diagnoses Not on filedocumented in this encounter Care Teams Manager Statistics Relationship Specialty Start Date End Date Jose Eduardo Cruz Jr., DO [address] [place] [address] PCP - General Emergency Medicine 04/11/19 Cecy from [facility] 05/03/19 documented as of this encounter
[2025-01-11 13:58] LABS: Glucose Urine UA NEGATIVE (NEGATIVE)
[2025-01-11 14:12] LABS: Crystals Seen? Seen #/HPF (None Seen)
[2025-01-11 14:17] LABS: Cast Seen? NONE SEEN #/LPF (NONE SEEN); Urine Culture Indicated ALREADY ORDERED
== END 2025-01-11 11:07 | disposition home or self-care (01) ==
LOC: LAB 11:06
PROVIDERS: Visit Provider Nurse Practitioner Family
DX: N39.0 Urinary tract infection, site not specified (principal)
CPT/HCPCS: 81001; 87086; 87088; 87186